=== PATIENT | female | born 1965 | race Hispanic/Latino ===

== ENCOUNTER 2017-06-09 14:06 | Outpatient (CLI) | payer OTHER ==
--- NOTE | 2017-06-09 22:16 | ULT ---
LOWER EXTREMITY ARTERIAL EVALUATION USING DOPPLER WAVEFORM ANALYSIS AND SEGMENTAL LIMB PRESSURES: Cardiovascular risk factors included diabetes mellitus, dyslipidemia. Examination of the right leg reveals a fairly well preserved Doppler waveforms at all levels. Ankle -arm index is 1.03. Toe-brachial index is normal at 0.82. Left lower extremity demonstrates mildly depressed waveforms at the femoral level, but more normaliz ed waveforms at the popliteal and pedal level with an ankle-arm index of 0.73 and a toe-brachial ind ex of 0.69. This study would be consistent with mild to moderate peripheral arterial disease in the left lower e xtremity and could be consistent with a history of claudication. Study is not consistent with ische nuzhat rest pain in either lower extremity.
== END 2017-06-09 14:07 | disposition home or self-care (01) ==
LOC: ULT 14:06
PROVIDERS: ATTEND Physician Assistant
DX: M79.606 Pain in leg, unspecified (principal)
CPT/HCPCS: 93922

== ENCOUNTER 2017-08-04 22:28 | Inpatient (IN) | payer OTHER ==
[2017-08-04 22:58] LABS: #Eosinphils 0.3 thou/uL (0.0-0.7); #Lymphocytes 1.1 thou/uL (1.20-3.40); #Monocytes 0.1 thou/uL (0.11-0.59); #Neutrophils 9.4 thou/uL (1.40-6.50); %Basophils 0.4 % (0.0-1.0); %Eosinophils 2.3 % (0.0-10.0); %Lymphocytes 10.4 % (21.0-51.0); %Monocytes 0.8 % (0.0-10.0); Hematocrit 26.3 % (36.0-47.0); Mean Platelet Volume 8.2 fL (7.4-10.4); Red Blood Cell (RBC) Count 2.71 mill/uL (4.20-5.40); White Blood Cell (WBC) Count 10.9 thou/uL (4.8-10.8)
--- NOTE | 2017-08-04 22:58 | RAD ---
CHEST TWO VIEW 08/04/17 HISTORY: Cough. COMPARISON: Chest one view from January 2017. FINDINGS: New layering left pleural effusion. Underlying left lower lobe opacity or mass cannot be excluded. Th e cardiac silhouette and mediastinal contours are similar. IMPRESSION: Large left layering pleural effusion. Underlying mass or pneumonia cannot be excluded. POS: [facility]
[2017-08-04 23:13] LABS: ALT (SGPT) 18 U/L (8-55); AST (SGOT) 48 U/L (5-34); Alkaline Phosphatase 107 U/L (40-150); Anion Gap 10 mmol/L (10-20); BUN (Urea Nitrogen) 58 mg/dL (9.8-20.1); Bilirubin, Total 0.7 mg/dL (0.2-1.2); Calc. Creatinine Clearance 0 mL/min (70-130); Calcium 8.4 mg/dL (7.8-10.44); Carbon Dioxide 22 mmol/L (22-29); Chloride 102 mmol/L (98-107); Estimated GFR-MDRD 15; Globulin 3.6 g/dL (2.4-3.5); Protein, Total 6.8 g/dL (6.0-8.3)
[2017-08-04 23:18] LABS: Troponin I 0.041 ng/mL (< 0.028)
[2017-08-04 23:30] LABS: Bilirubin Negative (Negative); Blood, Urine Moderate (Negative); Glucose, Urine (Dipstick) 250 mg/dL (Negative); Ketone, Urine Negative (Negative); Nitrite Negative (Negative); Protein, Urine (Dipstick) 300 mg/dL (Neg-Trace)
[2017-08-04 23:33] LABS: Bacteria/HPF None Seen HPF (None Seen); Hyaline Casts/LPF 0-3 HYALINE CAST LPF (0-3 Hyaline); Squamous Epithelial 0-3 HPF (0-3)
[2017-08-05] MEDS ORDERED: Azithromycin 500 MG in Sodium Chloride 0.9% 250 ML 250 ML IVPB SCH (00:30)
[2017-08-05] MEDS ORDERED: Ondansetron HCl/PF 4 MG/2 ML Vial IVP PRN (01:31)
[2017-08-05] MEDS ORDERED: Sodium Chloride 0.9% 1,000 ML IV SCH (01:31)
[2017-08-05] MEDS ORDERED: Acetaminophen 325 MG TAB PO PRN (01:31)
[2017-08-05] MEDS ORDERED: Ondansetron ODT 4 MG TAB SL PRN (01:31)
[2017-08-05 01:34] LABS: Lactic Acid - Sepsis 1.1 mmol/L (0.5-2.2)
[2017-08-05] MEDS ORDERED: Dextrose 5% in Water 1,000 ML IV PRN (01:47)
[2017-08-05] MEDS ORDERED: Dextrose 50% Abboject 50 ML SYRINGE SLOW IVP PRN (01:47)
[2017-08-05] MEDS ORDERED: Sodium Chloride 0.9% 500 ML IV SCH (02:15)
[2017-08-05] MEDS ORDERED: Albuterol Sulfate 1.25 MG/3 ML NEB NEB PRN (02:34)
[2017-08-05 02:43] LABS: Base Excess -5.8 mEq/L (0 (+/- 2.5)); O2 Content (venous) 8.9 VOL% (12.5-17.5); pH (venous) 7.28 (7.35-7.45)
[2017-08-05 02:54] LABS: Phosphorus 3.5 mg/dL (2.3-4.7)
[2017-08-05 02:57] LABS: Troponin I 0.029 ng/mL (< 0.028)
[2017-08-05 03:02] LABS: ALT (SGPT) 17 U/L (8-55); AST (SGOT) 40 U/L (5-34); Alkaline Phosphatase 88 U/L (40-150); Anion Gap 11 mmol/L (10-20); BUN (Urea Nitrogen) 57 mg/dL (9.8-20.1); Bilirubin, Total 0.4 mg/dL (0.2-1.2); Calc. Creatinine Clearance 17 mL/min (70-130); Calcium 7.9 mg/dL (7.8-10.44); Carbon Dioxide 21 mmol/L (22-29); Chloride 105 mmol/L (98-107); Cholesterol 134 mg/dl (< 200 Desired); Estimated GFR-MDRD 16; Globulin 3.1 g/dL (2.4-3.5); LDL Cholesterol, Calculated 85 mg/dL; Protein, Total 5.9 g/dL (6.0-8.3)
[2017-08-05 03:10] LABS: Hematocrit 22.1 % (36.0-47.0); Mean Platelet Volume 7.6 fL (7.4-10.4); Red Blood Cell (RBC) Count 2.29 mill/uL (4.20-5.40)
[2017-08-05 03:29] LABS: Hemoglobin A1c 8.6 % (4.0-6.0)
[2017-08-05 03:56] LABS: Oxyhemoglobin 95.7 % (94.0-97.0); Sodium 133 mmol/L (135-148)
[2017-08-05 03:57] LABS: Mode ROOM AIR
[2017-08-05 05:08] LABS: Troponin I 0.029 ng/mL (< 0.028)
--- NOTE | 2017-08-05 05:14 | HP-2 ---
DATE OF ADMISSION: 08/05/2017 LOCATION: [facility] in [place], [place]. CODE STATUS: FULL. PRIMARY CARE PHYSICIAN: [facility] ATTENDING PHYSICIAN: Dr. Espinoza [place] RESIDENT PHYSICIAN: Dr. Osman Conner HISTORIAN: Patient and patient's daughter. SPECIALIST: Dr. Mika Fernandez, Nephrology. CHIEF COMPLAINT: Cough and shortness of breath, weakness, headache, fatigue, muscle aches, joint ach es. HISTORY OF PRESENT ILLNESS: The patient is a 52-year-old female with a past medical history of coron yari artery disease status post CABG x4, status post stent x4, hypothyroid, stage 3 CKD, anemia, and t ype 2 diabetes and ischemic cardiomyopathy who presented to the ER with the chief complaint of 3-day history of worsening shortness of breath and cough productive for a white mucus. The patient states these symptoms have been going on the last 3 days and progressively worsening. She denies any chest pain, nausea, vomiting, and diaphoresis. Reports decreased p.o. intake, decreased fluid intake over the last 3 days. Denies ill contacts. The patient reports that she has been taking her medication r egularly. The patient denies any dysuria, polyuria, or decrease in urinary frequency. ER COURSE: Patient was given Rocephin, azithromycin and 81 mg of aspirin. PAST MEDICAL HISTORY: 1. Coronary artery disease status post coronary artery bypass graft x4. 2. Hypothyroidism. 3. Chronic kidney disease 3. 4. Anemia. 5. Type 2 diabetes. 6. Ischemic cardiomyopathy. PAST SURGICAL HISTORY: 1. CABG x4. 2. Appendectomy. 3. Right shoulder arthroscopy with rotator cuff repair. ALLERGIES: No known drug allergies. The patient was taken off of Crestor secondary to cramps in the past. MEDICATIONS: 1. Januvia 25 mg daily. 2. Coreg 12.5 mg b.i.d. 3. Aspirin 81 mg daily. 4. Levothyroxine 100 mcg q.a.m. 5. Ferrous sulfate 325 mg per day. FAMILY HISTORY: Paternal diabetes. SOCIAL HISTORY: Nonsmoker, nondrinker, no drugs. REVIEW OF SYSTEMS: GENERAL: Patient complains of appetite change and fatigue. Denies night sweats, fever, and chills. EYES: Denies vision changes or eye pain. ENT: Denied nasal congestion, rhinorrhea, sore throat. RESPIRATORY: The patient complains of cough and shortness of breath. Denies congestion. CARDIOVASCULAR: Denies chest pain, palpitations or edema. GI: Denies nausea, vomiting, constipation. Complains of diarrhea. Denies abdominal pain. GENITOURINARY: Denies dysuria, incontinence, polyuria or decreased urinary frequency. MUSCULOSKELETAL: Complains of arthritis and arthralgias. NEUROLOGIC: Complains of weakness. Denies numbness, tingling or syncopal episodes. PSYCHIATRIC: Denies anxiety, depression. PHYSICAL EXAMINATION: VITAL SIGNS: Blood pressure 133/68, pulse 68, respiratory rate 14, T-max 97.9, pulse ox 100% on room air, current weight 49 kilograms. GENERAL: The patient is alert, oriented, and moderately distressed, well-developed, thin, appropriat stacy interactive. EYES: Pupils equal, round, react to light and accommodation. Extraocular muscles intact. Conjuncti vae within normal limits. ENT: Oropharynx within normal limits. NECK: Supple, without lymphadenopathy. No thyromegaly. CARDIAC: Regular rate and rhythm. No murmurs, rubs or gallops. Radial pulse 2+. Pedal pulse 2+. RESPIRATORY: Normal effort, no retractions. Diminished breath sounds in the left lower lobe. SKIN: Warm and dry. No cyanosis. ABDOMEN: Soft, nontender. Normoactive bowel sounds in all 4 quadrants. No masses, distention, orga nomegaly. EXTREMITIES: No clubbing, cyanosis or edema. MUSCULOSKELETAL: Structure within normal, tone within normal limits. Strength 5/5. NEUROLOGICAL: No focal deficits. Sensation within normal limits. GCS 15. PSYCHIATRIC: Appropriately interactive. LABORATORY DATA: White blood cell 10.9, hemoglobin 8.8, hematocrit 26.3, platelets 124, Sodium 129, potassium 5.4, chloride 102, bicarbonate 22, BUN 58, creatinine 3.29, glucose 414, calcium 8.4, total protein 6.8, albumin 3.2, AST 48, ALT 18, alkaline phosphatase 107, total bilirubin 0.7. Estimated GFR 15. A rapid flu was negative for flu A and B. CK-MB 17.1, troponin 0.041. BNP is 684.9. TSH w as 10.2215. UA done showed specific gravity 1.017, moderate amount of blood, 300 protein, small amou nt of leukocyte esterase, negative nitrites, negative ketones, glucose 250, RBCs 4-6, white blood spike ls too numerous to count, and no bacteria. Chest x-ray showed a large left layering pleural effusion, underlying mass or pneumonia cannot be exc luded. ASSESSMENT AND PLAN: 1. Weakness, concern for possible myocardial infarction. Given the patient's history, we will trend troponins x3. The patient will be admitted to telemetry as a full admit. We will check a magnesium , phosphorus, and TSH has already been done and was elevated. We will check a free T4. The patient will be started on levothyroxine 125 mcg per day. Consider Cardiology consult pending troponins. We will get a morning echocardiogram. Results are pending. 2. Acute on chronic renal failure. BUN 58, creatinine 3.29, estimated GFR 15. The patient's prior creatinine was approximately 1.6-1.8 with a prior GFR around 30. The patient will be given a 500 mL normal saline bolus. We will repeat BMP and consider Nephrology consult if patient is showing any wo rsening of her electrolyte abnormalities. Currently, sodium is 129, potassium 5.4. 3. Anemia, chronic. MCV is 97.1. Check iron studies. The patient will be typed and screened. Tra nsfuse if less than 7. 4. Leukocytosis, currently 10.9. The patient has some leukocytes in her urine as well as sterile py uria. Unlikely urinary tract infection. The patient entirely asymptomatic. We will give a 500 mL b olus. Recheck CBC. The patient was given Rocephin and azithromycin in the ED. Possible lung etiolo gy; however, the patient is afebrile and shows no signs of acute infection otherwise. 5. Hyponatremia. We will give a 500 mL normal saline bolus. Recheck a BMP in the a.m. 6. Hyperkalemia, currently 5.4, not associated with any EKG changes. We will recheck a BNP in the orning after a 500 mL bolus of normal saline. 7. Diabetes mellitus type 2. Glucose currently 414. The patient states she has been taking her med ication regularly and also has not been eating as much over the last 3 days. We will bolus 500 mL no rmal saline. The patient will be started on her reported home dose of Levemir at 2 units at bedtime as well as a mild sliding scale insulin. Accu-Cheks q.a.c. and at bedtime. 8. Hypothyroid, the patient's TSH is 10.2215, we will recheck a free T4. The patient will be starte d on levothyroxine 125 mcg per day. 9. Transaminitis. AST 48. Check CK. Results pending. Consider further workup pending CK results. Repeat CMP. 10. Elevated BNP, currently 684.9. Prior admissions show highest of 1880 with levels chronically be tween 300 to 500. The patient shows no evidence of volume overload. She has known history of ischemic cardiomyopathy and an echocardiogram done on 10/2015 showed an EF o f approximately 10%; however, this was prior to her coronary artery bypass graft surgery. 11. Protein calorie malnutrition, albumin 3.2. Repeat CMP. Consider supplement versus renal rest. 12. Prophylaxis: Pepcid 20 mg IV q.12 hours and SCDs for GI and DVT prophylaxis respectively.
[2017-08-05] MEDS: Levothyroxine Sodium 125 MCG TAB PO SCH (06:03)
[2017-08-05 06:31] LABS: LegU Control Bar Appear? YES (CONTROL BAR); LegionellaU Control Bkground? CLEAR/WHITE (CLR/WHITE); Strp pneuU Control Background? CLEAR/WHITE (CLR/WHITE); Strp pneumo Control Bar Appear YES (CONTROL BAR)
[2017-08-05 07:51] LABS: Hematocrit 24.6 % (36.0-47.0)
[2017-08-05 08:11] LABS: Anion Gap 9 mmol/L (10-20); BUN (Urea Nitrogen) 57 mg/dL (9.8-20.1); Calc. Creatinine Clearance 18 mL/min (70-130); Calcium 8.1 mg/dL (7.8-10.44); Carbon Dioxide 23 mmol/L (22-29); Chloride 106 mmol/L (98-107); Estimated GFR-MDRD 17
[2017-08-05] MEDS ORDERED: Famotidine/PF 20 mg/2ml Vial SLOW IVP SCH (09:00)
[2017-08-05] MEDS ORDERED: Aspirin 325 MG TAB PO SCH (09:00)
[2017-08-05] MEDS: Famotidine/PF 20 mg/2ml Vial SLOW IVP SCH (13:31)
--- NOTE | 2017-08-05 14:28 | ULT ---
BILATERAL RENAL SONOGRAM: Date: 08/05/17 HISTORY: Renal insufficiency. COMPARISON: 01/06/16. FINDINGS: The right kidney is now 9.8 cm in length. Hydronephrosis of the right kidney is similar in appearance to the prior exam. Diffuse cortical thinning is also evident. The left kidney is 9.9 cm in length and has a normal sonographic appearance without evidence of mass, stone, or hydronephrosis. Urinary bladder is unremarkable. Left pleural fluid is incidentally noted. IMPRESSION: 1. Chronic right hydronephrosis, similar in appearance to the exam from 01/06/16. 2. Left pleural effusion. POS: [facility]
[2017-08-05 15:33] LABS: BF Reference Range Comment Note:
[2017-08-05 16:33] LABS: BF Color Yellow
[2017-08-05 17:47] LABS: Number Cells Counted-Fluids 100
[2017-08-05] MEDS: Lovastatin 20 MG TAB PO SCH (18:14)
[2017-08-05] MEDS: PRE FILLED SC SCH ×2 (20:49→20:54)
[2017-08-05] MEDS: INSULIN DETEMIR SC SCH ×2 (20:49→20:54)
[2017-08-05] MEDS ORDERED: Atorvastatin Calcium 40 MG TAB PO SCH (21:00)
--- NOTE | 2017-08-05 21:43 | OP ---
DATE OF SERVICE:: 08/05/2017 SERVICE: Pulmonary Medicine. PROCEDURE: Left-sided pleural drainage with catheter insertion, under ultrasound guidance. CONSENT: Risks and benefits of this procedure were explained to the patient. All questions were ans wered and alternative options explained. STAFF PHYSICIAN: Steve Lovett M.D. MEDICATIONS: 1% without epinephrine, total quantity 6 mL PREOPERATIVE DIAGNOSIS: Pleural effusion. POSTPROCEDURE DIAGNOSIS: Pleural effusion. DESCRIPTION OF PROCEDURE: A timeout was performed by the procedure team and the patient. The patien t was positively identified using name and date of . The procedure site was marked. Vital sign monitoring was accomplished by noninvasive hemodynamic monitoring, pulse oximetry, and telemetry. I n the seated position, the right posterior hemithorax was examined using ultrasound probe. The diaph ragm pleural fluid was easily identified. The skin was prepped and draped in sterile fashion, anesth etized with 1% lidocaine without epinephrine. A finder needle was inserted into the pleural space wi th return of crystal clear yellow fluid. The pleural drainage catheter was inserted in the same loca tion. A total quantity of 800 mL of pleural fluid was withdrawn by syringe pump technique. A sample was sent for analysis. Evacuation was terminated because the patient had a coughing fit and started complaining of discomfort and difficulty breathing. At the end of the procedure, estimated pleural pressures were -20 cm of water, measured by manometry. The intact catheter was withdrawn on exhalati on and a sterile dressing was applied. The patient had stable vitals throughout the entire procedure . ESTIMATED BLOOD LOSS: 2 mL COMPLICATIONS: None.
--- NOTE | 2017-08-05 22:02 | CON ---
NEPHROLOGY CONSULTATION NOTE DATE OF CONSULTATION: 08/05/2017 CONSULTING PHYSICIAN: Dr. Espinoza [place]. REASON FOR CONSULTATION: Acute kidney injury. REASON FOR ADMISSION: Cough and shortness of breath. HISTORY OF PRESENT ILLNESS: A 52-year-old female with history of coronary artery disease, CABG, hypo thyroidism, stage 3 kidney disease, anemia and type 2 diabetes, came to the hospital with the above c omplaints. She was found to have an elevated creatinine. The patient has seen me in the past. No f ever or chills. No nausea or vomiting. No chest pain or palpitations. PAST MEDICAL HISTORY: Positive for coronary artery disease, hypothyroidism, chronic kidney disease, anemia, type 2 diabetes, ischemic cardiomyopathy. PAST SURGICAL HISTORY: CABG, appendectomy and right shoulder surgery. HOME MEDICATIONS: Januvia, Coreg, aspirin, levothyroxine and ferrous sulfate. ALLERGIES: No known drug allergies. SOCIAL HISTORY: No smoking, alcohol or illicit drug abuse. FAMILY HISTORY: Positive for diabetes. REVIEW OF SYSTEMS: The following complete review of systems was negative, unless otherwise mentioned in the HPI or below: Constitutional: Weight loss or gain, ability to conduct usual activities. Skin: Rash, itching. Eyes: Double vision, pain. ENT/Mouth: Nose bleeding, neck stiffness, pain, tenderness. Cardiovascular: Palpitations, dyspnea on exertion, orthopnea. Respiratory: Shortness of breath, wheezing, cough, hemoptysis, fever or night sweats. Gastrointestinal: Poor appetite, abdominal pain, heartburn, nausea, vomiting, constipation, or diarr hea. Genitourinary: Urgency, frequency, dysuria, nocturia. Musculoskeletal: Pain, swelling. Neurologic/Psychiatric: Anxiety, depression. Allergy/Immunologic: Skin rash, bleeding tendency. PHYSICAL EXAMINATION: GENERAL: This is a thin-built female in no apparent distress. VITAL SIGNS: Temperature 97.7, pulse 64, respiratory rate 18 and blood pressure 130/63. HEENT: Atraumatic and normocephalic. Oral mucosa is moist. NECK: Supple. No masses. CARDIOVASCULAR SYSTEM: S1 and S2. Rate and rhythm regular. RESPIRATORY: Clear. GASTROINTESTINAL: Abdomen is soft. MUSCULOSKELETAL: 1+ edema. DERMATOLOGIC: No skin rash. NEUROLOGIC: Alert and awake. PSYCHIATRIC: Mood and affect are normal. LABORATORY FINDINGS: Potassium is 4.9, BUN is 57 and creatinine is 2.9. ASSESSMENT AND PLAN: 1. Acute kidney injury on chronic kidney disease stage 4. Renal function seems to be close to basel ine. The patient is noncompliant, has not followed up as outpatient and seems like she has some prog ression of kidney disease too. 2. Edema, controlled. 3. Hypertension. 4. Anemia, most likely from chronic disease, rule out iron deficiency. Plan is to continue on hydration and avoid nephrotoxins. We will follow. Renally dose all the medic loyd. Thank you for the consult.
--- NOTE | 2017-08-05 22:04 | HP ---
DATE OF ADMISSION: 08/05/2017 CHIEF COMPLAINT: Shortness of breath. HISTORY OF PRESENT ILLNESS: This is a 52-year-old female with a history of chronic kidney disease, c oronary artery disease, status post CABG in earlier this year who presents with 1 day history of coug h, congestion, fatigue, shortness of breath for which she came to the ED. In the ED, she felt like t hese symptoms were progressive not associated with any chest pain, but she did have some fever and ch ills. In the ED, she was found to have a large left layering pleural effusion and decision was made to admit her to the hospital in addition to her worsening renal failure. REVIEW OF SYSTEMS: All other systems are reviewed and otherwise negative. PAST MEDICAL HISTORY: Significant for hypertension, hyperlipidemia, coronary artery disease, diabete s type 2, hypothyroidism, chronic kidney disease stage 3, anemia of chronic disease. PAST SURGICAL HISTORY: 1. CABG 4-vessel. 2. Appendectomy. 3. Right shoulder surgery. ALLERGIES: No known drug allergies. MEDICATIONS: Januvia, Coreg, aspirin, levothyroxine and ferrous sulfate. FAMILY HISTORY: Paternal diabetes. SOCIAL HISTORY: She denies tobacco, ethanol or drug use. PHYSICAL EXAMINATION: VITAL SIGNS: Most recent vitals include temperature 98.2, pulse 66, respirations 18, O2 sat on room air 99%, blood pressure 113/59. GENERAL: No acute distress, she is tired appearing. HEENT: Eyes: Without icterus or injection. Pupils equal, round and reactive to light. Moist mucou s membranes with appropriate dentition and is normal. Nares patent. NECK: Trachea midline, mobile without any thyromegaly. CARDIOVASCULAR: Regular rate and rhythm. No murmurs, gallops or rubs. She does have faint heart so unds. PULMONARY: No increased work of breathing. Clear to auscultation on the left with expiratory wheezi ng, but she is diminished overall on the left side. GASTROINTESTINAL: Bowel sounds positive. Nontender to palpation. No palpable organomegaly. GENITOURINARY: Deferred. MUSCULOSKELETAL: Without any obvious deformity, contracture or joint effusion. NEUROLOGIC: Cranial nerves II-XII intact and symmetric. Motor 5/5 in upper and lower extremities. Sensation in left intact to light touch in upper and lower extremities. SKIN: Without obvious wound or infection, Warm and dry to touch. PSYCHIATRIC: Alert and oriented x3. Appropriate mood and affect for current medical condition. LABORATORY DATA: Include white count 10.9, hemoglobin of 8.8, platelets 124. Blood gas with a pH of 7.37, CO2 of 34.9, O2 of 72.9, sodium 133, potassium 4.9, gap 9, BUN 57, creatinine 2.91, glucose 14 6. Troponin 0.029, urine protein 300, glucose 250, moderate blood, small leukocyte esterase and grea ter than 50 white blood cells. Toxicology, beta hydroxybutyrate 0.33, negative strep and legionella urine antigens. Chest x-ray on my read is adequate inspiratory film that is not rotated with history of previous CABG. No obvious infiltrate. She does have what appears to be an effusion of the left with no blunting on the right. On [id number] ultrasound, she does have decreased LV systolic func tion with no obvious pericardial effusion and she has a large echolucent left-sided pleural effusion that does not appear to have any layering or debris. ASSESSMENT AND PLAN: This 52-year-old female with: 1. Left-sided pleural effusion. We will go ahead and consult Pulmonology and likely order additiona l imaging and consider thoracentesis for diagnostic and therapeutic purposes. 2. Acute on chronic renal disease. We will discuss with Nephrology. Order renal ultrasound and go ahead and order urine studies. 3. Leukocytosis. I feel this is a stress reaction which sounds like she had viral upper respiratory infection symptoms in the last couple of days. We will order a viral panel and she has already shona en ceftriaxone and azithromycin, then at this point pending pulmonary recommendation, we will hold of f on any additional antibiotics. 4. Hyponatremia is normal when corrected for glucose. 5. Diabetes mellitus, sliding scale while in-house, with transition to long-acting if necessary. Go al 140-180. 6. Anemia, stable, trend. 7. Thrombocytopenia. This is new to my knowledge. We will go ahead and order appropriate workup in cluding hepatitis panel for this. 8. Rhabdomyolysis with her creatine kinase of 1275. We will repeat in the morning. She has receive d 500 mL bolus. Await for renal, but gentle hydration will likely be okay for now. 9. Hypothyroidism with a TSH of 10 and a free T4 that is negative. We will go ahead and restart her Synthroid at previous dose where it was reportedly well controlled. 10. Elevated AST, so this is likely related to the elevated CK, but will send hepatitis panel in the morning. 11. Elevated CK-MB. See previous. 12. Elevated troponin likely related to renal failure with no evidence of ischemic changes on ECG, w hich just demonstrated poor R-wave progression and low voltage. 14. DVT prophylaxis with heparin. 15. Gastrointestinal prophylaxis with diet.
[2017-08-06] MEDS: HumaLOG 300 UNITS/3 ML VIAL SC PRN (00:39)
[2017-08-06] MEDS ORDERED: Azithromycin 500 MG in Sodium Chloride 0.9% 250 ML 250 ML IVPB SCH (01:00)
[2017-08-06 01:09] LABS: Potassium, Urine 34.2 mmol/L
[2017-08-06] MEDS: Benzonatate 100 MG CAP PO PRN ×2 (02:49→21:19)
[2017-08-06] MEDS: Levothyroxine Sodium 125 MCG TAB PO SCH (05:25)
[2017-08-06 05:51] LABS: Band 5 % (5-11); Hematocrit 28.5 % (36.0-47.0); Mean Platelet Volume 7.9 fL (7.4-10.4); Neutrophil 61 % (42-75); Red Blood Cell (RBC) Count 2.94 mill/uL (4.20-5.40); White Blood Cell (WBC) Count 7.1 thou/uL (4.8-10.8)
[2017-08-06 05:54] LABS: Anion Gap 11 mmol/L (10-20); BUN (Urea Nitrogen) 52 mg/dL (9.8-20.1); Calc. Creatinine Clearance 20 mL/min (70-130); Calcium 8.7 mg/dL (7.8-10.44); Carbon Dioxide 22 mmol/L (22-29); Chloride 108 mmol/L (98-107); Estimated GFR-MDRD 20
[2017-08-06] MEDS: Ferrous Sulfate 325 MG TAB PO SCH (07:53)
[2017-08-06] MEDS: Clopidogrel Bisulfate 75 MG TAB PO SCH (07:53)
[2017-08-06] MEDS: Famotidine/PF 20 mg/2ml Vial SLOW IVP SCH (07:53)
--- NOTE | 2017-08-06 08:27 | PDOC.FM ---
- Subjective Subjective: Pt seen at bedside in NAD. ESTEBAN overnight, hoewver, pt did have episode of hypoglycemia this AM. Pt notes she feels well and much better than presentation. Pt voices desire to go home. Pt denies CP, SOB, NVD. - Objective MAR Reviewed: Yes Vital Signs & Weight: Vital Signs (12 hours) Temp Pulse Resp BP Pulse Ox 08/06/17 08:00 98.7 F 67 18 97 08/06/17 07:35 98.7 F 67 18 122/58 L 97 08/06/17 04:19 98.4 F 71 18 115/59 L 97 08/06/17 00:11 98.1 F 64 16 113/57 L 98 Weight Admit Weight 49.85 kg Weight 49.487 kg I&O: 08/05/17 08/06/17 08/07/17 06:59 06:59 06:59 Intake Total 700 480 Output Total 800 Balance 700 -320 Result Diagrams: 08/06/17 05:07 08/06/17 05:07 <Jadon Alvarado - Last Filed: 08/06/17 10:59> - Objective Vital Signs & Weight: Vital Signs (12 hours) Temp Pulse Pulse Pulse Resp BP BP 08/06/17 11:35 98.2 F 60 18 08/06/17 10:55 64 75 102/56 L 117/56 L 08/06/17 08:00 98.7 F 67 18 08/06/17 07:35 98.7 F 67 18 08/06/17 04:19 98.4 F 71 18 BP Pulse Ox 08/06/17 11:35 113/60 100 08/06/17 10:55 08/06/17 08:00 97 08/06/17 07:35 122/58 L 97 08/06/17 04:19 115/59 L 97 Weight Admit Weight 49.85 kg Weight 49.487 kg I&O: 08/05/17 08/06/17 08/07/17 06:59 06:59 06:59 Intake Total 700 480 Output Total 800 Balance 700 -320 Result Diagrams: 08/06/17 05:07 08/06/17 05:07 <Espinoza Cuba - Last Filed: 08/06/17 12:25> Phys Exam - Physical Examination Constitutional: NAD thin, weak appearing HEENT: oral pharynx no lesions poor dentition poor inspiratory effort but good air movement, minimal crackes LLL Cardiovascular: RRR Gastrointestinal: soft, non-tender Musculoskeletal: pulses present Neurological: non-focal, moves all 4 limbs generalized weakness Psychiatric: A&O x 3 Skin: cap refill <2 seconds <Jadon Alvarado - Last Filed: 08/06/17 10:59> Dx/Plan (1) Pleural effusion Code(s): J90 - PLEURAL EFFUSION, NOT ELSEWHERE CLASSIFIED Status: Acute Plan: -pt presented with cough and SOB and found to have moderate left pleural effusion -likely 2/2 to sCHF exacerbation, however, unilateral and pt has hx of bilateral effusions -pt tolerated thoracentesis well on 08/05 -fluid appeared clear yellow -initial fluid studies show protein ratio of 0.57 favoring exudative process, however, LDH ratios favor transudate -will await cytology -pulmonology recommendations greatly appreciated -continue to monitor (2) Systolic CHF, acute Code(s): I50.21 - ACUTE SYSTOLIC (CONGESTIVE) HEART FAILURE Status: Acute Plan: -pt has a hx of severe ischemic cardiomyopathy with a previous EF of ~10% -TTE reveals EF 25-30% and increased pulmonary artery pressure -pt subjectively feels better -continue to monitor strict I/Os (3) CKD (chronic kidney disease) stage 4, GFR 15-29 ml/min Code(s): N18.4 - CHRONIC KIDNEY DISEASE, STAGE 4 (SEVERE) Status: Acute Plan: -pt presented with ADRIENNE on CKD4 -improved today with Cr at 2.51, baseline just below 2 -continue to monitor -nephrology recommendations greatly appreciated (4) DM2 (diabetes mellitus, type 2) Status: Chronic QualifierTitle: Diabetes mellitus complication status: with kidney complications Diabetes mellitus complication detail: with chronic kidney disease Diabetes mellitus nurse monitoring insulin use: with nurse monitoring use Chronic kidney disease stage: stage 3 (moderate) Qualified Code(s): E11.22 - Type 2 diabetes mellitus with diabetic chronic kidney disease; N18.3 - Chronic kidney disease, stage 3 (moderate); N18.3 - Chronic kidney disease, stage 3 (moderate) ; Z79.4 - ancillary specialist (current) use of insulin; Z79.4 - long-term (current) use of insulin; Z79.4 - ancillary specialist (current) use of insulin; Z79.4 - ancillary specialist ( current) use of insulin Plan: -hx T2DM with nurse monitoring insulin use -pt generally noncompliant -pt has had episodes of hypoglycemia that resolve with oral intake. poss 2/2 poor intake prior to arrival -continue to monitor closely -hold insulin at this time (5) CAD (coronary artery disease), [place] coronary artery Code(s): I25.10 - ATHSCL HEART DISEASE OF [place] CORONARY ARTERY W/O ANG PCTRS Status: Chronic QualifierTitle: [place] vs. transplanted heart: [place] heart Associated angina: with stable angina Qualified Code(s): I25.118 - Atherosclerotic heart disease of [place] coronary artery with other forms of angina pectoris Plan: -hx CAD s/p 3vCABG (6) Primary hypothyroidism Code(s): E03.9 - HYPOTHYROIDISM, UNSPECIFIED Status: Acute Plan: -increased levothyroxine on admission due to increased TSH and essentially negative free T4 (7) HTN (hypertension) Code(s): I10 - ESSENTIAL (PRIMARY) HYPERTENSION Status: Chronic QualifierTitle: Hypertension type: unspecified Qualified Code(s): I10 - Essential (primary) hypertension Plan: -pt has been normo to borderline hypoTN since admission -continue to monitor and hold antiHTN medications at this time (8) HLD (hyperlipidemia) Code(s): E78.5 - HYPERLIPIDEMIA, UNSPECIFIED Status: Chronic QualifierTitle: Hyperlipidemia type: unspecified Qualified Code(s): E78.5 - Hyperlipidemia, unspecified Plan: -continue lovastatin (9) Noncompliance with medication regimen Code(s): Z91.14 - PATIENT'S OTHER NONCOMPLIANCE WITH MEDICATION REGIMEN Status : Chronic - Plan Plan: dispo: Pt subjectively improved, however, still very weak and overall ill appearing. Specialist recommendations greatly appreciated. Will focus on encouraging ambulation with PT today. Continue to monitor closely. <Jadon Alvarado - Last Filed: 08/06/17 10:59> Attending Addendum - Attending Addendum I personally evaluated the patient and discussed the management with Dr. Alvarado. I agree with and repeated the History, Examination, Assessment and Plan documented above with any addition or exceptions noted below. Marked improvement today. Creatinine improving. Suspect uncontrolled hypothyroidism contributing. Await results of thora cx. Appreciate pulmonology 's input. Repeat CXR. Repeat CK. Unsure etiology of thrombocytopenia, but improving with no recent heparin exposure. SCDs and amulation for DVT ppx. Will start pharm ppx likely tomorrow. If continued improvement consider discharge tomorrow. <Espinoza [place] - Last Filed: 08/06/17 12:25>
[2017-08-06] MEDS ORDERED: cefTRIAXone\\ROCEPHIN 1 GM in Sodium Chloride 0.9% 100 ML IVPB SCH (15:30)
[2017-08-06] MEDS: Lovastatin 20 MG TAB PO SCH (15:57)
--- NOTE | 2017-08-06 16:46 | PRG ---
DATE OF SERVICE: 08/06/2017 SERVICE: Pulmonary Medicine. INTERVAL HISTORY: The patient is doing really well from a respiratory standpoint. Denies any curren t fevers, chills, nausea, vomiting or diarrhea. Breathing is much improved. Her discomfort in her b ack is much improved. Otherwise, she is returning to her usual state of health. She walked with [employer] sical therapy today. She did not require any oxygen, had no significant desaturation events. PHYSICAL EXAMINATION: VITAL SIGNS: Afebrile, pulse 67, blood pressure 132/70, respirations 18, saturation 96% on room air. GENERAL: Patient is awake, alert, no apparent distress. LUNGS: Excellent air entry bilaterally. There is no prolonged expiratory phase. Dependent crackles are much improved. HEART: Normal rate, regular. ABDOMEN: Soft, nontender, nondistended. Bowel sounds positive. MUSCULOSKELETAL: No cyanosis or clubbing. There is trace pitting in the bilateral lower extremities , but has also improved. GENITOURINARY: No Ruiz. NEUROLOGIC: Grossly nonfocal. LABORATORY DATA: WBC 7.1, hemoglobin 9.6, platelets 137,000 and improving. Glucose ranges from 38 u p to 221. Pleural fluid pH is normal. LDH is minimally elevated by one of the Light's criteria only . Total protein is 3.4. Neutrophil count is 43%, lymphocyte count 39%. Strep and legionella urinar y antigens are unremarkable. Hep B and C serologies are negative. Urine culture is growing gram neg ative josy. Body fluid cultures negative to date. Blood culture x2, influenza is unremarkable. ASSESSMENT: 1. Acute on chronic systolic heart failure. 2. Pleural effusion on the left, likely representing a pseudoexudate. 3. Acute kidney injury, stage 3. 4. Generalized weakness. PLAN: The characteristics of the fluid on the thoracentesis were likely [place] representative of a pseudoex udate. Again, the fluid that pulled off was absolutely crystal clear. It is weakly positive on 2 ou t of the 3 Light's criteria. That being said, my suspicion is that this is still escrow representative of a transudate. That being said, she has a neutrophil cell type. A parapneumonic pleural effusion nida ot be entirely excluded. Either way, it would be uncomplicated. No antibiotic coverage would be req uired a different than typical community-acquired pneumonia coverage. Limit antibiotics directed at lung pathology to 5 to 7 days. She can follow up in the outpatient setting in 4-6 weeks with a precl inic chest x-ray. If the effusion persists, additional things may be considered. She understands ho w important it is to maintain euvolemia in the outpatient setting. She has no further inpatient requ irements for Pulmonary Critical Care opinion. Please call with additional questions or concerns.
[2017-08-06 16:52] VITALS: BMI 18.7
[2017-08-06] MEDS: PRE FILLED SC SCH (19:20)
[2017-08-06] MEDS: INSULIN DETEMIR SC SCH (19:20)
[2017-08-06] MEDS ORDERED: cefTRIAXone\\ROCEPHIN 1 GM in Syringe 10 ML IVPB SCH (21:00)
--- NOTE | 2017-08-06 23:55 | PRG ---
DATE OF SERVICE: 08/06/2017 SUBJECTIVE: Patient was seen and examined at bedside and overnight events noted. Patient denies any shortness of breath or chest pain or palpitation. No history of nausea or vomiting or diarrhea or f ever or chills or cramps. OBJECTIVE: GENERAL: This is a thin built female in no apparent distress. VITAL SIGNS: Temperature 98.9, pulse 62, respiratory rate 16, blood pressure 116/56. HEENT: Atraumatic, normocephalic. Oral mucosa is moist. NECK: Supple. CARDIOVASCULAR: S1 and S2 heard. Rate and rhythm regular. RESPIRATORY: Clear to auscultation. GASTROINTESTINAL: Abdomen is soft. MUSCULOSKELETAL: No tenderness, No edema. DERMATOLOGIC: No skin rash. NEUROLOGIC: Alert and awake and oriented x3. No focal neurologic deficits. Moving all the extremit ies. PSYCHIATRIC: Mood and affect normal. LABORATORY DATA: Potassium is 3.9, BUN is 52, creatinine 2.5. ASSESSMENT AND PLAN: 1. Acute kidney injury on chronic kidney disease stage 4. Renal function continues to get better. 2. Edema . 3. Anemia. 4. Renal function continues to get better. Avoid nephrotoxins. We will follow.
[2017-08-06] MEDS ORDERED: cefTRIAXone\\ROCEPHIN 1 GM, Syringe 0.4 ML in Sterile Water 9.6 ML SLOW IVP SCH (23:59)
[2017-08-07] MEDS: Levothyroxine Sodium 125 MCG TAB PO SCH (05:04)
[2017-08-07 05:42] LABS: Anion Gap 10 mmol/L (10-20); BUN (Urea Nitrogen) 45 mg/dL (9.8-20.1); CK (CPK) 747 U/L (29-168); Calc. Creatinine Clearance 0 mL/min (70-130); Calcium 8.2 mg/dL (7.8-10.44); Carbon Dioxide 23 mmol/L (22-29); Chloride 105 mmol/L (98-107); Estimated GFR-MDRD 22
[2017-08-07 06:09] LABS: Band 3 % (5-11); Mean Platelet Volume 7.7 fL (7.4-10.4); Neutrophil 68 % (42-75); Red Blood Cell (RBC) Count 2.68 mill/uL (4.20-5.40); White Blood Cell (WBC) Count 4.3 thou/uL (4.8-10.8)
--- NOTE | 2017-08-07 06:40 | PDOC.FM ---
- Subjective Subjective: Patient is doing well this morning. States that her breathing has improved significantly. She states that she is ready to go home. She has had no acute events overnight. - Objective MAR Reviewed: Yes Vital Signs & Weight: Vital Signs (12 hours) Temp Pulse Resp BP Pulse Ox 08/07/17 04:00 98.3 F 64 14 117/57 L 98 08/06/17 23:32 98.5 F 69 12 126/62 97 08/06/17 21:22 98.9 F 62 16 99 08/06/17 19:45 98.9 F 62 16 116/56 L 99 Weight Admit Weight 49.85 kg Weight 106.7 g I&O: 08/05/17 08/06/17 08/07/17 06:59 06:59 06:59 Intake Total 700 480 Output Total 800 Balance 700 -320 Result Diagrams: 08/07/17 05:04 08/07/17 05:04 Phys Exam - Physical Examination Constitutional: NAD HEENT: PERRLA, moist MMs, sclera anicteric Neck: no JVD, supple, full ROM Respiratory: no wheezing, no rales, no rhonchi, clear to auscultation bilateral Cardiovascular: RRR, no significant murmur, no rub Gastrointestinal: soft, non-tender, no distention, positive bowel sounds Musculoskeletal: no edema, pulses present Neurological: non-focal, normal sensation, moves all 4 limbs Psychiatric: normal affect, A&O x 3 Skin: normal turgor, cap refill <2 seconds Dx/Plan (1) Pleural effusion Code(s): J90 - PLEURAL EFFUSION, NOT ELSEWHERE CLASSIFIED Status: Acute Plan: Presented with cough and dyspnea, found to have moderate L pleural effusion -likely secondary to sCHF exacerbation, pt has hx of b/l effusions -s/p thoracentesis on 08/05 -fluid had transudative and exudative characteristics -will continue to follow pulmonary recommendations -patient has been cleared from a pulmonary standpoint -will likely discharge today (2) Systolic CHF, acute Code(s): I50.21 - ACUTE SYSTOLIC (CONGESTIVE) HEART FAILURE Status: Acute Plan: MELIDA reveals EF 25-30% and increased pulmonary artery pressure -monitoring I/Os -fluid restriction -likely 2/2 to medication noncompliance (3) CKD (chronic kidney disease) stage 4, GFR 15-29 ml/min Code(s): N18.4 - CHRONIC KIDNEY DISEASE, STAGE 4 (SEVERE) Status: Acute Plan: Patient presented with ADRIENNE on CKD stage 4 -Cr has downtrended since admission, today it is 2.36, down from 2.51 -nephrology has been consulted, will follow recs (4) DM2 (diabetes mellitus, type 2) Status: Chronic Qualifiers: Diabetes mellitus complication status: with kidney complications Diabetes mellitus complication detail: with chronic kidney disease Diabetes mellitus shelter insulin use: with termite technician use Chronic kidney disease stage: stage 3 (moderate) Qualified Code(s): E11.22 - Type 2 diabetes mellitus with diabetic chronic kidney disease; N18.3 - Chronic kidney disease, stage 3 ( moderate); N18.3 - Chronic kidney disease, stage 3 (moderate); Z79.4 - superintendent container terminal (current) use of insulin; Z79.4 - superintendent container terminal (current) use of insulin; Z79.4 - [facility] (current) use of insulin; Z79.4 - superintendent container terminal (current) use of insulin Plan: Pt has had fluctuating blood sugars 2 U of insulin drops pt to 30-70s. -poss due to poor intake prior to insulin -holding insulin at this time -will attempt to find stable regimen (5) CAD (coronary artery disease), [place] coronary artery Code(s): I25.10 - ATHSCL HEART DISEASE OF [place] CORONARY ARTERY W/O ANG PCTRS Status: Chronic Qualifiers: [place] vs. transplanted heart: [place] heart Associated angina: with stable angina Qualified Code(s): I25.118 - Atherosclerotic heart disease of [place] coronary artery with other forms of angina pectoris Plan: hx of CAD s/p 3X CABG (6) Primary hypothyroidism Code(s): E03.9 - HYPOTHYROIDISM, UNSPECIFIED Status: Acute Plan: Increased levothyroxine on admission due to increased TSH and neg free T4 -will need to be followed up as OP (7) HLD (hyperlipidemia) Code(s): E78.5 - HYPERLIPIDEMIA, UNSPECIFIED Status: Chronic Qualifiers: Hyperlipidemia type: unspecified Qualified Code(s): E78.5 - Hyperlipidemia , unspecified Plan: Cont lovastatin (8) HTN (hypertension) Code(s): I10 - ESSENTIAL (PRIMARY) HYPERTENSION Status: Chronic Qualifiers: Hypertension type: unspecified Qualified Code(s): I10 - Essential (primary ) hypertension Plan: BP meds are held at this time and patient has been normotensive, will continue to monitor (9) Noncompliance with medication regimen Code(s): Z91.14 - PATIENT'S OTHER NONCOMPLIANCE WITH MEDICATION REGIMEN Status : Chronic
[2017-08-07] MEDS: Ferrous Sulfate 325 MG TAB PO SCH (08:28)
[2017-08-07] MEDS: Famotidine/PF 20 mg/2ml Vial SLOW IVP SCH (08:28)
[2017-08-07] MEDS: Clopidogrel Bisulfate 75 MG TAB PO SCH (08:28)
[2017-08-07] MEDS: HumaLOG 300 UNITS/3 ML VIAL SC PRN (11:38)
[2017-08-07 11:50] VITALS: TEMP 97.8
[2017-08-07 13:30] VITALS: BP 134/64
--- NOTE | 2017-08-07 14:15 | PRG ---
DATE OF SERVICE: 08/07/2017 SUBJECTIVE: Patient was seen and examined at bedside and overnight events noted. Patient denies any shortness of breath or chest pain or palpitation. No history of nausea or vomiting or diarrhea or f ever or chills or cramps. OBJECTIVE: GENERAL: This is a thin built female in no apparent distress. VITAL SIGNS: Temperature 97.8, pulse 59, respiratory 16, blood pressure 123/58. HEENT: Atraumatic, normocephalic, oral mucosa is moist. NECK: Supple. CARDIOVASCULAR: S1, S2 heard, rate and rhythm regular. RESPIRATORY: Clear to auscultation. GASTROINTESTINAL: Abdomen is soft. MUSCULOSKELETAL: No tenderness, no edema. DERMATOLOGIC: No skin rash. NEUROLOGIC: Alert and awake and oriented X3, no focal neurologic deficits. Moving all the extremitie s. PSYCHIATRIC: Mood and affect normal. LABORATORY DATA: Potassium is 5.1, BUN is 45, creatinine is 2.3. ASSESSMENT AND PLAN: 1. Acute kidney injury on chronic kidney disease stage 3 to 4. Renal function continues to get bett er. 2. Edema, stable. 3. Anemia. 4. Hypertension, stable. 5. Renal function is stable. We will follow. Avoid nephrotoxins.
--- NOTE | 2017-08-07 14:21 | ADD-PRG ---
DATE OF SERVICE: 08/07/2017 ADDENDUM This is an addendum to the note of Dr. Arya Arreola. Ms. Asher Osorio this morning is awake, alert, in no distress. She is not short of breath. Roselia araujo was admitted with weakness, shortness of breath and cough and a small left pleural effusion likely secondary to her heart failure. In the event, she is much improved clinically and will be discharged today for followup soon with her PCP.
[2017-08-07 18:08] LABS: Fungus Smear Status Final report (.)
--- NOTE | 2017-08-08 17:25 | DIS-2 ---
DATE OF ADMISSION: 08/05/2017 DATE OF DISCHARGE: 08/07/2017 RESIDENT: Arya Arreola M.D. ADMITTING ATTENDING: Espinoza Cuba M.D. DISCHARGE ATTENDING: Gorge Ervin M.D. CONSULTATIONS: 1. Nephrology, Dr. Way. 2. Pulmonology, Dr. Lovett. PROCEDURES: 1. Chest x-ray. Impression: Large left layering pulmonary effusion. 2. Echocardiogram, ejection fraction visually estimated at 25%-30%. 3. Renal ultrasound. Impression: Chronic right hydronephrosis, similar appearance to the exam from 01/06/2016 and left pleural effusion. PRIMARY DIAGNOSIS: Pleural effusion. SECONDARY DIAGNOSES: 1. Acute systolic congestive heart failure. 2. Acute on chronic kidney disease, stage 4. 3. Coronary artery disease. 4. Type 2 diabetes mellitus. 5. Primary hypothyroidism. 6. Hyperlipidemia. 7. Hypertension. 8. Noncompliance with medication regimen. DISCHARGE MEDICATIONS: 1. Lovastatin 10 mg p.o. q.p.m. with meals. 2. Aspirin 81 mg p.o. daily. 3. Levemir 2 units subcutaneously b.i.d. 4. Tramadol 50 mg p.o. b.i.d. p.r.n. 5. Plavix 75 mg p.o. daily. 6. Carvedilol 12.5 mg p.o. b.i.d. 7. Ferrous sulfate 325 mg p.o. daily. 8. Januvia 25 mg p.o. daily. 9. Cefdinir 300 mg p.o. daily. 10. Levothyroxine 125 mcg p.o. daily. DISCONTINUED MEDICATIONS: Rocephin 1 gram, Zithromax 500 mg, Zofran 4 mg IV push. HISTORY OF PRESENT ILLNESS AND HOSPITAL COURSE: Raquel Osorio is a 52-year-old fema le with past medical history of coronary artery disease, status post CABG x4, status post 4-vessel st ent, hypothyroidism, chronic kidney disease stage 4, anemia, type 2 diabetes, and ischemic cardiomyop athy, who presented to the ER with a chief complaint of 3-day history of worsening shortness of breat h and productive cough with white mucus. The patient states that these symptoms have been going on f or the last 3 days and progressively worsening. She denies any chest pain, nausea, vomiting, or diap horesis. Reports decreased p.o. intake and fluid intake over the last 3 days. States that she has b een taking her medications regularly. In the ER, she received Rocephin and azithromycin. She was ad mitted. Cardiac enzymes were trended and were negative x3. Dr. Lovett with Pulmonology and Dr. Joey lehman were consulted. Dr. Lovett performed a left pleural drainage and withdrew 800 mg of pleural fl uid. Studies were done on the fluid, which revealed both transudative and exudative components. The patient's symptoms were much improved after the thoracentesis. Pleural effusion was thought to be l ikely secondary to heart failure and medication noncompliance, as the patient has had a history of bi lateral pleural effusions in the past. The patient was cleared for discharge on 08/07/2017 by Pulmon ology and Nephrology. Dr. Lovett with Pulmonology recommended a followup chest x-ray 4-6 weeks afte r discharge. It was also recommended that the patient be more compliant with her medications at home , to obtain better control of her congestive heart failure. She had an acute kidney injury upon pres entation to the ER. That resolved throughout the admission. On 08/07/2017, [facility] Stated her symptoms have improved significantly and that she was ready for home. DISPOSITION: Guarded. DISCHARGE INSTRUCTIONS: 1. Location: Home. 2. Diet: Heart healthy and diabetic diet. 3. Activity: As tolerated. 4. Followup: With primary care physician within 1-2 weeks and with pulmonary doctor for repeat ches t x-ray in 4-6 weeks.
== END 2017-08-07 13:27 | disposition home or self-care (01) | DRG 291 ==
LOC: ERS 22:28 → OBSVTOIN 08-05 00:08 → 2SE 08-05 00:08
PROVIDERS: ADMIT Student in an Organized Health Care Education/Training Program; ATTEND Student in an Organized Health Care Education/Training Program
PROC: 0W9B3ZZ Drainage of Left Pleural Cavity, Percutaneous Approach (ICD-10-PCS; principal; 2017-08-05)
DX: I13.0 Hypertensive heart and chronic kidney disease with heart failure and stage 1 through stage 4 chronic kidney disease, or unspecified chronic kidney disease (principal); I50.21 Acute systolic (congestive) heart failure; J91.8 Pleural effusion in other conditions classified elsewhere; N18.4 Chronic kidney disease, stage 4 (severe); D69.6 Thrombocytopenia, unspecified; M62.82 Rhabdomyolysis; N17.9 Acute kidney failure, unspecified; E46 Unspecified protein-calorie malnutrition; E86.0 Dehydration; N13.39 Other hydronephrosis; E87.1 Hypo-osmolality and hyponatremia; Z68.1 Body mass index [BMI] 19.9 or less, adult; E11.22 Type 2 diabetes mellitus with diabetic chronic kidney disease; Z79.4 Long term (current) use of insulin; E78.5 Hyperlipidemia, unspecified; I25.10 Atherosclerotic heart disease of native coronary artery without angina pectoris; Z91.14 Patient's other noncompliance with medication regimen; Z79.02 Long term (current) use of antithrombotics/antiplatelets; Z95.1 Presence of aortocoronary bypass graft; E03.9 Hypothyroidism, unspecified; I25.5 Ischemic cardiomyopathy; Z95.5 Presence of coronary angioplasty implant and graft; E87.5 Hyperkalemia; R74.0 Nonspecific elevation of levels of transaminase and lactic acid dehydrogenase [LDH]; D63.8 Anemia in other chronic diseases classified elsewhere; E11.65 Type 2 diabetes mellitus with hyperglycemia
CPT/HCPCS: 32554; 36415; 36416; 71020; 76770; 80048; 80053; 80061; 81003; 81015; 82010; 82436; 82533; 82550; 82553; 82570; 82728; 82805; 82945; 83036; 83540; 83550; 83605; 83615; 83690; 83735; 83880; 83986; 84100; 84133; 84157; 84300; 84439; 84443; 84484; 85007; 85025; 85027; 85060; 86704; 86706; 86708; 86803; 86850; 86900; 86901; 87040; 87070; 87077; 87086; 87116; 87186; 87205; 87206; 87340; 87633; 87899; 88112; 88305; 89051; 93005; 93306; 93798; 96365; 96375; A4216; G8978-GP-CH; G8979-GP-CH; G8980-GP-CH; J0456; J0696; J1815; J7050; J7620; S0028

== ENCOUNTER 2017-12-21 11:59 | Inpatient (IN) | payer OTHER ==
[2017-12-21 13:02] LABS: #Eosinphils 0.2 thou/uL (0.0-0.7); #Monocytes 0.2 thou/uL (0.11-0.59); #Neutrophils 2.1 thou/uL (1.40-6.50); %Basophils 0.9 % (0.0-1.0); %Eosinophils 6.8 % (0.0-10.0); %Lymphocytes 27.1 % (21.0-51.0); %Neutrophils 60.2 % (42.0-75.0); Hemoglobin 7.6 g/dL (12.0-16.0); Mean Corpuscular HGB CONC 34.2 g/dL (32.0-36.0); Mean Corpuscular Hemoglobin 31.8 pg (27.0-31.0); Mean Platelet Volume 6.5 fL (7.4-10.4); Platelet Count 166 thou/uL (130-400); RBC Distribution Width 13.5 % (11.5-14.5); Red Blood Cell (RBC) Count 2.39 mill/uL (4.20-5.40); White Blood Cell (WBC) Count 3.5 thou/uL (4.8-10.8)
[2017-12-21 13:17] LABS: ALT (SGPT) 13 U/L (8-55); AST (SGOT) 52 U/L (5-34); Alkaline Phosphatase 86 U/L (40-150); Anion Gap 12 mmol/L (10-20); BUN (Urea Nitrogen) 40 mg/dL (9.8-20.1); Bilirubin, Total 0.6 mg/dL (0.2-1.2); Calc. Creatinine Clearance 0 mL/min (70-130); Calcium 8.5 mg/dL (7.8-10.44); Carbon Dioxide 20 mmol/L (22-29); Chloride 103 mmol/L (98-107); Estimated GFR-MDRD 16; Globulin 3.7 g/dL (2.4-3.5); Glucose 89 mg/dL (70-105); Potassium 4.9 mmol/L (3.5-5.1); Protein, Total 6.7 g/dL (6.0-8.3); Sodium 130 mmol/L (136-145)
[2017-12-21] MEDS ORDERED: Ondansetron ODT 4 MG TAB ONE (14:45)
[2017-12-21 14:54] LABS: Bilirubin Small (Negative); Blood, Urine Small (Negative); Glucose, Urine (Dipstick) Negative (Negative); Leukocyte Negative (Negative); Nitrite Negative (Negative); Protein, Urine (Dipstick) > or equal to 300 mg/dL (Neg-Trace); Specific Gravity, Urine 1.025 (1.005-1.030); Urobilinogen 0.2 mg/dL (0.2-1.0)
[2017-12-21 14:56] LABS: Clarity CLEAR (Clear)
[2017-12-21 14:57] LABS: Bacteria/HPF 1+ HPF (None Seen); RBC/HPF 0-3 HPF (0-3); Squamous Epithelial 0-3 HPF (0-3); WBC/HPF 0-3 HPF (0-3)
[2017-12-21 14:58] LABS: Hyaline Casts/LPF NONE SEEN LPF (0-3 Hyaline)
--- NOTE | 2017-12-21 16:06 | RAD ---
PORTABLE AP CHEST RADIOGRAPH: Date: 12-21-17 History: Left pleural effusion. Diarrhea for three days. Comparison: 08-04-17 FINDINGS: Post-surgical changes related to CABG are again noted. Again noted is an opacity at the left lung bas e likely related to a moderately large left pleural effusion with associated atelectasis. The right l gus remains clear. Pulmonary vasculature is within normal limits. Left cardiac border is obscured. Th ere has been no interval change from prior study. IMPRESSION: Stable large left pleural effusion and atelectasis. POS: JANETH
[2017-12-21] MEDS ORDERED: Acetaminophen 325 MG TAB PO PRN (18:12)
[2017-12-21] MEDS ORDERED: Dextrose 5% in Water 1,000 ML IV PRN (18:12)
[2017-12-21] MEDS ORDERED: Sodium Chloride 0.9% 1,000 ML IV SCH (18:12)
[2017-12-21] MEDS ORDERED: Ondansetron HCl/PF 4 MG/2 ML Vial IVP PRN (18:12)
--- NOTE | 2017-12-21 18:41 | PDOC.FPRHP ---
- History of Present Illness Chief Complaint: N/V/D History of Present Illness: 52 year old female with PMH of DM type II, CKD stage 3, CAD s/p CABG, CHF with EF 20-25%, and hypothyroidism that presents with a three day history of N/V/D. Patient states that since that time she has been very fatigued and has had dizziness upon standing. She has approximately 5 episodes of watery, non-bloody diarrhea a day. She has been unable to tolerate PO. Patient states her emesis has been NBNB. She denies chest pain or shortness of breath. Patient does endorse abdominal pain, worse in left lower quadrant. Additionally, patient states that she has had some lower extremity edema. ED Course: Patient given 1L of NS in ED. - Allergies/Adverse Reactions Allergies Allergy/AdvReac Type Severity Reaction Status Date / Time No Known Allergies Allergy Verified 12/21/17 22:34 - Home Medications Medication Instructions Recorded Confirmed Type Aspirin [Nata Chewable Aspirin] 81 mg PO DAILY 10/16/16 12/21/17 History Carvedilol [Coreg] 12.5 mg PO BID 08/05/17 12/21/17 History Insulin Detemir 100 UNITS/ML 2 unit SC BID 12/21/17 12/21/17 History [Levemir] Levothyroxine [Synthroid] 25 mcg PO QAM 12/21/17 12/21/17 History Multivitamin [Multivitamins] 1 cap PO DAILY 12/21/17 12/21/17 History - History PMHx: CAD s/p CABG, DM type II, CKD stage III, Hypothyroidism, Systolic CHF with EF 25-30%, Chronic normocytic anemia PSHx: Colonoscopy 3 years ago nml, appendectomy, CABG x4 (10/2016), Right shoulder surgery, Left thoracentesis (07/2017) FHx: FH of DM type II Social: Patient denies tobacco, alcohol, or drug use - Review of Systems General: reports: weight/appetite/sleep changes (decreased appetite), fatigue. denies: fever/chills, night sweats Eyes: denies: vision changes ENT: denies: nasal congestion, rhinorrhea Respiratory: denies: cough, congestion, shortness of breath Cardiovascular: reports: edema. denies: chest pain, palpitation Gastrointestinal: reports: nausea, vomiting, diarrhea (watery stools, 5x/day), abdominal pain Genitourinary: denies: dysuria, polyuria Skin: denies: rashes, jaundice Musculoskeletal: denies: pain, stiffness Neurological: denies: numbness, syncope, weakness Psychological: denies: anxiety, depression - Vital signs BP: [105/73] HR: [84] RR: [18] Tmax: [97.9] Pox: [98]% on [RA] Wt: [48.35 kg] - Physical Exam Constitutional: NAD, awake, alert and oriented -Constitutional: cachectic HEENT: normocephalic and atraumatic, EOMI, no scleral icterus -HEENT: Dry mucous membranes, Pale conjunctiva Neck: supple Heart: RRR, no murmurs/rubs/gallops Lungs: CTAB, no respiratory distress, no wheezing Abdomen: soft -Abdomen: Diffuse abdominal tenderness, worse in LLQ. Neurological: no focal deficit, CN II-XII intact Skin: no rash/lesions -Skin: Poor turgor Heme/Lymphatic: no unusual bruising or bleeding Psychiatric: normal mood and affect FMR H&P: Results - Labs Result Diagrams: 12/22/17 04:12 12/22/17 04:12 Lab results: WBC 3.5 thou/uL (4.8-10.8) L 12/21/17 12:45 Hgb 7.6 g/dL (12.0-16.0) L 12/21/17 12:45 Hct 22.2 % (36.0-47.0) L 12/21/17 12:45 MCV 93.0 fl (81.0-99.0) 12/21/17 12:45 Plt Count 166 thou/uL (130-400) 12/21/17 12:45 Neutrophils % 60.2 % (42.0-75.0) 12/21/17 12:45 Sodium 130 mmol/L (136-145) L 12/21/17 12:45 Potassium 4.9 mmol/L (3.5-5.1) 12/21/17 12:45 Chloride 103 mmol/L (98-107) 12/21/17 12:45 Carbon Dioxide 20 mmol/L (22-29) L 12/21/17 12:45 BUN 40 mg/dL (9.8-20.1) H 12/21/17 12:45 Creatinine 2.99 mg/dL (0.6-1.1) H 12/21/17 12:45 Glucose 89 mg/dL (70-105) 12/21/17 12:45 Calcium 8.5 mg/dL (7.8-10.44) 12/21/17 12:45 Total Bilirubin 0.6 mg/dL (0.2-1.2) 12/21/17 12:45 AST 52 U/L (5-34) H 12/21/17 12:45 ALT 13 U/L (8-55) 12/21/17 12:45 Alkaline Phosphatase 86 U/L (40-150) 12/21/17 12:45 Serum Total Protein 6.7 g/dL (6.0-8.3) 12/21/17 12:45 Albumin 3.0 g/dL (3.5-5.0) L 12/21/17 12:45 Urine Ketones Negative mg/dL (Negative) 12/21/17 14:20 Urine Blood Small (Negative) H 12/21/17 14:20 Urine Nitrite Negative (Negative) 12/21/17 14:20 Ur Leukocyte Esterase Negative (Negative) 12/21/17 14:20 Urine RBC 0-3 HPF (0-3) 12/21/17 14:20 Urine WBC 0-3 HPF (0-3) 12/21/17 14:20 Ur Squamous Epith Cells 0-3 HPF (0-3) 12/21/17 14:20 Urine Bacteria 1+ HPF (None Seen) H 12/21/17 14:20 FMR H&P: A/P - Problem List (1) Gastroenteritis Current Visit: Yes Status: Acute Code(s): K52.9 - NONINFECTIVE GASTROENTERITIS AND COLITIS, UNSPECIFIED (2) Anemia Current Visit: No Status: Chronic Code(s): D64.9 - ANEMIA, UNSPECIFIED Qualifiers: Anemia type: unspecified type Qualified Code(s): D64.9 - Anemia, unspecified Comment: likely chronic and secondary to CKD (3) Chronic congestive heart failure Current Visit: Yes Status: Chronic Code(s): I50.9 - HEART FAILURE, UNSPECIFIED (4) 3-vessel coronary artery disease Current Visit: No Status: Chronic (5) Hypothyroid Current Visit: No Status: Chronic Code(s): E03.9 - HYPOTHYROIDISM, UNSPECIFIED (6) CAD (coronary artery disease), [place] coronary artery Current Visit: No Status: Chronic Code(s): I25.10 - ATHSCL HEART DISEASE OF [place] CORONARY ARTERY W/O ANG PCTRS Qualifiers: [place] vs. transplanted heart: [place] heart Associated angina: with stable angina Qualified Code(s): I25.118 - Atherosclerotic heart disease of [place] coronary artery with other forms of angina pectoris (7) DM2 (diabetes mellitus, type 2) Current Visit: No Status: Chronic Qualifiers: Diabetes mellitus senior living insulin use: with long line teamster use Diabetes mellitus complication status: with kidney complications Diabetes mellitus complication detail: with chronic kidney disease Chronic kidney disease stage : stage 3 (moderate) Qualified Code(s): E11.22 - Type 2 diabetes mellitus with diabetic chronic kidney disease; N18.3 - Chronic kidney disease, stage 3 ( moderate); N18.3 - Chronic kidney disease, stage 3 (moderate); Z79.4 - intermediate project manager (current) use of insulin; Z79.4 - intermediate project manager (current) use of insulin; Z79.4 - intermediate project manager (current) use of insulin; Z79.4 - senior living (current) use of insulin (8) HLD (hyperlipidemia) Current Visit: No Status: Chronic Code(s): E78.5 - HYPERLIPIDEMIA, UNSPECIFIED Qualifiers: Hyperlipidemia type: unspecified Qualified Code(s): E78.5 - Hyperlipidemia , unspecified (9) HTN (hypertension) Current Visit: No Status: Chronic Code(s): I10 - ESSENTIAL (PRIMARY) HYPERTENSION Qualifiers: Hypertension type: unspecified Qualified Code(s): I10 - Essential (primary ) hypertension - Plan Gastroenteritis, likely viral - S/p 1L NS bolus - Maintenance IVF at 100 ml/hr - Stool lactoferrin, stool culture w/ gram stain and campylobacter, and c. diff toxin/ag pending - FOBT neg - Colonoscopy done 3 years ago which was normal Acute on chronic anemia - Hg 7.6 - Pale conjunctiva - Repeat CBC in AM - Consider transfusion due to the fact that pt has hx of CAD and currently has pale conjunctiva with fatigue and dizziness - Continue iron supplementation - Colonoscopy 3 years ago normal - Iron studies in 07/2017 showed iron deficiency anemia; likely also has ACD ADRIENNE on CKD stage III - s/p 1L NS - Maintenance IVF at 100 ml/hr - BMP AM Chronic CHF with EF 25-30% - Continue home medications - Monitor fluid status - Patient appears volume down at this time - Strict I&O's - Daily weights CAD s/p CABG - Continue ASA - Continue home medications Hypothyroidism - Continue home medications DM type II - Continue home medications - Mild SSI - CC diet - ACHS accuchecks Dispo: Anticipate length of stay 24-48 hours. Admit to telemetry for obs. FMR H&P: Upper Level - Pertinent history 52 yo HF PMH CAD s/p CABG, HF w/ reduced EF of 25-30%, DM2, CKD, and presumed anemia of chronic disease. Presents with 5 days history of nonbloody, nonbillious vomiting, nausea, and diarrhea. Reports mild abdominal discomfort worse in LLQ. Had negative colonoscopy 3 years ago. Verified by review of clinic records. Was admitted by ER for symptomatic anemia but was not transfused any blood by the ER. Received 1 L fluid bolus in ER. - Pertinent findings Vitals: WNL ENT: dry MM CV: RRR, no murmur Pulm: CTA-B, normal effort. Abd: non-distended, TTP LLQ. No rebound or guarding. Labs: Hemoglobin 7.6 with repeat of 7.2, FOBT negative. Creatinine 2.99 with repeat of 2.82 - Plan Date/Time: 12/21/17 1820 I, Julio Cesar Light M.D., have evaluated this patient and agree with findings/plan as outlined by editing internship resident. Pertinent changes/additions are listed here. 1. Presumed Viral Gastroenteritis - IV NS at 100 mL/hr. Monitor fluid status closely given history of HF. - Stool studies pending 2. ADRIENNE on CKD - IV fluids - Improved after 12 hours 3. Anemia of chronic disease - Iron studies performed in 07/23 showed iron deficiency - likely 2/2 CKD - will monitor with fluid repletion and consider transfusion if she continues to trend down. 4. Heart failure with reduced ejection fraction: - Monitor fluid status closely - given lasix with blood transfusion if blood given. 5. CAD - no cardiac symptoms at this time 6. DM - Home meds, SSI provided. Attending Addendum - Attending Addendum Date/Time: 12/22/17 0717 I personally evaluated the patient and discussed the management with Dr. Quiroga on 12/21 I agree with the History, Examination, Assessment and Plan documented above with any addition or exceptions noted below- Briefly this is a 52 yo female with h/o CAD s/p CABG, DM, sCHF, CKD stage 3 presents with 3 day h/o N/V and diarrhea. She states that she has not been able to hold down and fluids or food for the 3 days. Has progressively felt weaker. States that she has been having watery diarrhea 5-6 episodes/day. Has had some LLQ pain. Reports a 6 pound weight loss over the 3 days. Decreased appetite. P<H/PSH/Meds/All reviewed and agree with resident's documentation. Afebrile BP 89/54 P74 RR18 T97.6 Physical exam repeated by me and agree with resident's findings. Pertinent labs : Hgb=7.2, Hct=20.1, WBC=4.9 Gbj=909 Bl=086 BUN=40 Cr=2.82 ASt=52 ALT=13 Alb= 3.0 MCV=91.0CXR- large left pleural effusion A/P: 1) N/V/D- possibly viral etiology; check stool studies; continue IVF; 2) Anemia normocytic- check serial H/Hs; prior evaluation showed low iron; negative colonoscopy, 3) H/o sCHF- monitor I/Os, 4) Hypothyroidism- adjust levothyroxine
[2017-12-21 18:48] LABS: #Eosinphils 0.2 thou/uL (0.0-0.7); #Lymphocytes 1.4 thou/uL (1.20-3.40); #Monocytes 0.3 thou/uL (0.11-0.59); %Basophils 0.9 % (0.0-1.0); %Lymphocytes 28.6 % (21.0-51.0); %Monocytes 5.1 % (0.0-10.0); %Neutrophils 61.3 % (42.0-75.0); Hemoglobin 7.2 g/dL (12.0-16.0); Mean Corpuscular HGB CONC 35.5 g/dL (32.0-36.0); Mean Corpuscular Hemoglobin 32.3 pg (27.0-31.0); Mean Platelet Volume 5.8 fL (7.4-10.4); Platelet Count 142 thou/uL (130-400); RBC Distribution Width 13.5 % (11.5-14.5); Red Blood Cell (RBC) Count 2.21 mill/uL (4.20-5.40); White Blood Cell (WBC) Count 4.9 thou/uL (4.8-10.8)
[2017-12-21 19:11] LABS: Anion Gap 10 mmol/L (10-20); BUN (Urea Nitrogen) 40 mg/dL (9.8-20.1); Calc. Creatinine Clearance 18 mL/min (70-130); Calcium 7.9 mg/dL (7.8-10.44); Carbon Dioxide 21 mmol/L (22-29); Chloride 106 mmol/L (98-107); Estimated GFR-MDRD 18; Potassium 4.4 mmol/L (3.5-5.1); Sodium 133 mmol/L (136-145)
[2017-12-21 19:18] LABS: Glucose 41 mg/dL (70-105)
[2017-12-21] MEDS: Dextrose 50% Abboject 50 ML SYRINGE SLOW IVP PRN (19:21)
[2017-12-21] MEDS ORDERED: traMADol HCl 50 MG TAB PO PRN (20:07)
[2017-12-21] MEDS: Dextrose 5 %-0.45 % NaCl 1,000 ML IV SCH (20:45)
[2017-12-21] MEDS ORDERED: PRE FILLED SC SCH (21:00)
[2017-12-21] MEDS ORDERED: INSULIN DETEMIR SC SCH ×2 (21:00)
[2017-12-21] MEDS: Carvedilol 25 MG TAB PO SCH (21:59)
[2017-12-22] MEDS ORDERED: Sodium Chloride 0.9% 250 ML IV SCH (00:15)
[2017-12-22 04:52] LABS: Anion Gap 8 mmol/L (10-20); BUN (Urea Nitrogen) 39 mg/dL (9.8-20.1); Calc. Creatinine Clearance 19 mL/min (70-130); Calcium 7.1 mg/dL (7.8-10.44); Carbon Dioxide 21 mmol/L (22-29); Chloride 105 mmol/L (98-107); Estimated GFR-MDRD 18; Glucose 79 mg/dL (70-105); Potassium 4.4 mmol/L (3.5-5.1); Sodium 130 mmol/L (136-145)
[2017-12-22 05:19] LABS: #Eosinphils 0.2 thou/uL (0.0-0.7); #Lymphocytes 0.9 thou/uL (1.20-3.40); #Monocytes 0.2 thou/uL (0.11-0.59); #Neutrophils 2.1 thou/uL (1.40-6.50); %Basophils 0.8 % (0.0-1.0); %Eosinophils 5.3 % (0.0-10.0); %Lymphocytes 26.7 % (21.0-51.0); %Monocytes 6.6 % (0.0-10.0); %Neutrophils 60.6 % (42.0-75.0); Hemoglobin 6.2 g/dL (12.0-16.0); Mean Corpuscular HGB CONC 35.1 g/dL (32.0-36.0); Mean Corpuscular Volume 91.2 fl (81.0-99.0); Mean Platelet Volume 6.3 fL (7.4-10.4); Platelet Count 127 thou/uL (130-400); RBC Distribution Width 13.6 % (11.5-14.5); Red Blood Cell (RBC) Count 1.95 mill/uL (4.20-5.40); White Blood Cell (WBC) Count 3.4 thou/uL (4.8-10.8)
[2017-12-22] MEDS ORDERED: Sodium Chloride 0.9% 1,000 ML IV SCH (05:30)
[2017-12-22] MEDS ORDERED: Levothyroxine Sodium 125 MCG TAB PO SCH (06:00)
[2017-12-22] MEDS ORDERED: Levothyroxine Sodium 112 MCG TAB PO SCH (06:00)
[2017-12-22] MEDS ORDERED: Levothyroxine Sodium 25 MCG TAB PO SCH ×2 (06:00)
[2017-12-22] MEDS ORDERED: Dextrose 50% Abboject 50 ML SYRINGE SLOW IVP ONE (06:37)
[2017-12-22] MEDS ORDERED: (Sucroferric Oxyhydroxide [Velphoro] 500 MG) PO SCH (08:00)
[2017-12-22] MEDS: Dextrose 5 %-0.45 % NaCl 1,000 ML IV SCH ×3 (08:29→17:13)
--- NOTE | 2017-12-22 08:56 | PDOC.FM ---
- Subjective Subjective: Pt reports still having abdominal pain. Pain in LLQ. Reports still having some diarrhea. Denies any chest pain or SOB. No acute events overnight. Denies any dizziness or lightheadness. Has not been up and moving much. - Objective MAR Reviewed: Yes Vital Signs & Weight: Vital Signs (12 hours) Temp Pulse Resp BP Pulse Ox 12/22/17 08:20 97.5 F L 77 16 74/48 L 92 L 12/22/17 03:56 97.6 F 77 16 86/50 L 92 L 12/22/17 00:00 97.8 F 72 16 89/54 L 96 Weight Weight 50.303 kg I&O: 12/21/17 12/22/17 12/23/17 06:59 06:59 06:59 Intake Total 2375 Balance 2375 Result Diagrams: 12/22/17 04:12 12/22/17 04:12 Radiology Reviewed by me: Yes (CXRAY 12/21: Stable L. Large Pleural effusion) Phys Exam - Physical Examination Constitutional: NAD HEENT: PERRLA, moist MMs, sclera anicteric Neck: no nodes, no JVD, supple, full ROM Respiratory: no wheezing, no rales, no rhonchi Lung sounds decreased on Left side, mild crackles Cardiovascular: RRR, no significant murmur, no rub Gastrointestinal: no distention, positive bowel sounds LLQ tenderness to palpation. No rebound or guarding Musculoskeletal: no edema, pulses present Neurological: non-focal, normal sensation, moves all 4 limbs Lymphatic: no nodes Psychiatric: normal affect, A&O x 3 Skin: no rash, normal turgor, cap refill <2 seconds Dx/Plan (1) Anemia Code(s): D64.9 - ANEMIA, UNSPECIFIED Status: Acute Qualifiers: Anemia type: unspecified type Qualified Code(s): D64.9 - Anemia, unspecified (2) Gastroenteritis Code(s): K52.9 - NONINFECTIVE GASTROENTERITIS AND COLITIS, UNSPECIFIED Status : Acute (3) Chronic congestive heart failure Code(s): I50.9 - HEART FAILURE, UNSPECIFIED Status: Chronic (4) Acute kidney injury Code(s): N17.9 - ACUTE KIDNEY FAILURE, UNSPECIFIED Status: Acute (5) CKD (chronic kidney disease) stage 4, GFR 15-29 ml/min Code(s): N18.4 - CHRONIC KIDNEY DISEASE, STAGE 4 (SEVERE) Status: Acute (6) Pleural effusion Code(s): J90 - PLEURAL EFFUSION, NOT ELSEWHERE CLASSIFIED Status: Acute (7) 3-vessel coronary artery disease Status: Chronic (8) DM2 (diabetes mellitus, type 2) Status: Chronic Qualifiers: Diabetes mellitus half-way insulin use: with half-way use Diabetes mellitus complication status: with kidney complications Diabetes mellitus complication detail: with chronic kidney disease Chronic kidney disease stage : stage 3 (moderate) Qualified Code(s): E11.22 - Type 2 diabetes mellitus with diabetic chronic kidney disease; N18.3 - Chronic kidney disease, stage 3 ( moderate); N18.3 - Chronic kidney disease, stage 3 (moderate); Z79.4 - FDC (current) use of insulin; Z79.4 - FDC (current) use of insulin; Z79.4 - terminal 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; Z79.4 - terminal 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 (9) HLD (hyperlipidemia) Code(s): E78.5 - HYPERLIPIDEMIA, UNSPECIFIED Status: Chronic Qualifiers: Hyperlipidemia type: unspecified Qualified Code(s): E78.5 - Hyperlipidemia , unspecified (10) HTN (hypertension) Code(s): I10 - ESSENTIAL (PRIMARY) HYPERTENSION Status: Chronic Qualifiers: Hypertension type: unspecified Qualified Code(s): I10 - Essential (primary ) hypertension (11) Hypothyroid Code(s): E03.9 - HYPOTHYROIDISM, UNSPECIFIED Status: Chronic (12) KARIME (iron deficiency anemia) Code(s): D50.9 - IRON DEFICIENCY ANEMIA, UNSPECIFIED Status: Chronic Qualifiers: Iron deficiency anemia type: unspecified iron deficiency Qualified Code(s) : D50.9 - Iron deficiency anemia, unspecified - Plan Plan: Gastroenteritis, likely viral - Maintenance IVF at 100 ml/hr - Stool lactoferrin Positive -stool culture w/ gram stain and campylobacter, and c. diff toxin/ag all negative - FOBT neg - Colonoscopy done 3 years ago which was normal -CT abdomen/pelvis pending due to LLQ pain. Acute on chronic anemia - Hg 7.6-->6.2. Will transfuse 2u RBC at this time. BP low as well. Will recheck hemagram later tdoay. - Pale conjunctiva -transfusion due to the fact that pt has hx of CAD and currently has pale conjunctiva with fatigue and dizziness - Continue iron supplementation, may want to increase to BID dosing - Daily CBC - Colonoscopy 3 years ago normal - Iron studies in 07/2017 showed iron deficiency anemia; likely also has ACD ADRIENNE on CKD stage III - s/p 1L NS - Maintenance IVF at 100 ml/hr - BMP AM, showing improvement Chronic CHF with EF 25-30% - Continue home medications - Monitor fluid status -Lasix PRN for fluid overload. Will give after blood transfusion - Patient appears volume down at this time - Strict I&O's - Daily weights Left side Pleural Effusion -O2 sats stable, has had at previous visits. Was drained at last visit -Consult Pulmonology- [place]- will follow recs CAD s/p CABG - Continue ASA - Continue home medications Hypothyroidism - TSH elevated at 10. Checking Free T3 and T4. Will start levothyroxine home dose at 137. Will want to f/u outpatient DM type II - Continue home medications - Mild SSI - CC diet - ACHS accuchecks
[2017-12-22] MEDS: INSULIN DETEMIR SC SCH ×2 (08:59→20:56)
[2017-12-22] MEDS: Ferrous Sulfate 325 MG TAB PO SCH (08:59)
[2017-12-22] MEDS: Furosemide 20 MG TAB PO SCH (08:59)
[2017-12-22] MEDS: PRE FILLED SC SCH ×2 (08:59→20:56)
[2017-12-22] MEDS ORDERED: Alogliptin 6.25 MG TAB PO SCH (09:00)
[2017-12-22] MEDS ORDERED: Fluconazole 100 MG TAB PO SCH (09:00)
[2017-12-22] MEDS ORDERED: (Ferric Citrate [Auryxia] 210 MG) PO SCH (09:00)
[2017-12-22] MEDS ORDERED: Clopidogrel Bisulfate 75 MG TAB PO SCH (09:00)
[2017-12-22] MEDS ORDERED: Furosemide 40 MG/4 ML VIAL SLOW IVP SCH (10:30)
--- NOTE | 2017-12-22 11:30 | PRG ---
DATE OF SERVICE: 12/22/2017 Ms. Osorio has a rather profound anemia which we are currently working up. It appears to be a comb ination of anemia of chronic disease and possible iron deficiency. She is currently undergoing CTA. She also has left lower quadrant abdominal pain and there is concern for acute diverticulitis. She will require transfusion which will begin shortly after she returns from her CT.
[2017-12-22] MEDS: Dextrose 50% Abboject 50 ML SYRINGE SLOW IVP PRN ×2 (12:05→20:53)
--- NOTE | 2017-12-22 13:05 | CON ---
DATE OF CONSULTATION: 12/22/2017 HISTORY OF PRESENT ILLNESS: Ms. Asher Osorio is a 52-year-old female, who speak s no [place]. History was obtained entirely by talking with the help of sound installation worker who speaks Fabien garrido on the oncology floor. She states that she came to the hospital with 3-day history of abdominal pain and profuse diarrhea. Diarrhea is somewhat better. During the course of workup, her x-ray patricia wed left pleural effusion and reason for consultation. Clearly, patient denies any chest pain, short ness of breath, coughing or wheezing. She is weak. She said she has had at least 6 loose stools. She has never smoked. No prior history of TB, pneumonia or bronchial asthma. She has an ejection fr action of 20%. In fact, she saw Dr. Lovett sometime back in 4 or 5 months ago and underwent a thora centesis and apparently 800 mL of fluid was removed, which was felt to be by numbers transudate. Probably postop from our previous CABG versus CHF. Patient denies any prior history of DVT or pneumonia. PAST MEDICAL HISTORY: CHF, ejection fraction measured in the 20s to 30s, hypothyroidism, renal failu re, diabetes, and chronic anemia. PAST SURGICAL HISTORY: Appendix, shoulder bypass, and thoracentesis. MEDICATIONS: From home includes vitamins, Synthroid 25, insulin, Coreg 25, aspirin. ALLERGIES: None. SOCIAL/FAMILY HISTORY: Unremarkable. No alcohol or tobacco use. REVIEW OF SYSTEMS: Ten point negative. PHYSICAL EXAMINATION: GENERAL: She appears to be in no acute distress. VITAL SIGNS: Blood pressure is 75/49 sitting. Sats are 92% on room air, supplemental oxygen 98%, te mperature 98, respirations 18. She is awake, alert and responsive. CHEST: Reveals decreased breath sounds, left one-third, right lung unremarkable. CARDIAC: Normal S1, S2, no gallops. ABDOMEN: Soft. NEUROLOGIC: She is awake, alert, and responsive. IMAGING DATA AND LABORATORY DATA: X-ray shows no edema. X-ray shows stable left pleural effusion, a ppears to be no worse than x-rays 6 months ago. White count 3,000, hemoglobin and hematocrit 6 and 1 7, platelet count 27, creatinine is 2.8, BUN is 39. Sodium 130. So far, stool sample sent for blood was negative. Diarrhea, C. diff assays so far negative. CT of t he abdomen ordered. IMPRESSION: 1. Profuse diarrhea, etiology unclear. Workup is in progress. 2. Left pleural effusion, stable. Please note she is asymptomatic. 3. Congestive heart failure. 4. Diabetes. 5. Chronic renal failure. 6. Cachexia. PLAN: 1. At this stage, no need to do a thoracentesis. 2. Blood pressure is too low and she has remained asymptomatic. Agree with transfusion now. 3. Workup for diarrhea in progress. 4. If she becomes symptomatic or short of breath, clearly we could re-tap it again. 5. We will notify Dr. Lovett. She probably needs GI input for profuse diarrhea. We will discuss a nd follow. This is a 70-minute consultation note of which 50% of the time was spent in direct patient care.
--- NOTE | 2017-12-22 13:20 | CT ---
ABDOMEN AND PELVIS CT SCAN WITH IV CONTRAST: HISTORY: A 52-year-old female with a history of anemia, left lower quadrant pain, and cachexia. FINDINGS: There is extensive generalized anasarca. There is a large left pleural effusion and a moderate sized right pleural effusion, as well as prominent parenchymal changes in the right lower lung, evidence f or atelectasis and/or pneumonia. Comparing a recent chest x-ray from 12/21/2017 to a prior older, study, there is little overall change in the appearance of the left lung base region. Minim al subsegmental atelectatic changes in the right lower lobe. There is moderate scattered ascites thr oughout the abdomen and pelvis. There are multiple gallstones within the gallbladder. The visualize d liver is unremarkable. No ductal dilatation. The visualized pancreas, spleen, and adrenal glands are unremarkable. Small right kidney. No evidence for renal calculus or overt acute obstruction. There appears to be some rather diffuse prominent colonic wall thickening, including the right colo n, the transverse colon, and the left colon, evidence for extensive nonspecific colitis. There is as cites in the pelvis. No overt bowel obstruction. Probable old lymph node calcification or granuloma calcification in the right lower quadrant. The appendix is not diagnostically imaged. IMPRESSION: 1. Extensive anasarca, ascites, and bilateral pleural effusions, much larger on the left side, with prominent left lower lobe parenchymal changes, probably extensive atelectasis and/or pneumonia. 2. Multiple gallstones in the gallbladder without ductal dilatation. 3. Small right kidney without significant acute hydronephrosis. 4. Prominent abnormal wall thickening of the right colon, transverse colon, and left colon, evidence for extensive nonspecific colitis. 5. No evidence for renal calculus or acute genitourinary obstruction. 6. Other findings as above. POS: [facility]
[2017-12-22] MEDS ORDERED: Sodium Chloride 0.9% 500 ML IV SCH (13:30)
[2017-12-22 14:38] LABS: t-Transglutaminase (tTG) IgG 0.9 EliAU/mL (<7 Negative)
[2017-12-22 14:39] LABS: EliA Celiac New Method **** NEW METHOD ****
[2017-12-22 15:09] LABS: Free T4 (Free Thyroxine) Less than 0.40 ng/dL (0.70-1.48)
[2017-12-22] MEDS: Lovastatin 20 MG TAB PO SCH (16:24)
[2017-12-22] MEDS ORDERED: Sodium Chloride 0.9% 500 ML IVPB SCH (19:00)
[2017-12-23] MEDS: Dextrose 5 %-0.45 % NaCl 1,000 ML IV SCH (02:39)
[2017-12-23] MEDS: Levothyroxine Sodium 25 MCG TAB PO SCH (05:58)
[2017-12-23] MEDS: Levothyroxine Sodium 112 MCG TAB PO SCH (05:59)
[2017-12-23] MEDS ORDERED: Levothyroxine Sodium 125 MCG TAB PO SCH (06:00)
[2017-12-23 06:03] LABS: Anion Gap 4 mmol/L (10-20); BUN (Urea Nitrogen) 34 mg/dL (9.8-20.1); Calc. Creatinine Clearance 18 mL/min (70-130); Calcium 7.1 mg/dL (7.8-10.44); Carbon Dioxide 22 mmol/L (22-29); Chloride 105 mmol/L (98-107); Estimated GFR-MDRD 17; Glucose 71 mg/dL (70-105); Potassium 4.2 mmol/L (3.5-5.1); Sodium 127 mmol/L (136-145)
[2017-12-23 06:42] LABS: Anisocytosis SLIGHT = 6-15 cells (100X) (0-5/hpf); Band 8 % (5-11); Eosinophils 3 % (0-10); Hemoglobin 10.1 g/dL (12.0-16.0); Lymphocytes 22 % (21-51); MDiff Complete? YES; Mean Corpuscular HGB CONC 34.7 g/dL (32.0-36.0); Mean Corpuscular Hemoglobin 30.9 pg (27.0-31.0); Mean Corpuscular Volume 89.1 fl (81.0-99.0); Mean Platelet Volume 6.4 fL (7.4-10.4); Monocytes 4 % (0-10); Neutrophil 55 % (42-75); PLT Morphology Comment Appears Decreased; Platelet Count 111 thou/uL (130-400); RBC Distribution Width 14.4 % (11.5-14.5); Reactive Lymphocytes 8 % (0-10); Red Blood Cell (RBC) Count 3.26 mill/uL (4.20-5.40)
[2017-12-23] MEDS: Ferrous Sulfate 325 MG TAB PO SCH (08:29)
[2017-12-23] MEDS: Carvedilol 25 MG TAB PO SCH ×2 (08:29→20:21)
[2017-12-23] MEDS: Furosemide 20 MG TAB PO SCH (08:29)
[2017-12-23] MEDS: INSULIN DETEMIR SC SCH ×2 (08:30→20:21)
[2017-12-23] MEDS: PRE FILLED SC SCH ×2 (08:30→20:21)
--- NOTE | 2017-12-23 08:51 | PDOC.FM ---
- Subjective Subjective: Pt doing well. Says feels a little bit better and maybe hungry. Patient reports pain has improved. Hasn't gotten up overnight. Denies any dizziness or lightheadness. Denies any SOB. Denies any chest pain. Denies any nausea/ vomiting. Reports still having diarrhea. No other concerns or complaints at this time. - Objective MAR Reviewed: Yes Vital Signs & Weight: Vital Signs (12 hours) Temp Pulse Resp BP BP Pulse Ox 12/23/17 07:49 99.3 F 73 20 97/52 L 92 L 12/23/17 03:49 98.3 F 74 16 89/54 L 93 L 12/23/17 02:11 98.4 F 74 16 12/22/17 23:57 98.4 F 74 16 96/55 L 93 L Weight Weight 50.303 kg I&O: 12/22/17 12/23/17 12/24/17 06:59 06:59 06:59 Intake Total 2375 840 Balance 2375 840 Result Diagrams: 12/23/17 05:27 12/23/17 05:27 EKG Reviewed by me: Yes Radiology Reviewed by me: Yes (colitis of colon) Phys Exam - Physical Examination Constitutional: NAD HEENT: PERRLA, moist MMs Neck: no nodes, supple, full ROM Respiratory: no wheezing, no rales, no rhonchi decreased breath sounds on left sound. crackles noted Cardiovascular: RRR, no significant murmur, no rub Gastrointestinal: soft, non-tender, no distention, positive bowel sounds Musculoskeletal: no edema, pulses present Neurological: non-focal, normal sensation, moves all 4 limbs Lymphatic: no nodes Psychiatric: normal affect, A&O x 3 Dx/Plan (1) Salmonella gastroenteritis Code(s): A02.0 - SALMONELLA ENTERITIS Status: Acute (2) Anemia Code(s): D64.9 - ANEMIA, UNSPECIFIED Status: Acute Qualifiers: Anemia type: other cause Qualified Code(s): D64.9 - Anemia, unspecified (3) Gastroenteritis Code(s): K52.9 - NONINFECTIVE GASTROENTERITIS AND COLITIS, UNSPECIFIED Status : Acute (4) Chronic congestive heart failure Code(s): I50.9 - HEART FAILURE, UNSPECIFIED Status: Chronic (5) Acute kidney injury Code(s): N17.9 - ACUTE KIDNEY FAILURE, UNSPECIFIED Status: Acute (6) CKD (chronic kidney disease) stage 4, GFR 15-29 ml/min Code(s): N18.4 - CHRONIC KIDNEY DISEASE, STAGE 4 (SEVERE) Status: Acute (7) Pleural effusion Code(s): J90 - PLEURAL EFFUSION, NOT ELSEWHERE CLASSIFIED Status: Acute (8) 3-vessel coronary artery disease Status: Chronic (9) DM2 (diabetes mellitus, type 2) Status: Chronic Qualifiers: Diabetes mellitus prison insulin use: with buttermaker continuous churn use Diabetes mellitus complication status: with kidney complications Diabetes mellitus complication detail: with chronic kidney disease Chronic kidney disease stage : stage 3 (moderate) Qualified Code(s): E11.22 - Type 2 diabetes mellitus with diabetic chronic kidney disease; N18.3 - Chronic kidney disease, stage 3 ( moderate); N18.3 - Chronic kidney disease, stage 3 (moderate); Z79.4 - [facility] (current) use of insulin; Z79.4 - manager long term care (current) use of insulin; Z79.4 - [facility] (current) use of insulin; Z79.4 - [facility] (current) use of insulin (10) HLD (hyperlipidemia) Code(s): E78.5 - HYPERLIPIDEMIA, UNSPECIFIED Status: Chronic Qualifiers: Hyperlipidemia type: unspecified Qualified Code(s): E78.5 - Hyperlipidemia , unspecified (11) HTN (hypertension) Code(s): I10 - ESSENTIAL (PRIMARY) HYPERTENSION Status: Chronic Qualifiers: Hypertension type: unspecified Qualified Code(s): I10 - Essential (primary ) hypertension (12) Hypothyroid Code(s): E03.9 - HYPOTHYROIDISM, UNSPECIFIED Status: Chronic (13) KARIME (iron deficiency anemia) Code(s): D50.9 - IRON DEFICIENCY ANEMIA, UNSPECIFIED Status: Chronic Qualifiers: Iron deficiency anemia type: unspecified iron deficiency Qualified Code(s) : D50.9 - Iron deficiency anemia, unspecified - Plan Plan: Salmonella Gastroenteritis - Maintenance IVF at 100 ml/hr - Stool lactoferrin Positive, Stool cx- Salmonella positive. - campylobacter, and c. diff toxin/ag all negative - FOBT neg -Likely exacerbated anemia as well as Salmonella causes bloody diarrhea - Colonoscopy done 3 years ago which was normal -CT abdomen/pelvis shows colitis of colon. Shows some stones in gal bladder. Acute on chronic anemia - Hg 7.6-->6.2-->10.1. Transfused 2u RBC yesterday. BP improved but still a little low -Likely exacerbated by problem #1 - Continue iron supplementation, may want to increase to BID dosing - Daily CBC - Colonoscopy 3 years ago normal - Iron studies in 07/2017 showed iron deficiency anemia; likely also has ACD -Continued home meds. ADRIENNE on CKD stage III - s/p 1L NS - Maintenance IVF at 100 ml/hr - BMP showed a little increase in Cr. Will continue to monitor Chronic CHF with EF 25-30% - Continue home medications - Monitor fluid status -Lasix PRN and julius lasix for fluid overload. Will give after blood transfusion - Patient appears volume down at this time - Strict I&O's - Daily weights Left side Pleural Effusion -O2 sats stable, has had at previous visits. Was drained at last visit -Consult Pulmonology- Mooney- will follow recs. No need to drain at this time. CAD s/p CABG - Continue ASA - Continue home medications Hypothyroidism - TSH elevated at 10. Checking Free T3 and T4. Will start levothyroxine home dose at 137. Will want to f/u outpatient DM type II - Holding home medications as blood sugars have been jumping around and had multiple episodes of being hypoglycemic. will adjust and start medication as needed - Mild SSI - CC diet - ACHS accuchecks
[2017-12-23 09:26] LABS: Reticulocyte Count 1.3 % (0.5-1.5)
[2017-12-23] MEDS: Sodium Chloride 0.9% 1,000 ML IV SCH ×3 (09:39→18:29)
--- NOTE | 2017-12-23 12:31 | ADD-PRG ---
DATE OF SERVICE: 12/23/2017 This is an addendum to the note of Dr. Andres Gordillo. I have reviewed Dr. Gordillo's daily note and agree with his assessment and plan. Ms. Asher serna looks much better than yesterday. She appears to be well hydrated. Her stool studies were consis tent with Salmonella enterocolitis and we will treat her supportively. She also has a rather signifi cant anemia which is likely anemia of chronic disease, but I am concerned that there may be other con tributing factors. She seems to have a "smoldering" pancytopenia and perhaps should be evaluated by Hematology as an outpatient for myeloproliferative disorder. In the event, I think we should also ch jayme for B12 and folate levels as well as some type of hemolytic process. Previous studies done sever al months ago seemed to be consistent with anemia of chronic disease with a low serum iron, low TIBC, and an elevated ferritin level. She had a normal colonoscopy 3 years ago. For now, we will continu e supportive management carefully monitoring fluids, electrolytes and dietary status.
[2017-12-23] MEDS ORDERED: Cipro 250 MG TAB PO SCH ×3 (13:00→20:00)
--- NOTE | 2017-12-23 13:29 | PRG ---
DATE OF SERVICE: 12/23/2017 SERVICE: Pulmonary Medicine INTERVAL HISTORY: The patient is doing great from a respiratory standpoint. She has been weaned down to room air. She denies any current fevers, chills, nausea, vomiting or chest discomfort. Otherwise, there has been no interval change to her condition. PHYSICAL EXAMINATION: VITAL SIGNS: Afebrile with a T-max of 99.3. Pulse 78, blood pressure 120/68, respirations 20, saturation 92% on room air. GENERAL: The patient is awake, alert, in no apparent distress. LUNGS: Decent air entry. There is no prolonged expiratory phase. Slightly decreased air entry in the left base. Crackles are present throughout bilateral lung espino. HEART: Normal rate, regular. ABDOMEN: Soft, nontender, nondistended. Bowel sounds are positive. MUSCULOSKELETAL: No cyanosis or clubbing. There is no pitting in the bilateral lower extremities. NEUROLOGIC: Grossly nonfocal. LABORATORY DATA: WBC 3.0, hemoglobin 10.1, platelets 111,000. Glucose 58, vitamin B12 is elevated at 1000. Cortisol 6.0. Creatinine 2.88, BUN 34. Anion gap 4. Sodium 127. ASSESSMENT: 1. Acute hypoxic respiratory failure, resolved. 2. Bilateral pleural effusion, left greater than right. 3. Acute on chronic systolic heart failure. 4. Chronic kidney disease, stage 4. 5. Colitis secondary to Salmonella. PLAN: The patient needs to be diuresed to euvolemia. When she arrives there, a repeat chest x-ray should be considered in the outpatient setting in 2-4 weeks. Pulmonary Critical Care will continue to follow for the time being while she remains in this location. Please note that the effusion was previously tapped roughly 4 months ago. At that time, she had findings consistent with pseudoexudate following aggressive diuretics. MTDD
[2017-12-23 13:34] LABS: HIV (1/2) Antibody/Antigen Non-Reactive (NonReactive); HIV 1/2 INDEX 0.16 S/CO (<1.00)
--- NOTE | 2017-12-23 14:09 | CON-2 ---
DATE OF CONSULTATION: 12/23/2017 CHIEF COMPLAINT: Nausea, vomiting, diarrhea. HISTORY OF PRESENT ILLNESS: A 52-year-old female with past medical history of diabetes type 2, CAD status post CABG, CHF of 20-25% and disease stage 3 and hypothyroidism who presents for 3 days history of nausea, vomiting, diarrhea. This history was seen with assistance of the patient's daughter. The patient states that she has been fatigued and was dizzy upon standing and has had 5 episodes of watery, nonbloody diarrhea a day. She has not been tolerating p.o. well and she has also had some emesis, nonbloody, nonbilious and had associated abdominal pain. The patient does not know about any unusual contact she had recently with food. The family claims the patient has only one working kidney and that she had lost her right kidney several years ago due to diabetes. In the ED was given 1 liter of normal saline. ALLERGIES: No known drug allergies. HOME MEDICATIONS: 1. Aspirin 81 mg p.o. daily. 2. Carvedilol 12.5 mg p.o. b.i.d. 3. Insulin Detemir 2 units subcu b.i.d. 4. Levothyroxine 25 mcg p.o. q.a.m. 5. Multivitamin 1 capsule p.o. daily. PAST MEDICAL HISTORY: 1. Coronary artery disease status post coronary artery bypass graft. 2. Diabetes type 2. 3. Chronic kidney disease stage 3. 4. Hypothyroidism. 5. Systolic congestive heart failure with EF 25-30%. 6. Chronic normocytic anemia. PAST SURGICAL HISTORY: 1. Colonoscopy 3 years ago. 2. Appendectomy. 3. CABG x4. 4. Right shoulder surgery. 5. Left thoracentesis. FAMILY HISTORY: Diabetes type 2. SOCIAL HISTORY: Patient denies tobacco, alcohol, or drug use. REVIEW OF SYSTEMS: GENERAL: Endorses decreased appetite and fatigue, and endorses having fever in the past, but currently denies any fever, chills, night sweats. EYES: Denies vision change. ENT: Denies hearing change, nasal congestion or rhinorrhea. RESPIRATORY: Denies cough, cold, congestion, shortness of breath. CARDIOVASCULAR: Denies chest pain or palpitation. GASTROINTESTINAL: Denies at this time, nausea, vomiting, but does endorse continued diarrhea, and abdominal pain. GENITOURINARY: Denies dysuria or polyuria. SKIN: Denies rash or itch. MUSCULOSKELETAL: Denies pain. PHYSICAL EXAMINATION: VITAL SIGNS: Temperature 98.9 Fahrenheit, pulse 78, respirations 20, O2 92% on room air, blood pressure 120/68. GENERAL: Awake, alert, oriented, and thin appearing. HEENT: Normocephalic, atraumatic. No scleral icterus. Moist mucosal membrane. NECK: Supple, without lymphadenopathy. CARDIOVASCULAR: Regular rate and rhythm. No obvious murmur, gallops or rub. LUNGS: Clear to auscultation bilaterally with no respiratory distress or wheezing. ABDOMEN: Soft, normoactive. There is no tenderness to palpation at this time. NECK: Supple. CARDIOVASCULAR: Regular rate and rhythm with no obvious murmurs, gallops or rubs. LUNGS: Clear to auscultation bilaterally. No respiratory distress or wheezing. SKIN: No rash or lesions noted. PSYCHIATRIC: Normal mood and affect. LABORATORY DATA: 1. WBC 20, hemoglobin 10.1, hematocrit 29.1, platelet 111, retic count 1.3. 2. Sodium 127, potassium 4.2, chloride 105, bicarbonate 22, BUN 34, creatinine 2.88, glucose 71, calcium 7.1. 3. AST 52, ALT 13, alkaline phosphatase 86. LDH 371. 4. Vitamin B12 at 1050. 5. T3, T4 0.4, free T3 is less than 1. TSH 11.55, cortisol 6. 6. UA; protein over 300, blood small, bilirubin small, leukocyte esterase negative, RBC negative, WBC negative, epithelial cells negative. Urine bacteria 1+. 7. Tissue transglutamine IgG 0.9, negative. 8. Salmonella positive stool culture. IMAGIN. Chest x-ray. Impression: Postsurgical changes related to CABG noted. There is a place at the left lung base, likely related to large left pleural effusion with associated atelectasis, left and right lung remains clear. Pulmonary vasculature within normal limits. Impression is stable large left pleural effusion. 2. Adomen and pelvis CT. There is extensive generalized anasarca. There is a large left pleural effusion and a moderate size right pleural effusion as well as prominent parenchymal changes in right lower lung, evidence for atelectasis and/or pneumonia compared to recent chest x-ray. There is overall low overall changes in appearance. There are multiple gallstones in the gallbladder without ductal dilation. Small right kidney without significant acute hydronephrosis, prominent abnormal wall thickening of the right colon and transverse colon, left colon. Evidence for nonspecific colitis. No evidence for renal calculus or acute obstruction. ASSESSMENT AND PLAN: 1. Salmonella gastroenteritis, currently being managed by primary team with continued fluid hydration and Cipro at this time. 2. Acute kidney injury on chronic kidney disease. The patient has had stage 4 chronic kidney disease with acute worsening, likely secondary to her recent diarrhea and poor oral intake. Recommend to hydrate to euvolemic state, continue treatment of Salmonella gastroenteritis and follow up with Dr. Alejandro as an outpatient. MINERVAD
[2017-12-23] MEDS: Lovastatin 20 MG TAB PO SCH (17:37)
--- NOTE | 2017-12-23 18:39 | PRG ---
DATE OF CONSULTATION: 12/23/2017 NEPHROLOGY CONSULT NOTE Seen per patient's request. Patient follows with Dr. Way as outpatient. REASON FOR ADMISSION: Nausea, vomiting, diarrhea. Please review detailed consult note done by Dr. Javier Monroe, who is a resident working with me today on t he consult service. I concur with his note. ASSESSMENT AND PLAN: 1. Acute kidney injury on chronic kidney stage IV, most likely from gastrointestinal losses. Agree with hydration as tolerated. Avoid nephrotoxins, renally dose all the medicines. 2. Anemia, which is acute on chronic. Monitor and rule out any bleed. 3. Hyponatremia, on IV fluids. 4. Edema, controlled. 5. Hypertension, stable. 6. Significant proteinuria. 7. We will monitor renal function. We will follow.
[2017-12-23] MEDS: Dextrose 50% Abboject 50 ML SYRINGE SLOW IVP PRN (20:06)
[2017-12-23] MEDS: Dextrose 5 % And 0.9 % NaCl 1,000 ML IV SCH (20:59)
[2017-12-24 05:50] LABS: #Eosinphils 0.3 thou/uL (0.0-0.7); #Lymphocytes 0.8 thou/uL (1.20-3.40); #Monocytes 0.2 thou/uL (0.11-0.59); #Neutrophils 1.8 thou/uL (1.40-6.50); %Basophils 0.3 % (0.0-1.0); %Eosinophils 8.5 % (0.0-10.0); %Monocytes 5.6 % (0.0-10.0); %Neutrophils 59.6 % (42.0-75.0); Hemoglobin 10.7 g/dL (12.0-16.0); Mean Corpuscular HGB CONC 34.3 g/dL (32.0-36.0); Mean Corpuscular Hemoglobin 30.6 pg (27.0-31.0); Mean Corpuscular Volume 89.1 fl (81.0-99.0); Mean Platelet Volume 6.4 fL (7.4-10.4); Platelet Count 117 thou/uL (130-400); RBC Distribution Width 14.5 % (11.5-14.5); White Blood Cell (WBC) Count 3.1 thou/uL (4.8-10.8)
[2017-12-24] MEDS: Cipro 250 MG TAB PO SCH ×2 (05:52→20:24)
[2017-12-24] MEDS: Levothyroxine Sodium 112 MCG TAB PO SCH (05:53)
[2017-12-24] MEDS: Levothyroxine Sodium 25 MCG TAB PO SCH (05:53)
[2017-12-24] MEDS: Dextrose 5 % And 0.9 % NaCl 1,000 ML IV SCH ×2 (05:54→18:30)
[2017-12-24 06:03] LABS: Anion Gap 10 mmol/L (10-20); BUN (Urea Nitrogen) 31 mg/dL (9.8-20.1); Calc. Creatinine Clearance 23 mL/min (70-130); Carbon Dioxide 16 mmol/L (22-29); Chloride 105 mmol/L (98-107); Estimated GFR-MDRD 18; Glucose 145 mg/dL (70-105); Potassium 4.1 mmol/L (3.5-5.1); Sodium 127 mmol/L (136-145)
[2017-12-24] MEDS: Carvedilol 25 MG TAB PO SCH (08:49)
[2017-12-24] MEDS: Ferrous Sulfate 325 MG TAB PO SCH (08:50)
[2017-12-24] MEDS: Furosemide 20 MG TAB PO SCH (08:50)
[2017-12-24] MEDS: INSULIN DETEMIR SC SCH (08:53)
[2017-12-24] MEDS: PRE FILLED SC SCH (08:53)
--- NOTE | 2017-12-24 09:09 | PDOC.FM ---
- Subjective Subjective: Pt doing well resting overnight. Blood sugar again dropped overnight even though not any of her diabetes medicine. Pt reports doing better. Stomach feeling better. Doing better. Labs stable. No acute events overnight. - Objective MAR Reviewed: Yes Vital Signs & Weight: Vital Signs (12 hours) Temp Pulse Resp BP BP Pulse Ox 12/24/17 08:00 97.5 F L 73 16 107/60 95 12/24/17 03:58 98.1 F 72 16 107/52 L 92 L Weight Weight 61.507 kg I&O: 12/23/17 12/24/17 12/25/17 06:59 06:59 06:59 Intake Total 840 360 Balance 840 360 Result Diagrams: 12/24/17 05:39 12/24/17 05:39 Radiology Reviewed by me: Yes (No new imaging at this time) Phys Exam - Physical Examination Constitutional: NAD HEENT: PERRLA, moist MMs Neck: no nodes, supple, full ROM Respiratory: no wheezing, no rales, no rhonchi, clear to auscultation bilateral Cardiovascular: RRR, no significant murmur, no rub Gastrointestinal: soft, non-tender, no distention, positive bowel sounds Musculoskeletal: no edema, pulses present Neurological: non-focal, normal sensation, moves all 4 limbs Lymphatic: no nodes Psychiatric: normal affect, A&O x 3 Skin: no rash, normal turgor, cap refill <2 seconds Dx/Plan (1) Salmonella gastroenteritis Code(s): A02.0 - SALMONELLA ENTERITIS Status: Acute (2) Anemia Code(s): D64.9 - ANEMIA, UNSPECIFIED Status: Acute Qualifiers: Anemia type: other cause Qualified Code(s): D64.9 - Anemia, unspecified (3) Gastroenteritis Code(s): K52.9 - NONINFECTIVE GASTROENTERITIS AND COLITIS, UNSPECIFIED Status : Acute (4) Chronic congestive heart failure Code(s): I50.9 - HEART FAILURE, UNSPECIFIED Status: Chronic (5) Acute kidney injury Code(s): N17.9 - ACUTE KIDNEY FAILURE, UNSPECIFIED Status: Acute (6) CKD (chronic kidney disease) stage 4, GFR 15-29 ml/min Code(s): N18.4 - CHRONIC KIDNEY DISEASE, STAGE 4 (SEVERE) Status: Acute (7) Pleural effusion Code(s): J90 - PLEURAL EFFUSION, NOT ELSEWHERE CLASSIFIED Status: Acute (8) 3-vessel coronary artery disease Status: Chronic (9) DM2 (diabetes mellitus, type 2) Status: Chronic Qualifiers: Diabetes mellitus remote computer terminal operator insulin use: with prison use Diabetes mellitus complication status: with kidney complications Diabetes mellitus complication detail: with chronic kidney disease Chronic kidney disease stage : stage 3 (moderate) Qualified Code(s): E11.22 - Type 2 diabetes mellitus with diabetic chronic kidney disease; N18.3 - Chronic kidney disease, stage 3 ( moderate); N18.3 - Chronic kidney disease, stage 3 (moderate); Z79.4 - remote computer terminal operator (current) use of insulin; Z79.4 - senior living (current) use of insulin; Z79.4 - remote computer terminal operator (current) use of insulin; Z79.4 - senior living (current) use of insulin (10) HLD (hyperlipidemia) Code(s): E78.5 - HYPERLIPIDEMIA, UNSPECIFIED Status: Chronic Qualifiers: Hyperlipidemia type: unspecified Qualified Code(s): E78.5 - Hyperlipidemia , unspecified (11) HTN (hypertension) Code(s): I10 - ESSENTIAL (PRIMARY) HYPERTENSION Status: Chronic Qualifiers: Hypertension type: unspecified Qualified Code(s): I10 - Essential (primary ) hypertension (12) Hypothyroid Code(s): E03.9 - HYPOTHYROIDISM, UNSPECIFIED Status: Chronic (13) KARIME (iron deficiency anemia) Code(s): D50.9 - IRON DEFICIENCY ANEMIA, UNSPECIFIED Status: Chronic Qualifiers: Iron deficiency anemia type: unspecified iron deficiency Qualified Code(s) : D50.9 - Iron deficiency anemia, unspecified - Plan Plan: Salmonella Gastroenteritis - Maintenance IVF at 100 ml/hr - Stool lactoferrin Positive, Stool cx- Salmonella positive. - campylobacter, and c. diff toxin/ag all negative - FOBT neg -Likely exacerbated anemia as well as Salmonella causes bloody diarrhea -On cipro, renally dosed at this time - Colonoscopy done 3 years ago which was normal -CT abdomen/pelvis shows colitis of colon. Shows some stones in gal bladder. Acute on chronic anemia - Hg 7.6-->6.2-->10.1-->10.7. Transfused 2u RBC a few days ago. BP improving but still low -Likely exacerbated by problem #1 - Continue iron supplementation, may want to increase to BID dosing - Daily CBC - Colonoscopy 3 years ago normal - Iron studies in 07/2017 showed iron deficiency anemia; likely also has ACD. Vitamin B12 normal. RBC folate pending. Immature Retic count elevated -Continued home meds. ADRIENNE on CKD stage III - Maintenance IVF at 100 ml/hr - Cr trended down today. Will continue to monitor -Nephrology- Dr. Alejandro- will follow recs. Chronic CHF with EF 25-30% - Continue home medications - Monitor fluid status -Carvedilol being held due to low BP. May want to start at a lower dose. Will continue to monitor BP -Lasix PRN and julisu lasix for fluid overload. - Patient appears volume down at this time - Strict I&O's - Daily weights Left side Pleural Effusion -O2 sats stable, has had at previous visits. Was drained at last visit -Consult Pulmonology- Mooney- will follow recs. No need to drain at this time. CAD s/p CABG - Continue ASA - Continue home medications Hypothyroidism - TSH elevated at 10. Checking Free T3 and T4. Will start levothyroxine home dose at 137. Will want to f/u outpatient DM type II - Holding home medications as blood sugars have been jumping around and had multiple episodes of being hypoglycemic. will adjust and start medication as needed -Got hypoglycemic again last night without any insulin medication. Started on D5NS and sugars have been stable - Mild SSI - CC diet - ACHS accuchecks
--- NOTE | 2017-12-24 14:02 | ADD-PRG ---
DATE OF SERVICE: 12/24/2017 Ms. Sterling is resting quietly. She is afebrile. Blood pressure is 107/60, pulse rate 73 and regu lar, respirations 16. Her diarrhea has significantly slowed down. She, however, despite stopping h er insulin remains plagued by low blood glucose readings. Although it would be very unusual, we will go ahead and check a serum insulin to consider the possibility of insulin normal, although very much doubt the latter. In the event, she also is not eating well, and this is likely a contributing fact or, along with her chronic kidney disease. She will need further evaluation for her anemia as an out patient. Her HIV serology was negative. Her BUN is now 31, creatinine 2.77. Also, given her hypoglycemia we have started a D5 infusion.
--- NOTE | 2017-12-24 14:09 | PRG ---
DATE OF SERVICE: 12/24/2017 SUBJECTIVE: Patient was seen and examined at bedside and overnight events noted. Patient denies any shortness of breath or chest pain or palpitation. No history of nausea or vomiting or diarrhea or fever or chills or cramps. OBJECTIVE: GENERAL: This is a well-built female in no apparent distress. VITAL SIGNS: Temperature 97.5, pulse , blood pressure 107/60. HEENT: Atraumatic, normocephalic. Oral mucosa is moist. NECK: Supple. CARDIOVASCULAR: S1 and S2 heard. Rate and rhythm regular. RESPIRATORY: Clear to auscultation. GASTROINTESTINAL: Abdomen is soft. MUSCULOSKELETAL: No tenderness. No edema. DERMATOLOGIC: No skin rash. NEUROLOGIC: Alert and awake and oriented x3. No focal neurologic deficits. Moving all the extremit ies. PSYCHIATRIC: Mood and affect normal. LABORATORY DATA: Potassium is 4.0 BUN 31, creatinine is 2.7. ASSESSMENT AND PLAN: 1. Acute kidney injury on chronic kidney stage 4, stable, slight improvement most likely from volume depletion. 2. Hyponatremia. 3. Metabolic acidosis. I would recommend IV bicarbonate drip for a liter and then okay with isotoni c fluids. 4. Hypertension, stable. 5. Proteinuria. 6. Diabetic nephropathy. 7. Continue IV hydration. We will follow.
[2017-12-24 14:27] LABS: Hematocrit 29.1 % (34.0-46.6); RBC Folate Test Component 1478 ng/mL (>498)
--- NOTE | 2017-12-24 15:09 | PRG ---
DATE OF SERVICE: 12/24/2017 SERVICE: Pulmonary Medicine. INTERVAL HISTORY: The patient is doing fine from a respiratory standpoint. She is breathing comfortably. She has no chest discomfort, nausea or vomiting. Otherwise, she is tolerating p.o. Her diarrhea started to settle down a little bit. There has been no interval change to her condition. OBJECTIVE: VITAL SIGNS: Afebrile, pulse 74, blood pressure 104/58, respirations 16, saturation 92% on room air. GENERAL: The patient is awake, alert, no apparent distress. LUNGS: Decent air entry with no prolonged expiratory phase, wheezing, rhonchi or crackles. HEART: Normal rate, regular. ABDOMEN: Soft, nontender, nondistended. Bowel sounds are positive. MUSCULOSKELETAL: No cyanosis or clubbing. No pitting in the bilateral lower extremities. NEUROLOGIC: Grossly nonfocal. LABORATORY DATA: HIV 1 and 2 is negative. Tissue transglutaminase IgG 0.9. Urinalysis is unremarkable. Creatinine 2.77, BUN 31. Bicarbonate 16 and down trending. WBC 3.1, hemoglobin 10.7, platelets 117,000 and up trending. Salmonella group B is positive, which is pansensitive. Otherwise, studies are negative. C. diff antigen and toxin are negative. ASSESSMENT: 1. Acute hypoxic respiratory failure, resolved. 2. Bilateral pleural effusions, left greater than right. 3. Status post history of thoracentesis demonstrating a benign fluid. 4. Acute on chronic systolic heart failure. 5. Chronic kidney disease, stage 4. 6. Colitis secondary to salmonella, pansensitive. DISCUSSION AND PLAN: Her diarrhea has improved. Kidney functions is close to baseline. IV fluids will be interrupted. Oral bicarb will be started. From a purely respiratory perspective, the patient is stable for transition out of the hospital. She would require repeat chest x-ray in 2-4 weeks in the outpatient setting to make certain that these effusions go away when she returns to a euvolemic state. If not, additional diagnostic studies could be considered. Pulmonary will continue to follow along, intermittently, during the hospital stay. ROSALINDA
[2017-12-24] MEDS: Lovastatin 20 MG TAB PO SCH (15:52)
[2017-12-24] MEDS ORDERED: Cosyntropin 250 MCG VIAL SLOW IVP SCH (16:00)
[2017-12-24] MEDS: Sodium Bicarbonate Tab 325 MG TAB PO SCH ×2 (17:45→20:24)
[2017-12-25] MEDS: Dextrose 5 % And 0.9 % NaCl 1,000 ML IV SCH (01:56)
[2017-12-25] MEDS: Levothyroxine Sodium 25 MCG TAB PO SCH (06:03)
[2017-12-25] MEDS: Levothyroxine Sodium 112 MCG TAB PO SCH (06:03)
[2017-12-25] MEDS: Cipro 250 MG TAB PO SCH ×2 (06:03→21:07)
--- NOTE | 2017-12-25 06:45 | PDOC.FM ---
- Subjective Subjective: Pt reports doing much better this morning. Is tolerating PO. Says diarrhea has resolved. No abdominal pain at this time. Pt is up in chair. Denies any pain. Denies any fever or chills. No other concerns or complaints at this time. - Objective MAR Reviewed: Yes Vital Signs & Weight: Vital Signs (12 hours) Temp Pulse Resp BP BP Pulse Ox 12/25/17 04:00 98.0 F 73 16 113/56 L 91 L 12/24/17 23:53 98.5 F 75 20 103/56 L 92 L 12/24/17 20:00 98.3 F 76 16 12/24/17 19:41 98.3 F 76 16 109/55 L 93 L Weight Weight 61.507 kg I&O: 12/23/17 12/24/17 12/25/17 06:59 06:59 06:59 Intake Total 840 360 Balance 840 360 Result Diagrams: 12/24/17 05:39 12/24/17 05:39 EKG Reviewed by me: Yes Radiology Reviewed by me: Yes (No new imaging today) <Andres Gordillo - Last Filed: 12/25/17 06:43> - Objective Vital Signs & Weight: Vital Signs (12 hours) Temp Pulse Resp BP BP Pulse Ox 12/25/17 08:30 72 16 92 L 12/25/17 08:15 98.0 F 74 16 105/53 L 93 L 12/25/17 04:00 98.0 F 73 16 113/56 L 91 L 12/24/17 23:53 98.5 F 75 20 103/56 L 92 L Weight Weight 61.507 kg I&O: 12/24/17 12/25/17 12/26/17 06:59 06:59 06:59 Intake Total 360 1320 Balance 360 1320 Result Diagrams: 12/25/17 07:39 12/25/17 07:39 <Kianna Huff - Last Filed: 12/25/17 10:17> Phys Exam - Physical Examination Constitutional: NAD HEENT: PERRLA, moist MMs Neck: no nodes, no JVD, supple Respiratory: no wheezing, no rales, no rhonchi crackles and decreased breath sounds on lower L. lung Cardiovascular: RRR, no significant murmur, no rub Gastrointestinal: soft, no distention, positive bowel sounds Musculoskeletal: no edema, pulses present Neurological: non-focal, normal sensation, moves all 4 limbs Lymphatic: no nodes Psychiatric: normal affect, A&O x 3 Skin: no rash, normal turgor <Andres Gordillo - Last Filed: 12/25/17 06:43> Dx/Plan (1) Salmonella gastroenteritis Code(s): A02.0 - SALMONELLA ENTERITIS Status: Acute (2) Anemia Code(s): D64.9 - ANEMIA, UNSPECIFIED Status: Acute QualifierTitle: Anemia type: other cause Qualified Code(s): D64.9 - Anemia, unspecified (3) Gastroenteritis Code(s): K52.9 - NONINFECTIVE GASTROENTERITIS AND COLITIS, UNSPECIFIED Status : Acute (4) Chronic congestive heart failure Code(s): I50.9 - HEART FAILURE, UNSPECIFIED Status: Chronic (5) Acute kidney injury Code(s): N17.9 - ACUTE KIDNEY FAILURE, UNSPECIFIED Status: Acute (6) CKD (chronic kidney disease) stage 4, GFR 15-29 ml/min Code(s): N18.4 - CHRONIC KIDNEY DISEASE, STAGE 4 (SEVERE) Status: Acute (7) Pleural effusion Code(s): J90 - PLEURAL EFFUSION, NOT ELSEWHERE CLASSIFIED Status: Acute (8) 3-vessel coronary artery disease Status: Chronic (9) DM2 (diabetes mellitus, type 2) Status: Chronic QualifierTitle: Diabetes mellitus long-term insulin use: with long-term use Diabetes mellitus complication status: with kidney complications Diabetes mellitus complication detail: with chronic kidney disease Chronic kidney disease stage: stage 3 (moderate) Qualified Code(s): E11.22 - Type 2 diabetes mellitus with diabetic chronic kidney disease; N18.3 - Chronic kidney disease, stage 3 (moderate); N18.3 - Chronic kidney disease, stage 3 (moderate) ; 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; Z79.4 - [facility] (current) use of insulin; 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; 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 (10) HLD (hyperlipidemia) Code(s): E78.5 - HYPERLIPIDEMIA, UNSPECIFIED Status: Chronic QualifierTitle: Hyperlipidemia type: unspecified Qualified Code(s): E78.5 - Hyperlipidemia, unspecified (11) HTN (hypertension) Code(s): I10 - ESSENTIAL (PRIMARY) HYPERTENSION Status: Chronic QualifierTitle: Hypertension type: unspecified Qualified Code(s): I10 - Essential (primary) hypertension (12) Hypothyroid Code(s): E03.9 - HYPOTHYROIDISM, UNSPECIFIED Status: Chronic (13) KARIME (iron deficiency anemia) Code(s): D50.9 - IRON DEFICIENCY ANEMIA, UNSPECIFIED Status: Chronic QualifierTitle: Iron deficiency anemia type: unspecified iron deficiency Qualified Code(s): D50.9 - Iron deficiency anemia, unspecified - Plan Plan: Salmonella Gastroenteritis - Maintenance IVF at 100 ml/hr. Diarrhea improving per patient. Doing much better. Tolerating PO - Stool lactoferrin Positive, Stool cx- Salmonella positive. - campylobacter, and c. diff toxin/ag all negative - FOBT neg -Likely exacerbated anemia as well as Salmonella causes bloody diarrhea -On cipro, renally dosed at this time - Colonoscopy done 3 years ago which was normal -CT abdomen/pelvis shows colitis of colon. Shows some stones in gal bladder. Acute on chronic anemia - Hg 7.6-->6.2-->10.1-->10.7. Awaiting morning CMP. Transfused 2u RBC a few days ago. BP improving but still low -Likely exacerbated by problem #1 - Continue iron supplementation, may want to increase to BID dosing - Daily CBC - Colonoscopy 3 years ago normal - Iron studies in 07/2017 showed iron deficiency anemia; likely also has ACD. Vitamin B12 normal. RBC folate pending. Immature Retic count elevated -Continued home meds. DM type II - Holding home medications as blood sugars have been jumping around and had multiple episodes of being hypoglycemic. will adjust and start medication as needed. On D5NS and still had a low sugar at 60. -Checking cortisol, cortisol stim test, ACTH to check for any adrenal insufficiencys -Insulin level normal. Was concerned for insulinoma. Awaiting c-peptide to make sure it wasn't residual insulin given to her early in the stay -Got hypoglycemic again last night without any insulin medication. Started on D5NS and sugars have been stable - Mild SSI - CC diet - ACHS accuchecks- blood sugars have increased overnight and stayed stable ADRIENNE on CKD stage III - Maintenance IVF at 100 ml/hr - Cr trending down. Will continue to monitor -Nephrology- Dr. Alejandro- will follow recs. Chronic CHF with EF 25-30% - Continue home medications - Monitor fluid status -Carvedilol being held due to low BP. May want to start at a lower dose. Will continue to monitor BP -Lasix PRN and julius lasix for fluid overload. - Patient appears volume down at this time - Strict I&O's - Daily weights Left side Pleural Effusion -O2 sats stable, has had at previous visits. Was drained at last visit -Consult Pulmonology- Mooney- will follow recs. No need to drain at this time. CAD s/p CABG - Continue ASA - Continue home medications Hypothyroidism - TSH elevated at 10. Checking Free T3 and T4. Will start levothyroxine home dose at 137. Will want to f/u outpatient <Andres Gordillo - Last Filed: 12/25/17 06:43> Attending Addendum - Attending Addendum Date/Time: 12/25/17 1016 I personally evaluated the patient and discussed the management with Dr. Gordillo. I agree with the History, Examination, Assessment and Plan documented above with any addition or exceptions noted below. Will try to stop D5 drip and see if pt is able to maintain her blood sugars with diet. Hyponatremia is improving. Renal function is a little improved. Diarrhea continues to improve with treatment of salmonella. <Kianna Huff - Last Filed: 12/25/17 10:17>
[2017-12-25 08:21] LABS: #Eosinphils 0.3 thou/uL (0.0-0.7); #Lymphocytes 0.9 thou/uL (1.20-3.40); #Monocytes 0.2 thou/uL (0.11-0.59); #Neutrophils 2.1 thou/uL (1.40-6.50); %Basophils 1.2 % (0.0-1.0); %Eosinophils 9.4 % (0.0-10.0); %Lymphocytes 25.3 % (21.0-51.0); %Neutrophils 59.1 % (42.0-75.0); Hemoglobin 10.2 g/dL (12.0-16.0); Mean Corpuscular HGB CONC 34.8 g/dL (32.0-36.0); Mean Corpuscular Hemoglobin 31.1 pg (27.0-31.0); Mean Corpuscular Volume 89.6 fl (81.0-99.0); Mean Platelet Volume 6.3 fL (7.4-10.4); Platelet Count 116 thou/uL (130-400); RBC Distribution Width 14.4 % (11.5-14.5); Red Blood Cell (RBC) Count 3.28 mill/uL (4.20-5.40); White Blood Cell (WBC) Count 3.5 thou/uL (4.8-10.8)
[2017-12-25 08:23] LABS: ALT (SGPT) 11 U/L (8-55); AST (SGOT) 38 U/L (5-34); Albumin 2.5 g/dL (3.5-5.0); Alkaline Phosphatase 92 U/L (40-150); Anion Gap 7 mmol/L (10-20); BUN (Urea Nitrogen) 29 mg/dL (9.8-20.1); Bilirubin, Total 0.4 mg/dL (0.2-1.2); Calc. Creatinine Clearance 24 mL/min (70-130); Calcium 7.2 mg/dL (7.8-10.44); Carbon Dioxide 19 mmol/L (22-29); Chloride 110 mmol/L (98-107); Estimated GFR-MDRD 19; Glucose 80 mg/dL (70-105); Protein, Total 5.5 g/dL (6.0-8.3); Sodium 132 mmol/L (136-145)
[2017-12-25] MEDS: Sodium Bicarbonate Tab 325 MG TAB PO SCH ×3 (11:14→21:02)
[2017-12-25] MEDS: Ferrous Sulfate 325 MG TAB PO SCH (11:15)
[2017-12-25] MEDS: Furosemide 20 MG TAB PO SCH (11:15)
[2017-12-25] MEDS: Carvedilol 25 MG TAB PO SCH ×2 (11:15→21:03)
[2017-12-25 13:47] VITALS: BMI 20.2
--- NOTE | 2017-12-25 14:15 | PRG ---
DATE OF SERVICE: 12/25/2017 SUBJECTIVE: The patient is without complaint. PHYSICAL EXAMINATION: VITAL SIGNS: Temperature 97.7, pulse 86, respirations 18, O2 sat 91% on room air, blood pressure 127 /63. HEENT: Unremarkable. NECK: No JVD. CHEST: Clear. CARDIAC: S1 and S2 regular. ABDOMEN: Soft. EXTREMITIES: No edema. LABORATORY DATA: White blood cell count 3.5, hematocrit 29.3, platelet count 116. Sodium 132, potas sium 4, BUN 29, creatinine 2.6, glucose 80, albumin 2.5. ASSESSMENT: 1. Bilateral pleural effusions. 2. Status post hypoxic respiratory failure. 3. Probable nephrotic syndrome. 4. Systolic heart failure. 5. Chronic kidney disease stage 4. PLAN: She is probably ready to go home from a pulmonary standpoint, her focus needs to be on fluid r estriction and close followup for her renal status.
[2017-12-25] MEDS: Lovastatin 20 MG TAB PO SCH (16:37)
[2017-12-25] MEDS: Calcium Carbonate + Vit D 1 TAB PO SCH (16:37)
--- NOTE | 2017-12-25 18:31 | PRG ---
DATE OF SERVICE: 12/25/2017 SUBJECTIVE: Patient was seen and examined at bedside and overnight events noted. Patient denies any shortness of breath or chest pain or palpitation. No history of nausea or vomitin g or diarrhea or fever or chills or cramps. OBJECTIVE: GENERAL: This is a well-built female, in no apparent distress. VITAL SIGNS: Temperature 98.1, pulse 64, respiratory rate 18, blood pressure 96/61. HEENT: Atraumatic, normocephalic. Oral mucosa is moist NECK: Supple. CARDIOVASCULAR: S1 and S2 heard. Rate and rhythm regular. RESPIRATORY: Clear to auscultation. GASTROINTESTINAL: Abdomen is soft. MUSCULOSKELETAL: No tenderness. No edema. DERMATOLOGIC: No skin rash. NEUROLOGIC: Alert and awake and oriented x3. No focal neurologic deficits. Moving all the extremit ies. PSYCHIATRIC: Mood and affect normal. LABORATORY DATA: Potassium 4.0, BUN 29, creatinine is 2.6. ASSESSMENT AND PLAN: 1. Acute kidney injury on chronic kidney stage IV. Renal function close to normal. 2. Hyponatremia. 3. Metabolic acidosis. 4. Hypertension. 5. Proteinuria. 6. Hyperemia. Monitor renal function. We will follow.
[2017-12-26 04:34] LABS: #Eosinphils 0.2 thou/uL (0.0-0.7); #Lymphocytes 0.8 thou/uL (1.20-3.40); #Monocytes 0.1 thou/uL (0.11-0.59); #Neutrophils 1.6 thou/uL (1.40-6.50); %Basophils 0.6 % (0.0-1.0); %Eosinophils 7.5 % (0.0-10.0); %Lymphocytes 28.4 % (21.0-51.0); %Monocytes 2.8 % (0.0-10.0); %Neutrophils 60.8 % (42.0-75.0); Hemoglobin 9.6 g/dL (12.0-16.0); Mean Corpuscular HGB CONC 34.5 g/dL (32.0-36.0); Mean Corpuscular Hemoglobin 30.9 pg (27.0-31.0); Mean Corpuscular Volume 89.4 fl (81.0-99.0); Mean Platelet Volume 6.2 fL (7.4-10.4); Platelet Count 98 thou/uL (130-400); RBC Distribution Width 14.4 % (11.5-14.5); White Blood Cell (WBC) Count 2.7 thou/uL (4.8-10.8)
[2017-12-26] MEDS: Levothyroxine Sodium 25 MCG TAB PO SCH (05:05)
[2017-12-26] MEDS: Cipro 250 MG TAB PO SCH ×2 (05:05→20:21)
[2017-12-26] MEDS: Levothyroxine Sodium 112 MCG TAB PO SCH (05:05)
--- NOTE | 2017-12-26 07:45 | PDOC.FM ---
- Subjective Subjective: Pt reports doing well this morning. Eating alot. Says diarrhea resolved. pt reports getting swollen in her legs and back yesterday. Denies any pain. Denies any SOB or chest pain. No other acute events overnight - Objective MAR Reviewed: Yes Vital Signs & Weight: Vital Signs (12 hours) Temp Pulse Resp BP Pulse Ox 12/26/17 04:00 98.0 F 61 12 89/51 L 91 L 12/25/17 23:31 98.2 F 60 12 94/55 L 91 L 12/25/17 19:53 98.2 F 64 20 99/54 L 90 L 12/25/17 19:48 98.1 F 64 16 93 L Weight Weight 50.005 kg I&O: 12/25/17 12/26/17 12/27/17 06:59 06:59 06:59 Intake Total 1380 Balance 1380 Result Diagrams: 12/26/17 04:20 12/25/17 07:39 Radiology Reviewed by me: Yes <Andres Gordillo - Last Filed: 12/26/17 07:44> - Objective Vital Signs & Weight: Vital Signs (12 hours) Temp Pulse Resp BP BP Pulse Ox 12/26/17 12:30 97.9 F 59 L 16 98/53 L 91 L 12/26/17 08:20 97.6 F 58 L 16 98/55 L 91 L 12/26/17 04:00 98.0 F 61 12 89/51 L 91 L Weight Weight 50.005 kg I&O: 12/25/17 12/26/17 12/27/17 06:59 06:59 06:59 Intake Total 1380 Balance 1380 Result Diagrams: 12/26/17 04:20 12/26/17 04:20 <Kianna Huff - Last Filed: 12/26/17 13:24> Phys Exam - Physical Examination Constitutional: NAD HEENT: PERRLA, moist MMs, oral pharynx no lesions Neck: no nodes, no JVD, supple, full ROM Respiratory: no wheezing, no rales, no rhonchi decreased lung sounds in left lobe Cardiovascular: RRR, no significant murmur, no rub Gastrointestinal: soft, non-tender, positive bowel sounds mild distention Musculoskeletal: pulses present trace edema in lower extremtieis Neurological: non-focal, normal sensation, moves all 4 limbs Lymphatic: no nodes Psychiatric: normal affect, A&O x 3 Skin: no rash, normal turgor, cap refill <2 seconds <Andres Gordillo - Last Filed: 12/26/17 07:44> Dx/Plan (1) Salmonella gastroenteritis Code(s): A02.0 - SALMONELLA ENTERITIS Status: Acute (2) Anemia Code(s): D64.9 - ANEMIA, UNSPECIFIED Status: Acute QualifierTitle: Anemia type: other cause Qualified Code(s): D64.9 - Anemia, unspecified (3) Gastroenteritis Code(s): K52.9 - NONINFECTIVE GASTROENTERITIS AND COLITIS, UNSPECIFIED Status : Acute (4) Addisons disease Code(s): E27.1 - PRIMARY ADRENOCORTICAL INSUFFICIENCY Status: Acute (5) Chronic congestive heart failure Code(s): I50.9 - HEART FAILURE, UNSPECIFIED Status: Chronic (6) Acute kidney injury Code(s): N17.9 - ACUTE KIDNEY FAILURE, UNSPECIFIED Status: Acute (7) CKD (chronic kidney disease) stage 4, GFR 15-29 ml/min Code(s): N18.4 - CHRONIC KIDNEY DISEASE, STAGE 4 (SEVERE) Status: Acute (8) Pleural effusion Code(s): J90 - PLEURAL EFFUSION, NOT ELSEWHERE CLASSIFIED Status: Acute (9) 3-vessel coronary artery disease Status: Chronic (10) DM2 (diabetes mellitus, type 2) Status: Chronic QualifierTitle: Diabetes mellitus longterm insulin use: with longterm use Diabetes mellitus complication status: with kidney complications Diabetes mellitus complication detail: with chronic kidney disease Chronic kidney disease stage: stage 3 (moderate) Qualified Code(s): E11.22 - Type 2 diabetes mellitus with diabetic chronic kidney disease; N18.3 - Chronic kidney disease, stage 3 (moderate); N18.3 - Chronic kidney disease, stage 3 (moderate) ; Z79.4 - senior care (current) use of insulin; Z79.4 - senior care (current) use of insulin; Z79.4 - long term care social 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; Z79.4 - senior care ( current) use of insulin (11) HLD (hyperlipidemia) Code(s): E78.5 - HYPERLIPIDEMIA, UNSPECIFIED Status: Chronic QualifierTitle: Hyperlipidemia type: unspecified Qualified Code(s): E78.5 - Hyperlipidemia, unspecified (12) HTN (hypertension) Code(s): I10 - ESSENTIAL (PRIMARY) HYPERTENSION Status: Chronic QualifierTitle: Hypertension type: unspecified Qualified Code(s): I10 - Essential (primary) hypertension (13) Hypothyroid Code(s): E03.9 - HYPOTHYROIDISM, UNSPECIFIED Status: Chronic (14) KARIME (iron deficiency anemia) Code(s): D50.9 - IRON DEFICIENCY ANEMIA, UNSPECIFIED Status: Chronic QualifierTitle: Iron deficiency anemia type: unspecified iron deficiency Qualified Code(s): D50.9 - Iron deficiency anemia, unspecified - Plan Plan: Salmonella Gastroenteritis - Fluids stopped at this time. Getting some fluid overload. Diarrhea improving per patient. Doing much better. Tolerating PO - Stool lactoferrin Positive, Stool cx- Salmonella positive. - campylobacter, and c. diff toxin/ag all negative - FOBT neg -Likely exacerbated anemia as well as Salmonella causes bloody diarrhea -On cipro, renally dosed at this time - Colonoscopy done 3 years ago which was normal -CT abdomen/pelvis shows colitis of colon. Shows some stones in gal bladder. Acute on chronic anemia - Hg 7.6-->6.2-->10.1-->10.7->9.6 Transfused 2u RBC a few days ago. BP improving but still low. staying stable -Likely exacerbated by problem #1 - Continue iron supplementation, may want to increase to BID dosing - Daily CBC - Colonoscopy 3 years ago normal - Iron studies in 07/2017 showed iron deficiency anemia; likely also has ACD. Vitamin B12 normal. RBC folate pending. Immature Retic count elevated -Continued home meds. DM type II - Holding home medications as blood sugars have been jumping around and had multiple episodes of being hypoglycemic. will adjust and start medication as needed. Stopped D5 yesterday. After eating more, patient did not have any more episodes of hypoglycemia. Sugars more elevated. -Insulin level normal. Was concerned for insulinoma. Awaiting c-peptide to make sure it wasn't residual insulin given to her early in the stay -Got hypoglycemic again last night without any insulin medication. Started on D5NS and sugars have been stable - Mild SSI - CC diet - ACHS accuchecks- blood sugars have increased overnight and stayed stable Suspected Addisons Diseas -ACTH stimulation test- did not have adequate response. Awaiting ACTH level. Awaiting renin/aldosterone levels -Will need to f/u outpatient with Endocrinology for further assessment. Could be underlying cause of diabetes/anemia. -May want to start on low dose steroids at this time. ADRIENNE on CKD stage III - Fluids stopped at this time. - Cr trending down. Will continue to monitor. awaiting BMP -Nephrology- Dr. Alejandro- will follow recs. Chronic CHF with EF 25-30% - Continue home medications - Monitor fluid status -Carvedilol being held due to low BP. May want to start at a lower dose. Will continue to monitor BP -Lasix PRN and julius lasix for fluid overload. - Patient appears volume down at this time - Strict I&O's - Daily weights Left side Pleural Effusion -O2 sats stable, has had at previous visits. Was drained at last visit -Consult Pulmonology- Mooney- will follow recs. No need to drain at this time. CAD s/p CABG - Continue ASA - Continue home medications Hypothyroidism - TSH elevated at 10. Checking Free T3 and T4. Will start levothyroxine home dose at 137. Will want to f/u outpatient <Andres Gordillo - Last Filed: 12/26/17 07:44> Attending Addendum - Attending Addendum Date/Time: 12/26/17 1323 I personally evaluated the patient and discussed the management with Dr. Gordillo. I agree with the History, Examination, Assessment and Plan documented above with any addition or exceptions noted below. The patient's labs are consistent with adrenal insufficiency. Will start steroids and pt will need outpt f/u with endocrinology. Creatinine is at baseline. Anticipate she may be able to go home this afternoon or tomorrow. <Kianna Huff - Last Filed: 12/26/17 13:24>
[2017-12-26 08:12] LABS: Anion Gap 9 mmol/L (10-20); BUN (Urea Nitrogen) 29 mg/dL (9.8-20.1); Calc. Creatinine Clearance 18 mL/min (70-130); Calcium 7.3 mg/dL (7.8-10.44); Carbon Dioxide 19 mmol/L (22-29); Chloride 108 mmol/L (98-107); Estimated GFR-MDRD 18; Glucose 155 mg/dL (70-105); Potassium 4.6 mmol/L (3.5-5.1); Sodium 131 mmol/L (136-145)
[2017-12-26] MEDS: (Sucroferric Oxyhydroxide [Velphoro] 500 MG) PO SCH (10:44)
[2017-12-26] MEDS: Ferrous Sulfate 325 MG TAB PO SCH (10:45)
[2017-12-26] MEDS: Furosemide 20 MG TAB PO SCH (10:46)
[2017-12-26] MEDS: Carvedilol 25 MG TAB PO SCH ×2 (10:46→20:21)
[2017-12-26] MEDS: Calcium Carbonate + Vit D 1 TAB PO SCH ×2 (10:46→16:27)
[2017-12-26] MEDS: Sodium Bicarbonate Tab 325 MG TAB PO SCH ×3 (10:46→20:21)
--- NOTE | 2017-12-26 12:56 | PRG ---
DATE OF SERVICE: 12/26/2017 SUBJECTIVE: The patient is sleeping, does not appear to be in any distress. PHYSICAL EXAMINATION: VITAL SIGNS: Temperature is 98, pulse 61, respirations 12, O2 sat 91%, blood pressure 89/51. HEENT: Unremarkable. NECK: No JVD. LUNGS: Slightly diminished breath sounds in both bases. CARDIAC: S1 and S2 regular. ABDOMEN: Soft. EXTREMITIES: No edema. LABORATORY DATA: White blood cell count 2.7, hematocrit 27.7, and platelet count 98. Sodium 131, po tassium 4.6, chloride 109, CO2 19, BUN 29, creatinine is 2.8, glucose 155. ASSESSMENT: 1. Stable pulmonary status. 2. Bilateral effusions. 3. Status post hypoxic respiratory failure. 4. Probable nephrotic syndrome. 5. Chronic systolic heart failure. 6. Chronic kidney disease stage 4. PLAN: 1. Probably approaching to the point where she can be sent home. Needs to focus on fluid restrictio n. 2. The patient is being currently followed by Nephrology.
--- NOTE | 2017-12-26 13:31 | PRG ---
DATE OF SERVICE: 12/26/2017 NEPHROLOGY PROGRESS NOTE SUBJECTIVE: Patient was seen and examined at bedside and overnight events noted. Patient denies any shortness of breath or chest pain or palpitation. No history of nausea or vomiting or diarrhea or f ever or chills or cramps. OBJECTIVE: GENERAL: This is an elderly female in no apparent distress. VITAL SIGNS: Temperature 97.6, pulse 50, respiratory rate 16, blood pressure 98/55. HEENT: Atraumatic, normocephalic. Oral mucosa is moist. NECK: Supple. CARDIOVASCULAR: S1, S2 heard. Rate and rhythm regular. RESPIRATORY: Clear to auscultation. GASTROINTESTINAL: Abdomen is soft. MUSCULOSKELETAL: No tenderness. No edema. DERMATOLOGIC: No skin rash. NEUROLOGIC: Alert and awake and oriented x3. No focal neurologic deficits. Moving all the extremiti es. PSYCHIATRIC: Mood and affect normal. LABORATORY DATA: Potassium is 4.6, BUN is 29, creatinine is 2.8. ASSESSMENT AND PLAN: 1. Acute kidney injury on chronic kidney stage IV with stable creatinine. The patient was on IV hyd ration secondary to diarrhea, but not able to tolerate. Patient started having fluid overload. Agre e with holding intravenous fluids for now. 2. Hyponatremia. 3. Metabolic acidosis, most likely from diarrhea and chronic renal disease. 4. Hypertension. 5. Proteinuria. 6. Overall, renal function is close to her baseline. Dr. Way will be rounding on her tomorrow. We will hold off sodium bicarbonate for now and continue supportive care. 7. Diabetic nephropathy.
[2017-12-26] MEDS: Hydrocortisone 10 mg Tablet PO SCH ×2 (13:33→20:21)
[2017-12-26] MEDS: Lovastatin 20 MG TAB PO SCH (16:27)
[2017-12-27 04:46] LABS: #Lymphocytes 0.6 thou/uL (1.20-3.40); #Neutrophils 2.6 thou/uL (1.40-6.50); %Basophils 0.2 % (0.0-1.0); %Eosinophils 0.7 % (0.0-10.0); %Lymphocytes 18.4 % (21.0-51.0); %Monocytes 1.1 % (0.0-10.0); %Neutrophils 79.7 % (42.0-75.0); Mean Corpuscular HGB CONC 35.6 g/dL (32.0-36.0); Mean Corpuscular Volume 89.8 fl (81.0-99.0); Mean Platelet Volume 6.8 fL (7.4-10.4); Platelet Count 132 thou/uL (130-400); RBC Distribution Width 14.4 % (11.5-14.5); Red Blood Cell (RBC) Count 3.13 mill/uL (4.20-5.40); White Blood Cell (WBC) Count 3.3 thou/uL (4.8-10.8)
[2017-12-27] MEDS: Levothyroxine Sodium 25 MCG TAB PO SCH (05:13)
[2017-12-27] MEDS: Cipro 250 MG TAB PO SCH (05:13)
[2017-12-27] MEDS: Levothyroxine Sodium 112 MCG TAB PO SCH (05:13)
--- NOTE | 2017-12-27 05:56 | PDOC.FM ---
- Subjective Subjective: This morning the patient denies shortness or breath or coughing. She denies feeling weak and is in fact feeling better except for feeling swollen. She has swelling of the ankles and feels somewhat swollen in her abdomen although there is no pitting or fluid wave at the abdomen. - Objective Vital Signs & Weight: Vital Signs (12 hours) Temp Pulse Resp BP BP Pulse Ox 12/27/17 04:00 97.6 F 61 16 129/59 L 94 L 12/26/17 23:53 98.0 F 63 16 140/61 91 L 12/26/17 20:00 98.0 F 63 16 91 L 12/26/17 19:54 97.9 F 61 16 105/56 L 90 L Weight Weight 50.005 kg I&O: 12/25/17 12/26/17 12/27/17 06:59 06:59 06:59 Intake Total 1380 200 Output Total 250 Balance 1380 -50 Result Diagrams: 12/27/17 04:15 12/27/17 04:15 <Michel Teran - Last Filed: 12/27/17 09:12> - Objective Vital Signs & Weight: Vital Signs (12 hours) Temp Pulse Resp BP BP Pulse Ox 12/27/17 11:35 123/65 12/27/17 08:20 97.9 F 62 16 141/67 H 91 L 12/27/17 08:00 97.9 F 62 16 12/27/17 04:00 97.6 F 61 16 129/59 L 94 L Weight Weight 59.194 kg I&O: 12/26/17 12/27/17 12/28/17 06:59 06:59 06:59 Intake Total 1380 200 Output Total 250 Balance 1380 -50 Result Diagrams: 12/27/17 04:15 12/27/17 04:15 <Matthew Chiang - Last Filed: 12/27/17 14:13> Phys Exam - Physical Examination Constitutional: NAD HEENT: PERRLA, moist MMs Neck: no nodes, full ROM Respiratory: no wheezing, clear to auscultation bilateral Cardiovascular: RRR, no significant murmur, no rub no crackles Gastrointestinal: soft, non-tender, no distention, positive bowel sounds no pitting to the back Musculoskeletal: pulses present +2 edema bilaterally Neurological: non-focal, moves all 4 limbs Lymphatic: no nodes Psychiatric: normal affect, A&O x 3 Skin: no rash, cap refill <2 seconds <Michel Teran - Last Filed: 12/27/17 09:12> Dx/Plan (1) Acute kidney injury Code(s): N17.9 - ACUTE KIDNEY FAILURE, UNSPECIFIED Status: Acute (2) Addisons disease Code(s): E27.1 - PRIMARY ADRENOCORTICAL INSUFFICIENCY Status: Acute (3) Salmonella gastroenteritis Code(s): A02.0 - SALMONELLA ENTERITIS Status: Acute (4) Chronic congestive heart failure Code(s): I50.9 - HEART FAILURE, UNSPECIFIED Status: Chronic (5) CKD (chronic kidney disease) stage 4, GFR 15-29 ml/min Code(s): N18.4 - CHRONIC KIDNEY DISEASE, STAGE 4 (SEVERE) Status: Acute (6) Hypoglycemia Code(s): E16.2 - HYPOGLYCEMIA, UNSPECIFIED Status: Acute (7) Hypokalemia Code(s): E87.6 - HYPOKALEMIA Status: Acute (8) Hyponatremia Code(s): E87.1 - HYPO-OSMOLALITY AND HYPONATREMIA Status: Acute (9) Pleural effusion Code(s): J90 - PLEURAL EFFUSION, NOT ELSEWHERE CLASSIFIED Status: Acute (10) Primary hypothyroidism Code(s): E03.9 - HYPOTHYROIDISM, UNSPECIFIED Status: Acute (11) Systolic CHF, acute Code(s): I50.21 - ACUTE SYSTOLIC (CONGESTIVE) HEART FAILURE Status: Acute (12) CAD (coronary artery disease), [place] coronary artery Code(s): I25.10 - ATHSCL HEART DISEASE OF [place] CORONARY ARTERY W/O ANG PCTRS Status: Chronic QualifierTitle: [place] vs. transplanted heart: [place] heart Associated angina: with stable angina Qualified Code(s): I25.118 - Atherosclerotic heart disease of [place] coronary artery with other forms of angina pectoris (13) Cardiomyopathy Code(s): I42.9 - CARDIOMYOPATHY, UNSPECIFIED Status: Chronic (14) DM2 (diabetes mellitus, type 2) Status: Chronic QualifierTitle: Diabetes mellitus alf insulin use: with alf use Diabetes mellitus complication status: with kidney complications Diabetes mellitus complication detail: with chronic kidney disease Chronic kidney disease stage: stage 3 (moderate) Qualified Code(s): E11.22 - Type 2 diabetes mellitus with diabetic chronic kidney disease; N18.3 - Chronic kidney disease, stage 3 (moderate); N18.3 - Chronic kidney disease, stage 3 (moderate) ; Z79.4 - alf (current) use of insulin; Z79.4 - alf (current) use of insulin; Z79.4 - alf (current) use of insulin; Z79.4 - alf ( current) use of insulin (15) HLD (hyperlipidemia) Code(s): E78.5 - HYPERLIPIDEMIA, UNSPECIFIED Status: Chronic QualifierTitle: Hyperlipidemia type: unspecified Qualified Code(s): E78.5 - Hyperlipidemia, unspecified (16) HTN (hypertension) Code(s): I10 - ESSENTIAL (PRIMARY) HYPERTENSION Status: Chronic QualifierTitle: Hypertension type: unspecified Qualified Code(s): I10 - Essential (primary) hypertension (17) Noncompliance with medication regimen Code(s): Z91.14 - PATIENT'S OTHER NONCOMPLIANCE WITH MEDICATION REGIMEN Status : Chronic - Plan Plan: 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 Awaiting ACTH level. Awaiting renin/aldosterone levels -Will need to f/u outpatient with Endocrinology for further assessment. Could be underlying cause of diabetes/anemia. -Started steroid replacement 12/26 ADRIENNE on CKD stage III - Fluids stopped at this time. - Fluid restriction decreased to 1500cc - Cr 2.8 appears to be about baseline - Nephrology- Dr. Way- will follow recs. - likely will need increased diuresis today - CXR to eval change in pleural effusion Chronic CHF with EF 25-30% - Continue home medications - Monitor fluid status - Carvedilol being held due to low BP. Will continue to monitor BP - Strict I&O's - Daily weights Salmonella Gastroenteritis - Fluids stopped at this time. Getting fluid overload. - patient states diarrhea is almost resolved. - Stool lactoferrin Positive, Stool cx- Salmonella positive. - campylobacter, and c. diff toxin/ag all negative - FOBT neg - Likely exacerbated anemia as well as Salmonella causes bloody diarrhea - On cipro, renally dosed at this time - Colonoscopy done 3 years ago which was normal -CT abdomen/pelvis shows colitis of colon. Shows some stones in gal bladder. Acute on chronic anemia - Hg 7.6-->6.2-->10.1-->10.7->9.6-> 10.0 Transfused 2u RBC a few days ago. BP improving but still low. staying stable -Likely exacerbated by problem #1 - Continue iron supplementation, may want to increase to BID dosing - Daily CBC - Colonoscopy 3 years ago normal - Iron studies in 07/2017 showed iron deficiency anemia; likely also has ACD. Vitamin B12 normal. RBC folate pending. Immature Retic count elevated -Continued home meds. DM type II - Stopped D5 on 12/25, start steroid replacement 12/26 - sugars around 200s will go slow with adding insulin 2/2 issues with hypoglycemia -Insulin level normal. Was concerned for insulinoma. C-peptide WNL unlikey hypoglycemia 2/2 poor removal of insulin - Mild SSI - CC diet - ACHS accuchecks- blood sugars have increased overnight and stayed stable Left side Pleural Effusion -O2 sats stable, has had at previous visits. Was drained at last visit -Consult Pulmonology- Mooney- will follow recs. No need to drain at this time. CAD s/p CABG - Continue ASA - Continue home medications Hypothyroidism - TSH elevated at 10. Checking Free T3 and T4. Will start levothyroxine home dose at 137. Will want to f/u outpatient <Michel Teran - Last Filed: 12/27/17 09:12> Attending Addendum - Attending Addendum Date/Time: 12/27/17 1411 I personally evaluated the patient and discussed the management with Dr. Teran. I agree with the History, Examination, Assessment and Plan documented above with any addition or exceptions noted below. 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 She feels improved today. She is also requiring treatment for hypothyroidism due to undetectable levels of T3 and T4. Will continue current medication regimen. She is improved from a gastroenteritis standpoint, and we will discontinue Cipro therapy. Hgb stable from previous days. She has some mild edema in her ankles b/l but will work on fluid restriction as opposed to diuresis due to her renal function. Await further nephro recs. <Matthew Chiang - Last Filed: 12/27/17 14:13>
[2017-12-27 06:22] LABS: Anion Gap 12 mmol/L (10-20); BUN (Urea Nitrogen) 36 mg/dL (9.8-20.1); Calc. Creatinine Clearance 16 mL/min (70-130); Calcium 7.9 mg/dL (7.8-10.44); Carbon Dioxide 17 mmol/L (22-29); Chloride 108 mmol/L (98-107); Estimated GFR-MDRD 15; Glucose 218 mg/dL (70-105); Potassium 4.8 mmol/L (3.5-5.1); Sodium 132 mmol/L (136-145)
[2017-12-27] MEDS: (Sucroferric Oxyhydroxide [Velphoro] 500 MG) PO SCH (08:12)
[2017-12-27] MEDS: Carvedilol 25 MG TAB PO SCH ×2 (08:13→21:10)
[2017-12-27] MEDS: Ferrous Sulfate 325 MG TAB PO SCH (08:13)
[2017-12-27] MEDS: Hydrocortisone 10 mg Tablet PO SCH ×3 (08:14→21:19)
[2017-12-27] MEDS: Sodium Bicarbonate Tab 325 MG TAB PO SCH ×3 (08:14→21:10)
[2017-12-27] MEDS: Calcium Carbonate + Vit D 1 TAB PO SCH ×2 (08:15→17:30)
[2017-12-27] MEDS: Furosemide 20 MG TAB PO SCH (08:15)
--- NOTE | 2017-12-27 08:21 | RAD ---
UPRIGHT PORTABLE CHEST 1 VIEW: HISTORY: A 52-year-old female with a history of pleural effusion. COMPARISON: 12/21/17. FINDINGS: Marked worsening of the right pleural effusion and minimal worsening of the left pleural effusion. B ilateral vascular congestion. Postop midline sternotomy. IMPRESSION: Marked worsening of the right pleural effusion and moderate worsening of the left pleural effusion. Bilateral vascular congestion. Continue short-term followup. POS: OFF
[2017-12-27] MEDS ORDERED: Hydrocortisone 10 mg Tablet PO SCH (09:00)
--- NOTE | 2017-12-27 11:34 | PRG ---
DATE OF SERVICE: 12/27/2017 SUBJECTIVE: This is a 52-year-old female being seen for acute kidney injury. The patient denies any nausea, vomiting, or chest pain. PHYSICAL EXAMINATION: GENERAL: Patient is awake, alert. VITAL SIGNS: Afebrile, pulse 62, breathing 16, blood pressure 129/49. HEAD/NECK: Normocephalic. Atraumatic. EYES: EOMI. No deformity. EARS: Clear. No ulcers. NOSE: Intact. No lesions. MOUTH: Clear. No discharge. THROAT: Clear. No exudate. LUNGS: Clear. No crackles. CARDIAC: S1, S2. No rub. ABDOMEN: Benign. BS+. GENITALIA/RECTUM: Ruiz absent. BACK/EXTREMITIES: Edema 0+ Ulcer- NEUROLOGICAL: Alert and motor intact. SKIN: Rash- Bruise- LYMPHATICS: Edema- Ulcer- LABORATORY DATA: Show hemoglobin 10, creatinine is 3.19. ASSESSMENT AND RECOMMENDATIONS: 1. Acute kidney injury with chronic kidney disease, stage 4, no urgent indication for dialysis. 2. Hypertension, stable. 3. Anemia, stable. 4. Medications based on glomerular filtration rate are appropriate. If the patient's renal function remains stable, patient can be discharged. No urgent indication for dialysis.
--- NOTE | 2017-12-27 13:24 | PDOC.EVN ---
Event Note - Event Note Event Note: spoke to Dr. Way regarding worsening pleural effusion on CXR as well as worsening ankle edema Will increase lasix from 20mg oral to 40IV daily If Cr is worse tomorrow may need to dialyze
[2017-12-27] MEDS: Lovastatin 20 MG TAB PO SCH (17:29)
--- NOTE | 2017-12-27 17:43 | PRG ---
DATE OF SERVICE: 12/27/2017 SERVICE: Pulmonary Medicine. INTERVAL HISTORY: The patient is doing fine from a respiratory standpoint. She is breathing comfortably. She has no complaints of nausea, vomiting, or chest discomfort. Otherwise, has been normal. No interval change to her condition. OBJECTIVE: VITAL SIGNS: Afebrile, pulse 62, blood pressure 141/67, respirations 16, saturation 91% on room air. GENERAL: The patient is awake, alert, in no apparent distress. LUNGS: Decent air entry. Crackles are present throughout bilateral lung espino. There is decreased air entry in the bibasilar region, but worse on the right. HEART: Normal rate, regular. ABDOMEN: Soft, nontender, nondistended. Bowel sounds are positive. MUSCULOSKELETAL: There is diffuse 3+ pitting throughout, which is actually involving her entirety of her legs and sacral region. LABORATORY DATA: WBC 3.3, hemoglobin 10.0, platelets 132,000 and improving. Creatinine 3.19 and up trending. Sodium 132, chloride 108, bicarbonate 17. HIV 1 and 2 are both nonreactive. Stool cultures growing salmonella. IMAGING: Chest x-ray demonstrates worsening of the right pleural effusion and moderate worsening of the left pleural effusion. Bilateral vascular congestion is evident. ASSESSMENT: 1. Acute hypoxic respiratory failure, resolved. 2. Bilateral pleural effusions, right greater than left. 3. Acute on chronic systolic heart failure. 4. Chronic kidney disease, stage 4. 5. 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 PLAN: The patient is in an anasarca state at this point. Its time to reintroduce some Lasix. I will increase her dose in order to promote a little bit of fluid coming off. For some reason, the RICKI is still pending. I will touch base with a laboratory about whether or not it has been collected. Pulmonary Critical Care will continue to follow along for the time being. ROSALINDA
[2017-12-27] MEDS ORDERED: Furosemide 100 MG/10 ML VIAL SLOW IVP SCH (17:45)
[2017-12-27] MEDS: HumaLOG 300 UNITS/3 ML VIAL SC PRN (21:13)
[2017-12-27] MEDS ORDERED: Insulin Regular 300 UNITS/3 ML VIAL SC SCH (21:30)
[2017-12-28] MEDS: HumaLOG 300 UNITS/3 ML VIAL SC PRN ×3 (00:20→20:07)
[2017-12-28 04:44] LABS: #Lymphocytes 0.6 thou/uL (1.20-3.40); #Monocytes 0.1 thou/uL (0.11-0.59); #Neutrophils 3.8 thou/uL (1.40-6.50); %Eosinophils 0.2 % (0.0-10.0); %Lymphocytes 13.8 % (21.0-51.0); %Neutrophils 84.1 % (42.0-75.0); Hemoglobin 9.8 g/dL (12.0-16.0); Mean Corpuscular HGB CONC 33.9 g/dL (32.0-36.0); Mean Corpuscular Hemoglobin 29.8 pg (27.0-31.0); Mean Corpuscular Volume 87.8 fl (81.0-99.0); Mean Platelet Volume 6.9 fL (7.4-10.4); Platelet Count 145 thou/uL (130-400); RBC Distribution Width 14.1 % (11.5-14.5); Red Blood Cell (RBC) Count 3.28 mill/uL (4.20-5.40); White Blood Cell (WBC) Count 4.5 thou/uL (4.8-10.8)
[2017-12-28] MEDS: Levothyroxine Sodium 25 MCG TAB PO SCH (06:05)
[2017-12-28] MEDS: Levothyroxine Sodium 112 MCG TAB PO SCH (06:05)
[2017-12-28 06:52] LABS: Anion Gap 10 mmol/L (10-20); BUN (Urea Nitrogen) 41 mg/dL (9.8-20.1); Calc. Creatinine Clearance 20 mL/min (70-130); Carbon Dioxide 20 mmol/L (22-29); Chloride 106 mmol/L (98-107); Estimated GFR-MDRD 16; Glucose 125 mg/dL (70-105); Sodium 132 mmol/L (136-145)
--- NOTE | 2017-12-28 07:39 | PDOC.FM ---
- Subjective Subjective: This morning the patient denies SOB. She feels that her swelling is much improved from yesterday although still present. She has been able to walk in the room without difficulty, encouraged her to walk in the hallway today. No issues with N/V or abdominal pain. - Objective Vital Signs & Weight: Vital Signs (12 hours) Temp Pulse Resp BP BP Pulse Ox 12/27/17 23:44 97.9 F 61 16 114/55 L 92 L 12/27/17 20:00 97.9 F 63 16 96 12/27/17 19:59 97.9 F 63 16 135/66 96 Weight Weight 58.74 kg I&O: 12/27/17 12/28/17 12/29/17 06:59 06:59 06:59 Intake Total 200 Output Total 250 Balance -50 Result Diagrams: 12/28/17 04:17 12/28/17 04:17 <Michel Teran - Last Filed: 12/28/17 07:38> - Objective Vital Signs & Weight: Vital Signs (12 hours) Temp Pulse Pulse Resp BP BP Pulse Ox 12/28/17 09:12 60 12/28/17 08:55 62 124/60 12/28/17 08:00 97.6 F 65 16 12/28/17 07:30 97.6 F 65 16 129/68 93 L Pulse Ox 12/28/17 09:12 95 12/28/17 08:55 95 12/28/17 08:00 12/28/17 07:30 Weight Weight 58.74 kg I&O: 12/27/17 12/28/17 12/29/17 06:59 06:59 06:59 Intake Total 200 Output Total 250 Balance -50 Result Diagrams: 12/28/17 04:17 12/28/17 04:17 <Darien Davila - Last Filed: 12/28/17 12:34> Phys Exam - Physical Examination Constitutional: NAD HEENT: PERRLA, moist MMs Neck: no nodes, full ROM Respiratory: no wheezing decreased breath sounds at base bilaterally, mild improvement Cardiovascular: RRR, no significant murmur Gastrointestinal: soft, non-tender, no distention, positive bowel sounds Musculoskeletal: pulses present +3 edema at the ankles bilaterally, no to the mid-calf today Neurological: non-focal, moves all 4 limbs Psychiatric: normal affect, A&O x 3 Skin: no rash, cap refill <2 seconds <Michel Teran - Last Filed: 12/28/17 07:38> Dx/Plan (1) Acute kidney injury Code(s): N17.9 - ACUTE KIDNEY FAILURE, UNSPECIFIED Status: Acute (2) Addisons disease Code(s): E27.1 - PRIMARY ADRENOCORTICAL INSUFFICIENCY Status: Acute (3) Salmonella gastroenteritis Code(s): A02.0 - SALMONELLA ENTERITIS Status: Acute (4) Chronic congestive heart failure Code(s): I50.9 - HEART FAILURE, UNSPECIFIED Status: Chronic (5) CKD (chronic kidney disease) stage 4, GFR 15-29 ml/min Code(s): N18.4 - CHRONIC KIDNEY DISEASE, STAGE 4 (SEVERE) Status: Acute (6) Hypoglycemia Code(s): E16.2 - HYPOGLYCEMIA, UNSPECIFIED Status: Acute (7) Hypokalemia Code(s): E87.6 - HYPOKALEMIA Status: Acute (8) Hyponatremia Code(s): E87.1 - HYPO-OSMOLALITY AND HYPONATREMIA Status: Acute (9) Pleural effusion Code(s): J90 - PLEURAL EFFUSION, NOT ELSEWHERE CLASSIFIED Status: Acute (10) Primary hypothyroidism Code(s): E03.9 - HYPOTHYROIDISM, UNSPECIFIED Status: Acute (11) Systolic CHF, acute Code(s): I50.21 - ACUTE SYSTOLIC (CONGESTIVE) HEART FAILURE Status: Acute (12) CAD (coronary artery disease), [place] coronary artery Code(s): I25.10 - ATHSCL HEART DISEASE OF [place] CORONARY ARTERY W/O ANG PCTRS Status: Chronic QualifierTitle: [place] vs. transplanted heart: [place] heart Associated angina: with stable angina Qualified Code(s): I25.118 - Atherosclerotic heart disease of [place] coronary artery with other forms of angina pectoris (13) Cardiomyopathy Code(s): I42.9 - CARDIOMYOPATHY, UNSPECIFIED Status: Chronic (14) DM2 (diabetes mellitus, type 2) Status: Chronic QualifierTitle: Diabetes mellitus group home insulin use: with terminal clerk use Diabetes mellitus complication status: with kidney complications Diabetes mellitus complication detail: with chronic kidney disease Chronic kidney disease stage: stage 3 (moderate) Qualified Code(s): E11.22 - Type 2 diabetes mellitus with diabetic chronic kidney disease; N18.3 - Chronic kidney disease, stage 3 (moderate); N18.3 - Chronic kidney disease, stage 3 (moderate) ; Z79.4 - [facility] (current) use of insulin; 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; 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; Z79.4 - [facility] ( current) use of insulin (15) HLD (hyperlipidemia) Code(s): E78.5 - HYPERLIPIDEMIA, UNSPECIFIED Status: Chronic QualifierTitle: Hyperlipidemia type: unspecified Qualified Code(s): E78.5 - Hyperlipidemia, unspecified (16) HTN (hypertension) Code(s): I10 - ESSENTIAL (PRIMARY) HYPERTENSION Status: Chronic QualifierTitle: Hypertension type: unspecified Qualified Code(s): I10 - Essential (primary) hypertension (17) Noncompliance with medication regimen Code(s): Z91.14 - PATIENT'S OTHER NONCOMPLIANCE WITH MEDICATION REGIMEN Status : Chronic - Plan Plan: 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 Awaiting ACTH level. Awaiting renin/aldosterone levels -Will need to f/u outpatient with Endocrinology for further assessment. Could be underlying cause of diabetes/anemia. -Started steroid replacement 12/26 ADRIENNE on CKD stage III - Fluids stopped at this time. - Fluid restriction decreased to 1500cc - Cr 2.8 -> 3.19 -> 3.11 - Nephrology- Dr. Way- will follow recs. - CXR 12/27 showed increased pleural effusions - Lasix IV 40 yesterday, IV 80 today - may need dialysis if fluid status does not improve Chronic CHF with EF 25-30% - Continue home medications - Monitor fluid status - Carvedilol being held due to low BP. Will continue to monitor BP - Strict I&O's - Daily weights Salmonella Gastroenteritis - Fluids stopped at this time. Getting fluid overload. - patient states diarrhea is almost resolved. - Stool lactoferrin Positive, Stool cx- Salmonella positive. - campylobacter, and c. diff toxin/ag all negative - FOBT neg - Likely exacerbated anemia as well as Salmonella causes bloody diarrhea - On cipro, renally dosed at this time - Colonoscopy done 3 years ago which was normal -CT abdomen/pelvis shows colitis of colon. Shows some stones in gal bladder. Acute on chronic anemia - Hg 7.6-->6.2-->10.1-->10.7->9.6-> 10.0-> 9.8 - Transfused 2u RBC earlier in admissoin. -Likely exacerbated by problem #1 - Continue iron supplementation - Daily CBC - Colonoscopy 3 years ago normal - Iron studies in 07/2017 showed iron deficiency anemia; likely also has ACD. Vitamin B12 normal. RBC folate pending. Immature Retic count elevated -Continued home meds. DM type II - Stopped D5 on 12/25, start steroid replacement 12/26 - patient is very sensitive to insulin, cautious -Insulin level normal. Was concerned for insulinoma. C-peptide WNL unlikey hypoglycemia 2/2 poor removal of insulin - Mild SSI - CC diet - ACHS accuchecks- blood sugars have increased overnight and stayed stable Left side Pleural Effusion -O2 sats stable, has had at previous visits. Was drained at last visit -Consult Pulmonology- Mooney- will follow recs. No need to drain at this time. CAD s/p CABG - Continue ASA - Continue home medications Hypothyroidism - TSH elevated at 10. . Will start levothyroxine home dose at 137. Will want to f/u outpatient <Michel Teran - Last Filed: 12/28/17 07:38> Attending Addendum - Attending Addendum Date/Time: 12/28/17 1229 I personally evaluated the patient and discussed the management with Dr. Teran I agree with the History, Examination, Assessment and Plan documented above with any addition or exceptions noted below. Patient with good diuresis with IV lasix asymptomatic in regards to pleural effusion. Appreciate Nephrology and Pulmonary recommendations continue monitor output f/u CXR continue monitor RFT's. <Darien Davila - Last Filed: 12/28/17 12:34>
[2017-12-28] MEDS: (Sucroferric Oxyhydroxide [Velphoro] 500 MG) PO SCH (08:03)
[2017-12-28] MEDS: Furosemide 100 MG/10 ML VIAL SLOW IVP SCH (08:04)
[2017-12-28] MEDS: Calcium Carbonate + Vit D 1 TAB PO SCH ×2 (08:04→15:46)
[2017-12-28] MEDS: Sodium Bicarbonate Tab 325 MG TAB PO SCH ×3 (08:05→20:04)
[2017-12-28] MEDS: Carvedilol 25 MG TAB PO SCH ×2 (08:05→20:04)
[2017-12-28] MEDS: Ferrous Sulfate 325 MG TAB PO SCH (08:05)
[2017-12-28] MEDS: Hydrocortisone 10 mg Tablet PO SCH ×3 (08:06→20:04)
[2017-12-28] MEDS ORDERED: Furosemide 40 MG/4 ML VIAL SLOW IVP SCH (09:00)
--- NOTE | 2017-12-28 09:49 | PRG ---
DATE OF SERVICE: 12/28/2017 SERVICE: Pulmonary Medicine INTERVAL HISTORY: The patient indicates that her lower extremity swelling is much improved. She den ies any chest pain, shortness of breath, fever or chills. Otherwise, there has been no interval mejias ge to her condition. PHYSICAL EXAMINATION: VITAL SIGNS: Afebrile, pulse 65, blood pressure 129/63, respirations 16, saturation 93% on room air. GENERAL: The patient is awake, alert, in no apparent distress. LUNGS: Decent air entry. Crackles are present. There is reduced air entry at the right base with d ullness to percussion there. HEART: Normal rate, regular. ABDOMEN: Soft, nontender, nondistended. Bowel sounds are positive. MUSCULOSKELETAL: No cyanosis or clubbing. There is diffuse 2+ edema throughout, but it is now more limited to the leg. She does not have sacral edema any longer. LABORATORY DATA: WBC 4.5, hemoglobin 9.8, platelets 145,000. Creatinine 3.11 and roughly stable. B UN 41 and up trending, bicarbonate stable at 20, anion gap normal, sodium 132 and stable. ASSESSMENT: 1. Acute hypoxic respiratory failure, resolved. 2. Bilateral pleural effusions. 3. Chronic kidney disease, stage 4. 4. Acute on chronic systolic heart failure. 5. Colitis secondary to pansensitive Salmonella. PLAN: The patient can be diuresed to euvolemia. I will back off on the Lasix to 60 mg on a daily ba sis. RICKI is still pending for some reason, but I did confirm with the laboratory that they collected that study, it was sent off, and results are currently pending. Pulmonary Critical Care will contin ue to follow along if she remains in this location, but from a purely respiratory perspective, she is likely stable for transition out of the hospital. Once she returns euvolemia for a couple of days, a repeat a chest x-ray should be considered to reevaluate the effusions.
--- NOTE | 2017-12-28 11:06 | PRG ---
DATE OF SERVICE: 12/28/2017 SUBJECTIVE: This is a 52-year-old female being seen for acute kidney injury. Patient denied any [place], vomiting, or chest pain. PHYSICAL EXAMINATION: GENERAL: Patient is awake and alert. VITAL SIGNS: Afebrile, pulse 93, breathing 16, blood pressure 129/68. GENERAL APPEARANCE AND MENTAL STATUS: Fair. HEAD/NECK: Normocephalic. Atraumatic. EYES: EOMI. No deformity. EARS: Clear. No ulcers. NOSE: Intact. No lesions. MOUTH: Clear. No discharge. THROAT: Clear. No exudate. LUNGS: Clear. No crackles. CARDIAC: S1, S2. No rub. ABDOMEN: Benign. BS+. GENITALIA/RECTUM: Ruiz absent. BACK/EXTREMITIES: Lower extremities shows 3+ edema. NEUROLOGICAL: Alert and motor intact. SKIN: Rash- Bruise- LYMPHATICS: Edema- Ulcer- LABORATORY DATA: Hemoglobin 9.8, creatinine 3.1. ASSESSMENT AND RECOMMENDATIONS: 1. Chronic kidney disease stage 4 with acute kidney injury due to congestive heart failure as well a s diabetes mellitus. No urgent indication for dialysis. 2. Edema. Use Lasix 40-80 mg daily p.o. 3. Anemia, stable. 4. Medication based on GFR are appropriate.
[2017-12-28 13:28] LABS: Anti-Striation AB Negative (Neg:<1:40); Antinuclear AB Negative (Negative); Antiparietal Cell Ab 76.6 Units (0.0-20.0); Complement C4 16 mg/dL (14-44); DSDNA AutoAb 1 IU/mL (0-9); SCL-70 IgG AutoAb <0.2 AI (0.0-0.9); Smith IgG AutoAb <0.2 AI (0.0-0.9); Smooth Muscle AB 11 Units (0-19); Thyroid Peroxidase Abs 26 IU/mL (0-34); U1 RNP/SNRNP IgG AutoAb <0.2 AI (0.0-0.9)
[2017-12-28] MEDS: Lovastatin 20 MG TAB PO SCH (15:46)
[2017-12-29] MEDS: Levothyroxine Sodium 112 MCG TAB PO SCH (05:20)
[2017-12-29] MEDS: Levothyroxine Sodium 25 MCG TAB PO SCH (05:20)
[2017-12-29] MEDS: HumaLOG 300 UNITS/3 ML VIAL SC PRN ×2 (05:21→09:41)
[2017-12-29 06:31] LABS: #Lymphocytes 0.7 thou/uL (1.20-3.40); #Monocytes 0.1 thou/uL (0.11-0.59); #Neutrophils 4.9 thou/uL (1.40-6.50); %Basophils 0.2 % (0.0-1.0); %Eosinophils 0.3 % (0.0-10.0); %Lymphocytes 11.7 % (21.0-51.0); %Monocytes 2.4 % (0.0-10.0); %Neutrophils 85.5 % (42.0-75.0); Hemoglobin 9.8 g/dL (12.0-16.0); Mean Corpuscular HGB CONC 34.2 g/dL (32.0-36.0); Mean Corpuscular Hemoglobin 30.1 pg (27.0-31.0); Mean Corpuscular Volume 87.8 fl (81.0-99.0); Mean Platelet Volume 6.7 fL (7.4-10.4); Platelet Count 167 thou/uL (130-400); RBC Distribution Width 14.1 % (11.5-14.5); Red Blood Cell (RBC) Count 3.26 mill/uL (4.20-5.40); White Blood Cell (WBC) Count 5.7 thou/uL (4.8-10.8)
[2017-12-29 06:44] LABS: Anion Gap 11 mmol/L (10-20); BUN (Urea Nitrogen) 47 mg/dL (9.8-20.1); Calc. Creatinine Clearance 20 mL/min (70-130); Calcium 7.9 mg/dL (7.8-10.44); Carbon Dioxide 21 mmol/L (22-29); Chloride 104 mmol/L (98-107); Estimated GFR-MDRD 17; Glucose 237 mg/dL (70-105); Potassium 3.9 mmol/L (3.5-5.1); Sodium 132 mmol/L (136-145)
[2017-12-29 08:11] VITALS: BP 153/73; TEMP 97.9
--- NOTE | 2017-12-29 09:29 | RAD ---
PORTABLE AP CHEST RADIOGRAPH: Date: 12-29-17 History: Pleural effusion. Comparison: 12-27-17 FINDINGS: There are moderate bilateral sized pleural effusions and associated atelectasis also noted on the lorraine or exam. Pleural effusion on the right may be minimally improved, but depth of inspiration is better on today's exam. Pleural effusions obscure the cardiac silhouette. There is improvement in pulmonary vascular congestion compared to the prior exam. Post-surgical change related to CABG are noted. No ot her interval change. IMPRESSION: 1. Moderate sized bilateral pleural effusions and atelectasis on the left. 2. Improvement in pulmonary vascular congestion. POS: CET
[2017-12-29] MEDS: Sodium Bicarbonate Tab 325 MG TAB PO SCH (09:42)
[2017-12-29] MEDS: Carvedilol 25 MG TAB PO SCH (09:42)
[2017-12-29] MEDS: Ferrous Sulfate 325 MG TAB PO SCH (09:42)
[2017-12-29] MEDS: Hydrocortisone 10 mg Tablet PO SCH (09:42)
[2017-12-29] MEDS: Furosemide 100 MG/10 ML VIAL SLOW IVP SCH (09:43)
[2017-12-29] MEDS: Calcium Carbonate + Vit D 1 TAB PO SCH (09:43)
[2017-12-29] MEDS: (Sucroferric Oxyhydroxide [Velphoro] 500 MG) PO SCH (09:43)
--- NOTE | 2017-12-29 10:47 | PRG ---
DATE OF SERVICE: 12/29/2017 SERVICE: Pulmonary Medicine. INTERVAL HISTORY: The patient is doing great from a respiratory standpoint. She denies any chest pain or shortness of breath. Her lower extremity swelling seems to be improving. She has no specific complaints. There were no overnight events. PHYSICAL EXAMINATION: VITAL SIGNS: Afebrile, pulse 60, blood pressure 153/73, respirations 20, saturation 95% on room air. GENERAL: The patient is awake, alert, no apparent distress. LUNGS: Decent air entry bilaterally with no prolonged expiratory phase, wheezing, rhonchi, or crackles present. HEART: Normal rate and regular. ABDOMEN: Soft, nontender, nondistended. Bowel sounds positive. MUSCULOSKELETAL: No cyanosis or clubbing. There is 2+ pitting in the bilateral lower extremities. NEUROLOGIC: Grossly nonfocal. LABORATORY DATA: Sodium 132 and stable. Creatinine 2.96, BUN 47 and trending upward gently. Calcium 7.6. WBC, hemoglobin and platelets are improving/ stable. RICKI is positive for antimitochondrial antibodies which are quite elevated. Anti-parietal cell antibodies are also present. RICKI screen; however , was unremarkable. HIV 1 and 2 are nonreactive. IMAGING: Chest x-ray demonstrates bilateral pleural effusions and atelectasis. Improvement in pulmonary vascular congestion. ASSESSMENT: 1. Acute hypoxic respiratory failure, resolved. 2. Bilateral pleural effusions. 3. Chronic kidney disease, stage 4. 4. Acute on chronic systolic heart failure. 5. 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 DISCUSSION AND PLAN: The patient is doing fantastic from a respiratory standpoint. I would be cautious with our interpretation of her cosyntropin stimulation study as it was done in the setting of being on prednisone. This can blunt the accuracy of the study. At some point in the outpatient setting, I probably suspend the steroids that she is being planned for on discharge and repeat the study. She will need a repeat chest x-ray in 2-4 weeks in the outpatient setting when she returns to euvolemia to verify the effusions have resolved. ROSALINDA
[2017-12-29 11:21] LABS: Renin Activity 0.383 ng/mL/hr (0.167-5.380)
--- NOTE | 2017-12-29 11:28 | PRG ---
DATE OF SERVICE: 12/29/2017 SUBJECTIVE: A 52-year-old female being seen for stage 4 chronic kidney disease. The patient denies any nausea, vomiting or chest pain. OBJECTIVE: GENERAL: Patient is awake, alert. VITAL SIGNS: Afebrile, pulse 60, breathing 16, blood pressure 126/64. GENERAL APPEARANCE AND MENTAL STATUS: Fair. HEAD/NECK: Normocephalic. Atraumatic. EYES: EOMI. No deformity. EARS: Clear. No ulcers. NOSE: Intact. No lesions. MOUTH: Clear. No discharge. THROAT: Clear. No exudate. LUNGS: Clear. No crackles. CARDIAC: S1, S2. No rub. ABDOMEN: Benign. BS+. GENITALIA/RECTUM: Ruiz absent. BACK/EXTREMITIES: Edema 2+ Ulcer- NEUROLOGICAL: Alert and motor intact. SKIN: Rash- Bruise- LYMPHATICS: Edema- Ulcer- LABORATORY: Show creatinine 2.9. ASSESSMENT AND RECOMMENDATIONS: 1. Stage 4 chronic kidney disease. No indication for dialysis. 2. Hypertension, stable. 3. Anemia, stable. 4. Congestive heart failure. Continue Lasix twice a day. The patient will follow up to see me in 1 week.
--- NOTE | 2017-12-29 11:56 | PDOC.FM ---
- Subjective Subjective: This morning the patient states she is feeling much better overall. She was able to ambulate to the end of the hallway and back with out difficulty. She states she is feeling "so much stronger" than when she came in. She still has + 2 pitting edema at the ankles. She denies SOB and did not need O2 overnight. - Objective Vital Signs & Weight: Vital Signs (12 hours) Temp Pulse Resp BP Pulse Ox 12/29/17 08:11 97.9 F 60 20 153/73 H 95 12/29/17 08:00 97.9 F 60 20 95 Weight Weight 56.926 kg Result Diagrams: 12/29/17 06:02 12/29/17 06:02 <Michel Teran - Last Filed: 12/29/17 11:54> - Objective Vital Signs & Weight: Vital Signs (12 hours) Temp Pulse Resp BP Pulse Ox 12/29/17 08:11 97.9 F 60 20 153/73 H 95 12/29/17 08:00 97.9 F 60 20 95 Weight Weight 56.926 kg I&O: 12/28/17 12/29/17 12/30/17 06:59 06:59 06:59 Intake Total 630 Balance 630 Result Diagrams: 12/29/17 06:02 12/29/17 06:02 <Darien Davila - Last Filed: 12/29/17 19:22> Phys Exam - Physical Examination Constitutional: NAD HEENT: PERRLA, moist MMs Neck: no nodes, full ROM decreased breath sounds at the bases, no retractions, no wheezes Cardiovascular: RRR, no significant murmur, no rub Gastrointestinal: soft, non-tender, no distention, positive bowel sounds Musculoskeletal: pulses present +2 edema at the ankles bilaterally Neurological: non-focal, moves all 4 limbs Psychiatric: normal affect, A&O x 3 Skin: no rash <Michel Teran - Last Filed: 12/29/17 11:54> Dx/Plan (1) Acute kidney injury Code(s): N17.9 - ACUTE KIDNEY FAILURE, UNSPECIFIED Status: Acute (2) Addisons disease Code(s): E27.1 - PRIMARY ADRENOCORTICAL INSUFFICIENCY Status: Acute (3) Salmonella gastroenteritis Code(s): A02.0 - SALMONELLA ENTERITIS Status: Acute (4) Chronic congestive heart failure Code(s): I50.9 - HEART FAILURE, UNSPECIFIED Status: Chronic (5) CKD (chronic kidney disease) stage 4, GFR 15-29 ml/min Code(s): N18.4 - CHRONIC KIDNEY DISEASE, STAGE 4 (SEVERE) Status: Acute (6) Hypoglycemia Code(s): E16.2 - HYPOGLYCEMIA, UNSPECIFIED Status: Acute (7) Hypokalemia Code(s): E87.6 - HYPOKALEMIA Status: Acute (8) Hyponatremia Code(s): E87.1 - HYPO-OSMOLALITY AND HYPONATREMIA Status: Acute (9) Pleural effusion Code(s): J90 - PLEURAL EFFUSION, NOT ELSEWHERE CLASSIFIED Status: Acute (10) Primary hypothyroidism Code(s): E03.9 - HYPOTHYROIDISM, UNSPECIFIED Status: Acute (11) Systolic CHF, acute Code(s): I50.21 - ACUTE SYSTOLIC (CONGESTIVE) HEART FAILURE Status: Acute (12) CAD (coronary artery disease), koi coronary artery Code(s): I25.10 - ATHSCL HEART DISEASE OF [place] CORONARY ARTERY W/O ANG PCTRS Status: Chronic QualifierTitle: [place] vs. 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: with care home use Diabetes mellitus complication status: with kidney complications Diabetes mellitus complication detail: with chronic kidney disease Chronic kidney disease stage: stage 3 (moderate) Qualified Code(s): E11.22 - Type 2 diabetes mellitus with diabetic chronic kidney disease; N18.3 - Chronic kidney disease, stage 3 (moderate); N18.3 - Chronic kidney disease, stage 3 (moderate) ; Z79.4 - blueprint processor (current) use of insulin; Z79.4 - blueprint processor (current) use of insulin; Z79.4 - long-term (current) use of insulin; Z79.4 - blueprint processor ( current) use of insulin (15) HLD (hyperlipidemia) Code(s): E78.5 - HYPERLIPIDEMIA, UNSPECIFIED Status: Chronic QualifierTitle: Hyperlipidemia type: unspecified Qualified Code(s): E78.5 - Hyperlipidemia, unspecified (16) HTN (hypertension) Code(s): I10 - ESSENTIAL (PRIMARY) HYPERTENSION Status: Chronic QualifierTitle: Hypertension type: unspecified Qualified Code(s): I10 - Essential (primary) hypertension (17) Noncompliance with medication regimen Code(s): Z91.14 - PATIENT'S OTHER NONCOMPLIANCE WITH MEDICATION REGIMEN Status : Chronic - Plan Plan: 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 - ACTH returned at 15 which is low normal - patient has responded well to steroids, will d/c with 10mg BID and 5mg in the afternoon - will refer for endocrinology eval -Started steroid replacement 12/26 ADRIENNE on CKD stage III - Fluids stopped at this time. - Fluid restriction decreased to 1500cc - Cr 2.8 -> 3.19 -> 3.11 - Nephrology- Dr. Way- will follow recs. - CXR 12/27 showed increased pleural effusions - home with lasix 40 BID will follow closely in clinic - may need dialysis if fluid status does not improve Chronic CHF with EF 25-30% - Continue home medications - Monitor fluid status - Carvedilol being held due to low BP. - will restart carvedilol on d/c as BPs have improved - Strict I&O's - Daily weights Salmonella Gastroenteritis - Fluids stopped at this time. Getting fluid overload. - patient states diarrhea is almost resolved. - Stool lactoferrin Positive, Stool cx- Salmonella positive. - campylobacter, and c. diff toxin/ag all negative - FOBT neg - Likely exacerbated anemia as well as Salmonella causes bloody diarrhea - On cipro, renally dosed at this time, diarrhea resolved, has had sufficient course will d/c on discharge - Colonoscopy done 3 years ago which was normal -CT abdomen/pelvis shows colitis of colon. Shows some stones in gal bladder. Acute on chronic anemia - Hg 7.6-->6.2-->10.1-->10.7->9.6-> 10.0-> 9.8 - Transfused 2u RBC earlier in admissoin. -Likely exacerbated by problem #1 - Continue iron supplementation - Daily CBC - Colonoscopy 3 years ago normal - Iron studies in 07/2017 showed iron deficiency anemia; likely also has ACD. Vitamin B12 normal. RBC folate pending. Immature Retic count elevated -Continued home meds. DM type II - Stopped D5 on 12/25, start steroid replacement 12/26 - patient is very sensitive to insulin, cautious -Insulin level normal. Was concerned for insulinoma. C-peptide WNL unlikey hypoglycemia 2/2 poor removal of insulin - Mild SSI - CC diet - ACHS accuchecks- blood sugars have increased overnight and stayed stable - home with 2U bid Left side Pleural Effusion -O2 sats stable, has had at previous visits. Was drained at last visit -Consult Pulmonology- Mooney- will follow recs. No need to drain at this time. CAD s/p CABG - Continue ASA - Continue home medications Hypothyroidism - TSH elevated at 10. . Will start levothyroxine home dose at 137. Will want to f/u outpatient <Michel Teran - Last Filed: 12/29/17 11:54> Attending Addendum - Attending Addendum Date/Time: 12/29/17 1920 I personally evaluated the patient and discussed the management with Dr. Teran I agree with the History, Examination, Assessment and Plan documented above with any addition or exceptions noted below. Patient doing well stable for discharge with close outpatient follow up as arranged per Dr Teran. <Darien Davila - Last Filed: 12/29/17 19:22>
--- NOTE | 2017-12-30 02:21 | DIS-2 ---
DATE OF ADMISSION: 12/21/2017 DATE OF DISCHARGE: 12/29/2017 RESIDENT: Michel Teran M.D. ADMITTING ATTENDING: Susie Ramirez M.D. DISCHARGE ATTENDING: Darien Davila M.D. CONSULTATIONS: Pulmonology, Dr. Lovett; Nephrology, Dr. Way. PROCEDURES: Blood transfusion. PRIMARY DIAGNOSES: Salmonella gastroenteritis, Wagner disease. SECONDARY DIAGNOSES: Chronic kidney disease stage 4, chronic systolic heart failure, symptomatic anemia, diabetes type 2, pleural effusion, history of coronary artery disease, and hypothyroidism. DISCHARGE MEDICATIONS: Calcium plus vitamin D, ciprofloxacin 250 mg p.o. b.i.d. for 7 days, Lasix 40 mg p.o. b.i.d. for 10 days, hydrocortisone 10 mg in the morning and at nighttime, hydrocortisone 5 mg in the afternoon, 137 mcg of levothyroxine, acetaminophen, iron, aspirin 81 mg, and insulin 2 units b.i.d. DISCONTINUED MEDICATIONS: Carvedilol. HISTORY OF PRESENT ILLNESS AND HOSPITAL COURSE: This is a 52-year-old female with past medical history of diabetes type 2, CKD stage 3-4, CAD status post CABG, CHF with EF of 25-30% and hypothyroidism, presented with 3-day history of nausea, vomiting, and diarrhea. She states she was very fatigued and dizzy upon standing. She had 5 episodes of watery nonbloody diarrhea. Emesis had been nonbloody. She does have abdominal pain, which is worse in the left lower quadrant. The patient was found to have salmonella gastroenteritis and was treated appropriately. Her diarrhea did resolve at that time. On admission, she was found to have symptomatic anemia with hemoglobin of 5.8. She was transfused 2 units of packed red blood cells. The patient had issues with hypotension and hypoglycemia throughout the stay. Thus, she was worked up for insulinoma versus [place] disease. Insulin and C- peptide came back within normal limits. A cortisol stimulation test showed a.m. cortisol of 5.8 and stim response after 30 minutes of 7.9, which were low. ACTH returned at 15.4, which was on the low side of normal. The patient was started on hydrocortisone and her blood pressures and blood sugars became much easier to control. Pulmonology suggested that her cosyntropin stim test may have been affected by prior prednisone exposure. She will have followup with Endocrinology. The patient did have issues with fluid management throughout the stay. When she came in, she was severely dehydrated secondary to the gastroenteritis. Then , later on admission, she developed fluid overload with swelling at the ankles as well as pleural effusions. She was diuresed appropriately, and on discharge , she is doing much better, still with mild left-sided pleural effusion, but asymptomatic. No shortness of breath. She is tolerating exercise, walking to the end of the prieto without difficulty. Her RICKI came back negative. Nephrology opted to diurese her and have close followup, she may need dialysis at some point. The patient was found to have positive antimitochondrial antibody as well as anti-parietal antibody. The patient's bilirubin and transaminases were within normal limits. AST was very slightly elevated. The patient does not complain of itching. The patient will need outpatient workup for possible primary biliary cirrhosis. We will refer her to Gastroenterology for further workup regarding this. The patient is sent home on Lasix 40 mg b.i.d. for 10 days. She may need to have this decreased at some point, but for the time being, she is still on the fluid overloaded side. Per her diabetes regimen, she was sent home on insulin 2 units b.i.d. Her hypothyroidism medications were started during the hospitalization at their home level. We will need to follow up on her TSH outpatient to see if this is secondary to noncompliance or she needs her levothyroxine dose to be increased. DISPOSITION: Guarded, long-term prognosis. DISCHARGE INSTRUCTIONS: 1. Location: The patient did not qualify for inpatient rehab or SNF. The patient will be sent home with close outpatient followup. [facility]. 2. Diet: 1500 mL fluid restriction, heart healthy. 3. Activity: As tolerated. 4. Followup: Dr. Michel Teran in 3 days, Gastroenterology in 1-2 weeks, and Nephrology in 1-2 weeks. ROSALINDA
== END 2017-12-29 13:06 | disposition home or self-care (01) | DRG 371 ==
LOC: ERS 11:59 → OBSVTOIN 16:23 → ONC 16:23
PROVIDERS: ADMIT Family Medicine; ATTEND Family Medicine
PROC: 30233N1 Transfusion of Nonautologous Red Blood Cells into Peripheral Vein, Percutaneous Approach (ICD-10-PCS; principal; 2017-12-22)
DX: A02.0 Salmonella enteritis (principal); I50.23 Acute on chronic systolic (congestive) heart failure; E11.21 Type 2 diabetes mellitus with diabetic nephropathy; E11.649 Type 2 diabetes mellitus with hypoglycemia without coma; N17.9 Acute kidney failure, unspecified; E27.1 Primary adrenocortical insufficiency; I42.9 Cardiomyopathy, unspecified; N18.4 Chronic kidney disease, stage 4 (severe); E87.1 Hypo-osmolality and hyponatremia; I13.0 Hypertensive heart and chronic kidney disease with heart failure and stage 1 through stage 4 chronic kidney disease, or unspecified chronic kidney disease; E11.22 Type 2 diabetes mellitus with diabetic chronic kidney disease; E86.0 Dehydration; E03.9 Hypothyroidism, unspecified; E87.6 Hypokalemia; D63.1 Anemia in chronic kidney disease; I25.10 Atherosclerotic heart disease of native coronary artery without angina pectoris; Z79.82 Long term (current) use of aspirin; Z95.1 Presence of aortocoronary bypass graft; Z91.14 Patient's other noncompliance with medication regimen
CPT/HCPCS: 36415; 36416; 36430; 71045; 74176; 80048; 80053; 80400; 81003; 81015; 82024; 82088; 82274; 82533; 82607; 82747; 83010; 83516; 83525; 83615; 83630; 84244; 84439; 84443; 84481; 84681; 85025; 85046; 85060; 86160; 86225; 86235; 86376; 86431; 86850; 86900; 86901; 87045; 87046; 87077; 87186; 87324; 87389; 87449; 87804; 87899; 96360; A4216; G8978-GP-CI; G8979-GP-CI; G8980-GP-CI; G8987-GO-CI; G8988-GO-CI; G8989-GO-CI; J0834; J1815; J1940; P9016; Q0162

== ENCOUNTER 2018-01-18 07:53 | Outpatient (CLI) | payer OTHER ==
--- NOTE | 2018-01-18 10:30 | ULT ---
ABDOMEN ULTRASOUND: HISTORY: Ascites. COMPARISON: None. TECHNIQUE: Utilizing a Multi-Hertz transducer, sonographic imaging of the abdomen was performed in the longitudi nal and transverse plane. FINDINGS: The head and proximal pancreatic body have a normal echo texture. The remainder of the pancreas is o bscured. The visualized aorta and inferior vena cava are unremarkable. The hepatic parenchyma has a normal echotexture. No hepatic masses or intrahepatic biliary dilatatio n. The right hepatic lobe measures 14.8 cm. The main portal vein is patent. Appropriate directional flow. The gallbladder is contracted. The gallbladder wall is thickened, measuring 0.6 cm. There is eviden ce of pericholecystic fluid. There is sonographic evidence of cholelithiasis. Negative Gonzalez sign. The right kidney is diminutive, measuring 7.9 x 3.2 x 4 cm. The left kidney has a normal echotexture , measuring 11.2 x 6.9 x 5.6 cm. Bilaterally, no hydronephrosis. The spleen measures 9 cm. Bilateral pleural effusion noted. IMPRESSION: 1. Thickened gallbladder with cholelithiasis. Correlate clinically. Consider HIDA scan if there is concern for cholecystitis. 2. Bilateral pleural effusions. No evidence of ascites. POS: [facility]
== END 2018-01-18 07:54 | disposition home or self-care (01) ==
LOC: ULT 07:53
PROVIDERS: ATTEND Internal Medicine
DX: R18.8 Other ascites (principal); R74.0 Nonspecific elevation of levels of transaminase and lactic acid dehydrogenase [LDH]; K80.20 Calculus of gallbladder without cholecystitis without obstruction; K82.8 Other specified diseases of gallbladder; J90 Pleural effusion, not elsewhere classified
CPT/HCPCS: 76700

== ENCOUNTER 2018-01-18 18:10 | Emergency (ER) | payer OTHER ==
[2018-01-18 19:03] LABS: ALT (SGPT) 47 U/L (8-55); AST (SGOT) 51 U/L (5-34); Albumin 2.9 g/dL (3.5-5.0); Alkaline Phosphatase 146 U/L (40-150); Anion Gap 9 mmol/L (10-20); BUN (Urea Nitrogen) 65 mg/dL (9.8-20.1); Bilirubin, Total 0.5 mg/dL (0.2-1.2); Calc. Creatinine Clearance 0 mL/min (70-130); Calcium 8.3 mg/dL (7.8-10.44); Carbon Dioxide 29 mmol/L (22-29); Chloride 99 mmol/L (98-107); Estimated GFR-MDRD 17; Globulin 3.5 g/dL (2.4-3.5); Glucose 380 mg/dL (70-105); Potassium 5.3 mmol/L (3.5-5.1); Protein, Total 6.4 g/dL (6.0-8.3); Sodium 132 mmol/L (136-145)
== END 2018-01-18 21:17 | disposition home or self-care (01) ==
LOC: ERS 18:10
DX: E87.5 Hyperkalemia (principal); E86.0 Dehydration; D64.9 Anemia, unspecified; E11.9 Type 2 diabetes mellitus without complications; E03.9 Hypothyroidism, unspecified; I10 Essential (primary) hypertension; I25.10 Atherosclerotic heart disease of native coronary artery without angina pectoris; N28.9 Disorder of kidney and ureter, unspecified; Z79.4 Long term (current) use of insulin; Z79.82 Long term (current) use of aspirin; Z79.899 Other long term (current) drug therapy
CPT/HCPCS: 36415; 76700; 80053; 93005; 96360

== ENCOUNTER 2018-11-10 12:25 | Inpatient (IN) | payer OTHER ==
[2018-11-10 14:36] VITALS: BMI 24.2
--- NOTE | 2018-11-10 15:08 | PDOC.FPRHP ---
- History of Present Illness Chief Complaint: cough History of Present Illness: 53 yo F with PMH HFrEF, CKD, CAD s/p CABG presents as direct admit from [facility] for SOB. Patient reports 1 week history of worsening productive green cough. Associated with chills, post-tussive vomit, decreased appetite. Has maintained fluid intake. Was taking robitussin but that ran out. Reports 2 day hx of SOB which patient says is due to coughing. Denies SOB at rest or with walking. Sleeping with 2 pillows which is her baseline. She says she follows restriction of 3 bottles water/day. No diet/salt restriction noted. - Allergies/Adverse Reactions Allergies Allergy/AdvReac Type Severity Reaction Status Date / Time No Known Allergies Allergy Verified 12/21/17 22:34 - Home Medications Medication Instructions Recorded Confirmed Type Aspirin [Nata Chewable Aspirin] 81 mg PO DAILY 10/16/16 12/21/17 History Multivitamin [Multivitamins] 1 cap PO DAILY 12/21/17 12/21/17 History Acetaminophen [Tylenol Regular 650 mg PO Q4H PRN tab 12/26/17 Rx Strength] Calcium Carbonate + Vit D 1 tab PO BID-WM #60 tab 12/26/17 Rx [Caltrate 600 + Vit D] Cipro 250 mg PO BID@0600,2000 #14 tab 12/26/17 Rx Ferric Citrate [Auryxia] 210 mg PO DAILY 12/26/17 Rx Ferrous Sulfate [Feosol] 325 mg PO DAILY tab 12/26/17 Rx Hydrocortisone [Cortef] 5 mg PO DAILY #30 tab 12/26/17 Rx Levothyroxine Sodium [Synthroid] 25 mcg PO 0600 #30 tab 12/26/17 Rx Levothyroxine Sodium [Synthroid] 112 mcg PO 0600 #30 tab 12/26/17 Rx Lovastatin [Mevacor] 10 mg PO QPM-WM tab 12/26/17 Rx traMADol HCl [Ultram] 50 mg PO BID PRN tab 12/26/17 Rx Furosemide 40 mg PO BID 10 Days #20 tablet 12/29/17 Rx Hydrocortisone [Cortef] 10 mg PO BID 30 Days #60 tab 12/29/17 Rx - History PMHx: Hypothyroid, CKD4, DM2, CAD s/p CABG, HFrEF with EF 25-30%, chronic normocytic anemia PSHx: Appendectomy, CABG x4 (10/2016), L thoracentesis 07/2017 FHx: DM2, alzheimers Social: No tobacco, alcohol, drug use - Review of Systems General: reports: fever/chills (chills), weight/appetite/sleep changes ( decreased appetite), fatigue ENT: reports: nasal congestion Respiratory: reports: cough, congestion, shortness of breath. denies: exercise intolerance Cardiovascular: denies: chest pain, edema, orthopnea Gastrointestinal: reports: vomiting. denies: diarrhea, abdominal pain Genitourinary: denies: dysuria Skin: denies: rashes Musculoskeletal: denies: swelling Neurological: reports: weakness. denies: syncope - Vital signs BP: 137/85 HR: 101 RR: 24 Tmax: 99.1 Pox: 84% on RA Wt: 58.1 kg - Physical Exam HEENT: normocephalic and atraumatic, oropharynx clear Neck: supple, no LAD, no thyromegaly Heart: RRR, normal S1/S2, no murmurs/rubs/gallops, no edema Lungs: no rales/rhonchi, no wheezing, other (decreased air movement lower lung base) Abdomen: soft, non-tender, bowel sounds present Neurological: no focal deficit Skin: capillary refill <2 seconds Psychiatric: normal mood and affect FMR H&P: Results - Labs Result Diagrams: 11/11/18 04:54 11/11/18 04:54 FMR H&P: A/P - Problem List (1) HFrEF (heart failure with reduced ejection fraction) Current Visit: Yes Status: Acute Code(s): I50.20 - UNSPECIFIED SYSTOLIC ( CONGESTIVE) HEART FAILURE (2) Anemia Current Visit: No Status: Acute Code(s): D64.9 - ANEMIA, UNSPECIFIED Qualifiers: Anemia type: other cause Comment: likely chronic and secondary to CKD (3) CKD (chronic kidney disease) stage 4, GFR 15-29 ml/min Current Visit: No Status: Acute Code(s): N18.4 - CHRONIC KIDNEY DISEASE, STAGE 4 (SEVERE) (4) Systolic CHF, acute Current Visit: No Status: Acute Code(s): I50.21 - ACUTE SYSTOLIC (CONGESTIVE ) HEART FAILURE Comment: EF 10-15% by Echo, 35-40% by heart cath, ischemic (5) Sinusitis Current Visit: Yes Status: Acute Code(s): J32.9 - CHRONIC SINUSITIS, UNSPECIFIED (6) CAD (coronary artery disease), [place] coronary artery Current Visit: No Status: Chronic Code(s): I25.10 - ATHSCL HEART DISEASE OF [place] CORONARY ARTERY W/O ANG PCTRS Qualifiers: [place] vs. transplanted heart: [place] heart Associated angina: with stable angina Qualified Code(s): I25.118 - Atherosclerotic heart disease of [place] coronary artery with other forms of angina pectoris (7) DM2 (diabetes mellitus, type 2) Current Visit: No Status: Chronic Qualifiers: Diabetes mellitus exterminator termite insulin use: with exterminator termite use Diabetes mellitus complication status: with kidney complications Diabetes mellitus complication detail: with chronic kidney disease Chronic kidney disease stage : stage 3 (moderate) Qualified Code(s): E11.22 - Type 2 diabetes mellitus with diabetic chronic kidney disease; N18.3 - Chronic kidney disease, stage 3 ( moderate); Z79.4 - detention (current) use of insulin (8) Hypothyroid Current Visit: No Status: Chronic Code(s): E03.9 - HYPOTHYROIDISM, UNSPECIFIED (9) Addisons disease Current Visit: No Status: Acute Code(s): E27.1 - PRIMARY ADRENOCORTICAL INSUFFICIENCY - Plan Acute systolic CHF exacerbation - CXR: cardiomegaly and moderate L pleural effusion - last EF 25-30% in 07/2017. - BNP of 877, previous have been recorded from 300-1800s. - on lasix and metolazone at home. Does not appear to be on BB, GARY, spironolactone - IV Lasix 40 daily and will adjust as needed - monitor I/Os, daily weights - Echo pending - will consult pulmonology in am for evaluation of pleural effusion. She has history of previous thoracentesis by Dr. Lovett but was lost to follow up. CKD4 - worsening renal function and patient uninterested in dialysis - orderd PTH, 25 Vit D - plan to consult nephrology in am IDDM2 - continue home insulin regimen - accuchecks and SSI Nasal congestion - flonase and saline nasal spray prn Hypothyroid - continue home synthroid - pending TSH, free T3/4 CAD s/p CABG - continue home statin and aspirin Anemia - Hgb 7 which is worse compared to previous 10 - has been worked up previously and was found to be 2/2 CKD - FOBT in clinic last month negative Neuropathy - continue home gabapentin Primary Adrenal Insufficiency - continue home prednisone and will monitor for need for stress dose Ppx: Heparin Diet: HH, CC, 2L fluid restriction Dispo: admit to telemetry FMR H&P: Upper Level - Pertinent history Raquel Sterling is a 53 year old female with a history of CKD stage 4, CAD s/p CABG x 4 and HFrEF (EF of 20-35% in 20) who was direct admitted from clinic due to worsening dyspnea. She reports a one week history of cough productive of green sputum as well as worsening shortness of breath over the past 2 days. She also reports worsened fatigue with exertion. She reports chills, but no fever. She reports stable 2-pillow orthopnea. She adheres to a fluid restriction of < 2L. She denies chest pain. - Pertinent findings Vitals: T: 99.1 P: 101 RR: 24 O2: 94% on RA Exam: General: alert and oriented x 3; in no acute distress HEENT: TTP over maxillary sinuses; no lymphadenopathy. Heart: minimally tachycardic, regular rate and rhythm, no murmurs, rubs or gallops. Lungs: clear to auscultation; decreased breath sounds and dullness to percussion over left lung base Extremites: no peripheral edema. Labs: pending CXR: moderate sized L pleural effusion (preliminary read) - Plan Date/Time: 11/10/18 1508 IMaranda, have evaluated this patient and agree with findings/plan as outlined by internet marketing consultant resident. Pertinent changes/additions are listed here. 1. HFrEF exacerbation with symptomatic pleural effusion - will admit to telemetry for observation. strict I/Os, daily weights. IV diuresis although pt may not tolerate much diuresis due to CKD. May need to consider therapeutic thoracentesis. Likely not on GARY/ARB/Spironolactone due to CKD. Needs B- isidra. Repeat Echo. Effusion has been evaluated in the past and thought to be related to transudate. Consider Pulm consult for repeat evaluation. 2. Acute maxillary sinusitus - will treat with nasal decongestants, fluticasone. Cough likely related to postnasal drip. 3. Chronic kidney disease stage IV - per PCP visit notes, pt does not want dialysis. Will renally dose meds and attempt to avoid nephrotoxic meds. Will consult Nephro (Rayna.) 3. Hyperthyroidism - continue home regimen. Will check TSH. 4. DM II - Continue home regimen. AC/HS accuchecks; Last A1C was 8.4 in 10/2018. 5. Normocytic anemia - stable. Workup but PCP suggests Likely related to AoCKD.Negative FOBT recently in clinic. continue PO iron supplementation. Needs colonoscopy outpatient. Code status: full DVT proph: Heparin Addendum - Attending - Attending Attestation Date/Time: 11/11/18 8086 I personally evaluated the patient and discussed the management with Dr. Jaimes on the day of admission. I agree with and repeated the History, Examination, Assessment and Plan documented above with any addition or exceptions noted below. Tenuous patient due to frailty, CKD, other comorbidities and uninterested in dialysis. I believe she could benefit from pulm/nephro consults, however. Her ddx for persistent effusion includes malignancy, TB, trapped lung, etc. Will monitor response to diuresis, but she seems to have been on lasix + metolazone at home and besides some small crackles, does not have significant peripheral edema. Check TSH, which has been uncontrolled. Her AI dx is somewhat questionable, previous stay reviewed, but with her eosinophilia it is certainly possible, especially in setting of likely carlton's. Would consider stress dose but she is currently HDS.
[2018-11-10 15:41] LABS: #Basophils 0.1 thou/uL (0.0-0.2); #Eosinphils 0.9 thou/uL (0.0-0.7); #Lymphocytes 1.2 thou/uL (1.20-3.40); #Monocytes 0.5 thou/uL (0.11-0.59); #Neutrophils 5.4 thou/uL (1.40-6.50); %Basophils 0.8 % (0.0-1.0); %Eosinophils 10.8 % (0.0-10.0); %Lymphocytes 15.3 % (21.0-51.0); %Monocytes 5.6 % (0.0-10.0); %Neutrophils 67.5 % (42.0-75.0); Hemoglobin 7.4 g/dL (12.0-16.0); Mean Corpuscular HGB CONC 34.2 g/dL (32.0-36.0); Mean Corpuscular Volume 93.6 fL (78.0-98.0); Mean Platelet Volume 7.1 fL (7.4-10.4); Platelet Count 193 thou/uL (130-400); RBC Distribution Width 14.6 % (11.5-14.5); Red Blood Cell (RBC) Count 2.32 mill/uL (4.20-5.40)
--- NOTE | 2018-11-10 15:42 | RAD ---
PORTABLE CHEST: Comparison: 12-29-17 History: CHF, exacerbation. FINDINGS: Heart size is enlarged. There are post op sternotomy changes. Moderately large left pleural effusion is similar to the previous examination with associated parenchymal lung change. The right lung is ess entially clear. Minimal blunting to the right costophrenic angle. IMPRESSION: Cardiomegaly with a moderate left pleural effusion. POS: [facility]
[2018-11-10 15:54] LABS: ALT (SGPT) 35 U/L (8-55); AST (SGOT) 34 U/L (5-34); Albumin 3.4 g/dL (3.5-5.0); Alkaline Phosphatase 131 U/L (40-150); Anion Gap 13 mmol/L (10-20); BUN (Urea Nitrogen) 46 mg/dL (9.8-20.1); Bilirubin, Total 0.5 mg/dL (0.2-1.2); Calc. Creatinine Clearance 16 mL/min (70-130); Calcium 8.9 mg/dL (7.8-10.44); Carbon Dioxide 20 mmol/L (22-29); Chloride 105 mmol/L (98-107); Estimated GFR-MDRD 12; Globulin 4.4 g/dL (2.4-3.5); Glucose 122 mg/dL (70-105); Potassium 4.4 mmol/L (3.5-5.1); Protein, Total 7.8 g/dL (6.0-8.3); Sodium 134 mmol/L (136-145)
[2018-11-10 16:19] LABS: Troponin I 0.027 ng/mL (< 0.028)
[2018-11-10] MEDS ORDERED: Dextrose 5% in Water 1,000 ML IV PRN (16:49)
[2018-11-10] MEDS ORDERED: Dextrose 50% Abboject 50 ML SYRINGE SLOW IVP PRN (16:49)
[2018-11-10] MEDS ORDERED: HumaLOG 300 UNITS/3 ML VIAL SC PRN (16:49)
[2018-11-10] MEDS ORDERED: Ondansetron ODT 4 MG TAB PO PRN (17:00)
[2018-11-10] MEDS ORDERED: Furosemide 40 MG/4 ML VIAL SLOW IVP SCH (17:15)
[2018-11-10] MEDS ORDERED: Sodium Chloride 0.65% Nasal 44 ML BOT EA NARE PRN (18:03)
[2018-11-10] MEDS ORDERED: Fluticasone Propionate Nasal Spray 16 gm Bottle NASAL PRN (18:03)
[2018-11-10] MEDS: Acetaminophen 325 MG TAB PO PRN (19:44)
[2018-11-10] MEDS: predniSONE 5 MG TAB PO SCH (20:57)
[2018-11-10] MEDS: guaiFENesin ER 600 MG TAB PO SCH (20:57)
[2018-11-10] MEDS: Benzonatate 100 MG CAP PO PRN (20:59)
[2018-11-10] MEDS: Heparin 5,000 UNITS/ML VIAL SC SCH (21:37)
[2018-11-10] MEDS: HumuLIN 70/30 (300 UNITS/3 ML VIAL) SC SCH (21:42)
[2018-11-10 21:59] LABS: Free T4 (Free Thyroxine) Less than 0.40 ng/dL (0.70-1.48)
[2018-11-10 23:22] LABS: Bilirubin Negative (Negative); Blood, Urine Small (Negative); Clarity CLEAR (Clear); Glucose, Urine (Dipstick) 100 mg/dL (Negative); Leukocyte Negative (Negative); Nitrite Negative (Negative); Protein, Urine (Dipstick) 300 mg/dL (Neg-Trace); Specific Gravity, Urine 1.008 (1.002-1.036); Urobilinogen 0.2 mg/dL (0.2-1.0)
[2018-11-10 23:25] LABS: Bacteria/HPF None Seen HPF (None Seen); Hyaline Casts/LPF 0-3 HYALINE CAST LPF (0-3 Hyaline); Pathc Cast-AUWi Flag 0.27 (0-2.49); RBC/HPF 0-3 HPF (0-3); Squamous Epithelial 0-3 HPF (0-3)
[2018-11-11 05:12] LABS: #Basophils 0.1 thou/uL (0.0-0.2); #Eosinphils 0.5 thou/uL (0.0-0.7); #Lymphocytes 0.9 thou/uL (1.20-3.40); #Monocytes 0.4 thou/uL (0.11-0.59); #Neutrophils 9.8 thou/uL (1.40-6.50); %Basophils 0.6 % (0.0-1.0); %Eosinophils 4.2 % (0.0-10.0); %Monocytes 3.4 % (0.0-10.0); %Neutrophils 83.8 % (42.0-75.0); Hemoglobin 7.7 g/dL (12.0-16.0); Mean Corpuscular HGB CONC 35.7 g/dL (32.0-36.0); Mean Corpuscular Hemoglobin 33.1 pg (27.0-31.0); Mean Corpuscular Volume 92.7 fL (78.0-98.0); Mean Platelet Volume 7.9 fL (7.4-10.4); Platelet Count 211 thou/uL (130-400); RBC Distribution Width 14.7 % (11.5-14.5); Red Blood Cell (RBC) Count 2.31 mill/uL (4.20-5.40); White Blood Cell (WBC) Count 11.7 thou/uL (4.8-10.8)
[2018-11-11 05:27] LABS: Anion Gap 15 mmol/L (10-20); BUN (Urea Nitrogen) 48 mg/dL (9.8-20.1); Calc. Creatinine Clearance 15 mL/min (70-130); Calcium 8.9 mg/dL (7.8-10.44); Carbon Dioxide 17 mmol/L (22-29); Chloride 105 mmol/L (98-107); Estimated GFR-MDRD 12; Glucose 187 mg/dL (70-105); Potassium 5.4 mmol/L (3.5-5.1); Sodium 132 mmol/L (136-145)
--- NOTE | 2018-11-11 05:44 | PDOC.FM ---
- Subjective Subjective: Ms. Sterling had a fever yesterday evening. Says she is feeling better today. Cough persists but has improved. Nasal congestion improved. She denies any SOB. Says she was taking thyroid pill every day. - Objective Vital Signs & Weight: Vital Signs (12 hours) Temp Pulse Resp BP BP Pulse Ox 11/11/18 03:43 98 F 79 18 135/68 100 11/10/18 23:08 99.4 F 88 18 122/60 100 11/10/18 19:30 100.9 F H 100 28 H 165/80 H 90 L Weight Weight 58.105 kg I&O: 11/09/18 11/10/18 11/11/18 06:59 06:59 06:59 Intake Total 250 Output Total 600 Balance -350 Result Diagrams: 11/11/18 04:54 11/11/18 04:54 Phys Exam - Physical Examination Constitutional: NAD Respiratory: no wheezing, no rales decreased breath sound LLL Cardiovascular: RRR, no significant murmur Gastrointestinal: soft, non-tender, positive bowel sounds Musculoskeletal: no edema Neurological: non-focal Skin: normal turgor Dx/Plan (1) HFrEF (heart failure with reduced ejection fraction) Code(s): I50.20 - UNSPECIFIED SYSTOLIC (CONGESTIVE) HEART FAILURE Status: Acute (2) Anemia Code(s): D64.9 - ANEMIA, UNSPECIFIED Status: Acute Qualifiers: Anemia type: other cause (3) CKD (chronic kidney disease) stage 4, GFR 15-29 ml/min Code(s): N18.4 - CHRONIC KIDNEY DISEASE, STAGE 4 (SEVERE) Status: Acute (4) Systolic CHF, acute Code(s): I50.21 - ACUTE SYSTOLIC (CONGESTIVE) HEART FAILURE Status: Acute (5) Sinusitis Code(s): J32.9 - CHRONIC SINUSITIS, UNSPECIFIED Status: Acute (6) CAD (coronary artery disease), [place] coronary artery Code(s): I25.10 - ATHSCL HEART DISEASE OF [place] CORONARY ARTERY W/O ANG PCTRS Status: Chronic Qualifiers: [place] vs. transplanted heart: [place] heart Associated angina: with stable angina Qualified Code(s): I25.118 - Atherosclerotic heart disease of [place] coronary artery with other forms of angina pectoris (7) DM2 (diabetes mellitus, type 2) Status: Chronic Qualifiers: Diabetes mellitus telegraph editor insulin use: with telegraph editor use Diabetes mellitus complication status: with kidney complications Diabetes mellitus complication detail: with chronic kidney disease Chronic kidney disease stage : stage 3 (moderate) Qualified Code(s): E11.22 - Type 2 diabetes mellitus with diabetic chronic kidney disease; N18.3 - Chronic kidney disease, stage 3 ( moderate); Z79.4 - emr analyst (current) use of insulin (8) Hypothyroid Code(s): E03.9 - HYPOTHYROIDISM, UNSPECIFIED Status: Chronic (9) Addisons disease Code(s): E27.1 - PRIMARY ADRENOCORTICAL INSUFFICIENCY Status: Acute - Plan Plan: Acute systolic CHF exacerbation - CXR: cardiomegaly and moderate L pleural effusion - last EF 25-30% in 07/2017. - BNP of 877, previous have been recorded from 300-1800s. - on lasix and metolazone at home. Does not appear to be on BB, GARY, spironolactone - IV Lasix 40 daily and will adjust as needed - monitor I/Os, daily weights - Echo pending - Consulted Dr. Mooney for evaluation of pleural effusion. She has history of previous thoracentesis by Dr. Lovett but was lost to follow up. CKD4 - worsening renal function and patient uninterested in dialysis per PCP notes - K+ 5.4 - Consulted Dr. Alejandro as he is digital production operator for Dr. Rinaldi who pt has seen outpatient IDDM2 - continue home insulin regimen - accuchecks and SSI URI - symptoms improving per patient however did have fever 100.9 overnight with increased WBC 8->11 with increased neutrophils. Pending repeat procalcitonin. Bcx taken last night. Flu negative. Will get procal and repeat CXR and consider starting abx. - Guafenicine, flonase and saline nasal spray Hypothyroid - Plan to increase synthroid dose today. - TSH 12.5. 3-4 wks ago TSH was 20s in clinic and dose was increased to 75mcg. Will increase to 100mcg today. CAD s/p CABG - continue home statin and aspirin Anemia - Hgb 7 which is worse compared to previous 10 - has been worked up previously and was found to be 2/2 CKD - FOBT in clinic last month negative Neuropathy - continue home gabapentin Primary Adrenal Insufficiency - continue home prednisone and will monitor for need for stress dose Ppx: Heparin Diet: HH, CC, 2L fluid restriction Addendum - Attending - Attending Attestation Date/Time: 11/11/18 7788 I personally evaluated the patient and discussed the management with Dr. Durham. I agree with the History, Examination, Assessment and Plan documented above with any addition or exceptions noted below. The patient is feeling a little better. Cough is improving. She spiked a fever overnight. Blood cultures were drawn. Repeating a cxr. WBC count is increasing. Will repeat procal. If elevated, will consider antibiotics.
[2018-11-11] MEDS ORDERED: Enoxaparin Sodium 40 MG/0.4 ML SYRINGE SC SCH (09:00)
[2018-11-11] MEDS ORDERED: Furosemide 40 MG/4 ML VIAL SLOW IVP SCH (09:00)
[2018-11-11] MEDS: predniSONE 5 MG TAB PO SCH ×2 (10:23→20:13)
[2018-11-11] MEDS: Fluticasone Propionate Nasal Spray 16 gm Bottle NASAL SCH (10:23)
[2018-11-11] MEDS: Heparin 5,000 UNITS/ML VIAL SC SCH ×3 (10:24→20:13)
[2018-11-11] MEDS: guaiFENesin ER 600 MG TAB PO SCH ×2 (10:24→20:13)
--- NOTE | 2018-11-11 10:30 | RAD ---
CHEST ONE VIEW: Comparison: 11-10-18 FINDINGS: Persistent opacification of the left hemithorax. Stable aeration of the right lung. No pneumothorax. IMPRESSION: No significant change. POS: [facility]
[2018-11-11] MEDS: HumuLIN 70/30 (300 UNITS/3 ML VIAL) SC SCH ×2 (10:31→20:13)
--- NOTE | 2018-11-11 12:02 | CON ---
DATE OF CONSULTATION: HISTORY OF PRESENT ILLNESS: A 53-year-old female, who speaks no Arabic. We got history with help of son-in-law translation. She has been in the hospital now here with shortness of breath symptoms without any associated fever or chills. X-ray shows a left pleural effusion. I looked at some old x-rays, she had bilateral pleural effusion, left greater than right. She says she is feeling better this morning. In fact, she denies any pain or discomfort. PAST MEDICAL HISTORY: Pertinent for apparently congestive cardiomyopathy, EF of 25%, diabetes, renal failure. PAST SURGICAL HISTORY: Appendix, CABG, previous thoracentesis. SOCIAL HISTORY: No alcohol. No drug. No tobacco. 800 mL of fluid removed from left side in July 2017, about a year ago. HOME MEDICATIONS: Include; 1. Tramadol. 2. Vitamin. 3. Lovastatin 10. 4. Synthroid 112 plus 25. 5. Cortef 10 twice a day. 6. Lasix 40 twice a day. 7. Aspirin. ALLERGIES: NONE. REVIEW OF SYSTEMS: Otherwise, 10-point negative. PHYSICAL EXAMINATION: GENERAL: She appears to be in no acute distress. VITAL SIGNS: Sats are 100% on 2 L, respiratory rate 15, temperature 98, pulse 76, blood pressure 173/77. CHEST: Decreased breath sounds with dullness over the left lower 1/3. Right lung is unremarkable. CARDIAC: Normal S1, S2. No gallops. ABDOMEN: No masses. IMPRESSION: Left pleural effusion secondary to congestive cardiomyopathy, diagnosis of pneumonia, chronic renal failure with baseline creatinine 3.95, chronic anemia, hypothyroidism, TSH is 12.5. At this stage, she is relatively asymptomatic. No need to do a thoracentesis. I will correct her hypothyroidism that could aggravate her pleural effusion, weakness, dyspnea, etc. Clearly EF is very depressed. It is unclear whether she is taking her medication, because she is taking a fair amount of Synthroid at this time. She is taking cortisone. I guess she has evidence of hypoadrenal issues. Discussed with the primary care physician. Consultation note, 70 minutes, 50% direct patient care. Job ID: [id number]
--- NOTE | 2018-11-11 13:24 | CON ---
DATE OF CONSULTATION: 11/11/2018 CONSULTING PHYSICIAN: Dr. Ramos. REASON FOR CONSULT: Acute kidney injury and chronic kidney disease. REASON FOR ADMISSION: Cough and shortness of breath. HISTORY OF PRESENT ILLNESS: A 53-year-old female with history of congestive heart failure, chronic kidney disease, coronary artery disease, came to the hospital with shortness of breath and has been treated for CHF exacerbation, was given Lasix. She is feeling better. Her creatinine on admission was found to be 3.8 and this morning was 3.9. Her last creatinine in January 2018, was 2.8 and her baseline runs around 2.8to 3. She does follow with Dr. Way. No fever, chills. No nausea, vomiting reported to me. Shortness of breath is better. No chest pain. No palpitation reported. No abdominal pain, no back pain. No problems with urination reported. PAST MEDICAL HISTORY: 1. Positive for chronic kidney disease. 2. Coronary artery disease. 3. CHF. 4. Type 2 diabetes. 5. Hypothyroidism. 6. Chronic anemia. PAST SURGICAL HISTORY: 1. Appendectomy. 2. Thoracentesis. 3. CABG. HOME MEDICATIONS: Include: 1. Aspirin. 2. Multivitamins. 3. Tylenol. 4. Calcium. 5. Cipro. 6. Ferric citrate. 7. Hydrocortisone. 8. Levothyroxine. 9. Lovastatin. 10. Tramadol. 11. Furosemide. ALLERGIES: NO KNOWN DRUG ALLERGIES. SOCIAL HISTORY: No smoking, alcohol or drug abuse. FAMILY HISTORY: No history of any kidney disease. REVIEW OF SYSTEMS CONSTITUTIONAL: Negative for weight loss or gain, ability to conduct usual activities. SKIN: Negative for rash, itching. EYES: Negative for double vision, pain. ENT/MOUTH: Negative for nose bleeding, neck stiffness, pain, tenderness. CARDIOVASCULAR: Negative for palpitations, dyspnea on exertion, orthopnea. RESPIRATORY: Negative for shortness of breath, wheezing, cough, hemoptysis, fever or night sweats. GASTROINTESTINAL: Negative for poor appetite, abdominal pain, heartburn, nausea, vomiting, constipation, or diarrhea. GENITOURINARY: Negative for urgency, frequency, dysuria, nocturia. MUSCULOSKELETAL: Negative for pain, swelling. NEUROLOGIC/PSYCHIATRIC: Negative for anxiety, depression. ALLERGY/IMMUNOLOGIC: Negative for skin rash, bleeding tendency. PHYSICAL EXAMINATION: GENERAL: This is a thin built female in no apparent distress. VITAL SIGNS: Temperature 98.1, pulse 76, respiratory rate 15, blood pressure 150/76. HEENT: Puffy face. NECK: Supple. CVS: S1, S2 heard. RESPIRATORY: Clear. GASTROINTESTINAL: Abdomen is soft. MUSCULOSKELETAL: 1+ edema. DERMATOLOGIC: No skin rash. NEUROLOGIC: Alert and awake. PSYCHIATRIC: Mood and affect normal. LABORATORY DATA: Hemoglobin is 7.7, potassium 5.4, BUN 48, creatinine is 3.9. ASSESSMENT AND PLAN: 1. Acute kidney injury on chronic kidney disease, stage 4, no acute need for dialysis. Agree with Lasix for now. 2. Hyperkalemia. Limit potassium. 3. Hyponatremia. Limit fluid intake. 4. Metabolic acidosis. We will continue on Lasix and monitor. 5. Cardiorenal syndrome, as above. 6. Chronic anemia. 7. Secondary hyperparathyroidism with vitamin D deficiency, supplement vitamin D at least 5000 units daily. 8. Proteinuria. 9. Edema. 10. Hypertension, stable. 11. Okay with Lasix for now. No acute need for dialysis. We will continue close monitoring. 12. Avoid nephrotoxins. Renally dose the medications. 13. Supplement vitamin D and iron. 14. We will follow. Thank you for the consult. Job ID: [id number]
[2018-11-11] MEDS: HumaLOG 300 UNITS/3 ML VIAL SC PRN (17:11)
[2018-11-12] MEDS: Benzonatate 100 MG CAP PO PRN (02:02)
[2018-11-12] MEDS: Levothyroxine Sodium 100 MCG TAB PO SCH (05:36)
--- NOTE | 2018-11-12 05:38 | PDOC.FM ---
- Subjective Subjective: Ms. Sterling reports she continues to have cough, particularly at night when it gets cold, however it is now dry. Nasal congestion has become thin, like "water". Denies fever/chills, SOB. Has had increased appetite, eating all normal meals yesterday. Brother brought her home medications for us to review. - Objective Vital Signs & Weight: Vital Signs (12 hours) Temp Pulse Resp BP Pulse Ox 11/12/18 03:14 98.4 F 82 16 135/74 98 11/11/18 23:00 98.2 F 78 18 120/63 97 11/11/18 20:12 98.4 F 79 20 133/71 97 Weight Weight 57.062 kg I&O: 11/10/18 11/11/18 11/12/18 06:59 06:59 06:59 Intake Total 450 290 Output Total 1150 500 Balance -700 -210 Result Diagrams: 11/12/18 05:48 11/12/18 05:48 Phys Exam - Physical Examination HEENT: moist MMs Respiratory: no wheezing, clear to auscultation bilateral decreased breath sounds LLL Cardiovascular: RRR, no significant murmur Gastrointestinal: soft, non-tender, positive bowel sounds Musculoskeletal: no edema Neurological: non-focal Psychiatric: normal affect Skin: normal turgor Dx/Plan (1) HFrEF (heart failure with reduced ejection fraction) Code(s): I50.20 - UNSPECIFIED SYSTOLIC (CONGESTIVE) HEART FAILURE Status: Acute (2) Anemia Code(s): D64.9 - ANEMIA, UNSPECIFIED Status: Acute Qualifiers: Anemia type: other cause (3) CKD (chronic kidney disease) stage 4, GFR 15-29 ml/min Code(s): N18.4 - CHRONIC KIDNEY DISEASE, STAGE 4 (SEVERE) Status: Acute (4) Systolic CHF, acute Code(s): I50.21 - ACUTE SYSTOLIC (CONGESTIVE) HEART FAILURE Status: Acute (5) Sinusitis Code(s): J32.9 - CHRONIC SINUSITIS, UNSPECIFIED Status: Acute (6) CAD (coronary artery disease), [place] coronary artery Code(s): I25.10 - ATHSCL HEART DISEASE OF [place] CORONARY ARTERY W/O ANG PCTRS Status: Chronic Qualifiers: [place] vs. transplanted heart: [place] heart Associated angina: with stable angina Qualified Code(s): I25.118 - Atherosclerotic heart disease of [place] coronary artery with other forms of angina pectoris (7) DM2 (diabetes mellitus, type 2) Status: Chronic Qualifiers: Diabetes mellitus halfway insulin use: with computer game tester use Diabetes mellitus complication status: with kidney complications Diabetes mellitus complication detail: with chronic kidney disease Chronic kidney disease stage : stage 3 (moderate) Qualified Code(s): E11.22 - Type 2 diabetes mellitus with diabetic chronic kidney disease; N18.3 - Chronic kidney disease, stage 3 ( moderate); Z79.4 - bit sander (current) use of insulin (8) Hypothyroid Code(s): E03.9 - HYPOTHYROIDISM, UNSPECIFIED Status: Chronic (9) Addisons disease Code(s): E27.1 - PRIMARY ADRENOCORTICAL INSUFFICIENCY Status: Acute - Plan Plan: Acute systolic CHF exacerbation - CXR: cardiomegaly and moderate L pleural effusion, improved on repeat - last EF 25-30% in 07/2017. - BNP of 877, previous have been recorded from 300-1800s. - on lasix and metolazone at home. Does not appear to be on BB, GARY, spironolactone - IV Lasix 40 daily, will likely transition back to home regimen of lasix, metolazone MWF soon - monitor I/Os, daily weights (-200 in past 24hrs) - Echo pending read - Consulted Dr. Mooney for evaluation of pleural effusion, appreciate recommendations ADRIENNE on CKD4 - worsening renal function and patient uninterested in dialysis per PCP notes - K+ improved. Continue to monitor - Cr now 4.09 today - Consulted Dr. Alejandro, appreciate recommendations. Started Vit D supplementation IDDM2 - continue home insulin regimen - accuchecks and SSI. Required 5 u SSI. BG ranged 98-389 past 24 hrs. However, patient has not consistently gotten her 70/30. Appears she refused it last night as well. URI - symptoms improving, but dry cough is most bothersome symptom. WBC stable 11.3- >11. Does have high neutrophils. Afebrile. Nothing on repeat CXR suggestive of pneumonia/TB. - Guafenicine, flonase and saline nasal spray Hypothyroid - Continue the increased dose of 100mcg daily. - TSH 12.5. 3-4 wks ago TSH was 20s in clinic and dose was increased to 75mcg. CAD s/p CABG - continue home statin and aspirin Chronic normocytic anemia - Hgb 7 which is worse compared to previous 10 - has been worked up previously and was found to be 2/2 CKD - FOBT in clinic last month negative Neuropathy - continue home gabapentin Primary Adrenal Insufficiency - continue home prednisone and will monitor for need for stress dose Ppx: Heparin Diet: HH, CC, 2L fluid restriction Dispo: patient clinically improving, consider discharge home today or tomorrow
[2018-11-12 05:55] LABS: #Eosinphils 0.1 thou/uL (0.0-0.7); #Lymphocytes 0.8 thou/uL (1.20-3.40); #Monocytes 0.2 thou/uL (0.11-0.59); #Neutrophils 9.9 thou/uL (1.40-6.50); %Basophils 0.4 % (0.0-1.0); %Eosinophils 0.5 % (0.0-10.0); %Lymphocytes 7.2 % (21.0-51.0); %Monocytes 1.8 % (0.0-10.0); %Neutrophils 90.1 % (42.0-75.0); Hemoglobin 7.1 g/dL (12.0-16.0); Mean Corpuscular HGB CONC 32.9 g/dL (32.0-36.0); Mean Corpuscular Hemoglobin 30.9 pg (27.0-31.0); Mean Corpuscular Volume 93.9 fL (78.0-98.0); Mean Platelet Volume 6.9 fL (7.4-10.4); Platelet Count 223 thou/uL (130-400); RBC Distribution Width 14.7 % (11.5-14.5)
[2018-11-12 06:15] LABS: Anion Gap 15 mmol/L (10-20); BUN (Urea Nitrogen) 59 mg/dL (9.8-20.1); Calc. Creatinine Clearance 14 mL/min (70-130); Calcium 8.8 mg/dL (7.8-10.44); Carbon Dioxide 17 mmol/L (22-29); Chloride 104 mmol/L (98-107); Estimated GFR-MDRD 11; Glucose 79 mg/dL (70-105); Potassium 4.9 mmol/L (3.5-5.1); Sodium 131 mmol/L (136-145)
[2018-11-12] MEDS: Fluticasone Propionate Nasal Spray 16 gm Bottle NASAL SCH (08:07)
[2018-11-12] MEDS: predniSONE 5 MG TAB PO SCH ×2 (08:08→21:00)
[2018-11-12] MEDS: Heparin 5,000 UNITS/ML VIAL SC SCH ×3 (08:08→21:00)
[2018-11-12] MEDS: HumuLIN 70/30 (300 UNITS/3 ML VIAL) SC SCH ×2 (08:08→21:00)
[2018-11-12] MEDS: guaiFENesin ER 600 MG TAB PO SCH ×2 (08:08→21:00)
--- NOTE | 2018-11-12 09:40 | PRG ---
DATE OF SERVICE: 11/12/2018 SUBJECTIVE: Patient was seen and examined at bedside and overnight events noted. Patient denies any shortness of breath or chest pain or palpitation. No history of nausea or vomiting or diarrhea or fever or chills or cramps. OBJECTIVE: GENERAL: This is a well-built female, in no apparent distress. VITAL SIGNS: Temperature 97.9. Heart rate 77. Respiratory rate 16. Blood pressure 133/70. HEENT: Atraumatic, normocephalic. Oral mucosa is moist NECK: Supple. CARDIOVASCULAR: S1, S2 heard. Rate and rhythm regular. RESPIRATORY: Clear to auscultation. GASTROINTESTINAL: Abdomen is soft. MUSCULOSKELETAL: No tenderness. No edema. DERMATOLOGIC: No skin rash. NEUROLOGIC: Alert and awake and oriented X3. No focal neurologic deficits. Moving all the extremities. PSYCHIATRIC: Mood and affect normal. LABORATORY DATA: Potassium is 4.9, BUN is 59, and creatinine is 4.09. ASSESSMENT AND PLAN: 1. Acute kidney injury on chronic kidney disease, stage 4, with stable creatinine. Agree with holding the Lasix for one day and start Lasix 40 mg p.o. once a day tomorrow. 2. Cardiorenal syndrome, as above. 3. Pleural effusion, per Pulmonology. 4. Hyperkalemia, better. 5. Metabolic acidosis with hepatorenal syndrome. 6. Secondary hyperparathyroidism. 7. Proteinuria. 8. Edema. 9. Hypertension, stable. 10. Overall renal function seems to be stable. Agree with holding Lasix for now. The patient is not hypoxic and saturating well on room air. We will continue to follow. Limit fluid and salt intake and hold Lasix for now. Job ID: [id number]
--- NOTE | 2018-11-12 12:40 | PRG ---
DATE OF SERVICE: 11/12/2018 SUBJECTIVE: Devon Sterling got a bad cough, coughing some green sputum as per the family. OBJECTIVE: VITAL SIGNS: Temperature 97, pulse 80, saturations 90% on room air, blood pressure 110/56. CHEST: She denies any difficulty breathing. She has decreased breath sounds. No wheezing. CARDIAC: Normal S1 and S2. No gallops. ABDOMEN: No masses. IMPRESSION: 1. Chronic renal failure. 2. Left pleural effusion. 3. Congestive heart failure. 4. Bronchitis. PLAN: Empirically started on antibiotics. Otherwise, continue present treatment. No need to tap the chest until she is more symptomatic. Job ID: [id number]
[2018-11-12] MEDS: Albuterol Sulfate 1.25 MG/3 ML NEB NEB SCH ×2 (14:46→22:45)
[2018-11-12] MEDS: Calcium Carbonate + Vit D 1 TAB PO SCH (16:01)
[2018-11-12] MEDS: HumaLOG 300 UNITS/3 ML VIAL SC PRN (16:59)
[2018-11-12] MEDS: Cefuroxime Axetil 250 MG TAB PO SCH (21:00)
[2018-11-13] MEDS: Levothyroxine Sodium 100 MCG TAB PO SCH (04:29)
--- NOTE | 2018-11-13 05:55 | PDOC.FM ---
- Subjective Subjective: Patient reports she is feeling better. Cough became productive yesterday afternoon. It has improved overall and she was wondering when she could go home. - Objective Vital Signs & Weight: Vital Signs (12 hours) Temp Pulse Resp BP Pulse Ox 11/13/18 04:26 97.8 F 77 18 124/63 97 11/12/18 22:45 68 14 97 11/12/18 18:24 98.2 F 84 15 135/69 97 Weight Weight 59.511 kg I&O: 11/11/18 11/12/18 11/13/18 06:59 06:59 07:59 Intake Total 450 290 850 Output Total 1150 500 600 Balance -700 -210 250 Result Diagrams: 11/13/18 06:20 11/13/18 06:20 Phys Exam - Physical Examination Constitutional: NAD Respiratory: no wheezing, no rhonchi, clear to auscultation bilateral Cardiovascular: RRR, no significant murmur Gastrointestinal: soft, non-tender, positive bowel sounds Musculoskeletal: no edema Neurological: non-focal Psychiatric: normal affect Skin: normal turgor Dx/Plan (1) HFrEF (heart failure with reduced ejection fraction) Code(s): I50.20 - UNSPECIFIED SYSTOLIC (CONGESTIVE) HEART FAILURE Status: Acute (2) Anemia Code(s): D64.9 - ANEMIA, UNSPECIFIED Status: Acute Qualifiers: Anemia type: other cause (3) CKD (chronic kidney disease) stage 4, GFR 15-29 ml/min Code(s): N18.4 - CHRONIC KIDNEY DISEASE, STAGE 4 (SEVERE) Status: Acute (4) Systolic CHF, acute Code(s): I50.21 - ACUTE SYSTOLIC (CONGESTIVE) HEART FAILURE Status: Acute (5) Sinusitis Code(s): J32.9 - CHRONIC SINUSITIS, UNSPECIFIED Status: Acute (6) CAD (coronary artery disease), [place] coronary artery Code(s): I25.10 - ATHSCL HEART DISEASE OF [place] CORONARY ARTERY W/O ANG PCTRS Status: Chronic Qualifiers: [place] vs. transplanted heart: [place] heart Associated angina: with stable angina Qualified Code(s): I25.118 - Atherosclerotic heart disease of [place] coronary artery with other forms of angina pectoris (7) DM2 (diabetes mellitus, type 2) Status: Chronic Qualifiers: Diabetes mellitus [facility] insulin use: with long term care phlebotomist use Diabetes mellitus complication status: with kidney complications Diabetes mellitus complication detail: with chronic kidney disease Chronic kidney disease stage : stage 3 (moderate) Qualified Code(s): E11.22 - Type 2 diabetes mellitus with diabetic chronic kidney disease; N18.3 - Chronic kidney disease, stage 3 ( moderate); Z79.4 - penitentiary (current) use of insulin (8) Hypothyroid Code(s): E03.9 - HYPOTHYROIDISM, UNSPECIFIED Status: Chronic (9) Addisons disease Code(s): E27.1 - PRIMARY ADRENOCORTICAL INSUFFICIENCY Status: Acute - Plan Plan: Acute systolic CHF exacerbation, improved - CXR: cardiomegaly and moderate L pleural effusion, improved on repeat - last EF 25-30% in 07/2017. - BNP of 877, previous have been recorded from 300-1800s. - on lasix and metolazone at home. Does not appear to be on BB - IV Lasix 40 daily, dose held yesterday 2/2 kidney function. Lasix 40 daily PO today - monitor I/Os, daily weights - Echo pending read - Consulted Dr. Mooney for evaluation of pleural effusion. ADRIENNE on CKD4 - worsening renal function and patient uninterested in dialysis per PCP notes - K+ improved. Continue to monitor - Cr now 4.09->>4.5 - Consulted Dr. Alejandro, appreciate recommendations. Started Vit D supplementation. IDDM2 - continue home insulin regimen - accuchecks and SSI. Required 6 u SSI. BG ranged 91-291 past 24 hrs. However, patient has not consistently gotten her 70/30. Appears she refused it yesterday as well. Bronchitis - Afebrile, cough most bothersome symptoms - Guafenicine, flonase and saline nasal spray, Dr. Mooney started cefuroxime (11/12) . Hypothyroid - Continue the increased dose of 100mcg daily. - TSH 12.5. 3-4 wks ago TSH was 20s in clinic and dose was increased to 75mcg. CAD s/p CABG - continue home statin and aspirin Chronic normocytic anemia - Hgb 7 which is worse compared to previous 10 - has been worked up previously and was found to be 2/2 CKD - FOBT in clinic last month negative Neuropathy - continue home gabapentin Primary Adrenal Insufficiency - continue home prednisone and will monitor for need for stress dose Ppx: Heparin Diet: HH, CC, 2L fluid restriction Dispo: patient clinically improved for the reason for admission. Kidney function continues to worsen. Will await nephrology recommendations on this, but apart from this patient is stable.
[2018-11-13 06:37] LABS: #Lymphocytes 0.6 thou/uL (1.20-3.40); #Monocytes 0.3 thou/uL (0.11-0.59); #Neutrophils 8.4 thou/uL (1.40-6.50); %Basophils 0.1 % (0.0-1.0); %Eosinophils 0.5 % (0.0-10.0); %Lymphocytes 6.6 % (21.0-51.0); %Neutrophils 89.7 % (42.0-75.0); Hemoglobin 7.3 g/dL (12.0-16.0); Mean Corpuscular HGB CONC 32.8 g/dL (32.0-36.0); Mean Corpuscular Hemoglobin 31.3 pg (27.0-31.0); Mean Corpuscular Volume 95.5 fL (78.0-98.0); Mean Platelet Volume 7.2 fL (7.4-10.4); Platelet Count 226 thou/uL (130-400); RBC Distribution Width 14.8 % (11.5-14.5); Red Blood Cell (RBC) Count 2.34 mill/uL (4.20-5.40); White Blood Cell (WBC) Count 9.3 thou/uL (4.8-10.8)
[2018-11-13 06:56] LABS: Anion Gap 19 mmol/L (10-20); BUN (Urea Nitrogen) 69 mg/dL (9.8-20.1); Calc. Creatinine Clearance 13 mL/min (70-130); Calcium 8.7 mg/dL (7.8-10.44); Carbon Dioxide 17 mmol/L (22-29); Chloride 103 mmol/L (98-107); Estimated GFR-MDRD 10; Glucose 90 mg/dL (70-105); Potassium 4.8 mmol/L (3.5-5.1); Sodium 134 mmol/L (136-145)
[2018-11-13] MEDS: Heparin 5,000 UNITS/ML VIAL SC SCH ×3 (08:00→21:55)
[2018-11-13] MEDS ORDERED: SUCROFERRIC OXYHYDROXIDE 500 MG PO SCH (08:00)
[2018-11-13] MEDS: Fluticasone Propionate Nasal Spray 16 gm Bottle NASAL SCH (08:00)
[2018-11-13] MEDS: guaiFENesin ER 600 MG TAB PO SCH ×2 (08:01→21:55)
[2018-11-13] MEDS: Cefuroxime Axetil 250 MG TAB PO SCH ×2 (08:01→21:54)
[2018-11-13] MEDS: predniSONE 5 MG TAB PO SCH ×2 (08:01→21:55)
[2018-11-13] MEDS: Gabapentin 100 MG CAP PO SCH (08:01)
[2018-11-13] MEDS: Calcium Carbonate + Vit D 1 TAB PO SCH ×2 (08:01→16:03)
[2018-11-13] MEDS: HumuLIN 70/30 (300 UNITS/3 ML VIAL) SC SCH ×2 (08:02→21:57)
[2018-11-13] MEDS: Albuterol Sulfate 1.25 MG/3 ML NEB NEB SCH (08:06)
[2018-11-13] MEDS ORDERED: Furosemide 40 MG TAB PO SCH (09:00)
[2018-11-13] MEDS: HumaLOG 300 UNITS/3 ML VIAL SC PRN ×2 (10:44→17:16)
[2018-11-13] MEDS: Acetaminophen 325 MG TAB PO PRN (12:49)
--- NOTE | 2018-11-13 13:58 | PRG ---
DATE OF SERVICE: 11/13/2018 SUBJECTIVE: This morning, her cough is better. She is less short of breath. OBJECTIVE: VITAL SIGNS: Saturations are 95% on room air, respiratory rate 18, temperature 98, and blood pressure 120/63. CHEST: Decreased breath sounds. No wheezing. CARDIAC: Normal S1 and S2. No gallops. ABDOMEN: No masses. LABORATORY DATA: Creatinine is 4.53. White count is normal. ASSESSMENT: Bronchitis, anemia, pleural effusion, congestive heart failure, and renal failure. PLAN: Disposition home any time. Okay with primary care physician. Job ID: [id number]
[2018-11-13] MEDS ORDERED: diphenhydrAMINE 50 MG/ML VIAL IVP SCH (16:00)
[2018-11-13] MEDS ORDERED: Metoclopramide HCl 10 MG/2 ML VIAL IVP SCH (16:00)
--- NOTE | 2018-11-13 17:38 | PRG ---
DATE OF SERVICE: 11/13/2018 SUBJECTIVE: Patient was seen and examined at bedside and overnight events noted. Patient denies any shortness of breath or chest pain or palpitation. No history of nausea or vomiting or diarrhea or fever or chills or cramps. OBJECTIVE: GENERAL: This is a thin built female, in no apparent distress. VITAL SIGNS: Temperature 98.1. Pulse 79. Respiratory rate 18. Blood pressure 125/60. HEENT: Atraumatic, normocephalic. Oral mucosa is moist NECK: Supple. CARDIOVASCULAR: S1, S2 heard. Rate and rhythm regular. RESPIRATORY: Clear to auscultation. GASTROINTESTINAL: Abdomen is soft. MUSCULOSKELETAL: No tenderness. No edema. DERMATOLOGIC: No skin rash. NEUROLOGIC: Alert and awake and oriented X3. No focal neurologic deficits. Moving all the extremities. PSYCHIATRIC: Mood and affect normal. LABORATORY DATA: Potassium is 4.3, BUN is 69, and creatinine is 4.5. ASSESSMENT AND PLAN: 1. Acute kidney injury. Creatinine getting worse. 2. Chronic kidney disease, stage 4. The patient refuses dialysis. 3. Cardiorenal syndrome. 4. Hyperkalemia. 5. Metabolic acidosis. 6. Edema. 7. Hypertension. Creatinine is getting worse. Avoid nephrotoxins. We will follow. Job ID: [id number]
[2018-11-14 05:28] LABS: #Lymphocytes 0.6 thou/uL (1.20-3.40); #Monocytes 0.3 thou/uL (0.11-0.59); #Neutrophils 8.2 thou/uL (1.40-6.50); %Basophils 0.1 % (0.0-1.0); %Eosinophils 0.4 % (0.0-10.0); %Lymphocytes 6.7 % (21.0-51.0); %Monocytes 3.5 % (0.0-10.0); %Neutrophils 89.4 % (42.0-75.0); Hemoglobin 6.8 g/dL (12.0-16.0); Mean Corpuscular HGB CONC 32.4 g/dL (32.0-36.0); Mean Corpuscular Hemoglobin 30.9 pg (27.0-31.0); Mean Corpuscular Volume 95.4 fL (78.0-98.0); Mean Platelet Volume 7.2 fL (7.4-10.4); Platelet Count 192 thou/uL (130-400); RBC Distribution Width 14.8 % (11.5-14.5); Red Blood Cell (RBC) Count 2.18 mill/uL (4.20-5.40); White Blood Cell (WBC) Count 9.2 thou/uL (4.8-10.8)
--- NOTE | 2018-11-14 05:31 | PDOC.FM ---
- Subjective Subjective: Patient feels well this AM, denies any pain. Patient spoke with her family about dialysis, she still does not want to pursue dialysis at this time. Patient understands that she does not have long to live and will most likely quite soon without dialysis if her kidneys do not improve. Pt expressed wish to speak with yarn finisher. - Objective Vital Signs & Weight: Vital Signs (12 hours) Temp Pulse Resp BP Pulse Ox 11/14/18 03:06 97.9 F 74 20 139/71 90 L 11/13/18 23:50 98.3 F 79 20 143/71 H 97 11/13/18 19:08 98.2 F 77 18 122/63 91 L Weight Weight 60.691 kg I&O: 11/12/18 11/13/18 11/14/18 05:59 06:59 06:59 Intake Total 800 Output Total 500 Balance 300 Result Diagrams: 11/14/18 05:11 11/14/18 05:11 Phys Exam - Physical Examination Constitutional: NAD HEENT: moist MMs Respiratory: no wheezing, clear to auscultation bilateral Cardiovascular: RRR, no significant murmur Gastrointestinal: soft, non-tender trace bilat pitting edema Neurological: moves all 4 limbs Psychiatric: normal affect Skin: normal turgor Deviation from normal: pale appearing Dx/Plan (1) HFrEF (heart failure with reduced ejection fraction) Code(s): I50.20 - UNSPECIFIED SYSTOLIC (CONGESTIVE) HEART FAILURE Status: Acute (2) Sinusitis Code(s): J32.9 - CHRONIC SINUSITIS, UNSPECIFIED Status: Acute (3) Addisons disease Code(s): E27.1 - PRIMARY ADRENOCORTICAL INSUFFICIENCY Status: Acute (4) Anemia Code(s): D64.9 - ANEMIA, UNSPECIFIED Status: Chronic Qualifiers: Anemia type: other cause (5) CKD (chronic kidney disease) stage 4, GFR 15-29 ml/min Code(s): N18.4 - CHRONIC KIDNEY DISEASE, STAGE 4 (SEVERE) Status: Chronic (6) Systolic CHF, acute Code(s): I50.21 - ACUTE SYSTOLIC (CONGESTIVE) HEART FAILURE Status: Chronic (7) CAD (coronary artery disease), [place] coronary artery Code(s): I25.10 - ATHSCL HEART DISEASE OF [place] CORONARY ARTERY W/O ANG PCTRS Status: Chronic Qualifiers: [place] vs. transplanted heart: [place] heart Associated angina: with stable angina Qualified Code(s): I25.118 - Atherosclerotic heart disease of [place] coronary artery with other forms of angina pectoris (8) DM2 (diabetes mellitus, type 2) Status: Chronic Qualifiers: Diabetes mellitus fdc insulin use: with fdc use Diabetes mellitus complication status: with kidney complications Diabetes mellitus complication detail: with chronic kidney disease Chronic kidney disease stage : stage 3 (moderate) Qualified Code(s): E11.22 - Type 2 diabetes mellitus with diabetic chronic kidney disease; N18.3 - Chronic kidney disease, stage 3 ( moderate); Z79.4 - terminal supervisor (current) use of insulin (9) Hypothyroid Code(s): E03.9 - HYPOTHYROIDISM, UNSPECIFIED Status: Chronic (10) Acute kidney injury Code(s): N17.9 - ACUTE KIDNEY FAILURE, UNSPECIFIED Status: Acute (11) Acute renal failure Status: Acute - Plan Plan: ADRIENNE on CKD4 - worsening renal function and patient uninterested in dialysis. Patient states again today that she does not wish to pursue dialysis, understands that she will without dialysis. - K+ improved. Continue to monitor - Cr continues to trend up, 4.09->>4.53 - Consulted Dr. Alejandro, appreciate recommendations. Started Vit D supplementation. -Dr. Way, her outpatient swinging cut off saw operator, plans to see patient today to discuss dialysis - Spiritual care consulted - Consider hospice consult today after discussion with Dr. Way if she still does not want dialysis Chronic normocytic anemia - Hgb 7 which is worse compared to previous 10 - has been worked up previously and was found to be 2/2 CKD - FOBT in clinic last month negative - Consider transfusion today as hgb decreased to 6.8. Acute systolic CHF exacerbation, improved - CXR: cardiomegaly and moderate L pleural effusion, improved on repeat CXR - last EF 25-30% in 07/2017. - BNP of 877, previous have been recorded from 300-1800s. - on lasix and metolazone at home. Does not appear to be on BB - Lasix 40 mg PO daily - monitor I/Os, daily weights - Echo pending read Pleural Effusion - Pulmonology, Dr. Mooney for evaluation of pleural effusion, nothing to be done at this time - CXR: cardiomegaly and moderate L pleural effusion, improved on repeat CXR IDDM2 - continue home insulin regimen - accuchecks and SSI. Required 6 u SSI. BG ranged 91-291 past 24 hrs. However, patient has not consistently gotten her 70/30. Appears she has refused it Bronchitis - Afebrile, cough most bothersome symptoms - Guafenicine, flonase and saline nasal spray, Dr. Mooney started cefuroxime (11/12) . Hypothyroid - Continue the increased dose of 100mcg daily. - TSH 12.5, 3-4 wks ago. TSH was 20s in clinic and dose was increased to 75mcg. CAD s/p CABG - continue home statin and aspirin Peripheral Neuropathy - continue home gabapentin Primary Adrenal Insufficiency - continue home prednisone and will monitor for need for stress dose Ppx: Heparin Diet: HH, CC, 2L fluid restriction Dispo: patient clinically improved for the reason for admission. Kidney function continues to worsen. Will await nephrology recommendations on this.
[2018-11-14] MEDS: Levothyroxine Sodium 100 MCG TAB PO SCH (05:41)
[2018-11-14] MEDS: HumaLOG 300 UNITS/3 ML VIAL SC PRN (05:48)
[2018-11-14 05:50] LABS: Anion Gap 17 mmol/L (10-20); BUN (Urea Nitrogen) 76 mg/dL (9.8-20.1); Calc. Creatinine Clearance 13 mL/min (70-130); Calcium 7.8 mg/dL (7.8-10.44); Carbon Dioxide 17 mmol/L (22-29); Chloride 105 mmol/L (98-107); Estimated GFR-MDRD 10; Glucose 147 mg/dL (70-105); Potassium 4.9 mmol/L (3.5-5.1); Sodium 134 mmol/L (136-145)
[2018-11-14] MEDS: Fluticasone Propionate Nasal Spray 16 gm Bottle NASAL SCH (07:44)
[2018-11-14] MEDS: guaiFENesin ER 600 MG TAB PO SCH ×2 (07:45→21:00)
[2018-11-14] MEDS: Gabapentin 100 MG CAP PO SCH (07:45)
[2018-11-14] MEDS: Cefuroxime Axetil 250 MG TAB PO SCH ×2 (07:45→20:58)
[2018-11-14] MEDS: predniSONE 5 MG TAB PO SCH ×2 (07:45→21:00)
[2018-11-14] MEDS: Calcium Carbonate + Vit D 1 TAB PO SCH ×2 (07:45→16:13)
[2018-11-14] MEDS: Heparin 5,000 UNITS/ML VIAL SC SCH (07:46)
[2018-11-14] MEDS: HumuLIN 70/30 (300 UNITS/3 ML VIAL) SC SCH ×2 (07:46→21:02)
--- NOTE | 2018-11-14 11:04 | CON ---
DATE OF CONSULTATION: ADDENDUM: Please see note from Dr. Durham, for which I agree. The patient was seen, evaluated, examined, and discussed with the residents by bedside. This is a 53-year-old pretty complicated female with history of systolic congestive heart failure with EF around 25%. She has been having left-sided pleural effusion intermittently, came in basically with cough and short of breath, large effusion, was found to thought to be in a little bit of volume overload, was given Lasix and has improved. The effusion has improved, but still has this chronic cough. She states only for two weeks, but then she discussed in the past when she was given inhalers for chronic cough, this she states did not work and just made her jittery. It sounds like she is improving since the Lasix was given. This caused a runny nose postnasal drip. She has chronically elevated creatinine and sounds like they are not thinking dialysis as needed at this point in time. She does have a little bit of metabolic acidosis, which is actually not that unusual for her on previous admits as well and a little bit worsen and we are going to hold off on diuresis for a day. Her main problem is the chronic cough. Pulmonary did not want to do anything about the chronic pulmonary effusion at this point in time. So, we will see what Renal says of keeping her another day. I am just going to watch her kidney function and her electrolytes, but otherwise probably can just have her discontinuing medicines right now and just get her cough medicines basically on a p.r.n. basis. I think she will actually do well on inhaler and will try to leave albuterol if the albuterol in the past truly made her jittery. Job ID: [id number]
--- NOTE | 2018-11-14 11:20 | PRG ---
DATE OF SERVICE: ADDENDUM: Please see note from Dr. Durham, for which I agree. The patient was seen, evaluated, discussed, and examined with the patient by bedside. Cough is much improved with albuterol. They gave her nebulizers. Sounds like her pleural effusion is better and her heart failure is fairly stable. Nephrology is seeing her and just talked about just getting more gentle diuresis, but pretty much is stable as long as Nephrology is okay with us sending her home. I think she can be discharged on home medicines, diuretics, and inhalers as needed for the symptomatic cough. Job ID: [id number]
--- NOTE | 2018-11-14 11:50 | PRG ---
DATE OF SERVICE: 11/14/2018 SUBJECTIVE: This morning, cough is better. She denies short of breath. LABORATORY DATA: H and H are low at 6.8 and 20. Creatinine 4.6, glucose was 39. OBJECTIVE: VITAL SIGNS: Saturations 100% on room air, respirations 16, temperature 98, blood pressure 130/68. CHEST: Decreased breath sounds in left lung. CARDIAC: Normal S1 and S2. No gallops. ABDOMEN: No masses. IMPRESSION: 1. Left pleural effusion, stable. 2. Bronchitis. 3. Renal failure. PLAN: Pulmonary [facility], no need to do a thoracentesis as per previous discussion. Disposition as per primary care physician and senior sales engineer. Please call if needed. Job ID: [id number]
--- NOTE | 2018-11-14 12:34 | PRG ---
DATE OF SERVICE: 11/14/2018 Ms. Sterling is a 53-year-old lady who is admitted with worsening renal function. We are awaiting input from Dr. Way. Evidently in discussion with the family yesterday, they had decided that they were under no circumstances consider dialysis, but have changed her mind this morning. I have really believe there is a language barrier that complicates discussions. In the event, her creatinine has risen to 4.65 with a GFR of 10. The family and the patient are definitely amenable to dialysis if it is indicated. We will await input from Dr. Way. Job ID: [id number]
[2018-11-14] MEDS ORDERED: Furosemide 40 MG/4 ML VIAL SLOW IVP SCH ×3 (12:45→13:00)
[2018-11-14] MEDS ORDERED: Epoetin (ESRD) 10,000 UNITS/ML VIAL SC SCH (13:00)
--- NOTE | 2018-11-14 13:02 | PDOC.EVN ---
Event Note - Event Note Event Note: Spoke with Dr. Way about the patient and his recommendations. ESRD - Patient now is ready to do dialysis. - Consulted Dr. Centeno, General surgery, for placement of tunneled catheter. - NPO at midnight CHF- will give patient IV lasix now, and after each dose PRBCs (see below) Anemia of 6.8- will transfuse 2 units PRBCs, start Epogen DVT ppx- stop heparin and start SCDs
--- NOTE | 2018-11-14 13:16 | PRG ---
DATE OF SERVICE: 11/14/2018 SUBJECTIVE: This is a 53-year-old female being seen for stage 5 chronic kidney disease. The patient complains of dyspnea on minimal exertion. Denies any nausea, vomiting, or chest pain. OBJECTIVE: CONSTITUTIONAL: The patient is awake and alert, in no acute distress. VITAL SIGNS: Pulse 80, breathing 16, blood pressure 132/86. GENERAL APPEARANCE AND MENTAL STATUS: Fair. HEAD/NECK: Normocephalic. Atraumatic. EYES: EOMI. No deformity. EARS: Clear. No ulcers. NOSE: Intact. No lesions. MOUTH: Clear. No discharge. THROAT: Clear. No exudate. LUNGS: Clear. No crackles. CARDIAC: S1, S2. No rub. ABDOMEN: Benign. Bowel sounds positive. GENITALIA/RECTUM: Ruiz absent. BACK/EXTREMITIES: Edema 0+. NEUROLOGICAL: Alert and motor intact. SKIN: LYMPHATICS: LABORATORY DATA: Labs show hemoglobin 6.8. Potassium 4.9 and creatinine 4.6. ASSESSMENT AND PLAN: 1. Stage 5 chronic kidney disease with dyspnea and edema. I would recommend renal replacement therapy. 2. Metabolic acidosis. Start sodium bicarbonate. 3. Anemia. Would recommend transfusion with dialysis to avoid hyperkalemia. 4. Edema. 5. Congestive heart failure. Can start Lasix 40 mg IV and titrate dose upwards as needed. Overall prognosis is poor. I would recommend case management for outpatient dialysis consultation. I will also start the patient on Epogen. Job ID: [id number]
[2018-11-14] MEDS: Furosemide 40 MG/4 ML VIAL SLOW IVP SCH ×2 (17:30→21:53)
[2018-11-14 18:01] LABS: Hemoglobin 8.6 g/dL (12.0-16.0)
[2018-11-14] MEDS: Acetaminophen 325 MG TAB PO PRN (20:58)
[2018-11-14] MEDS: Sodium Bicarbonate Tab 325 MG TAB PO SCH (20:59)
[2018-11-14 22:20] LABS: Hemoglobin 11.1 g/dL (12.0-16.0)
[2018-11-14 22:40] LABS: Anion Gap 16 mmol/L (10-20); BUN (Urea Nitrogen) 80 mg/dL (9.8-20.1); Calc. Creatinine Clearance 14 mL/min (70-130); Calcium 8.4 mg/dL (7.8-10.44); Carbon Dioxide 21 mmol/L (22-29); Chloride 103 mmol/L (98-107); Estimated GFR-MDRD 11; Glucose 148 mg/dL (70-105); Potassium 4.9 mmol/L (3.5-5.1); Sodium 135 mmol/L (136-145)
[2018-11-15 05:20] LABS: #Eosinphils 0.1 thou/uL (0.0-0.7); #Lymphocytes 0.6 thou/uL (1.20-3.40); #Monocytes 0.5 thou/uL (0.11-0.59); #Neutrophils 8.8 thou/uL (1.40-6.50); %Eosinophils 0.5 % (0.0-10.0); %Lymphocytes 5.6 % (21.0-51.0); %Neutrophils 88.9 % (42.0-75.0); Hemoglobin 10.3 g/dL (12.0-16.0); Mean Corpuscular HGB CONC 33.7 g/dL (32.0-36.0); Mean Corpuscular Hemoglobin 30.6 pg (27.0-31.0); Mean Corpuscular Volume 90.6 fL (78.0-98.0); Mean Platelet Volume 7.2 fL (7.4-10.4); Platelet Count 188 thou/uL (130-400); Red Blood Cell (RBC) Count 3.36 mill/uL (4.20-5.40); White Blood Cell (WBC) Count 9.9 thou/uL (4.8-10.8)
[2018-11-15 05:35] LABS: Anion Gap 14 mmol/L (10-20); BUN (Urea Nitrogen) 84 mg/dL (9.8-20.1); Calc. Creatinine Clearance 13 mL/min (70-130); Calcium 7.9 mg/dL (7.8-10.44); Carbon Dioxide 22 mmol/L (22-29); Chloride 104 mmol/L (98-107); Estimated GFR-MDRD 10; Glucose 242 mg/dL (70-105); Potassium 5.3 mmol/L (3.5-5.1); Sodium 135 mmol/L (136-145)
--- NOTE | 2018-11-15 06:17 | PDOC.FM ---
- Subjective Subjective: Patient reports she has a little bit of pain where her Rt fem vasc cath is located, no other complaints this AM. She is otherwise feeling well. - Objective Vital Signs & Weight: Vital Signs (12 hours) Temp Pulse Resp BP BP Pulse Ox 11/15/18 03:26 97.5 F L 73 18 151/79 H 96 11/14/18 21:46 97.9 F 75 18 159/89 H 98 11/14/18 19:11 99.1 F 79 16 154/82 H 96 Weight Weight 57.652 kg I&O: 11/13/18 11/14/18 11/15/18 06:59 06:59 06:59 Intake Total 800 2050 Output Total 500 950 Balance 300 1100 Result Diagrams: 11/15/18 04:59 11/15/18 04:59 Phys Exam - Physical Examination Constitutional: NAD HEENT: moist MMs Neck: no nodes, supple Respiratory: no wheezing, clear to auscultation bilateral Cardiovascular: RRR, no significant murmur Gastrointestinal: soft, non-tender, positive bowel sounds 1+ pitting edema legs bilat Neurological: non-focal, moves all 4 limbs Psychiatric: normal affect, A&O x 3 Skin: no rash, normal turgor, cap refill <2 seconds Dx/Plan (1) HFrEF (heart failure with reduced ejection fraction) Code(s): I50.20 - UNSPECIFIED SYSTOLIC (CONGESTIVE) HEART FAILURE Status: Acute (2) Sinusitis Code(s): J32.9 - CHRONIC SINUSITIS, UNSPECIFIED Status: Acute (3) Addisons disease Code(s): E27.1 - PRIMARY ADRENOCORTICAL INSUFFICIENCY Status: Acute (4) Anemia Code(s): D64.9 - ANEMIA, UNSPECIFIED Status: Chronic Qualifiers: Anemia type: other cause (5) CKD (chronic kidney disease) stage 4, GFR 15-29 ml/min Code(s): N18.4 - CHRONIC KIDNEY DISEASE, STAGE 4 (SEVERE) Status: Chronic (6) Systolic CHF, acute Code(s): I50.21 - ACUTE SYSTOLIC (CONGESTIVE) HEART FAILURE Status: Chronic (7) CAD (coronary artery disease), [place] coronary artery Code(s): I25.10 - ATHSCL HEART DISEASE OF [place] CORONARY ARTERY W/O ANG PCTRS Status: Chronic Qualifiers: [place] vs. transplanted heart: [place] heart Associated angina: with stable angina Qualified Code(s): I25.118 - Atherosclerotic heart disease of [place] coronary artery with other forms of angina pectoris (8) DM2 (diabetes mellitus, type 2) Status: Chronic Qualifiers: Diabetes mellitus buttermaker continuous churn insulin use: with prison use Diabetes mellitus complication status: with kidney complications Diabetes mellitus complication detail: with chronic kidney disease Chronic kidney disease stage : stage 3 (moderate) Qualified Code(s): E11.22 - Type 2 diabetes mellitus with diabetic chronic kidney disease; N18.3 - Chronic kidney disease, stage 3 ( moderate); Z79.4 - halfway (current) use of insulin (9) Hypothyroid Code(s): E03.9 - HYPOTHYROIDISM, UNSPECIFIED Status: Chronic (10) Acute kidney injury Code(s): N17.9 - ACUTE KIDNEY FAILURE, UNSPECIFIED Status: Acute (11) Acute renal failure Status: Acute (12) Metabolic acidosis Code(s): E87.2 - ACIDOSIS Status: Acute (13) Hyperkalemia Code(s): E87.5 - HYPERKALEMIA Status: Acute - Plan Plan: Stage 5 CKD - After discussion yesterday, patient is on board with dialysis - CM consulted for outpatient dialysis - Gen Surgery, Jacobo consulted 11/14, placed right sided vasc cath 11/14 - Consulted Dr. Alejandro, appreciate recommendations. -Started Vit D supplementation. -Dr. Way, her outpatient customer project manager, 11/14 appreciate recommendations -Epogen -Bicarb BID -Discontinue heparin and start SCDs -Recommended tunneled catheter for dialysis - Spiritual care consulted Metabolic acidosis - Sodium bicarb started Hyperkalemia - K of 5.3 s/p 2 units PRBCs - plan to dialyze today Chronic normocytic anemia - 2 units PRBCs transfused, Hgb improved - has been worked up previously and was found to be 2/2 CKD - FOBT in clinic last month negative Acute systolic CHF exacerbation, improved - CXR: cardiomegaly and moderate L pleural effusion, improved on repeat CXR - last EF 25-30% in 07/2017. - BNP of 877, previous have been recorded from 300-1800s. - on lasix and metolazone at home. Does not appear to be on BB - monitor I/Os, daily weights - Echo: pending read Pleural Effusion - Pulmonology, Dr. Mooney for evaluation of pleural effusion, nothing to be done at this time - CXR: cardiomegaly and moderate L pleural effusion, improved on repeat CXR IDDM2 - continue home insulin regimen - accuchecks and SSI. Required 6 u SSI. BG ranged 91-291 past 24 hrs. However, patient has not consistently gotten her 70/30. Appears she has refused it Bronchitis - Afebrile, cough most bothersome symptoms - Guafenicine, flonase and saline nasal spray, Dr. Mooney started cefuroxime (11/12) . Hypothyroid - Continue the increased dose of 100mcg daily. - TSH 12.5, 3-4 wks ago. TSH was 20s in clinic and dose was increased to 75mcg. CAD s/p CABG - continue home statin and aspirin Peripheral Neuropathy - continue home gabapentin Primary Adrenal Insufficiency - continue home prednisone and will monitor for need for stress dose Ppx: SCDs Diet: HH, CC, 2L fluid restriction Dispo: possible discharge to home today after dialysis pending clinical picture changes
[2018-11-15] MEDS: Levothyroxine Sodium 100 MCG TAB PO SCH (06:25)
[2018-11-15] MEDS: Fluticasone Propionate Nasal Spray 16 gm Bottle NASAL SCH (09:03)
[2018-11-15] MEDS: Cefuroxime Axetil 250 MG TAB PO SCH ×2 (09:03→20:31)
[2018-11-15] MEDS: Calcium Carbonate + Vit D 1 TAB PO SCH ×2 (09:03→16:24)
--- NOTE | 2018-11-15 09:03 | OP ---
DATE OF PROCEDURE: 11/14/2018 PREOPERATIVE DIAGNOSIS: Acute renal failure with need for urgent dialysis. PROCEDURE PERFORMED: Temporary dialysis catheter placement, right femoral vein. INDICATIONS: A 53-year-old female with acute renal failure, needs urgent dialysis. FINDINGS: Good backflow of venous blood, J-wire threaded easily. PROCEDURE: After informed consent was obtained, the patient was placed in supine position. Her groin area was prepped and draped in usual fashion. Local anesthesia infiltrated subcutaneously and deep. An introducer needle was inserted into the right femoral vein with good backflow of venous blood. J-wire threaded easily. The skin was incised with 11 blade and a series of dilators used to dilate up the subcu. The pre-flushed Trialysis catheter was inserted over the wire. The wire was removed. The catheter advanced. Each of the ports aspirated. Good backflow of venous blood. Flushed with saline. Sutured in place with interrupted 3-0 nylon. Sterile bandage applied. The patient tolerated the procedure well. Job ID: [id number]
[2018-11-15] MEDS: Sodium Bicarbonate Tab 325 MG TAB PO SCH (09:04)
[2018-11-15] MEDS: guaiFENesin ER 600 MG TAB PO SCH ×2 (09:04→20:31)
[2018-11-15] MEDS: predniSONE 5 MG TAB PO SCH (09:04)
[2018-11-15] MEDS: Gabapentin 100 MG CAP PO SCH (09:04)
[2018-11-15] MEDS: Furosemide 80 MG TAB PO SCH (09:04)
[2018-11-15] MEDS: HumuLIN 70/30 (300 UNITS/3 ML VIAL) SC SCH (09:09)
[2018-11-15] MEDS ORDERED: Heparin 10,000 UNITS/ 10 ML VIAL ONE (10:00)
--- NOTE | 2018-11-15 10:00 | PRG ---
DATE OF SERVICE: 11/15/2018 SUBJECTIVE: A 53-year-old female being seen for end-stage renal disease. The patient denies any nausea or vomiting. OBJECTIVE: GENERAL: The patient is awake and alert. VITAL SIGNS: Afebrile, pulse 73, breathing 16, and blood pressure 151/79. GENERAL APPEARANCE AND MENTAL STATUS: Fair. HEAD/NECK: Normocephalic. Atraumatic. EYES: EOMI. No deformity. EARS: Clear. No ulcers. NOSE: Intact. No lesions. MOUTH: Clear. No discharge. THROAT: Clear. No exudate. LUNGS: Clear. No crackles. CARDIAC: S1, S2. No rub. ABDOMEN: Benign. Bowel sounds positive. GENITALIA/RECTUM: Ruiz absent. BACK/EXTREMITIES: Edema 0+. NEUROLOGICAL: Alert and motor intact. SKIN: LYMPHATICS: LABORATORY DATA: Labs showed hemoglobin 10.3. Creatinine 4.6. ASSESSMENT: 1. Acute kidney injury with chronic kidney disease, stage 5. Plan dialysis. 2. Hyperkalemia. Plan dialysis. 3. Metabolic acidosis, stable. 4. Anemia, stable. 5. Medication based on GFR appropriate. Outpatient dialysis has been ordered to be set up. Job ID: [id number]
[2018-11-15 10:53] LABS: HBSAg Index 0.24 S/CO (0-0.99); Hep B Surf Ag Non-Reactive S/CO (NonReactive)
[2018-11-15 11:49] LABS: HBSAg Index 0.28 S/CO (0-0.99); Hep A IgM AB Non-Reactive (NonReactive); Hep A IgM S/CO 0.28 S/CO (0-0.79); Hep B Surf Ag Non-Reactive S/CO (NonReactive); Hep C IgG Ab Non-Reactive (NonReactive); Hepatitis B Core IgM Abs Non-Reactive (NonReactive)
--- NOTE | 2018-11-15 18:57 | PRG ---
DATE OF SERVICE: 11/15/2018 SUBJECTIVE: Ms. Sterling had her shunt placed yesterday and is awaiting dialysis today. We answered many questions that she and her family put to us. We will await further recommendations per Dr. Way. Job ID: [id number]
[2018-11-15] MEDS: Hydrocortisone 10 mg Tablet PO SCH (20:31)
[2018-11-15] MEDS ORDERED: HumuLIN 70/30 (300 UNITS/3 ML VIAL) SC SCH (21:00)
[2018-11-16 05:21] LABS: #Eosinphils 0.1 thou/uL (0.0-0.7); #Lymphocytes 0.6 thou/uL (1.20-3.40); #Monocytes 0.5 thou/uL (0.11-0.59); #Neutrophils 7.9 thou/uL (1.40-6.50); %Basophils 0.1 % (0.0-1.0); %Eosinophils 0.7 % (0.0-10.0); %Lymphocytes 6.9 % (21.0-51.0); %Monocytes 5.6 % (0.0-10.0); %Neutrophils 86.7 % (42.0-75.0); Hemoglobin 10.7 g/dL (12.0-16.0); Mean Corpuscular HGB CONC 33.7 g/dL (32.0-36.0); Mean Corpuscular Hemoglobin 30.5 pg (27.0-31.0); Mean Corpuscular Volume 90.6 fL (78.0-98.0); Platelet Count 200 thou/uL (130-400); RBC Distribution Width 14.2 % (11.5-14.5); White Blood Cell (WBC) Count 9.2 thou/uL (4.8-10.8)
[2018-11-16] MEDS: Levothyroxine Sodium 100 MCG TAB PO SCH (05:44)
[2018-11-16] MEDS: HumaLOG 300 UNITS/3 ML VIAL SC PRN (05:45)
[2018-11-16 05:46] LABS: Anion Gap 13 mmol/L (10-20); BUN (Urea Nitrogen) 56 mg/dL (9.8-20.1); Calc. Creatinine Clearance 17 mL/min (70-130); Calcium 7.9 mg/dL (7.8-10.44); Carbon Dioxide 24 mmol/L (22-29); Chloride 98 mmol/L (98-107); Estimated GFR-MDRD 13; Glucose 412 mg/dL (70-105); Potassium 4.4 mmol/L (3.5-5.1); Sodium 131 mmol/L (136-145)
--- NOTE | 2018-11-16 05:52 | PDOC.FM ---
- Subjective Subjective: Patient has a headache after dialysis, reports some calf cramps overnight. Still awaiting possible dialysis placement. Patient states before she did not want dialysis because she did not understand that she would without it, and was worried about being undocumented. - Objective Vital Signs & Weight: Vital Signs (12 hours) Temp Pulse Resp BP BP Pulse Ox 11/16/18 04:03 98.3 F 71 20 183/87 H 94 L 11/15/18 23:34 98.1 F 73 15 163/81 H 97 11/15/18 18:30 98.7 F 81 16 128/68 97 Weight Weight 57.652 kg I&O: 11/14/18 11/15/18 11/16/18 06:59 06:59 06:59 Intake Total 800 2050 1080 Output Total 500 950 300 Balance 300 1100 780 Result Diagrams: 11/16/18 04:55 11/16/18 04:55 Phys Exam - Physical Examination Constitutional: NAD HEENT: moist MMs Neck: no nodes, supple Respiratory: no wheezing, clear to auscultation bilateral Cardiovascular: RRR, no significant murmur Gastrointestinal: soft, non-tender, no distention, positive bowel sounds Musculoskeletal: no edema, pulses present Neurological: moves all 4 limbs Psychiatric: normal affect, A&O x 3 Skin: normal turgor, cap refill <2 seconds Dx/Plan (1) HFrEF (heart failure with reduced ejection fraction) Code(s): I50.20 - UNSPECIFIED SYSTOLIC (CONGESTIVE) HEART FAILURE Status: Acute (2) Sinusitis Code(s): J32.9 - CHRONIC SINUSITIS, UNSPECIFIED Status: Acute (3) Addisons disease Code(s): E27.1 - PRIMARY ADRENOCORTICAL INSUFFICIENCY Status: Acute (4) Anemia Code(s): D64.9 - ANEMIA, UNSPECIFIED Status: Chronic Qualifiers: Anemia type: other cause (5) CKD (chronic kidney disease) stage 4, GFR 15-29 ml/min Code(s): N18.4 - CHRONIC KIDNEY DISEASE, STAGE 4 (SEVERE) Status: Chronic (6) Systolic CHF, acute Code(s): I50.21 - ACUTE SYSTOLIC (CONGESTIVE) HEART FAILURE Status: Chronic (7) CAD (coronary artery disease), [place] coronary artery Code(s): I25.10 - ATHSCL HEART DISEASE OF [place] CORONARY ARTERY W/O ANG PCTRS Status: Chronic Qualifiers: [place] vs. transplanted heart: [place] heart Associated angina: with stable angina Qualified Code(s): I25.118 - Atherosclerotic heart disease of [place] coronary artery with other forms of angina pectoris (8) DM2 (diabetes mellitus, type 2) Status: Chronic Qualifiers: Diabetes mellitus superintendent marine oil terminal insulin use: with superintendent marine oil terminal use Diabetes mellitus complication status: with kidney complications Diabetes mellitus complication detail: with chronic kidney disease Chronic kidney disease stage : stage 3 (moderate) Qualified Code(s): E11.22 - Type 2 diabetes mellitus with diabetic chronic kidney disease; N18.3 - Chronic kidney disease, stage 3 ( moderate); Z79.4 - termite inspector (current) use of insulin (9) Hypothyroid Code(s): E03.9 - HYPOTHYROIDISM, UNSPECIFIED Status: Chronic (10) Acute kidney injury Code(s): N17.9 - ACUTE KIDNEY FAILURE, UNSPECIFIED Status: Acute (11) Acute renal failure Status: Acute (12) Metabolic acidosis Code(s): E87.2 - ACIDOSIS Status: Acute (13) Hyperkalemia Code(s): E87.5 - HYPERKALEMIA Status: Acute - Plan Plan: Stage 5 CKD - dialysis yesterday - CM consulted for outpatient dialysis, awaiting recs - Gen Surgery, Jacobo consulted 11/14, placed right sided vasc cath 11/14 - Consulted Dr. Alejandro and outpatient digital photo printer Dr. Way, appreciate recommendations. - Vit D supplementation. - Epogen - Dialyzed yesterday - Spiritual care consulted Metabolic acidosis, resolved - Sodium bicarb, now discontinued Hyperkalemia, resolved - K of 5.3 s/p 2 units PRBCs - Resolved to 4.4 today Chronic normocytic anemia - 2 units PRBCs transfused, Hgb improved - has been worked up previously and was found to be 2/2 CKD - FOBT in clinic last month negative Acute systolic CHF exacerbation, improved - CXR: cardiomegaly and moderate L pleural effusion, improved on repeat CXR - last EF 25-30% in 07/2017. - BNP of 877, previous have been recorded from 300-1800s. - on lasix and metolazone at home. Does not appear to be on BB - monitor I/Os, daily weights - Echo: pending read, will contact photographic laboratory technician today Pleural Effusion - Pulmonology, Dr. Mooney for evaluation of pleural effusion, nothing to be done at this time - CXR: cardiomegaly and moderate L pleural effusion, improved on repeat CXR IDDM2 - continue home insulin regimen - accuchecks and SSI. Required 6 u SSI. BG ranged 91-291 past 24 hrs. However, patient has not consistently gotten her 70/30. Appears she has refused it - pt has had lows overnight Bronchitis - Afebrile, cough most bothersome symptoms - Guafenicine, flonase and saline nasal spray, Dr. Mooney started cefuroxime (11/12) . Hypothyroid - Continue the increased dose of 100mcg daily. - TSH 12.5, 3-4 wks ago. TSH was 20s in clinic and dose was increased to 75mcg. CAD s/p CABG - continue home statin and aspirin Peripheral Neuropathy - continue home gabapentin Primary Adrenal Insufficiency - continue home steroid and will monitor for need for stress dose Ppx: SCDs Diet: HH, CC, 2L fluid restriction Dispo: needs outpatient dialysis chair prior to dc if possible, case management on board
[2018-11-16] MEDS: Acetaminophen 325 MG TAB PO PRN (09:13)
[2018-11-16] MEDS: Fluticasone Propionate Nasal Spray 16 gm Bottle NASAL SCH (10:38)
--- NOTE | 2018-11-16 11:30 | PDOC.EVN ---
Event Note - Event Note Event Note: PCP Progress Note S: I saw Ms. Sterling in dialysis today. She was resting comfortably and denies any muscle cramps or other discomfort. I discussed dialysis with her at length and she endorses that this is indeed what she wants as she desires to be around for her children and grandchildren as long as she can. She notes that her brother whom she lives with can help with transportation to dialysis. She is tearful and states that she doesn't have very much help, that the rest of her family is too busy to help her. O: Most recent vitals and labs reviewed Gen: awake, alert, oriented HEENT: NCAT, poor dentition CV: RRR RESP: breathing non-labored ABD: NTND Groin: dialysis catheter in use A/P: 53 yo F with ESRD and numerous comorbidities. Agree with mgmt per primary team and discussed case with Dr. Teran. Recommended changing steroids to home regimen. BG very labile which is something we have battled with her outpatient regimen. She is not candidate for other insulin at this time due to indigent status but would welcome case management input if there are any alternatives to 70/30 for her. BP also increasingly elevated now that anemia improved and dialysis started. May require further titration of BP meds. I will be happy to follow or provide additional assistance.
--- NOTE | 2018-11-16 11:47 | PRG ---
DATE OF SERVICE: 11/16/2018 Ms. Sterling had dialysis yesterday and is resting quietly in bed this morning. manager telemetry is trying to work out some arrangements to continue outpatient dialysis. In the event, she is nearing time for discharge. No new complaints this morning. Job ID: [id number]
--- NOTE | 2018-11-16 11:52 | PRG ---
DATE OF SERVICE: 11/16/2018 SUBJECTIVE: A 53-year-old female being seen for end-stage renal disease. The patient denies any nausea, vomiting, or chest pain. OBJECTIVE: GENERAL: The patient is awake and alert. VITAL SIGNS: Afebrile, pulse 69, breathing 16, and blood pressure 166/77. GENERAL APPEARANCE AND MENTAL STATUS: Fair. HEAD/NECK: Normocephalic. Atraumatic. EYES: EOMI. No deformity. EARS: Clear. No ulcers. NOSE: Intact. No lesions. MOUTH: Clear. No discharge. THROAT: Clear. No exudate. LUNGS: Clear. No crackles. CARDIAC: S1, S2. No rub. ABDOMEN: Benign. Bowel sounds positive. GENITALIA/RECTUM: Ruiz absent. BACK/EXTREMITIES: Edema 0+. NEUROLOGICAL: Alert and motor intact. SKIN: LYMPHATICS: LABORATORY DATA: Labs show hemoglobin 10.7. Potassium 4.4. ASSESSMENT AND PLAN: 1. Stage 6 chronic kidney disease. Plan, dialysis. 2. Hypertension, stable. 3. Anemia, stable. 4. Congestive heart failure. Plan, ultrafiltration with dialysis. Job ID: [id number]
[2018-11-16] MEDS ORDERED: CEFAZOLIN 2 GM in Premix Bag 1 BAG IVPB SCH (12:30)
[2018-11-16] MEDS: guaiFENesin ER 600 MG TAB PO SCH ×2 (15:15→20:48)
[2018-11-16] MEDS: Cefuroxime Axetil 250 MG TAB PO SCH ×2 (15:15→20:48)
[2018-11-16] MEDS: Gabapentin 100 MG CAP PO SCH (15:15)
[2018-11-16] MEDS: Furosemide 80 MG TAB PO SCH (15:15)
[2018-11-16] MEDS: Calcium Carbonate + Vit D 1 TAB PO SCH ×2 (15:15→16:04)
[2018-11-16] MEDS: Hydrocortisone 10 mg Tablet PO SCH ×2 (15:16→20:47)
[2018-11-17 05:32] LABS: #Eosinphils 0.3 thou/uL (0.0-0.7); #Lymphocytes 0.8 thou/uL (1.20-3.40); #Monocytes 0.6 thou/uL (0.11-0.59); #Neutrophils 6.4 thou/uL (1.40-6.50); %Basophils 0.1 % (0.0-1.0); %Eosinophils 3.2 % (0.0-10.0); %Lymphocytes 9.7 % (21.0-51.0); %Monocytes 7.1 % (0.0-10.0); %Neutrophils 79.8 % (42.0-75.0); Hemoglobin 11.3 g/dL (12.0-16.0); Mean Corpuscular HGB CONC 33.6 g/dL (32.0-36.0); Mean Corpuscular Volume 92.1 fL (78.0-98.0); Platelet Count 190 thou/uL (130-400); RBC Distribution Width 14.2 % (11.5-14.5); Red Blood Cell (RBC) Count 3.66 mill/uL (4.20-5.40)
[2018-11-17] MEDS: Levothyroxine Sodium 100 MCG TAB PO SCH (05:45)
[2018-11-17 05:51] LABS: Anion Gap 15 mmol/L (10-20); BUN (Urea Nitrogen) 33 mg/dL (9.8-20.1); Calc. Creatinine Clearance 21 mL/min (70-130); Calcium 8.4 mg/dL (7.8-10.44); Carbon Dioxide 23 mmol/L (22-29); Chloride 100 mmol/L (98-107); Estimated GFR-MDRD 19; Glucose 311 mg/dL (70-105); Potassium 4.7 mmol/L (3.5-5.1); Sodium 133 mmol/L (136-145)
[2018-11-17 06:12] LABS: HBSAB Concentration 0.21 mIU/mL; Hep B Surf AB Non-Reactive (NonReactive)
--- NOTE | 2018-11-17 06:15 | PDOC.FM ---
- Subjective Subjective: Patient is having some pain from her surgery site this morning, otherwise is doing well with no complaints. - Objective Vital Signs & Weight: Vital Signs (12 hours) Temp Pulse Resp BP Pulse Ox 11/17/18 04:00 98.1 F 74 20 142/74 H 95 11/16/18 19:15 98.0 F 72 18 131/62 96 Weight Weight 53.796 kg I&O: 11/15/18 11/16/18 11/17/18 06:59 06:59 06:59 Intake Total 2050 1080 360 Output Total 576 244 3987 Balance 1100 780 -1140 Result Diagrams: 11/17/18 04:56 11/17/18 04:56 Phys Exam - Physical Examination Constitutional: NAD Respiratory: no wheezing, clear to auscultation bilateral Cardiovascular: RRR, no significant murmur Gastrointestinal: soft, non-tender, no distention, positive bowel sounds Musculoskeletal: pulses present trace edema Neurological: non-focal, moves all 4 limbs Psychiatric: normal affect, A&O x 3 Skin: normal turgor, cap refill <2 seconds Dx/Plan (1) HFrEF (heart failure with reduced ejection fraction) Code(s): I50.20 - UNSPECIFIED SYSTOLIC (CONGESTIVE) HEART FAILURE Status: Acute (2) Sinusitis Code(s): J32.9 - CHRONIC SINUSITIS, UNSPECIFIED Status: Acute (3) Addisons disease Code(s): E27.1 - PRIMARY ADRENOCORTICAL INSUFFICIENCY Status: Acute (4) Anemia Code(s): D64.9 - ANEMIA, UNSPECIFIED Status: Chronic Qualifiers: Anemia type: other cause (5) CKD (chronic kidney disease) stage 4, GFR 15-29 ml/min Code(s): N18.4 - CHRONIC KIDNEY DISEASE, STAGE 4 (SEVERE) Status: Chronic (6) Systolic CHF, acute Code(s): I50.21 - ACUTE SYSTOLIC (CONGESTIVE) HEART FAILURE Status: Chronic (7) CAD (coronary artery disease), [place] coronary artery Code(s): I25.10 - ATHSCL HEART DISEASE OF [place] CORONARY ARTERY W/O ANG PCTRS Status: Chronic Qualifiers: [place] vs. transplanted heart: [place] heart Associated angina: with stable angina Qualified Code(s): I25.118 - Atherosclerotic heart disease of [place] coronary artery with other forms of angina pectoris (8) DM2 (diabetes mellitus, type 2) Status: Chronic Qualifiers: Diabetes mellitus terminal operations supervisor insulin use: with long-term use Diabetes mellitus complication status: with kidney complications Diabetes mellitus complication detail: with chronic kidney disease Chronic kidney disease stage : stage 3 (moderate) Qualified Code(s): E11.22 - Type 2 diabetes mellitus with diabetic chronic kidney disease; N18.3 - Chronic kidney disease, stage 3 ( moderate); Z79.4 - terminal superintendent (current) use of insulin (9) Hypothyroid Code(s): E03.9 - HYPOTHYROIDISM, UNSPECIFIED Status: Chronic (10) Acute kidney injury Code(s): N17.9 - ACUTE KIDNEY FAILURE, UNSPECIFIED Status: Acute (11) Acute renal failure Status: Acute (12) Metabolic acidosis Code(s): E87.2 - ACIDOSIS Status: Acute (13) Hyperkalemia Code(s): E87.5 - HYPERKALEMIA Status: Acute - Plan Plan: Stage 6 CKD - dialysis yesterday, dialyzed off 1.5 L - CM consulted for outpatient dialysis, awaiting recs - Gen Surgery, Jacobo consulted 11/14, placed right sided vasc cath 11/14 - Gen Surge Dr. Jaimes placed tunneled cath 11/17/18 - Consulted Dr. Alejandro and outpatient reserve officer Dr. Way, appreciate recommendations. - Vit D supplementation. - Epogen - Dialyzed for second time yesterday - Spiritual care consulted Metabolic acidosis, resolved - Sodium bicarb, now discontinued Hyperkalemia, resolved - K of 5.3 s/p 2 units PRBCs - Resolved to 4.4 today Chronic normocytic anemia - 2 units PRBCs transfused, Hgb improved - has been worked up previously and was found to be 2/2 CKD - FOBT in clinic last month negative Acute systolic CHF exacerbation, improved - CXR: cardiomegaly and moderate L pleural effusion, improved on repeat CXR - last EF 25-30% in 07/2017. - BNP of 877, previous have been recorded from 300-1800s. - on lasix and metolazone at home. Does not appear to be on BB - monitor I/Os, daily weights - Echo: EF 20-25%, diastolic dysfunction, mitral and tricuspid regurge - Start Javed today, recommend start low dose BB in future (outpatient) Pleural Effusion - Pulmonology, Dr. Mooney for evaluation of pleural effusion, nothing to be done at this time - CXR: cardiomegaly and moderate L pleural effusion, improved on repeat CXR IDDM2 - continue home insulin regimen - accuchecks and SSI. Required 6 u SSI. BG ranged 91-291 past 24 hrs. However, patient has not consistently gotten her 70/30. Appears she has refused it - pt has had lows overnight Bronchitis - Afebrile, cough most bothersome symptoms - Guafenicine, flonase and saline nasal spray, Dr. Mooney started cefuroxime (11/12) . Hypothyroid - Continue the increased dose of 100mcg daily. - TSH 12.5, 3-4 wks ago. TSH was 20s in clinic and dose was increased to 75mcg. CAD s/p CABG - continue home statin and aspirin Peripheral Neuropathy - continue home gabapentin Primary Adrenal Insufficiency - continue home steroid and will monitor for need for stress dose Ppx: SCDs Diet: HH, CC, 2L fluid restriction Dispo: needs outpatient dialysis chair prior to dc if possible, case management on board
[2018-11-17] MEDS ORDERED: Fentanyl 100 MCG/2 ML VIAL ONE (06:23)
[2018-11-17] MEDS ORDERED: Lidocaine 2% Jelly 5 ML TUBE ONE (06:23)
[2018-11-17] MEDS ORDERED: Sodium Chloride 0.9% 20 ML ONE (06:38)
[2018-11-17] MEDS ORDERED: Bupivacaine HCl 0.5%/Epinephrine 1:200,000/PF 30 ml Vial ONE (06:38)
[2018-11-17] MEDS ORDERED: Lidocaine 2% PF 5 ML VIAL ONE (06:38)
[2018-11-17] MEDS ORDERED: Heparin 10,000 UNITS/1 ML VIAL ONE (06:38)
[2018-11-17] MEDS ORDERED: Iothalamate Meglumine 60% 50 ML VIAL FS ONE (06:50)
[2018-11-17] MEDS ORDERED: ceFAZolin Sodium 2 GM/100 ML BAG ONE (07:11)
[2018-11-17] MEDS: Fluticasone Propionate Nasal Spray 16 gm Bottle NASAL SCH (08:51)
[2018-11-17] MEDS: Calcium Carbonate + Vit D 1 TAB PO SCH ×3 (08:51→17:38)
[2018-11-17] MEDS ORDERED: HumuLIN 70/30 (300 UNITS/3 ML VIAL) SC SCH (09:00)
[2018-11-17] MEDS ORDERED: Lisinopril 10 MG TAB PO SCH ×2 (09:00→11:45)
[2018-11-17] MEDS: Furosemide 80 MG TAB PO SCH (10:06)
[2018-11-17] MEDS: guaiFENesin ER 600 MG TAB PO SCH (10:06)
[2018-11-17] MEDS: Cefuroxime Axetil 250 MG TAB PO SCH (10:06)
[2018-11-17] MEDS: Gabapentin 100 MG CAP PO SCH (10:06)
[2018-11-17] MEDS: Hydrocortisone 10 mg Tablet PO SCH (10:06)
--- NOTE | 2018-11-17 10:42 | RAD ---
PORTABLE CHEST 1 VIEW: Date: 11/17/18 Time: 0825 hours HISTORY: Hemodialysis catheter placement. Chronic renal failure. FINDINGS/IMPRESSION: Comparison made with exam of 11/11/18. There has been interval placement of a right-sided dialysis catheter with tips in the cavoatrial junc tion and the right atrium. No pneumothorax is seen. The right lung is clear. The heart size is stable . Left-sided pleural effusion and adjacent consolidation are again seen with mild interval improvemen t. POS: [facility]
[2018-11-17] MEDS: HumaLOG 300 UNITS/3 ML VIAL SC PRN (11:29)
--- NOTE | 2018-11-17 12:04 | PRG ---
DATE OF SERVICE: 11/17/2018 SUBJECTIVE: A 53-year-old female being seen for end-stage renal disease. The patient denies any nausea, vomiting, or chest pain. OBJECTIVE: GENERAL: The patient is awake and alert. VITAL SIGNS: Pulse 86, breathing 16, blood pressure 142/74. GENERAL APPEARANCE AND MENTAL STATUS: Fair. HEAD/NECK: Normocephalic. Atraumatic. EYES: EOMI. No deformity. EARS: Clear. No ulcers. NOSE: Intact. No lesions. MOUTH: Clear. No discharge. THROAT: Clear. No exudate. LUNGS: Clear. No crackles. CARDIAC: S1, S2. No rub. ABDOMEN: Benign. Bowel sounds positive. GENITALIA/RECTUM: Ruiz absent. BACK/EXTREMITIES: Edema 0+. NEUROLOGICAL: Alert and motor intact. SKIN: LYMPHATICS: LABORATORY DATA: Reviewed. ASSESSMENT AND PLAN: 1. Stage 6 chronic kidney disease. Plan, dialysis tomorrow. 2. Hypertension, stable. 3. Anemia, stable. Medication based on GFR appropriate. Job ID: [id number]
[2018-11-17] MEDS ORDERED: PROPOFOL 200 MG/20 ML VIAL ONE (12:38)
[2018-11-17] MEDS ORDERED: Ondansetron PF 4 MG/2 ML Vial ONE (12:38)
[2018-11-17] MEDS ORDERED: Glycopyrrolate 0.2 MG/ML 5 ML SYRINGE ONE (12:38)
--- NOTE | 2018-11-17 12:56 | PRG ---
DATE OF SERVICE: 11/17/2018 Ms. Sterling is undergoing dialysis uneventfully. Her echo demonstrates a profound systolic heart failure with an EF of between 20% and 25%. I suggest we begin low-dose GARY inhibitors with the addition of beta blockers later. Otherwise, we are awaiting dialysis placement and disposition. Job ID: [id number]
--- NOTE | 2018-11-17 13:08 | OP ---
DATE OF PROCEDURE: 11/17/2018 PREOPERATIVE DIAGNOSIS: Acute on chronic renal failure. POSTOPERATIVE DIAGNOSIS: Acute on chronic renal failure. PROCEDURE PERFORMED: Placement of right subclavian tunneled dialysis catheter under fluoroscopy. ANESTHESIA: Monitored anesthesia care. ESTIMATED BLOOD LOSS: 10 mL. FLUIDS GIVEN: 170 mL of crystalloids. COUNTS: Sponge and instrument counts were verified as correct x2. COMPLICATIONS: None apparent at the time of operation. INDICATIONS FOR OPERATION: Ms. Sterling is a 53-year-old woman with acute on chronic renal failure, who was requiring hemodialysis. I was asked to place tunneled catheter for that purpose. DESCRIPTION OF PROCEDURE: Informed consent was obtained for the patient and she was brought to the operating room and placed in supine position. Following monitored anesthesia care, the anterior chest wall was sterilely prepped and draped in usual fashion. The skin below the right clavicle was anesthetized with 1% lidocaine and 0.25% Marcaine with epinephrine combination. The right subclavian vein was then cannulated with an 18-gauge introducer needle returning dark venous blood. Guidewire was passed through the needle and placed in the right subclavian vein without resistance. The needle was withdrawn. Proper placement of guidewire was confirmed by fluoroscopy. At that juncture, the skin approximately 6 cm below the stab incision was anesthetized with 1% lidocaine. The whole tract was generously infiltrated with lidocaine. I made a 2-mm transverse incision here using 11 scalpel. The stab incision was made adjacent to the guidewire. Next, I then connected the 15.5-Romansh tunneled dialysis catheter to a tunneler and the tip of the catheter was pulled through from the inferior incision to the stab incision in the infraclavicular region. The cuff was embedded in the subcutaneous position. Dilators were serially passed over the guidewire, dilating the subcutaneous tissues. Finally, a dilator and introducer sheath were introduced as a unit over the guidewire and advanced into the right subclavian vein without resistance. Proper placement confirmed again by fluoroscopy. Guidewire and dilator were then removed as a unit leaving the introducer sheath in place, through which the 15.5-Romansh dialysis catheter was introduced into the right subclavian vein without resistance. The introducer sheath was peeled away leaving the catheter in place. Proper seating of the catheter was confirmed by fluoroscopy. Dark venous blood was vigorously aspirated from each port, which was individually flushed with saline followed by straight heparin. The catheter was secured to anterior chest wall using 3-0 nylon suture. The previous stab incision was closed using interrupted sutures of 4-0 Monocryl in subcuticular fashion. Dermabond was applied over the incision. Sterile dressings were applied. The patient tolerated the operation without any apparent complication and was returned to recovery room in satisfactory condition. Job ID: [id number]
[2018-11-17 15:42] VITALS: BP 135/65; TEMP 97.8
[2018-11-18] MEDS ORDERED: Lisinopril 10 MG TAB PO SCH (09:00)
--- NOTE | 2018-11-18 09:23 | DIS ---
DATE OF ADMISSION: 11/10/2018 DATE OF DISCHARGE: 11/17/2018 RESIDENT: Kelley Teran MD. CONSULTS: 1. General Surgery, Dr. Centeno on 11/14/2018. 2. General Surgery, Dr. Jaimes on 11/16/2018. 3. Nephrology, Dr. Alejandro on 11/11/2018. 4. Pulmonology, Dr. Mooney on 11/11/2018. PROCEDURES: 1. Chest x-ray on 11/10/2018, cardiomegaly with moderate left pleural effusion. 2. Chest x-ray on 11/11/2018, no significant change. 3. Chest x-ray on 11/17/2018, there has been interval placement of right-sided dialysis catheter with tips in the cavoatrial junction and the right atrium. 4. On 11/14/2018, placement of right-sided vascular catheter, femoral vein with Dr. Centeno. 5. On 11/17/2018, placement of a tunneled catheter with Dr. Jaimes. PRIMARY DIAGNOSES: 1. Stage 6 chronic kidney disease. 2. Acute systolic congestive heart failure exacerbation. SECONDARY DIAGNOSES: 1. Metabolic acidosis, resolved. 2. Hyperkalemia, resolved. 3. Chronic normocytic anemia, secondary to chronic kidney disease. 4. Pleural effusion. 5. Insulin-dependent type 2 diabetes mellitus. 6. Bronchitis. 7. Hypothyroidism. 8. Coronary artery disease, status post coronary artery bypass graft. 9. Peripheral neuropathy. 10. Primary adrenal insufficiency. DISCHARGE MEDICATIONS: 1. Cefuroxime 250 mg q.12 hours for bronchitis. 2. Cholecalciferol 5000 units p.o. daily. 3. Heparin 10,000 units subcutaneous q.7 days. 4. Levothyroxine 100 mcg daily. 5. Lisinopril 10 mg p.o. daily. 6. Calcium carbonate 1 tablet p.o. b.i.d. with meals. 7. Furosemide 40 mg p.o. b.i.d. 8. Metolazone 2.5 mg on Wednesday, Wednesday, Wednesday. 9. Gabapentin 100 mg p.o. daily. 10. Sucoferric 500 mg p.o. q.a.m. with breakfast. 11. Atorvastatin 20 mg p.o. daily. 12. Insulin 20 units subcu b.i.d. 13. Aspirin 81 mg p.o. daily. 14. Ferric citrate 210 mg p.o. daily. 15. Hydrocortisone 5 mg p.o. b.i.d. DISCONTINUE MEDICATIONS: Levothyroxine 25 mcg p.o. a.m. HISTORY OF PRESENT ILLNESS/HOSPITAL COURSE: This is a 53-year-old female with past medical history of heart failure with reduced ejection fraction, status post CABG, presented as direct admission from [facility] for shortness of breath. The patient reports a 1-week history of worsening productive green cough, associated with chills, posttussive vomiting, decreased appetite. She is maintaining fluid intake. She was taking Robitussin but ran out. She had a 2-day history of shortness of breath, which the patient states is due to coughing. Denied shortness of breath with exertion. She is sleeping with 2 pillows just at baseline. She follows fluid restriction up to 3 bottles of water per day. She does not follow a salt restriction diet. Dr. Mooney started cefuroxime for bronchitis which was given for a 5-day course. During the stay here, the patient progressed to stage 6 of CKD. The patient had femoral right-sided Vas-Cath placed on 11/14. On 11/17, the patient had a tunneled catheter placed. The patient was started on vitamin D supplementation as well as Epogen. The patient was dialyzed 2 times during her stay here. Dr. Way saw her while she was here to manage and help starting of her dialysis. The patient spoke with case management who intended to place her at a dialysis unit. However, patient is undocumented and is not able to get a dialysis chair. Discussed options of establishing residency in [place], or returning to [place]. The patient has chronic normocytic anemia that was previously worked up and found to be secondary to CKD. The patient had 2 units of PRBCs transfused and her hemoglobin improved. The patient had an acute systolic CHF exacerbation. Repeat echo showed ejection fraction of 20% to 25% with diastolic dysfunction and mitral and tricuspid regurgitation. The patient was started on GARY inhibitor. We recommend starting a low-dose beta isidra in the future as an outpatient. The patient had a pleural effusion. Dr. Mooney from Pulmonology was consulted and it was decided there is nothing to be done at this time for her pleural effusion seen on repeat chest x-ray. Hypothyroidism. Her TSH was elevated. The patient was increased to 100 mcg daily. Recommend follow up on TSH in 6 weeks. DISPOSITION: Stable. DISCHARGE INSTRUCTIONS: LOCATION: Home. DIET: Heart healthy, fluid restricted to 1800 mL a day. ACTIVITY: As tolerated. FOLLOWUP: Follow up with Dr. Viera in clinic within 1 week. Recommending potassium checks weekly. Recommend considering starting a low-dose beta isidra for heart failure. Job ID: [id number] MTDD
== END 2018-11-17 18:02 | disposition home or self-care (01) | DRG 291 ==
LOC: OBSVTOIN 13:43 → 2SW 13:43 → 2NO 11-16 17:37
PROVIDERS: ADMIT Emergency Medicine; ATTEND Emergency Medicine
PROC: 06HY33Z Insertion of Infusion Device into Lower Vein, Percutaneous Approach (ICD-10-PCS; 2018-11-14)
PROC: 5A1D70Z Performance of Urinary Filtration, Intermittent, Less than 6 Hours Per Day (ICD-10-PCS; 2018-11-14)
PROC: 0JH63XZ Insertion of Tunneled Vascular Access Device into Chest Subcutaneous Tissue and Fascia, Percutaneous Approach (ICD-10-PCS; principal; 2018-11-17)
PROC: 05H533Z Insertion of Infusion Device into Right Subclavian Vein, Percutaneous Approach (ICD-10-PCS; 2018-11-17)
DX: I13.2 Hypertensive heart and chronic kidney disease with heart failure and with stage 5 chronic kidney disease, or end stage renal disease (principal); I50.23 Acute on chronic systolic (congestive) heart failure; N18.6 End stage renal disease; N17.9 Acute kidney failure, unspecified; N25.81 Secondary hyperparathyroidism of renal origin; E27.1 Primary adrenocortical insufficiency; E87.2 Acidosis; E87.1 Hypo-osmolality and hyponatremia; E11.42 Type 2 diabetes mellitus with diabetic polyneuropathy; J01.00 Acute maxillary sinusitis, unspecified; J40 Bronchitis, not specified as acute or chronic; I25.10 Atherosclerotic heart disease of native coronary artery without angina pectoris; D63.1 Anemia in chronic kidney disease; I42.9 Cardiomyopathy, unspecified; E11.22 Type 2 diabetes mellitus with diabetic chronic kidney disease; E03.9 Hypothyroidism, unspecified; E87.5 Hyperkalemia; Z95.1 Presence of aortocoronary bypass graft; Z79.82 Long term (current) use of aspirin; Z79.899 Other long term (current) drug therapy; Z79.4 Long term (current) use of insulin
CPT/HCPCS: 36415; 36416; 36430; 71045; 80048; 80053; 80074; 81001; 82306; 83880; 83970; 84145; 84439; 84443; 84481; 84484; 85025; 86706; 86850; 86900; 86901; 87040; 87086; 87340; 87804; 93005; 93010; 93306; 93798; 94640; 94760; C1752; C1769; J0670; J0690; J1200; J1644; J1815; J1940; J2001; J2405; J2704; J2765; J3010; J7512; P9016; Q0162; Q4081; Q9961

== ENCOUNTER 2018-11-20 08:42 | Emergency (ER) | payer OTHER ==
[2018-11-20 09:27] LABS: #Eosinphils 0.6 thou/uL (0.0-0.7); #Lymphocytes 0.9 thou/uL (1.20-3.40); #Monocytes 0.4 thou/uL (0.11-0.59); #Neutrophils 6.5 thou/uL (1.40-6.50); %Basophils 0.4 % (0.0-1.0); %Eosinophils 7.3 % (0.0-10.0); %Lymphocytes 10.5 % (21.0-51.0); %Monocytes 4.8 % (0.0-10.0); %Neutrophils 77.1 % (42.0-75.0); Hemoglobin 11.9 g/dL (12.0-16.0); Mean Corpuscular HGB CONC 34.1 g/dL (32.0-36.0); Mean Corpuscular Hemoglobin 31.4 pg (27.0-31.0); Mean Platelet Volume 7.7 fL (7.4-10.4); Platelet Count 171 thou/uL (130-400); Red Blood Cell (RBC) Count 3.78 mill/uL (4.20-5.40); White Blood Cell (WBC) Count 8.4 thou/uL (4.8-10.8)
[2018-11-20 09:49] LABS: ALT (SGPT) 12 U/L (8-55); AST (SGOT) 27 U/L (5-34); Albumin 3.5 g/dL (3.5-5.0); Alkaline Phosphatase 120 U/L (40-150); Anion Gap 19 mmol/L (10-20); BUN (Urea Nitrogen) 67 mg/dL (9.8-20.1); Bilirubin, Total 0.4 mg/dL (0.2-1.2); Calc. Creatinine Clearance 0 mL/min (70-130); Calcium 9.4 mg/dL (7.8-10.44); Carbon Dioxide 18 mmol/L (22-29); Chloride 96 mmol/L (98-107); Estimated GFR-MDRD 13; Globulin 4.5 g/dL (2.4-3.5); Glucose 305 mg/dL (70-105); Potassium 4.8 mmol/L (3.5-5.1); Sodium 128 mmol/L (136-145)
--- NOTE | 2018-11-20 10:29 | RAD ---
PORTABLE CHEST: Date: 11/20/18 HISTORY: Shortness of breath. Pleural effusion. COMPARISON: 11/17/18. FINDINGS: The left-sided effusion with associated left lung atelectasis is again noted. Right lung remains timo r. Upper lung zones are clear. No evidence of vascular congestion. Heart size upper normal and stable . The large caliber central line is unchanged overlying the SVC. IMPRESSION: Left-sided pleural effusion that does not appear significantly changed. POS: [facility]
[2018-11-20] MEDS ORDERED: Acetaminophen 325 MG TAB ONE (10:58)
== END 2018-11-20 13:27 | disposition home or self-care (01) ==
LOC: ERS 08:42
DX: L03.313 Cellulitis of chest wall (principal); I25.10 Atherosclerotic heart disease of native coronary artery without angina pectoris; E11.9 Type 2 diabetes mellitus without complications; E03.9 Hypothyroidism, unspecified; D64.9 Anemia, unspecified; I10 Essential (primary) hypertension; Z79.4 Long term (current) use of insulin; Z79.82 Long term (current) use of aspirin; Z79.899 Other long term (current) drug therapy
CPT/HCPCS: 36415; 71045; 80053; 82553; 83880; 84484; 85025; 87040; 93005; 96374; J3370

== ENCOUNTER 2019-05-10 16:37 | Inpatient (IN) | payer OTHER ==
--- NOTE | 2019-05-10 17:02 | RAD ---
CHEST ONE VIEW: 05/10/19 INDICATION: Cough and chest pain. COMPARISON: Prior exam dated 11/20/18. FINDINGS: The previously seen left sided pleural effusion has decreased in size. There is left basilar air spac e opacity. Right lung is clear. Sternotomy changes and mild cardiomegaly are similar appearing. The p reviously seen dialysis catheter is no longer present. No pneumothorax is evident. IMPRESSION: 1. Small left pleural effusion with left basilar air space opacity. The opacity may reflect atel ectasis or possibly pneumonia. Recommend correlation. Radiographic follow-up to resolution is recomme nded. 2. Stable post CABG change. POS: [facility]
[2019-05-10 17:45] LABS: Mean Corpuscular HGB CONC 34.7 g/dL (32.0-36.0); Mean Corpuscular Hemoglobin 31.5 pg (27.0-31.0); Mean Corpuscular Volume 90.8 fL (78.0-98.0); RBC Distribution Width 12.2 % (11.5-14.5); Red Blood Cell (RBC) Count 2.85 mill/uL (4.20-5.40); White Blood Cell (WBC) Count 8.1 thou/uL (4.8-10.8)
[2019-05-10 18:04] LABS: ALT (SGPT) 11 U/L (8-55); AST (SGOT) 30 U/L (5-34); Albumin 3.6 g/dL (3.5-5.0); Alkaline Phosphatase 139 U/L (40-150); Anion Gap 15 mmol/L (10-20); BUN (Urea Nitrogen) 52 mg/dL (9.8-20.1); Bilirubin, Total 0.5 mg/dL (0.2-1.2); CK (CPK) 245 U/L (29-168); Calc. Creatinine Clearance 0 mL/min (70-130); Calcium 8.9 mg/dL (7.8-10.44); Carbon Dioxide 15 mmol/L (22-29); Chloride 103 mmol/L (98-107); Estimated GFR-MDRD 13; Globulin 4.2 g/dL (2.4-3.5); Glucose 275 mg/dL (70-105); Protein, Total 7.8 g/dL (6.0-8.3); Sodium 128 mmol/L (136-145)
[2019-05-10 18:09] LABS: Band 8 % (5-11); Eosinophils 9 % (0-10); Hypochromia SLIGHT = 6-15 cells (100X) (0-5/hpf); Lymphocytes 19 % (21-51); MDiff Complete? YES; Mean Platelet Volume 9.1 fL (7.4-10.4); Monocytes 4 % (0-10); Neutrophil 60 % (42-75); Platelet Count 107 thou/uL (130-400); Platelet Morphology Comment Appears Decreased; Polychromasia SLIGHT = 2-3 cells (100X) (0-2/hpf)
[2019-05-10] MEDS ORDERED: Aspirin Chewable 81 MG TAB ONE (18:20)
[2019-05-10] MEDS ORDERED: cefTRIAXone\\ROCEPHIN 2 GM VIAL ONE (18:20)
[2019-05-10] MEDS ORDERED: Azithromycin 500 MG VIAL ONE (20:51)
[2019-05-10 21:03] LABS: Troponin I Less than 0.010 ng/mL (< 0.028)
[2019-05-10] MEDS ORDERED: Ondansetron PF 4 MG/2 ML Vial IVP PRN (21:25)
[2019-05-10] MEDS ORDERED: Ondansetron ODT 4 MG TAB SL PRN (21:25)
[2019-05-10] MEDS ORDERED: Acetaminophen 325 MG TAB PO PRN (21:34)
[2019-05-10 21:35] VITALS: BMI 20.6
--- NOTE | 2019-05-10 23:13 | PDOC.FPRHP ---
- History of Present Illness Chief Complaint: Chest pain with productive cough History of Present Illness: 54 y/o F with Pmhx of CAD S/P CABG, CKD stage 4, and DM, presents to the ED with a productive cough producing left sided chest pain for X5 days. She states she felt dizzy this morning, went to [facility], and had a sys BP of 98.. [facility] sent Pt to ED for pneumonia workup. Pt reports fever and headache. She states she has been able to tolerate PO fluids. Denies N/V/D/abdominal pain. Denies any radiation of chest pain or diaphoresis. Admits to SOB. ED Course: Duonebs, IVF's, 1gm Rocephin, and 500mg Azithromycin given in ED. - Allergies/Adverse Reactions Allergies Allergy/AdvReac Type Severity Reaction Status Date / Time No Known Allergies Allergy Verified 12/21/17 22:34 - Home Medications Medication Instructions Recorded Confirmed Type Calcium Carbonate + Vit D 1 tab PO BID-WM #60 tab 12/26/17 05/10/19 Rx [Caltrate 600 + Vit D] Furosemide 40 mg PO BID 10 Days #20 tablet 12/29/17 05/10/19 Rx Gabapentin [Neurontin] 100 mg PO DAILY 11/12/18 05/10/19 History Metolazone [Zaroxolyn] 2.5 mg PO MWF 11/12/18 05/10/19 History Aspirin [Aspirin EC] 81 mg PO DAILY 11/13/18 05/10/19 History Atorvastatin Calcium [Lipitor] 40 mg PO DAILY 11/13/18 05/10/19 History Ferric Citrate [Auryxia] 210 mg PO DAILY 11/13/18 05/10/19 History Insulin NPH Hum/Reg Insulin HM 20 unit SQ BID 11/13/18 05/10/19 History [Novolin 70-30 100 Unit/ml Vial] Sucroferric Oxyhydroxide [Velphoro] 500 mg PO QAM-WM 11/13/18 05/10/19 History Cefuroxime Axetil [Ceftin] 250 mg PO Q12HR #3 tab 11/15/18 05/10/19 Rx Cholecalciferol [Vitamin D3] 5,000 units PO DAILY #14 tab 11/15/18 05/10/19 Rx Epoetin [Procrit] 10,000 units SC Q7D #0 vial 11/15/18 05/10/19 Rx Levothyroxine Sodium [Synthroid] 100 mcg PO 0600 #30 tab 11/15/18 05/10/19 Rx Lisinopril [Zestril] 10 mg PO DAILY #30 tab 11/17/18 05/10/19 Rx - History PMHx: CAD, s/p X3 vessel CABG, DM insulin dependent, hypothyroidism PSHx: 3 vessel CABG FHx: DM in several family members from [place] Social: denies cigarette, etoh, or drug abuse. - Review of Systems General: reports: fever/chills, fatigue. denies: night sweats Eyes: denies: vision changes ENT: denies: nasal congestion, rhinorrhea Respiratory: reports: cough, congestion, shortness of breath Cardiovascular: reports: chest pain. denies: palpitation, edema Gastrointestinal: denies: nausea, vomiting, diarrhea, abdominal pain Genitourinary: denies: incontinence Skin: denies: rashes, lesions Musculoskeletal: denies: pain, swelling Neurological: reports: weakness. denies: numbness, syncope Psychological: denies: anxiety - Vital signs BP: 131/70 HR: 76 RR: 14 Tmax: 98.1 Pox: 100% on RA Wt: 47.99 KG - Physical Exam Constitutional: NAD, awake, alert and oriented, well developed HEENT: normocephalic and atraumatic, PERRLA, EOMI, conjunctiva clear, no scleral icterus, grossly normal vision, grossly normal hearing, MMM, oropharynx clear Neck: supple, FROM, trachea midline, no LAD, no JVD Chest: no-tender to palpation, no lesions Heart: RRR, normal S1/S2, no murmurs/rubs/gallops, pulses present, no edema Lungs: no respiratory distress, good air movement -Lungs: slight expiratory wheezing diffusely bibasilar fine crackles Abdomen: soft, non-tender, bowel sounds present, no masses/distention, no hernias Musculoskeletal: normal structure, normal tone, ROM grossly normal Neurological: no focal deficit, CN II-XII intact, normal sensation Skin: no rash/lesions, good turgor, capillary refill <2 seconds, no jaundice Heme/Lymphatic: no unusual bruising or bleeding, no purpura, no petechia, no LAD Psychiatric: normal mood and affect, good judgment and insight, intact recent and remote memory FMR H&P: Results - Labs Result Diagrams: 05/10/19 17:10 05/10/19 17:10 Lab results: WBC 8.1 thou/uL (4.8-10.8) 05/10/19 17:10 Hgb 9.0 g/dL (12.0-16.0) L 05/10/19 17:10 Hct 25.8 % (36.0-47.0) L 05/10/19 17:10 MCV 90.8 fL (78.0-98.0) 05/10/19 17:10 Plt Count 107 thou/uL (130-400) L 05/10/19 17:10 Band Neuts % (Manual) 8 % (5-11) 05/10/19 17:10 Sodium 128 mmol/L (136-145) L 05/10/19 17:10 Potassium 5.0 mmol/L (3.5-5.1) 05/10/19 17:10 Chloride 103 mmol/L (98-107) 05/10/19 17:10 Carbon Dioxide 15 mmol/L (22-29) L 05/10/19 17:10 BUN 52 mg/dL (9.8-20.1) H 05/10/19 17:10 Creatinine 3.69 mg/dL (0.6-1.1) H 05/10/19 17:10 Glucose 275 mg/dL (70-105) H 05/10/19 17:10 Calcium 8.9 mg/dL (7.8-10.44) 05/10/19 17:10 Total Bilirubin 0.5 mg/dL (0.2-1.2) 05/10/19 17:10 AST 30 U/L (5-34) 05/10/19 17:10 ALT 11 U/L (8-55) 05/10/19 17:10 Alkaline Phosphatase 139 U/L (40-150) 05/10/19 17:10 Creatine Kinase 245 U/L (29-168) H 05/10/19 17:10 B-Natriuretic Peptide 516.4 pg/mL (0-100) H 05/10/19 17:10 Serum Total Protein 7.8 g/dL (6.0-8.3) 05/10/19 17:10 Albumin 3.6 g/dL (3.5-5.0) 05/10/19 17:10 - Radiology Interpretation Chest x-ray Status: report reviewed by me (L pleural effusion with L basilar airspace opacity. Stable CABG findings) FMR H&P: A/P - Problem List (1) Pneumonia Current Visit: Yes Status: Acute Code(s): J18.9 - PNEUMONIA, UNSPECIFIED ORGANISM Qualifiers: Pneumonia type: due to unspecified organism Laterality: left (2) HFrEF (heart failure with reduced ejection fraction) Current Visit: No Status: Acute Code(s): I50.20 - UNSPECIFIED SYSTOLIC ( CONGESTIVE) HEART FAILURE Qualifiers: Heart failure chronicity: chronic Qualified Code(s): I50.22 - Chronic systolic (congestive) heart failure (3) Hyponatremia Current Visit: No Status: Acute Code(s): E87.1 - HYPO-OSMOLALITY AND HYPONATREMIA (4) Pleural effusion Current Visit: No Status: Acute Code(s): J90 - PLEURAL EFFUSION, NOT ELSEWHERE CLASSIFIED (5) CAD (coronary artery disease), [place] coronary artery Current Visit: No Status: Chronic Code(s): I25.10 - ATHSCL HEART DISEASE OF [place] CORONARY ARTERY W/O ANG PCTRS Qualifiers: [place] vs. transplanted heart: [place] heart Associated angina: with stable angina Qualified Code(s): I25.118 - Atherosclerotic heart disease of [place] coronary artery with other forms of angina pectoris (6) CKD (chronic kidney disease) stage 4, GFR 15-29 ml/min Current Visit: No Status: Chronic Code(s): N18.4 - CHRONIC KIDNEY DISEASE, STAGE 4 (SEVERE) (7) DM2 (diabetes mellitus, type 2) Current Visit: No Status: Chronic Qualifiers: Diabetes mellitus intermediate insulin use: with exterminator use Diabetes mellitus complication status: with kidney complications Diabetes mellitus complication detail: with chronic kidney disease Chronic kidney disease stage : stage 4 (severe) Qualified Code(s): E11.22 - Type 2 diabetes mellitus with diabetic chronic kidney disease; N18.4 - Chronic kidney disease, stage 4 (severe ); Z79.4 - rodent exterminator (current) use of insulin (8) HLD (hyperlipidemia) Current Visit: No Status: Chronic Code(s): E78.5 - HYPERLIPIDEMIA, UNSPECIFIED Qualifiers: Hyperlipidemia type: unspecified Qualified Code(s): E78.5 - Hyperlipidemia , unspecified (9) HTN (hypertension) Current Visit: No Status: Chronic Code(s): I10 - ESSENTIAL (PRIMARY) HYPERTENSION Qualifiers: Hypertension type: unspecified Qualified Code(s): I10 - Essential (primary ) hypertension (10) Hypothyroid Current Visit: No Status: Chronic Code(s): E03.9 - HYPOTHYROIDISM, UNSPECIFIED Qualifiers: Hypothyroidism type: unspecified Qualified Code(s): E03.9 - Hypothyroidism , unspecified - Plan 54 y/o F admitted to in patient medical floor for L sided pneumonia with pleural effusion. 1. Left sided pneumonia with parapneumonic pleural effusion - Azithromycin and Rocephin antibiotic therapy - Radiographic and clinical evidence of pneumonia. - Duonebs 2. CHF, Stable - BNP 516 - Monitor fluid status. - No IVF therapy at this time due to volume overload 3. Hyponatremia - Most likely secondary to volume overload form CHF exacerbation 4. CKD Stage 4 - Cr. 3.69 - GFR 13 5. Hx of CAD, S/P 3 vessel CABG - stable CABG findings on Chest X-ray - Trops negative 6. Hx of DM, with hyperglycemia - blood glucose 275 - SSI DVT Ppx: Heparin Diet: Renal low protein diet. Code Status: Full Code Disposition/LOS: Stable Admitted to inpatient medical for anticipated greater than 2 midnights FMR H&P: Upper Level - Pertinent history 54 yo female presents for evaluation of chest pain and increased cough. Patient seen by PCP today and had signs/symptoms worrisome for CHF exacerbation vs pneumonia. Patient advised to present to ED. Please see editorial intern note above for further information. General: Female appears stated age, NAD HEENT: Moist mucous membranes CV: RRR, no murmurs Respiratory: Slight wheezing present, Rhonchi to Left lower lung field Abdomen: Soft, nontender, Normoactive BS Extremities: Moving all four symmetrically, no edema Neuro: No focal deficits Psych: A&O x3. Responds appropriately - Plan Date/Time: 05/10/19 2310 IChaka MD, have evaluated this patient and agree with findings/ plan as outlined by editorial intern resident. Pertinent changes/additions are listed here. 1. Pneumonia with chronic pleural effusion - Cover for CAP - O2 supplementation as needed 2. CKD Stage 4 - Cr at baseline - Trend with BMP 3. Elevated BNP - Below previous admissions - No clinical signs of fluid overload - Will hold on IVF - Continue home diuresis 4. CAD - s/p CABG - No symptoms at this time - Troponins negative 5. DM2 - Home insulin regimen - SSI 6. Hyponatremia - Chronic - At previous baseline - Trend with BMP PCP: [facility] CODE STATUS: FULL CODE Disposition: Stable, will admit for further evaluation and management. Addendum - Attending - Attending Attestation Date/Time: 05/10/19 4438 I personally evaluated the patient and discussed the management with Dr. Levi/ Amanda. I agree with the History, Examination, Assessment and Plan documented above with any addition or exceptions noted below. Patient is 54 yo F with PHM CKD4, sdCHF who presents with cough and dyspnea for 5 days. In ER, CXR shows findings suspicious for infiltrate on top of chronic pleural effusion. Patient has normal WBC without left shift, but bands are noted. PCT pending. She is also noted to have chronic metabolic acidosis, elevated creatinine (chronic) and hyperglycemia with hyponatremia (chronic). Troponins negative, BNP elevated but lower than previous admissions. Roxynet will be admitted for CAP. Will continue typical abx for now, await PCT result. O2 as needed. Hold further fluids to prevent fluid overload and she is not septic appearing currently. She is high risk for complications of her pneumonia 2/2 sdCHF and CKD4. Her other lab abnormalities are associated with her chronic conditons of CKD4, sdCHF and will only require monitoring at this time, no aggressive interventions for now. Need to get blood sugars under control. Further mgmt per clinical course. Continue chronic meds for chronic conditions.
[2019-05-10] MEDS ORDERED: Dextrose 5% in Water 1,000 ML IV PRN (23:24)
[2019-05-10] MEDS ORDERED: Dextrose 50% Abboject 50 ML SYRINGE SLOW IVP PRN (23:24)
[2019-05-10] MEDS ORDERED: HumaLOG 300 UNITS/3 ML VIAL SC PRN (23:24)
[2019-05-11 02:11] LABS: #Eosinphils 0.8 thou/uL (0.0-0.7); #Lymphocytes 1.5 thou/uL (1.20-3.40); #Monocytes 0.3 thou/uL (0.11-0.59); #Neutrophils 3.7 thou/uL (1.40-6.50); %Basophils 0.6 % (0.0-1.0); %Lymphocytes 23.5 % (21.0-51.0); %Monocytes 4.7 % (0.0-10.0); %Neutrophils 59.2 % (42.0-75.0); Hemoglobin 6.9 g/dL (12.0-16.0); Mean Corpuscular Hemoglobin 31.5 pg (27.0-31.0); Mean Platelet Volume 8.5 fL (7.4-10.4); Platelet Count 95 thou/uL (130-400); RBC Distribution Width 12.1 % (11.5-14.5); Red Blood Cell (RBC) Count 2.18 mill/uL (4.20-5.40); White Blood Cell (WBC) Count 6.3 thou/uL (4.8-10.8)
[2019-05-11 02:22] LABS: Lactic Acid 0.7 mmol/L (0.5-2.2)
[2019-05-11 02:31] LABS: Anion Gap 11 mmol/L (10-20); BUN (Urea Nitrogen) 51 mg/dL (9.8-20.1); Calc. Creatinine Clearance 14 mL/min (70-130); Carbon Dioxide 17 mmol/L (22-29); Chloride 108 mmol/L (98-107); Estimated GFR-MDRD 14; Glucose 394 mg/dL (70-105); Potassium 5.2 mmol/L (3.5-5.1); Sodium 131 mmol/L (136-145)
[2019-05-11] MEDS: Levothyroxine Sodium 100 MCG TAB PO SCH (04:07)
--- NOTE | 2019-05-11 06:38 | PDOC.FM ---
- Subjective Subjective: pt resting comfortably in bed, denies chest pain or sob - Objective Vital Signs & Weight: Vital Signs (12 hours) Temp Pulse Resp BP Pulse Ox 05/11/19 03:53 98.0 F 67 16 124/66 96 05/11/19 00:10 98.3 F 68 16 133/67 100 05/10/19 22:37 96 05/10/19 21:35 98 F 83 18 107/64 96 Weight Weight 47.99 kg Result Diagrams: 05/11/19 01:53 05/11/19 01:53 Phys Exam - Physical Examination Constitutional: NAD HEENT: moist MMs Neck: no JVD Respiratory: clear to auscultation bilateral Cardiovascular: no significant murmur Gastrointestinal: no distention Musculoskeletal: no edema, pulses present Neurological: moves all 4 limbs Psychiatric: normal affect Skin: no rash Dx/Plan (1) Pneumonia Code(s): J18.9 - PNEUMONIA, UNSPECIFIED ORGANISM Status: Acute Qualifiers: Pneumonia type: due to unspecified organism Laterality: left (2) HFrEF (heart failure with reduced ejection fraction) Code(s): I50.20 - UNSPECIFIED SYSTOLIC (CONGESTIVE) HEART FAILURE Status: Acute Qualifiers: Heart failure chronicity: chronic Qualified Code(s): I50.22 - Chronic systolic (congestive) heart failure (3) Hyperkalemia Code(s): E87.5 - HYPERKALEMIA Status: Acute (4) Hyponatremia Code(s): E87.1 - HYPO-OSMOLALITY AND HYPONATREMIA Status: Acute (5) Metabolic acidosis Code(s): E87.2 - ACIDOSIS Status: Acute (6) Pleural effusion Code(s): J90 - PLEURAL EFFUSION, NOT ELSEWHERE CLASSIFIED Status: Acute (7) Anemia Code(s): D64.9 - ANEMIA, UNSPECIFIED Status: Chronic Qualifiers: Anemia type: other cause (8) DM2 (diabetes mellitus, type 2) Status: Chronic Qualifiers: 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 insulin use: with senior living use Diabetes mellitus complication status: with kidney complications Diabetes mellitus complication detail: with chronic kidney disease Chronic kidney disease stage : stage 4 (severe) Qualified Code(s): E11.22 - Type 2 diabetes mellitus with diabetic chronic kidney disease; N18.4 - Chronic kidney disease, stage 4 (severe ); Z79.4 - shelter (current) use of insulin - Plan Plan: Pneumonia with chronic pleural effusion - sob, pleuritic pain, and cxr c/w - procal + - azithro and rocephin - O2 supplementation as needed normocytic anemia - hb this morning of 6.9 - repeat and transfuse as needed CKD Stage 4 - Cr at baseline - Trend with BMP Elevated BNP - Below previous admissions - No clinical signs of fluid overload - Will hold on IVF - Continue home diuresis CAD - s/p CABG - No symptoms at this time - Troponins negative DM2 - Home insulin regimen - SSI Hyponatremia - Chronic - At previous baseline - Trend with BMP hyperkalemia - monitor PCP: [facility] CODE STATUS: FULL CODE Disposition: continue to monitor and treat Addendum - Attending - Attending Attestation Date/Time: 05/11/19 7041 I personally evaluated the patient and discussed the management with Dr. Singh. I agree with the History, Examination, Assessment and Plan documented above with any addition or exceptions noted below. Patient here for CAP treatment in the setting of sdCHF and CKD4. She is overall feeling ok. Non hypoxic. SHe will continue on IV abx treatment, PCT downtrending nicely as expected. Her H/H is lower today, likely a result of the amount of fluids she received yesterday. Will recheck but may need transfusion if continues at current level. Her electrolytes are also abnormal but most can be attributed to her CKD. Vitals overall stable. Continue inpatient mgmt for the next day at least.
[2019-05-11] MEDS: Furosemide 40 MG TAB PO SCH ×2 (08:52→20:02)
[2019-05-11] MEDS: Calcium Carbonate + Vit D 1 TAB PO SCH ×2 (08:52→16:16)
[2019-05-11] MEDS: Gabapentin 100 MG CAP PO SCH ×2 (08:52→08:53)
[2019-05-11] MEDS: Atorvastatin Calcium 40 MG TAB PO SCH (08:53)
[2019-05-11] MEDS: Aspirin 81 mg Enteric Coated Tablet PO SCH (08:53)
[2019-05-11] MEDS ORDERED: EPOETIN ALFA-EPBX (ESRD) 10,000 UNIT/ML VIAL SC SCH (09:00)
[2019-05-11] MEDS: HumuLIN 70/30 (300 UNITS/3 ML VIAL) SC SCH ×2 (09:00→20:03)
[2019-05-11] MEDS ORDERED: HumuLIN 70/30 (300 UNITS/3 ML VIAL) SC SCH (09:00)
[2019-05-11] MEDS ORDERED: Heparin 5,000 UNITS/ML VIAL SC SCH (09:00)
[2019-05-11 11:23] LABS: Hemoglobin 7.2 g/dL (12.0-16.0)
[2019-05-11 11:42] LABS: Anion Gap 11 mmol/L (10-20); BUN (Urea Nitrogen) 49 mg/dL (9.8-20.1); Calc. Creatinine Clearance 14 mL/min (70-130); Calcium 8.1 mg/dL (7.8-10.44); Carbon Dioxide 18 mmol/L (22-29); Chloride 107 mmol/L (98-107); Estimated GFR-MDRD 14; Glucose 116 mg/dL (70-105); Potassium 4.1 mmol/L (3.5-5.1); Sodium 132 mmol/L (136-145)
[2019-05-11] MEDS ORDERED: cefTRIAXone\\ROCEPHIN 1 GM in Sodium Chloride 0.9% 100 ML IVPB SCH (20:00)
[2019-05-11] MEDS: Heparin 5,000 UNITS/ML VIAL SC SCH (20:03)
[2019-05-11] MEDS ORDERED: Azithromycin 500 MG in Sodium Chloride 0.9% 250 ML 250 ML IVPB SCH (21:00)
[2019-05-12] MEDS: Ferric Citrate [Auryxia] 210 MG PO SCH ×2 (03:52→07:37)
[2019-05-12] MEDS: Levothyroxine Sodium 100 MCG TAB PO SCH (05:08)
--- NOTE | 2019-05-12 06:37 | PDOC.FM ---
- Subjective Subjective: pt resting comfortably in bed, denies sob or fever - Objective Vital Signs & Weight: Vital Signs (12 hours) Temp Pulse Resp BP BP Pulse Ox 05/12/19 04:00 98.0 F 74 18 109/70 99 05/12/19 03:37 96 05/12/19 00:00 97.5 F L 71 18 96/58 L 96 05/11/19 20:00 98 05/11/19 19:15 98.2 F 71 16 128/78 97 Weight Weight 47.99 kg I&O: 05/10/19 05/11/19 05/12/19 06:59 06:59 06:59 Intake Total 720 Balance 720 Result Diagrams: 05/12/19 06:44 05/12/19 06:44 Phys Exam - Physical Examination Constitutional: NAD HEENT: moist MMs Neck: full ROM Respiratory: clear to auscultation bilateral Cardiovascular: no significant murmur Gastrointestinal: no distention Musculoskeletal: no edema Neurological: moves all 4 limbs Psychiatric: normal affect Skin: no rash Dx/Plan (1) Pneumonia Code(s): J18.9 - PNEUMONIA, UNSPECIFIED ORGANISM Status: Acute Qualifiers: Pneumonia type: due to unspecified organism Laterality: left (2) HFrEF (heart failure with reduced ejection fraction) Code(s): I50.20 - UNSPECIFIED SYSTOLIC (CONGESTIVE) HEART FAILURE Status: Acute Qualifiers: Heart failure chronicity: chronic Qualified Code(s): I50.22 - Chronic systolic (congestive) heart failure (3) Hyperkalemia Code(s): E87.5 - HYPERKALEMIA Status: Acute (4) Hyponatremia Code(s): E87.1 - HYPO-OSMOLALITY AND HYPONATREMIA Status: Acute (5) Metabolic acidosis Code(s): E87.2 - ACIDOSIS Status: Acute (6) Pleural effusion Code(s): J90 - PLEURAL EFFUSION, NOT ELSEWHERE CLASSIFIED Status: Acute (7) Anemia Code(s): D64.9 - ANEMIA, UNSPECIFIED Status: Chronic Qualifiers: Anemia type: other cause (8) DM2 (diabetes mellitus, type 2) Status: Chronic Qualifiers: Diabetes mellitus oysterman insulin use: with halfway use Diabetes mellitus complication status: with kidney complications Diabetes mellitus complication detail: with chronic kidney disease Chronic kidney disease stage : stage 4 (severe) Qualified Code(s): E11.22 - Type 2 diabetes mellitus with diabetic chronic kidney disease; N18.4 - Chronic kidney disease, stage 4 (severe ); Z79.4 - custodial (current) use of insulin - Plan Plan: Pneumonia with chronic pleural effusion - sob, pleuritic pain, and cxr c/w - procal + - transition to po azithro - not requiring O2 normocytic anemia - chronic, likely 2/2 CKD - monitor and transfuse as needed CKD Stage 4 - Cr at baseline - Trend with BMP Elevated BNP - Below previous admissions - No clinical signs of fluid overload - Will hold on IVF - Continue home diuresis CAD - s/p CABG - No symptoms at this time - Troponins negative DM2 - Home insulin regimen - SSI Hyponatremia - Chronic - At previous baseline - Trend with BMP hyperkalemia - monitor PCP: [facility] CODE STATUS: FULL CODE Disposition: consider dc on oral abx Addendum - Attending - Attending Attestation Date/Time: 05/12/19 2958 I personally evaluated the patient and discussed the management with Dr. Singh. I agree with the History, Examination, Assessment and Plan documented above with any addition or exceptions noted below. Patient here for treatment of CAP in setting of CKD4 and DM. She denies complaints. Labs improved. Her labs are all currently near her baseline and she is not requiring O2 therapy. Possible d/c later today. She will have de- escalation of her insulin regimen due to hypoglycemia here though she admits she does not take her medication at home.
[2019-05-12 06:53] LABS: #Lymphocytes 1.4 thou/uL (1.20-3.40); #Monocytes 0.3 thou/uL (0.11-0.59); #Neutrophils 2.5 thou/uL (1.40-6.50); %Basophils 0.7 % (0.0-1.0); %Lymphocytes 26.7 % (21.0-51.0); %Monocytes 4.9 % (0.0-10.0); %Neutrophils 48.6 % (42.0-75.0); Hemoglobin 7.4 g/dL (12.0-16.0); Mean Corpuscular HGB CONC 35.2 g/dL (32.0-36.0); Mean Corpuscular Hemoglobin 31.5 pg (27.0-31.0); Mean Corpuscular Volume 89.3 fL (78.0-98.0); Mean Platelet Volume 8.2 fL (7.4-10.4); Platelet Count 103 thou/uL (130-400); RBC Distribution Width 12.1 % (11.5-14.5); Red Blood Cell (RBC) Count 2.36 mill/uL (4.20-5.40); White Blood Cell (WBC) Count 5.2 thou/uL (4.8-10.8)
[2019-05-12 07:12] LABS: ALT (SGPT) 9 U/L (8-55); AST (SGOT) 28 U/L (5-34); Alkaline Phosphatase 115 U/L (40-150); Anion Gap 9 mmol/L (10-20); BUN (Urea Nitrogen) 51 mg/dL (9.8-20.1); Bilirubin, Total 0.2 mg/dL (0.2-1.2); Calc. Creatinine Clearance 14 mL/min (70-130); Calcium 8.1 mg/dL (7.8-10.44); Carbon Dioxide 20 mmol/L (22-29); Chloride 108 mmol/L (98-107); Estimated GFR-MDRD 14; Globulin 3.4 g/dL (2.4-3.5); Glucose 85 mg/dL (70-105); Potassium 4.2 mmol/L (3.5-5.1); Protein, Total 6.4 g/dL (6.0-8.3); Sodium 133 mmol/L (136-145)
[2019-05-12] MEDS: Calcium Carbonate + Vit D 1 TAB PO SCH (07:35)
[2019-05-12] MEDS: Furosemide 40 MG TAB PO SCH (07:36)
[2019-05-12] MEDS: Gabapentin 100 MG CAP PO SCH (07:36)
[2019-05-12] MEDS: Atorvastatin Calcium 40 MG TAB PO SCH (07:36)
[2019-05-12] MEDS: Aspirin 81 mg Enteric Coated Tablet PO SCH (07:37)
[2019-05-12] MEDS: HumuLIN 70/30 (300 UNITS/3 ML VIAL) SC SCH (07:41)
[2019-05-12] MEDS ORDERED: Azithromycin 250 MG TAB PO SCH (09:00)
[2019-05-12] MEDS ORDERED: Metolazone 2.5 MG TAB PO SCH (09:00)
[2019-05-12] MEDS: Heparin 5,000 UNITS/ML VIAL SC SCH (09:00)
[2019-05-12] MEDS ORDERED: Fentanyl 100 MCG/2 ML VIAL ONE (10:08)
[2019-05-12 11:27] VITALS: BP 101/57; TEMP 97.6
== END 2019-05-12 11:27 | disposition home or self-care (01) | DRG 194 ==
LOC: ERS 16:37 → T4-B 19:45 → ERS 21:16
PROVIDERS: ADMIT Student in an Organized Health Care Education/Training Program; ATTEND Student in an Organized Health Care Education/Training Program
DX: J18.9 Pneumonia, unspecified organism (principal); I13.0 Hypertensive heart and chronic kidney disease with heart failure and stage 1 through stage 4 chronic kidney disease, or unspecified chronic kidney disease; N18.4 Chronic kidney disease, stage 4 (severe); I50.22 Chronic systolic (congestive) heart failure; E87.1 Hypo-osmolality and hyponatremia; E87.2 Acidosis; J90 Pleural effusion, not elsewhere classified; I25.10 Atherosclerotic heart disease of native coronary artery without angina pectoris; E11.22 Type 2 diabetes mellitus with diabetic chronic kidney disease; E03.9 Hypothyroidism, unspecified; E78.5 Hyperlipidemia, unspecified; E11.65 Type 2 diabetes mellitus with hyperglycemia; D64.9 Anemia, unspecified; E87.5 Hyperkalemia; E11.649 Type 2 diabetes mellitus with hypoglycemia without coma; Z95.1 Presence of aortocoronary bypass graft; Z79.4 Long term (current) use of insulin
CPT/HCPCS: 36415; 36416; 71045; 80048; 80053; 82550; 83605; 83880; 84145; 84484; 85025; 87040; 93005; 94640; 96365; 96375; J0456; J0696; J1644; J1815; J3010; J3490; J7050; J7620; Q5105

== ENCOUNTER 2019-06-25 08:01 | Inpatient (IN) | payer OTHER ==
[2019-06-25] MEDS ORDERED: Dextrose 50% Abboject 50 ML SYRINGE ONE ×3 (08:10→12:48)
[2019-06-25] MEDS ORDERED: Famotidine/PF 20 mg/2ml Vial ONE (08:26)
[2019-06-25] MEDS ORDERED: Promethazine HCl 25 MG/ML VIAL ONE (08:29)
[2019-06-25 08:49] LABS: #Eosinphils 0.4 thou/uL (0.0-0.7); #Lymphocytes 1.2 thou/uL (1.20-3.40); #Monocytes 0.2 thou/uL (0.11-0.59); #Neutrophils 2.1 thou/uL (1.40-6.50); %Lymphocytes 29.5 % (21.0-51.0); %Monocytes 6.1 % (0.0-10.0); %Neutrophils 53.4 % (42.0-75.0); Hemoglobin 6.8 g/dL (12.0-16.0); Mean Corpuscular HGB CONC 33.8 g/dL (32.0-36.0); Mean Corpuscular Hemoglobin 30.2 pg (27.0-31.0); Mean Corpuscular Volume 89.5 fL (78.0-98.0); Mean Platelet Volume 7.7 fL (7.4-10.4); Platelet Count 90 thou/uL (130-400); RBC Distribution Width 13.4 % (11.5-14.5); Red Blood Cell (RBC) Count 2.26 mill/uL (4.20-5.40); White Blood Cell (WBC) Count 3.9 thou/uL (4.8-10.8)
[2019-06-25 09:06] LABS: ALT (SGPT) 19 U/L (8-55); AST (SGOT) 50 U/L (5-34); Albumin 3.1 g/dL (3.5-5.0); Alkaline Phosphatase 124 U/L (40-110); Anion Gap 11 mmol/L (10-20); BUN (Urea Nitrogen) 42 mg/dL (9.8-20.1); Bilirubin, Total 0.2 mg/dL (0.2-1.2); Calc. Creatinine Clearance 0 mL/min (70-130); Calcium 8.3 mg/dL (7.8-10.44); Carbon Dioxide 20 mmol/L (22-29); Chloride 106 mmol/L (98-107); Estimated GFR-MDRD 14; Globulin 3.4 g/dL (2.4-3.5); Glucose 171 mg/dL (70-105); Lipase 33 U/L (8-78); Magnesium 1.8 mg/dL (1.6-2.6); Potassium 4.4 mmol/L (3.5-5.1); Protein, Total 6.5 g/dL (6.0-8.3); Sodium 133 mmol/L (136-145)
--- NOTE | 2019-06-25 09:08 | RAD ---
RADIOGRAPH CHEST 1 VIEW: DATE: 06/25/2019 TIME: 9:02 AM HISTORY: 54-year-old female with left pleural effusion. COMPARISON: 05/10/2019 FINDINGS: Interval increase in volume of left pleural effusion, moderate size. Greater consolidation of left lo wer lobe. Rest of the visualized lung espino are grossly clear. Sternotomy wires. No pneumothorax. No pulmonary edema. IMPRESSION: Interval increase in volume of left pleural effusion and interval worsening of left lower lobe opacif ication.
--- NOTE | 2019-06-25 09:27 | CT ---
CT ABDOMEN NONCONTRAST CT PELVIS NONCONTRAST: (Urolithiasis protocol) DATE: 06/25/2019 HISTORY: 54-year-old female with generalized abdominal pain, diarrhea, nausea, and emesis. COMPARISON: 12/22/2017 TECHNIQUE: IV injection of iodinated contrast media: None Oral contrast media: None FINDINGS: Other than for urolithiasis, the lack of IV and oral contrast limits the evaluation. Diffuse mild mural thickening of entire colon, milder than on previous CT. Small to moderate amount of free fluid within pelvic cavity, greater than on previous CT. Currently no right pleural effusion. Left pleural effusion of [id number] size, similar to previous study, with adjacent passive ate lectasis. Large number of tiny calcified gallstones. Small right kidney. Mild dilation of right renal collecting system, similar to previous CT. Lesser degree of mild dilation of left renal collecting system. No renal, ureteral, or bladder calcul us identified. No small bowel dilation. Interval improvement in anasarca, currently mild. No pneumoperitoneum. No adrenal nodule. Within the limitations of a noncontrast CT, no obvious major pathology identified involving spleen or pancreas. Hepatic attenuation is diffusely mildly increased. This is unchanged. IMPRESSION: 1) no urolithiasis and no evidence of high-grade obstructive uropathy. 2) cholelithiasis. 3) mild ascites and mild anasarca. 4) left pleural effusion. 5) diffusely mildly increased density of liver. One possibility is hemachromatosis. Recommend clinica l correlation. 6) atrophic or hypoplastic right kidney. 7) no small bowel obstruction.
--- NOTE | 2019-06-25 10:03 | PDOC.FPRHP ---
- History of Present Illness Chief Complaint: Abdominal pain, N/V History of Present Illness: 54-year-old tristanian speaking female patient with past medical history significant for CKD4, HFREF, cardiorenal syndrome, ischemic cardiomyopathy. Patient with who notes that for the past 3 to 4 days patient has been suffering from nausea, vomiting, diarrhea. Patient has been unable to eat over this time. But has continued to take her insulin. Today patient became very lethargic prompting evaluation in the ED. patient was found to be hypoglycemic and received D 50 x3 in route. Patient was also found to be anemic at 6.9. Patient and note a history of anemia that has previously been attributed to her kidney disease requiring multiple transfusions in the past. Patient was previously on dialysis as recently as a couple months ago for a short period of time before stopping. Patient and cannot verbalize a reason why the patient was started or stopped on dialysis. 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 Infusion of D5 1/2 NS. - Allergies/Adverse Reactions Allergies Allergy/AdvReac Type Severity Reaction Status Date / Time No Known Allergies Allergy Verified 12/21/17 22:34 - Home Medications Medication Instructions Recorded Confirmed Type Calcium Carbonate + Vit D 1 tab PO BID- #60 tab 12/26/17 05/10/19 Rx [Caltrate 600 + Vit D] Furosemide 40 mg PO BID 10 Days #20 tablet 12/29/17 05/10/19 Rx Gabapentin [Neurontin] 100 mg PO DAILY 11/12/18 05/10/19 History Metolazone [Zaroxolyn] 2.5 mg PO MWF 11/12/18 05/10/19 History Aspirin [Aspirin EC] 81 mg PO DAILY 11/13/18 05/10/19 History Atorvastatin Calcium [Lipitor] 40 mg PO DAILY 11/13/18 05/10/19 History Ferric Citrate [Auryxia] 210 mg PO DAILY 11/13/18 05/10/19 History Insulin NPH Hum/Reg Insulin HM 20 unit SQ BID 11/13/18 05/10/19 History [Novolin 70-30 100 Unit/ml Vial] Sucroferric Oxyhydroxide [Velphoro] 500 mg PO QAM-WM 11/13/18 05/10/19 History Cholecalciferol [Vitamin D3] 5,000 units PO DAILY #14 tab 11/15/18 05/10/19 Rx Epoetin [Procrit] 10,000 units SC Q7D #0 vial 11/15/18 05/10/19 Rx Levothyroxine Sodium [Synthroid] 100 mcg PO 0600 #30 tab 11/15/18 05/10/19 Rx Lisinopril [Zestril] 10 mg PO DAILY #30 tab 11/17/18 05/10/19 Rx Azithromycin [Zithromax] 250 mg PO DAILY #3 tab 05/12/19 Rx - History PMHx: CAD, s/p X3 vessel CABG, CKD IV, HFrEF 2/2 ischemic cardiomyopathy, HLD, anemia, DM insulin dependent, hypothyroidism PSHx: 3 vessel CABG FHx: DM in several family members from [place] Social: denies cigarette, etoh, or drug abuse. - Review of Systems General: reports: weight/appetite/sleep changes (decreased appetite). denies: fever/chills ENT: denies: nasal congestion, rhinorrhea Respiratory: denies: cough, shortness of breath Cardiovascular: denies: chest pain, palpitation Gastrointestinal: reports: nausea, vomiting, diarrhea, abdominal pain. denies: GI bleeding Genitourinary: denies: incontinence, dysuria Skin: reports: other (pale). denies: rashes, jaundice Musculoskeletal: denies: pain, tenderness Neurological: reports: weakness (generalized). denies: syncope - Vital signs BP: 118/71 HR: 86 RR: 12 Tmax: 97.6 Pox: 97% on RA Wt: 47kg - Physical Exam Constitutional: awake, alert and oriented -HEENT: Pale conjunctiva Neck: FROM Heart: RRR, pulses present, no edema Lungs: CTAB, no respiratory distress -Lungs: Few diffuse crackles Abdomen: soft, bowel sounds present -Abdomen: Diffusely tender Musculoskeletal: ROM grossly normal -Musculoskeletal: Poor tone Neurological: no focal deficit -Neurological: Sleepy, slightly lethargic, follows commands Skin: no rash/lesions -Skin: Pale Heme/Lymphatic: no unusual bruising or bleeding, no purpura Psychiatric: intact recent and remote memory FMR H&P: Results - Labs Result Diagrams: 06/25/19 16:18 06/25/19 08:33 Lab results: WBC 3.9 thou/uL (4.8-10.8) L 06/25/19 08:33 Hgb 6.8 g/dL (12.0-16.0) L 06/25/19 08:33 Hct 20.3 % (36.0-47.0) L 06/25/19 08:33 MCV 89.5 fL (78.0-98.0) 06/25/19 08:33 Plt Count 90 thou/uL (130-400) L 06/25/19 08:33 Neutrophils % 53.4 % (42.0-75.0) 06/25/19 08:33 Sodium 133 mmol/L (136-145) L 06/25/19 08:33 Potassium 4.4 mmol/L (3.5-5.1) 06/25/19 08:33 Chloride 106 mmol/L (98-107) 06/25/19 08:33 Carbon Dioxide 20 mmol/L (22-29) L 06/25/19 08:33 BUN 42 mg/dL (9.8-20.1) H 06/25/19 08:33 Creatinine 3.34 mg/dL (0.6-1.1) H 06/25/19 08:33 Glucose 171 mg/dL (70-105) H 06/25/19 08:33 Lactic Acid 2.9 mmol/L (0.5-2.2) H 06/25/19 08:33 Calcium 8.3 mg/dL (7.8-10.44) 06/25/19 08:33 Total Bilirubin 0.2 mg/dL (0.2-1.2) 06/25/19 08:33 AST 50 U/L (5-34) H 06/25/19 08:33 ALT 19 U/L (8-55) 06/25/19 08:33 Alkaline Phosphatase 124 U/L (40-110) H 06/25/19 08:33 Serum Total Protein 6.5 g/dL (6.0-8.3) 06/25/19 08:33 Albumin 3.1 g/dL (3.5-5.0) L 06/25/19 08:33 Lipase 33 U/L (8-78) 06/25/19 08:33 - Radiology Interpretation CT scan - abdomen Status: report reviewed by me FMR H&P: A/P - Problem List (1) Anemia in chronic kidney disease Current Visit: Yes Status: Acute Code(s): N18.9 - CHRONIC KIDNEY DISEASE, UNSPECIFIED; D63.1 - ANEMIA IN CHRONIC KIDNEY DISEASE (2) Gastroenteritis Current Visit: No Status: Acute Code(s): K52.9 - NONINFECTIVE GASTROENTERITIS AND COLITIS, UNSPECIFIED (3) HFrEF (heart failure with reduced ejection fraction) Current Visit: No Status: Acute Code(s): I50.20 - UNSPECIFIED SYSTOLIC ( CONGESTIVE) HEART FAILURE Qualifiers: Heart failure chronicity: chronic Qualified Code(s): I50.22 - Chronic systolic (congestive) heart failure (4) Hypoglycemia Current Visit: No Status: Acute Code(s): E16.2 - HYPOGLYCEMIA, UNSPECIFIED Comment: Patient is extremely sensitive to insulin - requires even less than mild sliding scale, and significant hypoglycemia with levemir (5) Primary hypothyroidism Current Visit: No Status: Acute Code(s): E03.9 - HYPOTHYROIDISM, UNSPECIFIED (6) CAD (coronary artery disease), [place] coronary artery Current Visit: No Status: Chronic Code(s): I25.10 - ATHSCL HEART DISEASE OF [place] CORONARY ARTERY W/O ANG PCTRS Qualifiers: [place] vs. transplanted heart: [place] heart Associated angina: with stable angina Qualified Code(s): I25.118 - Atherosclerotic heart disease of [place] coronary artery with other forms of angina pectoris (7) CKD (chronic kidney disease) stage 4, GFR 15-29 ml/min Current Visit: No Status: Chronic Code(s): N18.4 - CHRONIC KIDNEY DISEASE, STAGE 4 (SEVERE) (8) Cardiomyopathy Current Visit: No Status: Chronic Code(s): I42.9 - CARDIOMYOPATHY, UNSPECIFIED (9) DM2 (diabetes mellitus, type 2) Current Visit: No Status: Chronic Qualifiers: Diabetes mellitus mcc insulin use: with mcc use Diabetes mellitus complication status: with kidney complications Diabetes mellitus complication detail: with chronic kidney disease Chronic kidney disease stage : stage 4 (severe) Qualified Code(s): E11.22 - Type 2 diabetes mellitus with diabetic chronic kidney disease; N18.4 - Chronic kidney disease, stage 4 (severe ); Z79.4 - adjunct 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 (current) use of insulin - Plan Gastroenteritis - Stool studies ordered - Replacing fluids w/ PRBC + D5 1/2 NS - Phenergan in ED, will treat as needed 2/2 pt AMS - No zofran 2/2 prolonged QT - Full liquid diet AAT Hypoglycemia - Likely 2/2 to insulin treatment when NPO w/ N/V/D - Will give glucagon - q1hr accucheck - D10 while titrating sugars accordingly - Holding insulin at this time - Hypoglycemia protocol CKD IV and HFrEF - Cardiorenal syndrome - Previously taken off dialysis - Last EF: 20-25% - Will monitor fluid status, strict I/O - Consider nephro consult Abdominal pain - CT showed densities of liver, cholelithiasis, mild ascites and anisarca, 1 dose of rocephin given for SBP prophylaxis - once pt stable consider workup as other causes of pt's GI sx DM II - Control hypoglycemia as above - Once tolerating PO w/ stable glucose will resume home insulin or SSI VTE: SCD - no pharm 2/2 anemia Code: Full Fluids: D10 Dispo: Admit to IMCU for q1hr accuchecks and D10 drip titration FMR H&P: Upper Level - Plan Date/Time: 06/25/19 Sonny Jones, have evaluated this patient and agree with findings/plan as outlined by internal revenue agent resident. Pertinent changes/additions are listed here. This is a 54 yo female with a pmh of CAD, DM2, normocytic anemia, CKD 4, hypothyroidism who presents to the ER with a cc of abdominal pain, diarrhea, nausea, vomiting. She reports the symptoms began 3 days ago and are associated with hypoglycemia and loss of appetite. She reports the symptoms have been worsening. Pt was recently discharged from the hospital on 05/12/19 following the treatment of CAP. reports pt takes 1-2 units BID of humalog 30/70 with last dose being yesterday afternoon. Pertinent physical exam General: Lethargic, AAOx3 HEENT: pale conjunctiva Cardio: regular rate and rhythm, S2 split, worse with inhalation Resp: CTAB Abdominal: Diffuse tenderness to palpation, BS+ Nausea/vomiting/diarrhea likely 2/2 Viral gastroenteritis vs. hypoglycemia -Gentle fluid receusitation -Phenargan for nausea -Monitor glucose levels -Lipase negative, troponin negative x1 Hypoglycemia, resolved -Blood glucose was 39mg/dL in the ER, now 214 -Will monitor sugar -Hypoglycemic protocol in place -Will monitor glucose with frequent checks -Hold diabetic medications QTc prolongation -Admit to telemetry, avoid QTc prolonging medications Please see internal revenue agent note for management of chronic disease. Code: Full, pt decisional at time of discussion, video games storywriter used. Addendum - Attending - Attending Attestation Date/Time: 06/25/191399 I personally evaluated the patient and discussed the management with Dr. Khan/ Clau. I agree with the History, Examination, Assessment and Plan documented above with any addition or exceptions noted below. Patient with history of IDDM here with several days of gastroenteritis symptoms and weakness. She has had poor PO intake. Lethargic on arrival. Accuchecks have been low with multiple pushes of D50. Patient also found to have labs consistent with CKD advanced stage and anemia of chronic disease. She will be admitted to IMCU for frequent accuchecks. Abdominal labs to further evaluate her gastroenteritis symptoms. She will be transfused 1 unit of blood. Hypoglycemia likely from over use of insulin with decreased intake, give Glucagon as needed. Monitor for other symptoms that could result in this presentation such as sepsis or adrenal insufficiency though no evidence of that currently.
[2019-06-25 10:39] LABS: Bilirubin Negative (Negative); Blood, Urine Trace (Negative); Glucose, Urine (Dipstick) 250 mg/dL (Negative); Leukocyte Negative (Negative); Nitrite Negative (Negative); Protein, Urine (Dipstick) > or equal to 300 mg/dL (Neg-Trace); Urobilinogen 0.2 mg/dL (Less than 2)
[2019-06-25 10:48] LABS: Clarity Clear (Clear)
[2019-06-25 10:52] LABS: RBC/HPF 0-3 HPF (0-3); Squamous Epithelial 0-3 HPF (0-3); WBC/HPF 0-3 HPF (0-3)
[2019-06-25 11:06] LABS: Bacteria/HPF None Seen HPF (None Seen)
[2019-06-25] MEDS ORDERED: Sodium Chloride 77 MEQ in Dextrose 10% in Water 1,000 ML IV SCH (13:15)
[2019-06-25] MEDS ORDERED: cefTRIAXone\\ROCEPHIN 1 GM VIAL ONE (13:44)
[2019-06-25] MEDS ORDERED: Furosemide 20 MG/2 ML VIAL ONE (13:44)
[2019-06-25] MEDS ORDERED: Furosemide 20 MG/2 ML VIAL SLOW IVP SCH (13:45)
[2019-06-25] MEDS: cefTRIAXone\\ROCEPHIN 1 GM in Sodium Chloride 0.9% 100 ML IVPB SCH (14:00)
[2019-06-25] MEDS ORDERED: Promethazine HCl 12.5 MG in Sodium Chloride 0.9% 50 ML IVPB PRN (15:35)
[2019-06-25] MEDS ORDERED: Acetaminophen 325 MG TAB PO PRN (15:35)
[2019-06-25] MEDS ORDERED: Dextrose 50% Abboject 50 ML SYRINGE IVP PRN (15:40)
[2019-06-25] MEDS ORDERED: Dextrose 5% in Water 1,000 ML IV PRN ×2 (15:40→15:44)
[2019-06-25] MEDS ORDERED: Dextrose 50% Abboject 50 ML SYRINGE SLOW IVP PRN (15:44)
[2019-06-25] MEDS ORDERED: Dextrose 5 %-0.45 % NaCl 1,000 ML IV SCH (15:45)
[2019-06-25] MEDS ORDERED: Dextrose 10% in Water 1,000 ML IV SCH ×3 (15:45→21:45)
[2019-06-25] MEDS: Lactated Ringer's 1,000 ML IV SCH (16:00)
[2019-06-25 16:25] LABS: Magnesium 1.6 mg/dL (1.6-2.6); Phosphorus 2.5 mg/dL (2.3-4.7)
[2019-06-25 16:28] LABS: Hemoglobin 9.5 g/dL (12.0-16.0)
[2019-06-25 16:48] VITALS: BMI 21.7
[2019-06-25] MEDS ORDERED: Hydrocortisone Sod Succ/PF 100 mg/2 ml Vial IVP SCH (18:45)
[2019-06-25] MEDS ORDERED: Famotidine/PF 20 mg/2ml Vial SLOW IVP SCH (21:00)
[2019-06-25] MEDS: Hydrocortisone Sod Succ/PF 100 mg/2 ml Vial IVP SCH (23:17)
[2019-06-26] MEDS ORDERED: Dextrose 10% in Water 1,000 ML IV SCH (01:00)
[2019-06-26] MEDS ORDERED: Dextrose 5 % And 0.9 % NaCl 1,000 ML IV SCH ×2 (01:00→07:00)
[2019-06-26] MEDS: Lactated Ringer's 1,000 ML IV SCH (02:23)
[2019-06-26] MEDS: Hydrocortisone Sod Succ/PF 100 mg/2 ml Vial IVP SCH ×3 (05:07→18:41)
[2019-06-26 06:10] LABS: #Lymphocytes 0.6 thou/uL (1.20-3.40); #Neutrophils 3.1 thou/uL (1.40-6.50); %Basophils 0.2 % (0.0-1.0); %Eosinophils 0.9 % (0.0-10.0); %Lymphocytes 15.4 % (21.0-51.0); %Monocytes 0.7 % (0.0-10.0); %Neutrophils 82.8 % (42.0-75.0); Hemoglobin 10.4 g/dL (12.0-16.0); Mean Corpuscular HGB CONC 34.3 g/dL (32.0-36.0); Mean Corpuscular Volume 87.5 fL (78.0-98.0); Mean Platelet Volume 8.3 fL (7.4-10.4); Platelet Count 98 thou/uL (130-400); RBC Distribution Width 13.2 % (11.5-14.5); Red Blood Cell (RBC) Count 3.45 mill/uL (4.20-5.40); White Blood Cell (WBC) Count 3.8 thou/uL (4.8-10.8)
--- NOTE | 2019-06-26 06:20 | PDOC.FM ---
- Subjective Subjective: No overnight events. Denies chest pain, SOB. Abdominal pain has improved. Reports diarrhea. Nausea and vomiting have resolved - Objective MAR Reviewed: Yes Vital Signs & Weight: Vital Signs (12 hours) Temp Pulse Ox 06/26/19 03:00 98.4 F 06/25/19 23:00 98.3 F 06/25/19 20:00 96 06/25/19 19:00 98.8 F Weight Weight 50.6 kg Most Recent Monitor Data Heart Rate from ECG 61 NIBP 95/54 NIBP BP-Mean 67 Respiration from ECG 12 SpO2 98 I&O: 06/24/19 06/25/19 06/26/19 06:59 06:59 06:59 Intake Total 1496 Output Total 1475 Balance 21 Result Diagrams: 06/27/19 04:12 06/27/19 04:12 Phys Exam - Physical Examination Constitutional: NAD HEENT: moist MMs Neck: supple Respiratory: no wheezing, clear to auscultation bilateral Cardiovascular: RRR Gastrointestinal: soft, positive bowel sounds mild tenderness diffuse, no rebound or rigidity Musculoskeletal: no edema Neurological: moves all 4 limbs Psychiatric: normal affect, A&O x 3 Skin: no rash, normal turgor Dx/Plan - Plan Plan: Likely Gastroenteritis - Stool studies negative, positive lactoferrin - No zofran 2/2 prolonged QT Low Cortisol - Continue Hydrocortisone - Labs to eval for adrenal insufficiency Hypoglycemia - Likely 2/2 to insulin while pt NPO w/ N/V/D - D5NS with glucose checks q2h, now tolerating diet. - Holding insulin at this time Normocytic Anemia - Iron studies consistent with Anemia of Chronic disease in 2018 - s/p 1U pRBCs - Ordered peripheral smear - Continue to monitor with daily labs Hyponatremia - 133-> 126 - Switched to D5NS from 1/2 NS CKD IV and HFrEF - Cardiorenal syndrome - Previously taken off dialysis - Last EF: 20-25% - Will monitor fluid status, strict I/O - Consider nephro consult Abdominal pain - CT: densities of liver, cholelithiasis, mild ascites and anisarca - Continue Rocephin for SBP ppx - Hepatitis labs neg in November 2018 - Ordered ferritin from labs prior to transfusion DM II - Manage hypoglycemia as above - Once tolerating PO w/ stable glucose will resume home insulin or SSI Code Status: Full DVT ppx: SCDs Addendum - Attending - Attending Attestation Date/Time: 06/26/19 0858 I personally evaluated the patient and discussed the management with Dr. Montoya I agree with the History, Examination, Assessment and Plan documented above with any addition or exceptions noted below. Now off glucose drip. Will continue to monitor closely throughout the day. Tolerating PO well. No N/V/D/abd pain. Will add urine cortisol level to urine collected at admission to help evaluate for adrenal insufficiency. Patient currently on IV cortisol so unable to perform serum testing. Has been responding well and suspicions are high for disease. Will call to discussed CT scan with rad to make sure adrenals are well appearing and normal size. Will need close outpatient follow up. No evidence of infection, stop antibx. Maryjane
[2019-06-26 06:37] LABS: ALT (SGPT) 16 U/L (8-55); AST (SGOT) 43 U/L (5-34); Albumin 2.8 g/dL (3.5-5.0); Alkaline Phosphatase 126 U/L (40-110); Anion Gap 10 mmol/L (10-20); BUN (Urea Nitrogen) 38 mg/dL (9.8-20.1); Bilirubin, Total 0.4 mg/dL (0.2-1.2); Calc. Creatinine Clearance 16 mL/min (70-130); Calcium 7.8 mg/dL (7.8-10.44); Carbon Dioxide 20 mmol/L (22-29); Chloride 101 mmol/L (98-107); Estimated GFR-MDRD 15; Globulin 3.6 g/dL (2.4-3.5); Glucose 121 mg/dL (70-105); Potassium 5.2 mmol/L (3.5-5.1); Protein, Total 6.4 g/dL (6.0-8.3); Sodium 126 mmol/L (136-145)
[2019-06-26] MEDS ORDERED: FLU VACC QS2019-20(6MOS UP)/PF 60 MCG/0.5 ML SYRINGE IM ONE (09:00)
[2019-06-26] MEDS ORDERED: Prevnar 13-Val Conj/PF 0.5 ML SYRINGE IM ONE (09:00)
[2019-06-26 10:52] VITALS: BP 123/68
[2019-06-26 11:40] LABS: Creatinine, Urine 39.93 mg/dL (47-110); Potassium, Urine 31.6 mmol/L
[2019-06-26 11:49] LABS: Band 18 % (5-11); Eosinophils 1 % (0-10); Hemoglobin 10.4 g/dL (12.0-16.0); Lymphocytes 9 % (21-51); MDiff Complete? YES; Mean Corpuscular HGB CONC 33.2 g/dL (32.0-36.0); Mean Corpuscular Hemoglobin 29.5 pg (27.0-31.0); Mean Corpuscular Volume 88.9 fL (78.0-98.0); Mean Platelet Volume 8.7 fL (7.4-10.4); Monocytes 1 % (0-10); Neutrophil 70 % (42-75); Platelet Count 105 thou/uL (130-400); Platelet Morphology Comment Appears Decreased; Polychromasia SLIGHT = 2-3 cells (100X) (0-2/hpf); RBC Distribution Width 13.3 % (11.5-14.5); Red Blood Cell (RBC) Count 3.52 mill/uL (4.20-5.40); White Blood Cell (WBC) Count 4.1 thou/uL (4.8-10.8)
[2019-06-26] MEDS: cefTRIAXone\\ROCEPHIN 1 GM in Sodium Chloride 0.9% 100 ML IVPB SCH (18:42)
[2019-06-26] MEDS: HumaLOG 300 UNITS/3 ML VIAL SC PRN (22:09)
[2019-06-27] MEDS: Hydrocortisone Sod Succ/PF 100 mg/2 ml Vial IVP SCH (00:32)
[2019-06-27] MEDS: HumaLOG 300 UNITS/3 ML VIAL SC PRN (00:48)
[2019-06-27] MEDS ORDERED: Acetaminophen 325 MG TAB PO PRN (03:16)
[2019-06-27 04:42] LABS: #Lymphocytes 0.6 thou/uL (1.20-3.40); #Monocytes 0.1 thou/uL (0.11-0.59); #Neutrophils 7.2 thou/uL (1.40-6.50); %Basophils 0.1 % (0.0-1.0); %Eosinophils 0.1 % (0.0-10.0); %Lymphocytes 7.8 % (21.0-51.0); Hemoglobin 9.2 g/dL (12.0-16.0); Mean Corpuscular HGB CONC 34.5 g/dL (32.0-36.0); Mean Corpuscular Hemoglobin 30.3 pg (27.0-31.0); Mean Corpuscular Volume 87.6 fL (78.0-98.0); Mean Platelet Volume 8.5 fL (7.4-10.4); Platelet Count 96 thou/uL (130-400); RBC Distribution Width 13.5 % (11.5-14.5); Red Blood Cell (RBC) Count 3.05 mill/uL (4.20-5.40); White Blood Cell (WBC) Count 7.9 thou/uL (4.8-10.8)
[2019-06-27 05:04] LABS: ALT (SGPT) 16 U/L (8-55); AST (SGOT) 34 U/L (5-34); Albumin 3.1 g/dL (3.5-5.0); Alkaline Phosphatase 122 U/L (40-110); Anion Gap 17 mmol/L (10-20); BUN (Urea Nitrogen) 47 mg/dL (9.8-20.1); Bilirubin, Total 0.3 mg/dL (0.2-1.2); Calc. Creatinine Clearance 14 mL/min (70-130); Calcium 8.2 mg/dL (7.8-10.44); Carbon Dioxide 16 mmol/L (22-29); Chloride 104 mmol/L (98-107); Estimated GFR-MDRD 13; Globulin 3.8 g/dL (2.4-3.5); Glucose 210 mg/dL (70-105); Potassium 4.7 mmol/L (3.5-5.1); Protein, Total 6.9 g/dL (6.0-8.3); Sodium 132 mmol/L (136-145)
--- NOTE | 2019-06-27 06:48 | PDOC.FM ---
- Subjective Subjective: Feeling well this morning. Slept well. No overnight events. Diarrhea, nausea and vomiting have resolved. - Objective MAR Reviewed: Yes Vital Signs & Weight: Vital Signs (12 hours) Temp Pulse Ox 06/27/19 05:00 97.8 F 06/27/19 00:00 97.4 F L 06/26/19 20:00 98.2 F 100 Weight Admit Weight 50.6 kg Weight 50.6 kg Most Recent Monitor Data Heart Rate from ECG 61 NIBP 123/66 NIBP BP-Mean 85 Respiration from ECG 1 SpO2 98 I&O: 06/25/19 06/26/19 06/27/19 06:59 06:59 06:59 Intake Total 1496 600 Output Total 1475 1165 Balance 21 -565 Result Diagrams: 06/27/19 04:12 06/27/19 04:12 Phys Exam - Physical Examination Constitutional: NAD HEENT: moist MMs Neck: supple Respiratory: no wheezing, clear to auscultation bilateral Cardiovascular: RRR, no significant murmur Gastrointestinal: soft, positive bowel sounds Musculoskeletal: no edema Neurological: moves all 4 limbs Psychiatric: normal affect, A&O x 3 Skin: no rash Dx/Plan - Plan Plan: Suspected adrenal insufficiency - Scheduled f/u at [facility] on to test for adrenal insuff DM II - Tolerating diet, BG stable. Restarted insulin. - Educated on monitoring BG at home Normocytic Anemia - Iron studies consistent with Anemia of Chronic disease in 2018 - s/p 1U pRBCs - Peripheral smear pending Hyponatremia, improving CKD IV and HFrEF - Cardiorenal syndrome - Previously taken off dialysis - Last EF: 20-25% - Will monitor fluid status, strict I/O - Consider nephro consult Abdominal pain, resolving - Likely 2/2 gastroenteritis Likely Gastroenteritis, resolved - Stool studies negative, positive lactoferrin Hypoglycemia, resolved - Likely 2/2 to insulin while pt NPO with n/v/d Code Status: Full DVT ppx: SCDs Addendum - Attending - Attending Attestation Date/Time: 06/27/19 [id number] I personally evaluated the patient and discussed the management with Dr. Montoya I agree with the History, Examination, Assessment and Plan documented above with any addition or exceptions noted below. Doing well. Now off glucose for over 24 hours. Tolerating PO well. Asymptomatic. Will hold steroids. Has appt scheduled for for evaluation of adrenal insufficiency. OK to d/c to home. ER precautions discussed. ABrayMD
[2019-06-27 07:02] LABS: Hemoglobin A1c 8.3 % (4.0-6.0)
[2019-06-27] MEDS ORDERED: Ferrous Gluconate 324 MG TAB PO SCH (08:00)
[2019-06-27] MEDS ORDERED: Ferric Citrate [Auryxia] 210 MG PO SCH (09:00)
[2019-06-27] MEDS ORDERED: Aspirin 81 mg Enteric Coated Tablet PO SCH (09:00)
[2019-06-27] MEDS ORDERED: HumuLIN 70/30 (300 UNITS/3 ML VIAL) SC SCH (09:00)
[2019-06-27] MEDS ORDERED: Atorvastatin Calcium 40 MG TAB PO SCH (09:00)
[2019-06-27] MEDS ORDERED: FLU VACC QS2019-20(6MOS UP)/PF 60 MCG/0.5 ML SYRINGE IM ONE (14:45)
[2019-06-27 15:09] VITALS: TEMP 98.6
[2019-06-28] MEDS ORDERED: Levothyroxine Sodium 100 MCG TAB PO SCH ×2 (06:00)
[2019-06-28] MEDS ORDERED: Levothyroxine Sodium 112 MCG TAB PO SCH (06:00)
[2019-06-28] MEDS ORDERED: Levothyroxine Sodium 25 MCG TAB PO SCH (06:00)
--- NOTE | 2019-06-29 08:45 | PQF ---
[employer]ouple Tester [employer] PATE,POLO FRIED [id number] [facility] [id number] CLINICAL DOCUMENTATION CLARIFICATION FORM: POST DISCHARGE Addendum to original discharge summary date: ____ Late entry note date: __ DATE: 06/29/2019 ATTN:POLO CASTILLO Please exercise your independent, professional judgment in responding to the clarification form. Clinical indicators are provided on the bottom of this form for your review Please check appropriate box(s): [ ] Poisoning of over use insulin [ ] Adverse effect of over use insulin [ ] Other diagnosis [ ] Unable to determine For continuity of documentation, please document condition throughout progress notes and discharge summary. Thank You. CLINICAL INDICATORS - SIGNS / SYMPTOMS / LABS -Hypoglycemia-likely 2/2 insulin treatment when NPO w/N/V/D-Family medicine H&P , report, 06/25, Matthew Rueda MD -Hypoglycemia likely from over use of insulin with decreased intake-06/26, Family medicine PN, Matthew Rueda MD -POC Glucose: 39L, Less than 35-Laboratory, 06/25 -Now off glucose for over 24 hours-Family PN, 06/26, Carmina Munoz MD RISKS: - CKD IV and HFrEF-cardiorenal syndrome-Family PN, 06/26, Carmina Munoz MD - DM insulin dependent-Family H&P, report, 06/25, Matthew Rueda MD TREATMENT: -Hold Diabetic medications-Family H&P, report, 06/25, Matthew Rueda MD -Glucagon -MAR, 06/25 (This form is maintained as a part of the permanent medical record) 2014 [employer]. All Rights Reserved Juwan Gonzalez [not provided] [not provided] MTDD
--- NOTE | 2019-06-29 10:17 | DIS ---
DATE OF ADMISSION: 06/25/2019 DATE OF DISCHARGE: 06/27/2019 RESIDENT: Stefanie Montoya MD, PGY-2. ADMITTING ATTENDING: Matthew Chiang MD DISCHARGE ATTENDING: Carmina Munoz MD CONSULTS: None. PROCEDURES PERFORMED: 1. Abdominal pelvis CT, 06/25/2019. No urolithiasis and no evidence of high- grade obstructive uropathy. Cholelithiasis. Mild ascites and mild anasarca. Left pleural effusion, diffusely mild, increased density of the liver. One possibility is hemochromatosis. Recommend clinical correlation. Atrophic were hypoplastic, right kidney. No small bowel obstruction. 2. Chest x-ray, 06/25/2019. Chest x-ray, interval increase in volume of left pleural effusion and interval worsening of left lower lobe opacification. PRIMARY DIAGNOSES: 1. Suspected adrenal insufficiency. 2. Hypoglycemia, resolved. SECONDARY DIAGNOSES: 1. Type 2 diabetes. 2. Normocytic anemia. 3. Hyponatremia, improving. 4. Chronic kidney disease, stage 4. 5. Heart failure with reduced ejection fraction. 6. Abdominal pain, resolving. 7. Likely gastroenteritis, resolved. 8. Prolonged QT. DISCHARGE MEDICATIONS: 1. Tylenol 650 mg q.6 hours p.r.n. 2. Aspirin 81 mg daily. 3. Atorvastatin 40 mg at bedtime. 4. Calcium and vitamin D one tab b.i.d. 5. Vitamin D3 of 5000 units daily. 6. Procrit 10,000 units subcu q.7 days. 7. Ferric citrate 210 mg daily. 8. Ferrous gluconate 324 mg daily. 9. Furosemide 40 mg b.i.d. 10. Gabapentin 100 mg daily. 11. Novolin 30/70 of 20 units b.i.d. 12. Levothyroxine 100mcg 0600 13. Lisinopril 10 mg daily. 14. Metolazone 2.5 mg Wednesday, Wednesday, and Wednesday. 15. Velphoro 500 mg daily. DISCONTINUED MEDICATIONS: None. HISTORY OF PRESENT ILLNESS/HOSPITAL COURSE: A 54-year-old Barbadian-speaking female who presented with hypoglycemia after episode of nausea, vomiting, diarrhea. The patient received D50 x3 en route. She was noted to also have hemoglobin of 6.9 , was given 2 units packed red blood cells. Started on an infusion of D5 half-normal saline. However, she became hyponatremic with sodium of 126, so this was switched to D5 normal saline. Due to her diarrhea, stool studies were obtained that were negative including negative for C diff. She had a positive lactoferrin. She was treated with one dose of Phenergan in the ED. However, antiemetics were not continued due to prolonged QT. The patient's blood sugar stabilized and D5 normal saline drip was discontinued. She was resumed on regular diet and subcu insulin. Her symptoms of nausea, vomiting, diarrhea resolved. Serum cortisol was checked and noted to be 1.5. She was given pulse dose of hydrocortisone. Cortisol was rechecked, 104.9. There was not enough urine to obtain urine cortisol. Therefore recommend workup for adrenal insufficiency at next clinic visit. Sodium improved from 126-132 prior to discharge. She did have a high potassium 5.2 and that decreased to 4.7 prior to discharge. She was noted to have normocytic anemia and other studies checked in 2018, that were consistent with anemia of chronic disease. Peripheral smear showed multiple etiologies including hemolytic anemia, acute blood loss and chronic disease, thrombocytopenia, and other chronic medical conditions were stable throughout the course of hospitalization. Upon clinic chart review pt does have a history of adrenal insufficiency. She had stopped taking her medications. DISPOSITION: Stable. DISCHARGE INSTRUCTIONS: 1. Location: Home. 2. Diet: Heart healthy renal. 3. Activity: No restrictions. 4. Followup: Follow up with [facility] on Wednesday at 11:00 a.m. Job ID: [id number] ROSALINDA
[2019-06-30 10:11] LABS: Norovirus GI Negative (Negative); Norovirus GII Negative (Negative)
== END 2019-06-27 15:35 | disposition home or self-care (01) | DRG 644 ==
LOC: ERS 08:01 → ERHOLD 09:56 → CCU 15:20
PROVIDERS: ADMIT Student in an Organized Health Care Education/Training Program; ATTEND Student in an Organized Health Care Education/Training Program
PROC: 30233N1 Transfusion of Nonautologous Red Blood Cells into Peripheral Vein, Percutaneous Approach (ICD-10-PCS; principal; 2019-06-25)
DX: E27.40 Unspecified adrenocortical insufficiency (principal); I13.0 Hypertensive heart and chronic kidney disease with heart failure and stage 1 through stage 4 chronic kidney disease, or unspecified chronic kidney disease; I50.22 Chronic systolic (congestive) heart failure; E87.1 Hypo-osmolality and hyponatremia; N18.4 Chronic kidney disease, stage 4 (severe); E11.649 Type 2 diabetes mellitus with hypoglycemia without coma; K52.9 Noninfective gastroenteritis and colitis, unspecified; I25.10 Atherosclerotic heart disease of native coronary artery without angina pectoris; D63.1 Anemia in chronic kidney disease; I25.5 Ischemic cardiomyopathy; E78.5 Hyperlipidemia, unspecified; E11.22 Type 2 diabetes mellitus with diabetic chronic kidney disease; E03.9 Hypothyroidism, unspecified; Z79.4 Long term (current) use of insulin; Z95.1 Presence of aortocoronary bypass graft; Z90.49 Acquired absence of other specified parts of digestive tract; E87.5 Hyperkalemia; D64.9 Anemia, unspecified
CPT/HCPCS: 36415; 36416; 36430; 71045; 74176; 80053; 81003; 81015; 82274; 82533; 82570; 82728; 83036; 83605; 83630; 83690; 83735; 83880; 84100; 84133; 84300; 84484; 85025; 85060; 86850; 86900; 86901; 87045; 87046; 87086; 87324; 87427; 87449; 87798; 90471; 90686; 93005; 94760; G0008; J0696; J1610; J1720; J1815; J1940; J2550; J3490; P9016; S0028

== ENCOUNTER 2019-07-26 09:54 | Inpatient (IN) | payer OTHER ==
[2019-07-26 10:39] LABS: #Basophils 0.1 thou/uL (0.0-0.2); #Eosinphils 0.4 thou/uL (0.0-0.7); #Lymphocytes 0.9 thou/uL (1.20-3.40); #Monocytes 0.2 thou/uL (0.11-0.59); #Neutrophils 2.3 thou/uL (1.40-6.50); %Basophils 1.6 % (0.0-1.0); %Eosinophils 9.9 % (0.0-10.0); %Lymphocytes 24.1 % (21.0-51.0); %Monocytes 4.3 % (0.0-10.0); %Neutrophils 60.2 % (42.0-75.0); Hemoglobin 9.5 g/dL (12.0-16.0); Mean Corpuscular HGB CONC 35.3 g/dL (32.0-36.0); Mean Corpuscular Hemoglobin 30.1 pg (27.0-31.0); Mean Corpuscular Volume 85.3 fL (78.0-98.0); Mean Platelet Volume 8.1 fL (7.4-10.4); Platelet Count 133 thou/uL (130-400); RBC Distribution Width 14.2 % (11.5-14.5); Red Blood Cell (RBC) Count 3.16 mill/uL (4.20-5.40); White Blood Cell (WBC) Count 3.9 thou/uL (4.8-10.8)
[2019-07-26 10:58] LABS: Anion Gap 11 mmol/L (10-20); BUN (Urea Nitrogen) 51 mg/dL (9.8-20.1); Calc. Creatinine Clearance 0 mL/min (70-130); Carbon Dioxide 19 mmol/L (22-29); Chloride 106 mmol/L (98-107); Estimated GFR-MDRD 14; Potassium 4.2 mmol/L (3.5-5.1); Sodium 132 mmol/L (136-145)
[2019-07-26 10:59] LABS: ALT (SGPT) 66 U/L (8-55); AST (SGOT) 231 U/L (5-34); Albumin 3.4 g/dL (3.5-5.0); Alkaline Phosphatase 238 U/L (40-110); Bilirubin, Total 0.3 mg/dL (0.2-1.2); Calcium 8.3 mg/dL (7.8-10.44); Globulin 3.3 g/dL (2.4-3.5); Lipase 78 U/L (8-78); Protein, Total 6.7 g/dL (6.0-8.3)
[2019-07-26 11:22] LABS: Glucose 37 mg/dL (70-105)
[2019-07-26] MEDS ORDERED: Dextrose 50% Abboject 50 ML SYRINGE ONE (11:39)
--- NOTE | 2019-07-26 11:51 | RAD ---
Exam: Chest one view HISTORY:Upper abdominal pain. Nausea. Hypoglycemia. Comparison: 06/25/2019 FINDINGS: Cardiac silhouette:Upper normal cardiac silhouette. There are sternotomy wires and vascular rings. Aorta: Unremarkable Pulmonary vessels: Normal Costophrenic angles: Opacification left hemidiaphragm and left lung base due to pleural and parenchym al changes. Right costophrenic angle is clear. LUNGS: With regard the right lung, no masses or consolidation. Persistent opacification of the left l gus base due to parenchymal changes from aspiration, pneumonia or atelectasis Pneumothorax: None Osseous abnormalities: None IMPRESSION: Opacification left lung base due to pleural and parenchymal changes
--- NOTE | 2019-07-26 15:40 | ULT ---
GALLBLADDER ULTRASOUND: 07/26/19 INDICATIONS: Right upper quadrant pain. There is dense shadowing from the gallbladder fossa. The gallbladder lumen is never clearly demonstra elliott; however, the echogenicity with dense shadowing indicates a contracted gallbladder filled with ga llstones. Common duct is upper normal caliber measured at 5 to 6 mm. The visualized liver appears unr emarkable. The pancreas is partially obscured but appears unremarkable as visualized. The right kidne y is small with evidence of cortical thinning. IMPRESSION: Echogenicity with dense shadowing from the gallbladder fossa is consistent with a contracted gallblad colby filled with gallstones. POS: TPC
[2019-07-26] MEDS ORDERED: Morphine 4 MG/ML VIAL ONE (16:24)
[2019-07-26] MEDS ORDERED: Ondansetron PF 4 MG/2 ML Vial ONE (16:25)
--- NOTE | 2019-07-26 17:57 | HP ---
HISTORY OF PRESENT ILLNESS: Raquel Osorio is a 54-year-old female, [place] Arabian-speaking only, presents to the office with acute cholecystitis and gallstones. Her bile duct is normal caliber. Her bilirubin is normal at 0.3. AST and ALT are slightly elevated. Alkaline phosphatase is 238. She has noted that she has had prior episodes of nausea. The patient is followed by Dr. Alejandro for chronic kidney disease. GFR is 11 to 14. She is on temporary dialysis after coronary artery bypass grafting, 4 vessels, 2 years ago. She has last seen Dr. Carlos a few weeks ago and noted she has a nonischemic cardiomyopathy, 20% cardiac ejection fraction, but no evidence of coronary artery disease having had bypass 2 years ago without ischemic symptoms. I have discussed with Dr. Raul Carlos, who believes it is safe to proceed with cholecystectomy and has suggested the patient she consider a defibrillator, but the patient has not kept appointment to see Dr. Salazra. Dr. Carlos thinks it is safe to proceed for outpatient laparoscopic cholecystectomy. The patient also has chronic kidney disease and is followed by Dr. Alejandro. She states that she has not been told that she would need dialysis in the future. PAST MEDICAL HISTORY: Diabetes mellitus, hypertension, chronic kidney disease, and coronary artery disease. ALLERGIES: NONE. SOCIAL HISTORY: Tobacco, none. Alcohol, none. MEDICATIONS: At home; 1. Velphoro. 2. Metolazone 2.5 mg Wednesday, Wednesday, and Wednesday. 3. Lisinopril 10 mg a day. 4. Levothyroxine 25 mcg a day. 5. Levothyroxine 112 mcg a day. 6. Insulin 20 units b.i.d. 7. Gabapentin 100 mg a day. 8. Furosemide 40 mg b.i.d. 9. Ferrous gluconate 324 q.a.m. 10. Ferric citrate 210 mg daily. 11. Procrit 10,000 units subcutaneously q.7 days. 12. Vitamin D3. 13. Atorvastatin. 14. Aspirin 81 mg a day. 15. Tylenol p.r.n. PAST SURGICAL HISTORY: Temporary right subclavian vein dialysis catheter, Dr. Jaimes; temporary right groin dialysis catheter; coronary artery bypass grafting in October 2016, Dr. Zarate, 4 vessels; and appendectomy. REVIEW OF SYSTEMS: Noncontributory. PHYSICAL EXAMINATION: VITAL SIGNS: Heart rate 74, respiratory rate 18, blood pressure 150/72. HEAD, EARS, EYES, NOSE, AND THROAT: Unremarkable. Sclerae are nonicteric. SKIN: Nonjaundiced. LUNGS: Clear to auscultation. CARDIAC: Regular rate and rhythm without murmur or gallop. ABDOMEN: Soft. Tenderness in the right upper quadrant with guarding. EXTREMITIES: Unremarkable. No ankle edema. LABORATORY DATA: Sodium 132, potassium 4.2, GFR 14. White count 3.9, hemoglobin 9.5. ASSESSMENT AND PLAN: 1. Acute cholecystitis and cholelithiasis. She has received Levaquin. We would recommend laparoscopic video cholecystectomy. She understands the risks of infection, bleeding, and visceral and biliary injury. I have used a industrial controller service to discuss with family and the patient. Questions were answered. We will proceed with cholecystectomy now. 2. Chronic kidney disease, followed by Dr. Alejandro. May need dialysis in the future. 3. Coronary artery disease, status post bypass grafting, 4 vessels, Dr. Zarate, 2 years ago, 2017, followed by Dr. Raul Carlos, last seen her in the last few weeks. Recommended that she see Dr. Salazar for consideration of defibrillator due to cardiomyopathy, cardiac ejection fraction 20%. The patient is asymptomatic from cardiac standpoint. Dr. Carlos states that because of this, she is safe to proceed with laparoscopic cholecystectomy. 4. Diabetes mellitus. 5. Hypertension. Job ID: [id number]
[2019-07-26] MEDS ORDERED: Morphine 2 MG/ML SYRINGE SLOW IVP PRN (18:18)
[2019-07-26] MEDS ORDERED: Dextrose 50% Abboject 50 ML SYRINGE SLOW IVP PRN (18:18)
[2019-07-26] MEDS ORDERED: Ondansetron PF 4 MG/2 ML Vial IVP PRN (18:18)
[2019-07-26] MEDS ORDERED: Dextrose 5% in Water 1,000 ML IV PRN (18:18)
[2019-07-26] MEDS ORDERED: Ondansetron ODT 4 MG TAB PO PRN (18:18)
[2019-07-26] MEDS ORDERED: HumaLOG 300 UNITS/3 ML VIAL SC PRN (18:18)
[2019-07-26] MEDS ORDERED: hydrALAZINE 20 MG/ML VIAL SLOW IVP PRN (18:18)
[2019-07-26] MEDS ORDERED: traMADol HCl 50 MG TAB PO PRN (18:24)
[2019-07-26] MEDS ORDERED: Acetaminophen 1,000 MG in Premix Bag 1 BAG IVPB PRN (18:24)
[2019-07-26] MEDS: Furosemide 40 MG TAB PO SCH (20:02)
[2019-07-26] MEDS: Sodium Chloride 0.9% 1,000 ML IV SCH (20:02)
[2019-07-26 20:58] VITALS: BMI 21.7
[2019-07-27] MEDS ORDERED: Dextrose 50 % In Water 50 ML SYRINGE ONE ×3 (02:40→17:54)
[2019-07-27] MEDS: Levothyroxine Sodium 25 MCG TAB PO SCH (05:34)
[2019-07-27] MEDS: Levothyroxine Sodium 112 MCG TAB PO SCH (05:34)
[2019-07-27 06:08] LABS: #Eosinphils 0.2 thou/uL (0.0-0.7); #Lymphocytes 0.8 thou/uL (1.20-3.40); #Monocytes 0.1 thou/uL (0.11-0.59); #Neutrophils 1.5 thou/uL (1.40-6.50); %Basophils 0.5 % (0.0-1.0); %Lymphocytes 30.9 % (21.0-51.0); %Monocytes 4.8 % (0.0-10.0); %Neutrophils 57.9 % (42.0-75.0); Hemoglobin 8.8 g/dL (12.0-16.0); Mean Corpuscular HGB CONC 34.7 g/dL (32.0-36.0); Mean Corpuscular Volume 86.3 fL (78.0-98.0); Mean Platelet Volume 8.5 fL (7.4-10.4); Platelet Count 99 thou/uL (130-400); RBC Distribution Width 14.5 % (11.5-14.5); Red Blood Cell (RBC) Count 2.92 mill/uL (4.20-5.40); White Blood Cell (WBC) Count 2.6 thou/uL (4.8-10.8)
[2019-07-27 06:30] LABS: ALT (SGPT) 43 U/L (8-55); AST (SGOT) 124 U/L (5-34); Albumin 2.8 g/dL (3.5-5.0); Alkaline Phosphatase 184 U/L (40-110); Anion Gap 8 mmol/L (10-20); BUN (Urea Nitrogen) 47 mg/dL (9.8-20.1); Bilirubin, Total 0.4 mg/dL (0.2-1.2); Calc. Creatinine Clearance 19 mL/min (70-130); Calcium 7.9 mg/dL (7.8-10.44); Carbon Dioxide 20 mmol/L (22-29); Chloride 106 mmol/L (98-107); Estimated GFR-MDRD 14; Globulin 3.3 g/dL (2.4-3.5); Glucose 88 mg/dL (70-105); Potassium 4.6 mmol/L (3.5-5.1); Protein, Total 6.1 g/dL (6.0-8.3); Sodium 129 mmol/L (136-145)
[2019-07-27] MEDS ORDERED: SUCROFERRIC OXYHYDROXIDE 500 MG PO SCH (08:00)
--- NOTE | 2019-07-27 08:34 | PDOC.HHP ---
Hospitalist ROS - Medication Medications: Active Medications Generic Name Dose Route Start Last Admin Trade Name Cheikhq PRN Reason Stop Dose Admin Dextrose/Water 25 gm 07/26/19 18:18 07/27/19 02:41 Dextrose 50% SLOW IVP 25 gm PRN PRN Administration Hypoglycemia Furosemide 40 mg 07/26/19 21:00 07/26/19 20:02 Lasix PO 40 mg BID MONTRELL Administration Dextrose/Water 1,000 mls @ 0 mls/hr 07/26/19 18:18 07/27/19 02:41 D5w IV 1,000 mls .Q0M PRN Administration Hypoglycemia As Directed Sodium Chloride 1,000 mls @ 80 mls/hr 07/26/19 18:30 07/26/19 20:02 Normal Saline 0.9% IV 1,000 mls .[id number] MONTRELL Administration Levothyroxine Sodium 25 mcg 07/27/19 06:00 07/27/19 05:34 Synthroid PO 25 mcg 0600 MOTNRELL Administration Levothyroxine Sodium 112 mcg 07/27/19 06:00 07/27/19 05:34 Synthroid PO 112 mcg 0600 MONTRELL Administration Hospitalist Results - Labs Result Diagrams: 07/27/19 05:35 07/27/19 05:35 Lab results: WBC 2.6 thou/uL (4.8-10.8) L 07/27/19 05:35 Hgb 8.8 g/dL (12.0-16.0) L 07/27/19 05:35 Hct 25.2 % (36.0-47.0) L 07/27/19 05:35 MCV 86.3 fL (78.0-98.0) 07/27/19 05:35 Plt Count 99 thou/uL (130-400) L 07/27/19 05:35 Neutrophils % 57.9 % (42.0-75.0) 07/27/19 05:35 Sodium 129 mmol/L (136-145) L 07/27/19 05:35 Potassium 4.6 mmol/L (3.5-5.1) 07/27/19 05:35 Chloride 106 mmol/L (98-107) 07/27/19 05:35 Carbon Dioxide 20 mmol/L (22-29) L 07/27/19 05:35 BUN 47 mg/dL (9.8-20.1) H 07/27/19 05:35 Creatinine 3.34 mg/dL (0.6-1.1) H 07/27/19 05:35 Glucose 88 mg/dL (70-105) 07/27/19 05:35 Calcium 7.9 mg/dL (7.8-10.44) 07/27/19 05:35 Total Bilirubin 0.4 mg/dL (0.2-1.2) 07/27/19 05:35 AST 124 U/L (5-34) H 07/27/19 05:35 ALT 43 U/L (8-55) 07/27/19 05:35 Alkaline Phosphatase 184 U/L (40-110) H 07/27/19 05:35 Troponin I Less than 0.010 ng/mL (< 0.028) 07/26/19 10:26 Serum Total Protein 6.1 g/dL (6.0-8.3) 07/27/19 05:35 Albumin 2.8 g/dL (3.5-5.0) L 07/27/19 05:35 Lipase 78 U/L (8-78) 07/26/19 10:26
--- NOTE | 2019-07-27 09:17 | ULT ---
BILATERAL LOWER EXTREMITY VENOUS MAPPING FOR DIALYSIS ACCESS: DATE: 07/27/19 HISTORY: End-stage renal disease. COMPARISON: None. TECHNIQUE: Long scale, color flow, Doppler imaging, and spectral waveform analysis performed in the left and right upper extremity arteriovenous system. RIGHT UPPER EXTREMITY BRACHIAL ARTERY: 4.0 mm RADIAL ARTERY: 1.7 mm ULNAR ARTERY: 1.8 mm CECPHALI VEIN Proximal Humerus: 2.4 mm Mid Humerus: 1.8 mm Distal Humerus: 1.9 mm Antecubital Fossa: 1.9 mm Proximal Forearm: 1.4 mm Mid Forearm: 1.4 mm Distal Forearm: Not seen BASILIC VEIN Proximal Humerus: 6.3 mm Mid Humerus: 5.1 mm Distal Humerus: 4.2 mm Antecubital Fossa: 2.2 mm Proximal Forearm: 1.5 mm Mid Forearm: 1.2 mm Distal Forearm: Not seen LEFT UPPER EXTREMITY BRACHIAL ARTERY: 3.1 mm RADIAL ARTERY: 1.6 mm ULNAR ARTERY: 2.0 mm CEPHALIC VEIN Proximal Humerus: 2.7 mm Mid Humerus: 2.4 mm Distal Humerus: 2.7 mm Lower Arm/Antecubital Fossa: Too small to visualize BASILIC VEIN Proximal Humerus: 4.4 mm Mid Humerus: 3.8 mm Distal Humerus: 3.0 mm Antecubital Fossa: 2.6 mm Proximal Forearm: 2.0 mm Mid Forearm: 1.8 mm Distal Forearm: Not seen IMPRESSION: Venous mapping as above. POS: OFF
[2019-07-27] MEDS ORDERED: Bupivacaine PF 0.5% 30 ML VIAL ONE (09:26)
[2019-07-27] MEDS ORDERED: Midazolam HCl 2 mg/2 ml Vial ONE (09:44)
[2019-07-27] MEDS ORDERED: Fentanyl 100 MCG/2 ML VIAL ONE (09:44)
[2019-07-27] MEDS ORDERED: Ondansetron PF 4 MG/2 ML Vial ONE (10:02)
[2019-07-27] MEDS ORDERED: Glycopyrrolate 0.2 MG/ML 5 ML SYRINGE ONE (10:02)
[2019-07-27] MEDS ORDERED: ePHEDrine/0.9% NaCl/PF SYRINGE 50 mg/10 ml ONE (10:02)
[2019-07-27] MEDS ORDERED: PROPOFOL 200 MG/20 ML VIAL ONE (10:02)
[2019-07-27] MEDS ORDERED: Rocuronium Bromide 10 MG/ML (10ML VIAL) ONE (10:02)
[2019-07-27] MEDS ORDERED: Lidocaine 1% PF 5 ML VIAL ONE (10:02)
--- NOTE | 2019-07-27 10:08 | CON ---
DATE OF CONSULTATION: 07/27/2019 HISTORY OF PRESENT ILLNESS: I am seeing Ms. Asher Osorio at our [facility] as an Electrophysiology production consultant. Her problems are; 1. Chronic systolic congestive heart failure with ischemic cardiomyopathy. a. Severely reduced LVEF 10% to 15% on echocardiogram in January 2016 and 20% to 25% in followup echo on November 16, 2018. b. Status post coronary artery bypass grafting surgery two years ago in October 19, 2016 x4 vessels. 2. Chronic kidney disease stage 3. 3. Type 2 diabetes. 4. Mixed hyperlipidemia. ALLERGIES: NONE NOTED. MEDICATIONS: At home included; 1. Levothyroxine. 2. Lisinopril. 3. Aspirin. 4. Gabapentin. 5. Furosemide. SUBJECTIVE: Ms. Sterling is here as she developed acute abdominal discomfort and she was admitted by Dr. Evans for potential need for cholecystectomy. She is actually getting wheeled off to OR right after I examined her. She seems to have developed an elevation of her AST and ALT and alkaline phosphatase. She is nauseous, acute cholecystitis was diagnosed. The patient due to follow up with Dr. Raul Carlos, and known to have ischemic cardiomyopathy. She was supposed to see me as outpatient for an ICD implant, but did not keep her appointment. I was requested to see her in the hospital. Currently, she has nausea. Does not pass out. No stroke-like symptoms. She denies chest pains. No fever, chills, cough, or chronic dyspnea is noted. NYHA class 3 functional status, but denies PND or orthopnea. Rest of 12-point review of system otherwise unremarkable. PAST MEDICAL HISTORY: As above. SOCIAL HISTORY: The patient denies smoking, EtOH, or drug abuse. She is Hungarian-speaking only. at bedside. FAMILY HISTORY: Not contributory. OBJECTIVE DATA: VITAL SIGNS: Blood pressure 109/56, heart rate 69, respirations 16, and temperature 97.5 degrees Fahrenheit. GENERAL: Alert and oriented woman, in no apparent distress. NECK: Supple. Jugular veins not distended. CHEST: Coarse without crackles. HEART: Sounds are regular to rate and rhythm. No murmur or gallop. ABDOMEN: Benign. Bowel sounds positive. EXTREMITIES: Lower extremities without edema, clubbing, or cyanosis. Pulses are adequate. NEUROLOGIC: The patient is nonfocal. MUSCULOSKELETAL: Without joint swelling or deformity. SKIN: Without rash. DATABASE: Most recent EKG reviewed on file from May 2019 revealing sinus rhythm, narrow QRS, no significant ST-T changes. LABORATORY DATA: White cell count 2.6, hemoglobin 8.8, and platelet count is 99. Sodium 129, potassium 4.6, BUN is 47, and creatinine is 3.34. Troponin level less than 0.01 on admit. ASSESSMENT AND PLAN: Ms. Sterling is a 54-year-old woman with history of likely type 2 diabetes, advanced renal disease not on dialysis, but likely needing in the near future. She is known to have a significant coronary artery disease status post 4-vessel bypass grafting in 2016, despite her most recent left ventricular ejection fraction available on file in November was reduced in the 20% range. She seems to be on heart failure regimen or not on beta blockers, which may be due to her borderline blood pressures. Indeed with her reduced left ventricular ejection fraction, she has long-term risk of ventricular arrhythmias. Consideration of a prophylactic implantable cardioverter-defibrillator implant could be made although other hand, currently with acute cholecystitis issues and reduced white cell and platelet count, pancytopenia of unclear origin, this likely should be postponed. Once recovered, she likely would benefit to a single-chamber device long-term, although with her comorbidities, she is high risk for complications and long-term infection risk. Discussed her issues with the nail kegger, she is understanding, but not preoccupied with her upcoming gallbladder surgery. We will follow up with you. Thank you again for allowing me to participate in the care of this patient. Job ID: [id number]
[2019-07-27] MEDS: Aspirin 81 mg Enteric Coated Tablet PO SCH (10:13)
[2019-07-27] MEDS: Lisinopril 10 MG TAB PO SCH (10:13)
[2019-07-27] MEDS: Furosemide 40 MG TAB PO SCH ×2 (10:13→20:56)
[2019-07-27] MEDS: Sodium Chloride 0.9% 1,000 ML IV SCH ×2 (10:13→16:31)
[2019-07-27] MEDS: Gabapentin 100 MG CAP PO SCH (10:13)
[2019-07-27] MEDS ORDERED: SUGAMMADEX SODIUM 500 MG/5 ML VIAL ONE (10:42)
[2019-07-27] MEDS ORDERED: Acetaminophen 500 MG TAB PO PRN (10:45)
--- NOTE | 2019-07-27 10:45 | PRG ---
DATE OF SERVICE: 07/27/2019 SUBJECTIVE: This is a 54-year-old female, being seen for acute kidney injury. The patient denied nausea, vomiting, or chest pain. OBJECTIVE: See above. Awake, alert, in no acute distress. VITAL SIGNS: Pulse 98, breathing 16, blood pressure 116/60. GENERAL APPEARANCE AND MENTAL STATUS: Fair. HEAD/NECK: Normocephalic. Atraumatic. EYES: EOMI. No deformity. EARS: Clear. No ulcers. NOSE: Intact. No lesions. MOUTH: Clear. No discharge. THROAT: Clear. No exudate. LUNGS: Clear. No crackles. CARDIAC: S1, S2. No rub. ABDOMEN: Benign. Bowel sounds positive. GENITALIA/RECTUM: Ruiz absent. BACK/EXTREMITIES: Edema 0+. NEUROLOGICAL: Alert and motor intact. SKIN: LYMPHATICS: LABORATORY DATA: Reviewed. ASSESSMENT AND PLAN: 1. Chronic kidney disease, stage 4, stable. 2. Hypertension, stable. 3. Anemia, stable. Medication based on GFR appropriate. We will order venous mapping for AV fistula. Job ID: [id number]
[2019-07-27] MEDS ORDERED: Ondansetron HCl/PF 4 MG/2 ML Vial IVP PRN (10:52)
[2019-07-27] MEDS ORDERED: Promethazine HCl 25 MG/ML VIAL SLOW IVP PRN (10:52)
[2019-07-27] MEDS ORDERED: Promethazine HCl 25 MG/ML VIAL IM PRN (10:52)
--- NOTE | 2019-07-27 11:04 | OP ---
DATE OF PROCEDURE: 07/27/2019 PREOPERATIVE DIAGNOSES: Chronic cholecystitis, cholelithiasis, acute cholecystitis, chronic kidney disease, cardiomyopathy, nonischemic and 20% ejection fraction. ANESTHESIA: General and local 0.5% Marcaine with epinephrine. DESCRIPTION OF PROCEDURE: The patient was taken to the operating room, where under general anesthesia, abdomen was prepared with ChloraPrep and draped in routine fashion. Local anesthetic was infiltrated in the skin and subcutaneous tissue at each port site. A vertical incision made and pneumoperitoneum to 15 mmHg obtained with a Veress needle, replaced with a 5 port and laparoscope inserted. Right subxiphoid incision was made and 11 port placed. Right subcostal incision was made, midclavicular and anterior axillary line, the 5 ports placed. The fundus of the gallbladder was grasped at the cephalad. Liver appeared to be normal and infundibulum grasped and reflected laterally. Cystic artery and duct carefully dissected free. Critical view obtained. Cystic artery and duct double clipped proximally, divided and gallbladder dissected free from liver bed obtaining good hemostasis prior to division of final peritoneal attachments. Gallbladder and stones removed and submitted to Pathology. Good hemostasis ensured with the cautery. Irrigant and pneumoperitoneum evacuated. All instruments were removed and all skin incisions were approximated with interrupted subdermal 4-0 Monocryl and [place] glue applied. Job ID: [id number]
--- NOTE | 2019-07-27 11:09 | CON ---
DATE OF CONSULTATION: 07/26/2019 REASON FOR CONSULTATION: Elevated creatinine. HISTORY OF PRESENT ILLNESS: This is a very pleasant 54-year-old female, who was admitted for cholecystectomy. The patient's baseline creatinine on admission was 3.4. Prior creatinines have ranged anywhere from 1.9 to 3.7 since 2017. She has not had normal baseline creatinine since 2013. So, she has progressive chronic kidney disease with a low EF. PAST MEDICAL HISTORY: Significant for congestive heart failure, cardiomyopathy with EF 10%, coronary artery disease and stents, diabetes mellitus, hyperlipidemia, and hypothyroidism. HOME MEDICATION: List reviewed. HOSPITAL MEDICATION: List reviewed. SOCIAL HISTORY: No alcohol or drug use. FAMILY HISTORY: Negative for ESRD. ALLERGIES: REVIEWED. PHYSICAL EXAMINATION: GENERAL: The patient was awake and alert. VITAL SIGNS: Afebrile, pulse 75, breathing 16, and blood pressure 109/65. GENERAL APPEARANCE AND MENTAL STATUS: Fair. HEAD/NECK: Normocephalic. Atraumatic. EYES: EOMI. No deformity. EARS: Clear. No ulcers. NOSE: Intact. No lesions. MOUTH: Clear. No discharge. THROAT: Clear. No exudate. LUNGS: Clear. No crackles. CARDIAC: S1, S2. No rub. ABDOMEN: Benign. Bowel sounds positive. GENITALIA/RECTUM: Ruiz absent. BACK/EXTREMITIES: Edema 0+. NEUROLOGICAL: Alert and motor intact. SKIN: LYMPHATICS: LABORATORY DATA: Reviewed. ASSESSMENT AND PLAN: 1. Chronic kidney disease, stage 4. No urgent indication for dialysis. We will follow along. We will order renal imaging. 2. Hypertension, stable. 3. Anemia, stable. 4. Medication based on GFR appropriate. Job ID: [id number]
--- NOTE | 2019-07-27 12:54 | ULT ---
Exam: Bilateral renal ultrasound HISTORY: Acute kidney insufficiency COMPARISON: 04/04/2017 FINDINGS: Right kidney: Normal cortical echotexture. No hydronephrosis. Right kidney measurements: 6.7 x 2.9 x 3.5 cm. Left kidney: Normal cortical echotexture. No hydronephrosis Left kidney measurements 5.3 x 4.9 x 9.2 cm. Urinary bladder: Normal mucosa. IMPRESSION: 1. No hydronephrosis. 2. Diminutive right kidney. Previously noted dilatation of the right renal pelvis is not appreciated on the current exam
[2019-07-27] MEDS ORDERED: traMADol HCl 50 MG TAB PO PRN (14:23)
--- NOTE | 2019-07-27 18:49 | CON ---
DATE OF CONSULTATION: HISTORY OF PRESENT ILLNESS: The patient is a 54-year-old woman with a long history of ischemic cardiomyopathy, who presented with abdominal discomfort. The patient has a long history of ischemic cardiomyopathy. She underwent coronary artery bypass surgery in October of 2016. She had a DO placed to the LAD, saphenous vein graft to diagonal, OM and RCA. The patient also has chronic renal insufficiency. She was admitted with cholecystitis. She underwent a recent echocardiogram, which revealed to have a severe decrease in left ventricular systolic function. The patient denies having any chest pain or dyspnea. PAST MEDICAL HISTORY: Significant for; 1. Ischemic cardiomyopathy. 2. Chronic renal insufficiency. 3. Hypertension. 4. Diabetes mellitus. PAST SURGICAL HISTORY: Coronary artery bypass surgery and appendectomy. SOCIAL HISTORY: Nonsmoker. MEDICATIONS: See nursing list. PHYSICAL EXAMINATION: GENERAL: Well-developed woman, in no acute distress. VITAL SIGNS: Blood pressure 126/70. NECK: No jugular venous distention. LUNGS: Clear to auscultation. HEART: Regular rate and rhythm. Normal S1 and S2 with a 1/6 systolic murmur. ABDOMEN: Distended. EXTREMITIES: Showed no edema. LABORATORY RESULTS: Her white blood cell count 2.6, hemoglobin 9.8, hematocrit 25.2, platelets are 99. Sodium is 129, potassium 4.6, chloride 106, bicarbonate 20, BUN 47, creatinine 3.3. IMPRESSION AND PLAN: 1. Status post cholecystectomy. 2. History of severe coronary artery disease. 3. History of ischemic cardiomyopathy. 4. Hypertension. 5. Chronic renal failure. 6. Diabetes mellitus. This patient presents with cholecystitis. From a cardiac standpoint, she has felt to be a prohibitive risk for placement of AICD, at this time would start her on low-dose Coreg. She has scheduled appointment for followup with me in 2 weeks. We will start low-dose Coreg. We will follow the patient as an outpatient. Job ID: [id number]
[2019-07-27] MEDS: Dextrose 5 % And 0.9 % NaCl 1,000 ML IV SCH (20:57)
[2019-07-28] MEDS: Levothyroxine Sodium 112 MCG TAB PO SCH (06:21)
[2019-07-28] MEDS: Levothyroxine Sodium 25 MCG TAB PO SCH (06:22)
[2019-07-28] MEDS ORDERED: Carvedilol 3.125 MG TAB PO SCH (08:00)
[2019-07-28] MEDS: Furosemide 40 MG TAB PO SCH (08:17)
[2019-07-28] MEDS: Lisinopril 10 MG TAB PO SCH (08:17)
[2019-07-28] MEDS: Gabapentin 100 MG CAP PO SCH (08:17)
[2019-07-28] MEDS: Aspirin 81 mg Enteric Coated Tablet PO SCH (08:17)
[2019-07-28] MEDS ORDERED: Metolazone 2.5 MG TAB PO SCH (09:00)
--- NOTE | 2019-07-28 11:44 | PRG ---
DATE OF SERVICE: 07/28/2019 SUBJECTIVE: This is a 54-year-old female, being seen for CKD, stage 4. The patient denies any nausea, vomiting, or chest pain. OBJECTIVE: GENERAL: The patient is awake and alert. VITAL SIGNS: Afebrile, pulse 75, breathing 16, blood pressure was 117/73. GENERAL APPEARANCE AND MENTAL STATUS: Fair. HEAD/NECK: Normocephalic. Atraumatic. EYES: EOMI. No deformity. EARS: Clear. No ulcers. NOSE: Intact. No lesions. MOUTH: Clear. No discharge. THROAT: Clear. No exudate. LUNGS: Clear. No crackles. CARDIAC: S1, S2. No rub. ABDOMEN: Benign. Bowel sounds positive. GENITALIA/RECTUM: Ruiz absent. BACK/EXTREMITIES: Edema 0+. NEUROLOGICAL: Alert and motor intact. SKIN: LYMPHATICS: LABORATORY DATA: Reviewed. ASSESSMENT AND PLAN: 1. Stage 5 chronic kidney disease. No urgent indication for dialysis. Recheck labs. 2. Hypertension, stable. 3. Anemia, stable. The patient should follow up to see me in 1 to 2 weeks. Job ID: [id number]
[2019-07-28 12:54] LABS: Anion Gap 6 mmol/L (10-20); BUN (Urea Nitrogen) 40 mg/dL (9.8-20.1); Calc. Creatinine Clearance 18 mL/min (70-130); Calcium 7.8 mg/dL (7.8-10.44); Carbon Dioxide 23 mmol/L (22-29); Chloride 104 mmol/L (98-107); Estimated GFR-MDRD 13; Glucose 66 mg/dL (70-105); Potassium 4.2 mmol/L (3.5-5.1); Sodium 129 mmol/L (136-145)
[2019-07-28 15:51] VITALS: BP 109/65; TEMP 98.4
[2019-07-28] MEDS: Dextrose 5 % And 0.9 % NaCl 1,000 ML IV SCH (16:28)
--- NOTE | 2019-07-28 18:15 | DIS ---
DATE OF ADMISSION: 07/26/2019 DATE OF DISCHARGE: 07/28/2019 DISCHARGE DIAGNOSES: 1. Acute cholecystitis, cholelithiasis. 2. History of cardiomyopathy, 15% to 20% ejection fraction measured 2 years ago after coronary artery bypass grafting, noncompliant followups. 3. Seen by ITZEL Ramos outpatient in the past, seen by Dr. Salazar, inpatient and felt to be too unreliable in followup to have a defibrillator. The patient has been seen by Dr. Raul Carlos and an echocardiogram obtained at the time of this dictation. Results pending. She was started on Coreg 3.125 mg b.i.d. Follow up with Dr. Carlos in 2 to 3 weeks. We will adjust the dose. PROCEDURES: 1. Laparoscopic video cholecystectomy. Note, the patient to be kept in the hospital overnight due to lack of anesthesia resources at 4 o'clock in the afternoon. On the day of presentation, she was stable for surgery, but kept overnight due to lack of OR resources. 2. Chronic kidney disease, not yet on dialysis hospitalization. FOLLOWUP: Recommend to follow up with Dr. Carlos in the next 3 to 4 weeks. Follow up with Dr. Way in 3 to 4 weeks. Outpatient right arm dialysis fistula or graft in the next few weeks. GFR 14. PROCEDURES: Laparoscopic video cholecystectomy. HISTORY: Raquel Osorio had coronary artery bypass grafting 2 years ago. She was followed by Dr. Carlos, but had been noncompliant in followup. She has seen ITZEL Ramos on one occasion, but did not keep followup appointments. She presents to the emergency room with cholecystitis, acute on chronic. She was talked to Dr. Carlos and she could go for laparoscopic cholecystectomy, but there are lack of anesthesia resources at 4 o'clock in the afternoon that she was hospitalized and kept overnight. Ultrasound vein mapping obtained in preparation for outpatient fistula placement for future dialysis access. Her veins are slightly superior on the right, but she has risk for having to have a prosthetic graft. Dr. Way will follow her up. The patient underwent laparoscopic cholecystectomy, did well postoperatively, was tolerating her diet. She has been discharged home at this time with followups as noted. Diet and activity as tolerated. Renal and diabetic diet. Resume her home medications. Tylenol [id number] for pain, Ultram if necessary. Job ID: [id number]
--- NOTE | 2019-07-29 04:40 | PQF ---
[employer] Crystal Reports Win[employer] IZA Lombardi ASAD MD [id number] [facility] B- [id number] CLINICAL DOCUMENTATION CLARIFICATION FORM: POST DISCHARGE Addendum to original discharge summary date: ____ Late entry note date: __ DATE: 07/29/2019 ATTN: LAY MOELLER MD Please exercise your independent, professional judgment in responding to the clarification form. Clinical indicators are provided on the bottom of this form for your review Please check appropriate box(s): [ x ] CKD without ARF/ADRIENNE please specify Stage of CKD 5 [ ] ESRD [ ] Other diagnosis [ ] Unable to determine In addition, please specify: Present on Admission (POA): [x ] Yes [ ] No [ ] Unable to determine National Kidney Foundation Guidelines for CKD Staging Stage I Kidney damage with normal or increased GFRGFR > 90 Stage IIKidney damage with mildly decreased GFRGFR 60-89 Stage III Kidney damage with moderately decreased GFRGFR 30-59 Stage IVKidney damage with severely decreased GFRGFR 16-29 Stage VKidney failureGFR<15 ESRDEnd Stage Renal DiseaseOn dialysis Acute Renal Failure/Acute Kidney Failure defined as: Increases in SCr by (>) 0.3 mg/dl within 48 hours OR- Increases in SCr by (>) 1.5 times baseline, known or presumed to have occurred within the prior 7 days OR- Urine volume < 0.5 ml/kg/hour for 6 hours (KDIGO supplement 2012 for RIFLE/SANG criteria) For continuity of documentation, please document condition throughout progress notes and discharge summary. Thank You. CLINICAL INDICATORS - SIGNS / SYMPTOMS / LABS GFR is 11 to 14 - Documented in H&P on 09/25 by Nathan Cardozo On temporary dialysis - Documented in H&P on 09/25 by Nathan Cardozo she states she has not been told that she would need dialysis in the future - Documented in H&P on 09/25 by Nathan Cardozo She May need dialysis in the future - Documented in H&P on 09/25 by Nathan Cardozo CKD-3 - Documented in Consult note on 07/27 by Martin Hale advanced renal disease not on dialysis,but likely needing in the near future - Documented in Consult note on 07/27 by Martin Hale CKD 4, no urgent indication for dialysis - Documented in Consult note on 07/27 by Rayna Eldridge CKD-5 no urgent indication for dialysis - Documented in PNs on 07/28 by Rayna Eldridge RISK FACTORS temporary right subclavian vein dialysis catheter - Documented in H&P on 09/25 by Nathan Cardozo temporary right groin dialysis catheter - Documented in H&P on 09/25 by Nathan Cardozo She has progressive CKD with a low EF - Documented in Consult note on 07/27 by Rayna Eldridge TREATMENTS: Medication based on GFR appropriate - Documented in Consult note on 07/27 by Rayna Eldridge US vessel mapping obtained for outpt fistula placement - Documented in DS on by Nathan Cardozo Consultation (This form is maintained as a part of the permanent medical record) 2014 [employer] All Rights Reserved [email or web address] [not provided] MTDD
== END 2019-07-28 15:45 | disposition home or self-care (01) | DRG 418 ==
LOC: ERS 09:54 → SURG B 18:47
PROVIDERS: ADMIT Specialist; ATTEND Specialist
PROC: 0FT44ZZ Resection of Gallbladder, Percutaneous Endoscopic Approach (ICD-10-PCS; principal; 2019-07-27)
DX: K80.12 Calculus of gallbladder with acute and chronic cholecystitis without obstruction (principal); I50.22 Chronic systolic (congestive) heart failure; N18.5 Chronic kidney disease, stage 5; I13.2 Hypertensive heart and chronic kidney disease with heart failure and with stage 5 chronic kidney disease, or end stage renal disease; E11.22 Type 2 diabetes mellitus with diabetic chronic kidney disease; I25.10 Atherosclerotic heart disease of native coronary artery without angina pectoris; I25.5 Ischemic cardiomyopathy; E03.9 Hypothyroidism, unspecified; D64.9 Anemia, unspecified; Z79.4 Long term (current) use of insulin; Z79.899 Other long term (current) drug therapy; Z88.8 Allergy status to other drugs, medicaments and biological substances; Z79.82 Long term (current) use of aspirin; Z95.1 Presence of aortocoronary bypass graft; Z90.49 Acquired absence of other specified parts of digestive tract
CPT/HCPCS: 36415; 36416; 71045; 76705; 76770; 80048; 80053; 83690; 84484; 85025; 88304; 93005; 93306; 93970; 96374; 96375; G0365; J0131; J1956; J2001; J2250; J2270; J2405; J2704; J3010; S0020

== ENCOUNTER 2020-03-13 13:07 | Inpatient (IN) | payer OTHER ==
[2020-03-13 15:20] LABS: #Eosinphils 0.6 thou/uL (0.0-0.7); #Lymphocytes 1.4 thou/uL (1.20-3.40); #Monocytes 0.2 thou/uL (0.11-0.59); #Neutrophils 1.5 thou/uL (1.40-6.50); %Basophils 0.9 % (0.0-1.0); %Lymphocytes 37.3 % (21.0-51.0); %Monocytes 4.5 % (0.0-10.0); %Neutrophils 40.4 % (42.0-75.0); Hemoglobin 7.4 g/dL (12.0-16.0); Mean Corpuscular HGB CONC 33.3 g/dL (32.0-36.0); Mean Corpuscular Hemoglobin 32.3 pg (27.0-31.0); Mean Corpuscular Volume 96.8 fL (78.0-98.0); Mean Platelet Volume 10.7 fL (7.4-10.4); Platelet Count 77 thou/uL (130-400); Red Blood Cell (RBC) Count 2.29 mill/uL (4.20-5.40); White Blood Cell (WBC) Count 3.7 thou/uL (4.8-10.8)
[2020-03-13 16:28] LABS: Albumin 3.2 g/dL (3.5-5.0)
[2020-03-13 16:29] LABS: Chloride 104 mmol/L (98-107); Potassium 6.4 mmol/L (3.5-5.1); Sodium 131 mmol/L (136-145)
[2020-03-13 16:30] LABS: Calcium 7.5 mg/dL (7.8-10.44); Globulin 3.4 g/dL (2.4-3.5); Glucose 310 mg/dL (70-105); Protein, Total 6.6 g/dL (6.0-8.3)
[2020-03-13 16:32] LABS: Anion Gap 16 mmol/L (10-20); Bilirubin, Total 0.5 mg/dL (0.2-1.2); Carbon Dioxide 17 mmol/L (22-29)
[2020-03-13 16:33] LABS: Alkaline Phosphatase 186 U/L (40-110)
[2020-03-13 16:34] LABS: BUN (Urea Nitrogen) 61 mg/dL (9.8-20.1); Calc. Creatinine Clearance 0 mL/min (70-130); Estimated GFR-MDRD 7
[2020-03-13 16:35] LABS: AST (SGOT) 90 U/L (5-34)
[2020-03-13 16:36] LABS: ALT (SGPT) 25 U/L (8-55)
[2020-03-13] MEDS ORDERED: Dextrose 50% Abboject 50 ML SYRINGE ONE (17:31)
[2020-03-13] MEDS ORDERED: Calcium Chloride 1 GM/10 ML Abboject SYRINGE ONE (17:31)
[2020-03-13] MEDS ORDERED: Nitroglycerin 0.4 MG TAB 1 EACH ONE (17:31)
[2020-03-13] MEDS ORDERED: Insulin Regular 300 UNITS/3 ML VIAL ONE (17:34)
--- NOTE | 2020-03-13 18:12 | PDOC.FPRHP ---
- History of Present Illness Chief Complaint: abnormal lab History of Present Illness: 54yo F with pmh of CKD4,adrenal insufficiency, and CAD s/p CABG presents after being called by pcp because of a hemoglobin below 7. Only complaint pt has is that she has been fatigued recently. She states that since July 2019 she has not taken any of her meds because they were giving her a headache. She denies any heart palpitations, no bleeding, no melena or hematochezia ED Course: was given 1L NS - Allergies/Adverse Reactions Allergies Allergy/AdvReac Type Severity Reaction Status Date / Time No Known Allergies Allergy Verified 12/21/17 22:34 - Home Medications Medication Instructions Recorded Confirmed Type Calcium Carbonate + Vit D 1 tab PO BID-WM #60 tab 12/26/17 05/10/19 Rx [Caltrate 600 + Vit D] Gabapentin [Neurontin] 100 mg PO DAILY 11/12/18 03/13/20 History Metolazone [Zaroxolyn] 2.5 mg PO MWF 11/12/18 03/13/20 History Aspirin [Aspirin EC] 81 mg PO DAILY 11/13/18 03/13/20 History Atorvastatin Calcium [Lipitor] 40 mg PO DAILY 11/13/18 03/13/20 History Ferric Citrate [Auryxia] 210 mg PO DAILY 11/13/18 03/13/20 History Insulin NPH Hum/Reg Insulin HM 20 unit SQ BID 11/13/18 05/10/19 History [Novolin 70-30 100 Unit/ml Vial] Sucroferric Oxyhydroxide [Velphoro] 500 mg PO QAM-WM 11/13/18 03/13/20 History Cholecalciferol [Vitamin D3] 5,000 units PO DAILY #14 tab 11/15/18 05/10/19 Rx Epoetin [Procrit] 10,000 units SC Q7D #0 vial 11/15/18 03/13/20 Rx Lisinopril [Zestril] 10 mg PO DAILY #30 tab 11/17/18 03/13/20 Rx Acetaminophen [Tylenol Regular 650 mg PO Q6H PRN tab 06/27/19 Rx Strength] Ferrous Gluconate [Fergon] 324 mg PO QAM-WM #30 tab 06/27/19 Rx Levothyroxine Sodium [Synthroid] 25 mcg PO 0600 tab 06/27/19 03/13/20 Rx Levothyroxine Sodium [Synthroid] 112 mcg PO 0600 tab 06/27/19 03/13/20 Rx Acetaminophen [Tylenol Extra 1,000 mg PO Q6H PRN tab 07/28/19 Rx Strength] Carvedilol [Coreg] 3.125 mg PO BID-WM #30 tab 07/28/19 03/13/20 Rx traMADol HCl [Ultram] 50 mg PO Q4H PRN #20 tab 07/28/19 Rx Furosemide 40 mg PO DAILY 03/13/20 03/13/20 History Hydrocortisone 5 mg PO BID 03/13/20 03/13/20 History Insulin NPH Hum/Reg Insulin HM 0 unit SC AC 03/13/20 History [Novolin 70/30] Sucroferric Oxyhydroxide [Velphoro] 500 mg PO QAM-WM 03/13/20 03/13/20 History - History PMHx: adrenal insufficiency, CAD, s/p X3 vessel CABG, CKD IV, HFrEF 2/2 ischemic cardiomyopathy, HLD, anemia, DM insulin dependent, hypothyroidism PSHx: 3 vessel CABG FHx: DM in several family members from [place] Social: denies cigarette, etoh, or drug abuse. - Review of Systems General: reports: fatigue. denies: fever/chills Eyes: denies: eye pain, vision changes ENT: denies: nasal congestion, rhinorrhea Respiratory: denies: cough, congestion Cardiovascular: denies: chest pain, palpitation Gastrointestinal: denies: nausea, vomiting Genitourinary: denies: incontinence, dysuria Skin: denies: rashes, lesions Musculoskeletal: denies: pain, tenderness Neurological: denies: numbness, syncope Psychological: denies: anxiety, depression - Vital signs BP: 117/65, Pulse: 70, Resp: 18, Temp: 97.7 (Oral), Pain: 0, O2 sat: 96 on ( Room Air), Time: 03/13/2020 15:30. - Physical Exam Constitutional: NAD, awake, alert and oriented HEENT: EOMI, grossly normal vision, grossly normal hearing Neck: supple, trachea midline Chest: no-tender to palpation, no lesions Heart: RRR, normal S1/S2 Lungs: no respiratory distress, other (mild inspiratory crackles in bilat lung bases) Abdomen: soft, non-tender Musculoskeletal: normal structure, normal tone Neurological: no focal deficit, normal sensation Skin: no rash/lesions, good turgor Heme/Lymphatic: no purpura, no petechia Psychiatric: normal mood and affect, good judgment and insight FMR H&P: Results - Labs Result Diagrams: 03/13/20 15:01 03/13/20 16:04 Lab results: WBC 3.7 thou/uL (4.8-10.8) L 03/13/20 15:01 Hgb 7.4 g/dL (12.0-16.0) L 03/13/20 15:01 Hct 22.1 % (36.0-47.0) L 03/13/20 15:01 MCV 96.8 fL (78.0-98.0) 03/13/20 15:01 Plt Count 77 thou/uL (130-400) L 03/13/20 15:01 Neutrophils % 40.4 % (42.0-75.0) L 03/13/20 15:01 Sodium 131 mmol/L (136-145) L 03/13/20 16:04 Potassium 6.4 mmol/L (3.5-5.1) H 03/13/20 16:04 Chloride 104 mmol/L (98-107) 03/13/20 16:04 Carbon Dioxide 17 mmol/L (22-29) L 03/13/20 16:04 BUN 61 mg/dL (9.8-20.1) H 03/13/20 16:04 Creatinine 6.53 mg/dL (0.6-1.1) H 03/13/20 16:04 Glucose 310 mg/dL (70-105) H 03/13/20 16:04 Calcium 7.5 mg/dL (7.8-10.44) L 03/13/20 16:04 Total Bilirubin 0.5 mg/dL (0.2-1.2) 03/13/20 16:04 AST 90 U/L (5-34) H 03/13/20 16:04 ALT 25 U/L (8-55) 03/13/20 16:04 Alkaline Phosphatase 186 U/L (40-110) H 03/13/20 16:04 Serum Total Protein 6.6 g/dL (6.0-8.3) 03/13/20 16:04 Albumin 3.2 g/dL (3.5-5.0) L 03/13/20 16:04 FMR H&P: A/P - Problem List (1) Adrenal insufficiency Current Visit: Yes Status: Acute Code(s): E27.40 - UNSPECIFIED ADRENOCORTICAL INSUFFICIENCY (2) Anemia Current Visit: No Status: Chronic Code(s): D64.9 - ANEMIA, UNSPECIFIED Qualifiers: Anemia type: other cause Comment: likely chronic and secondary to CKD (3) CAD (coronary artery disease), [place] coronary artery Current Visit: No Status: Chronic Code(s): I25.10 - ATHSCL HEART DISEASE OF [place] CORONARY ARTERY W/O ANG PCTRS Qualifiers: [place] vs. transplanted heart: [place] heart Associated angina: with stable angina Qualified Code(s): I25.118 - Atherosclerotic heart disease of [place] coronary artery with other forms of angina pectoris (4) Chronic congestive heart failure Current Visit: No Status: Chronic Code(s): I50.9 - HEART FAILURE, UNSPECIFIED (5) DM2 (diabetes mellitus, type 2) Current Visit: No Status: Chronic Qualifiers: Diabetes mellitus alf insulin use: with long term care pharmacist use Diabetes mellitus complication status: with kidney complications Diabetes mellitus complication detail: with chronic kidney disease Chronic kidney disease stage : stage 4 (severe) Qualified Code(s): E11.22 - Type 2 diabetes mellitus with diabetic chronic kidney disease; N18.4 - Chronic kidney disease, stage 4 (severe ); Z79.4 - long term care pharmacist (current) use of insulin (6) HLD (hyperlipidemia) Current Visit: No Status: Chronic Code(s): E78.5 - HYPERLIPIDEMIA, UNSPECIFIED Qualifiers: Hyperlipidemia type: unspecified Qualified Code(s): E78.5 - Hyperlipidemia , unspecified (7) Hypothyroid Current Visit: No Status: Chronic Code(s): E03.9 - HYPOTHYROIDISM, UNSPECIFIED Qualifiers: Hypothyroidism type: unspecified Qualified Code(s): E03.9 - Hypothyroidism , unspecified - Plan Hyperkalemia 2/2 adrenal insufficiency A- likely 2/2 non compliance. As of now he has not had any meds to adress this problem P- will get EKG stat -calcium gluconate, insulin, D50 -kayexelate and lactulose 30cc per Dr. Fernandez -Nephrology consulted (appreciate recs) -will restart hydrocortisone Anemia A- normocytic, likely 2/2 CKD4. He is getting unit of blood in ED P- recheck h/h in AM -restart home epoetin hyponatremai 2/2 adrenal insufficiency A- slight with na 130 in ED. Likely 2/2 medication non compliance P- restart home hydrocortisone and recheck in AM HFrEF A- most recent ECHO july 2019 shows ef 20-25%. She seems to be slightly overloaded with crackles in lungs and is s/p 1 L IVF in ED and 1u PRBC P- will give 40mg lasix IV now -restart home lasix -if pt still overloaded with this, will add home metolazone -restart home BB and ACEi tomorrow if BPs are wnl or hypertensive -strict i/os, daily weights, fluid restriction 1500ml CKD4 -Dr. Fernandez consulted as above DM2 -SSI, accuchecks ACHS HLD, CAD s/p CABG, hypothyroid -will restart home meds CODE: full dispo: tele, obs IVF: KVO DIET: SALLY PCP: Marva
[2020-03-13] MEDS ORDERED: HumaLOG 300 UNITS/3 ML VIAL SC PRN (20:01)
[2020-03-13] MEDS ORDERED: Acetaminophen 325 MG TAB PO PRN (20:01)
[2020-03-13] MEDS ORDERED: Dextrose 5% in Water 1,000 ML IV PRN (20:01)
[2020-03-13] MEDS ORDERED: EPOETIN ALFA-EPBX (ESRD) 10,000 UNIT/ML VIAL SC SCH (21:30)
[2020-03-13 22:22] VITALS: BMI 20.3
[2020-03-13] MEDS: Furosemide 40 MG/4 ML VIAL SLOW IVP SCH ×2 (22:29→23:51)
[2020-03-13] MEDS: Heparin 5,000 UNITS/ML VIAL SC SCH (22:29)
[2020-03-13] MEDS: Dextrose 50% Abboject 50 ML SYRINGE SLOW IVP PRN (23:11)
[2020-03-13] MEDS: Hydrocortisone 10 mg Tablet PO SCH (23:20)
[2020-03-14 00:14] LABS: Potassium 4.5 mmol/L (3.5-5.1)
[2020-03-14] MEDS: Levothyroxine Sodium 25 MCG TAB PO SCH (05:11)
[2020-03-14] MEDS: Levothyroxine Sodium 112 MCG TAB PO SCH (05:11)
--- NOTE | 2020-03-14 05:22 | PDOC.FM ---
- Subjective Subjective: Pt is welsh speaking only and an interpretor was used. Today her main complaint is that she feels very tired and weak. She states that she began feeling this way at home a few days ago and also noticed some swelling in her legs and back. She went in to the clinic and was found to have high potassium and low Hb. 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 She has regret and apologized profusely for not taking her medications. Today she was anxious and tearful when discussing her health. She denies CP, SOB, N/V, paresthesia, ARMENDARIZ, changes in vision, MSK pain, dysuria. - Objective Vital Signs & Weight: Vital Signs (12 hours) Temp Pulse Resp BP Pulse Ox 03/14/20 04:41 98.2 F 72 16 120/59 L 92 L 03/14/20 00:15 97.8 F 77 17 131/71 91 L 03/13/20 19:45 97.4 F L 85 18 144/75 H 94 L Weight Weight 52.163 kg Result Diagrams: 03/14/20 05:50 03/14/20 05:50 Phys Exam - Physical Examination Constitutional: NAD appears weak, voice was weak and speech slow HEENT: moist MMs poor dentition Neck: no JVD, supple Respiratory: no wheezing, clear to auscultation bilateral Cardiovascular: RRR, no significant murmur Gastrointestinal: soft, non-tender, positive bowel sounds Musculoskeletal: no edema, pulses present Neurological: normal sensation, moves all 4 limbs Deviation from normal: anxious and tearful Deviation from normal: had some old wounds on both knees from a fall at home Dx/Plan - Plan Plan: Hyperkalemia 2/2 adrenal insufficiency -In ED, was 6.4, was given insulin, D50, kayexalate and calcium chloride and it lowered to 4.5, today it is 5.4 -EKG showed sinus rhythm with some left axis deviation -Nephrology consulted (appreciate recs) -her home hydrocortisone was started -will recheck this afternoon ADRIENNE on CKD - Cr elevated to 6.4 -will order serum osm, urine Na and osm to evaluate further - nephro consulted Anemia -normocytic, likely 2/2 CKD4. -was given 1u pRBC in ED yesterday. Hb 7.4->8.9 -is supposed to be taking iron supplementation at home along with epoietin. Will restart today hyponatremia 2/2 adrenal insufficiency - 131->132. chart review reveals this to be a chronic problem likely 2/2 to CKD , adrenal insufficiency HFrEF - most recent ECHO july 2019 shows ef 20-25%. She seems to be slightly overloaded with crackles in lungs in ED. -was given lasix and lungs are clear, no pretibial edema -restart home lasix -will watch vitals to determine when to start home meds -strict i/os, daily weights, fluid restriction 1500ml DM2 -SSI, accuchecks ACHS -pt states that she only uses one unit of insulin at home -labile blood sugar, hypoglycemic this morning likely due to her not having eaten since being admitted HLD, CAD s/p CABG, hypothyroid -will restart home meds CODE: full IVF: KVO DIET: HH PCP: Marva Dispo: patient is stable, tele obs, nephro consulted, LOS expected <48 hours Addendum - Attending - Attending Attestation Date/Time: 03/14/20 1630 I personally evaluated the patient and discussed the management with Dr. Raman. I agree with the History, Examination, Assessment and Plan documented above with any addition or exceptions noted below. Patient with multiple previous medical problems who has been off all medications for several months now here with pancytopenia and ESRD status. Nephro on board and recommends HD initiation, but there is concern this patient is an undocumented immigrant which will pose financial challenges. She also received 1 unit PRBCS, no evidence of bleeding at this time. Electrolytes improved after restarting her chronic HC therapy for AI. Will need to figure out her immigrant status as that will affect future directions of care per Nephrology.
[2020-03-14] MEDS: Dextrose 50% Abboject 50 ML SYRINGE SLOW IVP PRN (06:37)
[2020-03-14 06:38] LABS: #Eosinphils 0.5 thou/uL (0.0-0.7); #Lymphocytes 0.7 thou/uL (1.20-3.40); #Monocytes 0.2 thou/uL (0.11-0.59); #Neutrophils 2.7 thou/uL (1.40-6.50); %Basophils 0.2 % (0.0-1.0); %Eosinophils 12.7 % (0.0-10.0); %Lymphocytes 16.4 % (21.0-51.0); %Monocytes 4.7 % (0.0-10.0); Hemoglobin 8.9 g/dL (12.0-16.0); Mean Corpuscular HGB CONC 33.9 g/dL (32.0-36.0); Mean Corpuscular Volume 94.3 fL (78.0-98.0); Platelet Count 64 thou/uL (130-400); RBC Distribution Width 13.6 % (11.5-14.5); Red Blood Cell (RBC) Count 2.78 mill/uL (4.20-5.40); White Blood Cell (WBC) Count 4.2 thou/uL (4.8-10.8)
[2020-03-14 06:51] LABS: ALT (SGPT) 24 U/L (8-55); AST (SGOT) 93 U/L (5-34); Albumin 2.9 g/dL (3.5-5.0); Alkaline Phosphatase 185 U/L (40-110); Anion Gap 13 mmol/L (10-20); BUN (Urea Nitrogen) 59 mg/dL (9.8-20.1); Bilirubin, Total 0.5 mg/dL (0.2-1.2); Calc. Creatinine Clearance 8 mL/min (70-130); Calcium 7.9 mg/dL (7.8-10.44); Carbon Dioxide 17 mmol/L (22-29); Chloride 107 mmol/L (98-107); Estimated GFR-MDRD 7; Globulin 3.3 g/dL (2.4-3.5); Potassium 5.4 mmol/L (3.5-5.1); Protein, Total 6.2 g/dL (6.0-8.3); Sodium 132 mmol/L (136-145)
[2020-03-14 06:58] LABS: Glucose 54 mg/dL (70-105)
[2020-03-14] MEDS ORDERED: Sucroferric Oxyhydroxide [Velphoro] 500 MG PO SCH (08:00)
[2020-03-14] MEDS ORDERED: Ferric Citrate [Auryxia] 210 MG PO SCH (09:00)
[2020-03-14] MEDS: Atorvastatin Calcium 40 MG TAB PO SCH (09:35)
[2020-03-14] MEDS: Heparin 5,000 UNITS/ML VIAL SC SCH ×3 (09:35→21:01)
[2020-03-14] MEDS: Furosemide 40 MG TAB PO SCH (09:35)
[2020-03-14] MEDS: Hydrocortisone 10 mg Tablet PO SCH ×2 (09:35→20:55)
--- NOTE | 2020-03-14 13:12 | CON ---
DATE OF CONSULTATION: 03/14/2020 CONSULTING PHYSICIAN: Dr. Prince. REASON FOR CONSULTATION: Acute kidney injury on chronic kidney disease. REASON FOR ADMISSION: Abnormal labs. HISTORY OF PRESENT ILLNESS: This is a 54-year-old female with history of chronic kidney disease and anemia, came to the hospital because of hemoglobin of 7. No fever or chills. No nausea or vomiting. The patient was not taking her medications lately and was seeing naturopathist. The patient reports to me that she is not documented and she cannot have dialysis. PAST MEDICAL HISTORY: Positive for adrenal insufficiency, CKD, CAD, ischemic cardiomyopathy, anemia, hypothyroidism. PAST SURGICAL HISTORY: CABG. HOME MEDICATIONS: Reviewed. ALLERGIES: NO KNOWN DRUG ALLERGIES. SOCIAL HISTORY: No smoking, alcohol, or illicit drugs. FAMILY HISTORY: No history of kidney disease. REVIEW OF SYSTEMS: The following complete review of systems was negative, unless otherwise mentioned in the HPI or below: Constitutional: Weight loss or gain, ability to conduct usual activities. Skin: Rash, itching. Eyes: Double vision, pain. ENT/Mouth: Nose bleeding, neck stiffness, pain, tenderness. Cardiovascular: Palpitations, dyspnea on exertion, orthopnea. Respiratory: Shortness of breath, wheezing, cough, hemoptysis, fever or night sweats. Gastrointestinal: Poor appetite, abdominal pain, heartburn, nausea, vomiting, constipation, or diarrhea. Genitourinary: Urgency, frequency, dysuria, nocturia. Musculoskeletal: Pain, swelling. Neurologic/Psychiatric: Anxiety, depression. Allergy/Immunologic: Skin rash, bleeding tendency. PHYSICAL EXAMINATION: GENERAL: This is a thin built female, in no apparent distress. VITAL SIGNS: Temperature , pulse 67, respiratory rate 18, blood pressure 132/65. HEENT: Atraumatic and normocephalic. Oral mucosa is moist. NECK: Supple. CV: S1 and S2. Rate and rhythm regular. RESPIRATORY: Clear. GI: Abdomen is soft. MUSCULOSKELETAL: 1+ edema. DERMATOLOGIC: No skin rash. NEUROLOGIC: Alert and awake. PSYCHIATRIC: Normal mood and affect. LABORATORY DATA: Hemoglobin 8.9. Potassium 5.4, BUN is 59, creatinine is 6.4. ASSESSMENT AND PLAN: 1. Acute kidney injury on chronic kidney disease, stage 4, with worsening labs, most likely with progression of chronic kidney disease. The patient requires dialysis, but she is not funded to have dialysis, so I have asked the nurse to involve Palliative Care and consider hospice care. Also Case Management to look into the situation to see if she could get dialysis as outpatient. 2. Anemia of chronic disease. 3. Hyperkalemia, better. 4. Hyponatremia. 5. Labile hypertension. 6. Labile diabetes. 7. Elevated liver enzymes. 8. Hypoalbuminemia, severe protein energy malnutrition. Prognosis is very poor. It seems like she may not be able to get outpatient dialysis. We will have Case Management and also Palliative Care look into the case and help this lady to fight against her chronic comorbidities. Thank you for the consult. Plan discussed with Dr. Chiang and team. We will follow. Job ID: [id number]
[2020-03-14 16:09] LABS: Potassium 5.8 mmol/L (3.5-5.1)
[2020-03-15] MEDS ORDERED: Dextrose 5% in Water 1,000 ML IV PRN (00:37)
[2020-03-15] MEDS ORDERED: Dextrose 50% Abboject 50 ML SYRINGE SLOW IVP PRN (00:37)
[2020-03-15] MEDS: HumaLOG 300 UNITS/3 ML VIAL SC PRN ×2 (00:59→03:43)
[2020-03-15 01:11] LABS: Anion Gap 17 mmol/L (10-20); BUN (Urea Nitrogen) 57 mg/dL (9.8-20.1); Calc. Creatinine Clearance 8 mL/min (70-130); Calcium 7.9 mg/dL (7.8-10.44); Carbon Dioxide 16 mmol/L (22-29); Chloride 102 mmol/L (98-107); Estimated GFR-MDRD 7; Glucose 345 mg/dL (70-105); Sodium 130 mmol/L (136-145)
[2020-03-15 04:20] LABS: #Lymphocytes 0.4 thou/uL (1.20-3.40); #Neutrophils 3.1 thou/uL (1.40-6.50); %Basophils 0.1 % (0.0-1.0); %Eosinophils 0.3 % (0.0-10.0); %Lymphocytes 10.8 % (21.0-51.0); %Monocytes 0.6 % (0.0-10.0); %Neutrophils 88.1 % (42.0-75.0); Mean Corpuscular Hemoglobin 31.3 pg (27.0-31.0); Mean Corpuscular Volume 94.7 fL (78.0-98.0); Mean Platelet Volume 10.4 fL (7.4-10.4); Platelet Count 69 thou/uL (130-400); RBC Distribution Width 13.8 % (11.5-14.5); Red Blood Cell (RBC) Count 2.88 mill/uL (4.20-5.40); White Blood Cell (WBC) Count 3.5 thou/uL (4.8-10.8)
[2020-03-15 04:59] LABS: ALT (SGPT) 21 U/L (8-55); AST (SGOT) 68 U/L (5-34); Albumin 2.6 g/dL (3.5-5.0); Alkaline Phosphatase 167 U/L (40-110); Anion Gap 17 mmol/L (10-20); BUN (Urea Nitrogen) 59 mg/dL (9.8-20.1); Bilirubin, Total 0.5 mg/dL (0.2-1.2); Calc. Creatinine Clearance 8 mL/min (70-130); Calcium 7.7 mg/dL (7.8-10.44); Carbon Dioxide 13 mmol/L (22-29); Chloride 105 mmol/L (98-107); Estimated GFR-MDRD 7; Globulin 3.4 g/dL (2.4-3.5); Glucose 291 mg/dL (70-105); Potassium 4.6 mmol/L (3.5-5.1); Sodium 130 mmol/L (136-145)
[2020-03-15] MEDS ORDERED: Insulin Regular 300 UNITS/3 ML VIAL SC PRN (05:53)
--- NOTE | 2020-03-15 05:56 | PDOC.FM ---
- Subjective Subjective: Pt is stable this morning. She says she feels better and would like to go home. She is eating well. - Objective Vital Signs & Weight: Vital Signs (12 hours) Temp Pulse Resp BP Pulse Ox 03/15/20 03:18 98.6 F 76 18 108/51 L 94 L 03/14/20 19:40 98.7 F 70 16 117/58 L 96 Weight Weight 51.982 kg Result Diagrams: 03/15/20 03:32 03/15/20 03:32 Phys Exam - Physical Examination Constitutional: NAD HEENT: moist MMs poor dentition Neck: no JVD, supple Respiratory: no wheezing, clear to auscultation bilateral Cardiovascular: RRR, no significant murmur Gastrointestinal: soft, non-tender, positive bowel sounds Musculoskeletal: no edema, pulses present Neurological: non-focal Psychiatric: normal affect Deviation from normal: healing wounds on bilat knees from fall at home Dx/Plan - Plan Plan: Hyperkalemia 2/2 adrenal insufficiency -yesterday 5.8, today 4.6 -was given kayexalate, lactulose and insulin overnight -EKG showed sinus rhythm with some left axis deviation -Nephrology consulted (appreciate recs)- recommended dialysis but pt is undocumented and will not qualify for outpatient dialysis -her home hydrocortisone was started -will continue to monitor ADRIENNE on CKD - Cr elevated to 6.4 - nephro consulted and believes this is a progression of her chronic kidney disease - needs dialysis as stated above -ordered U Osm, U Cr, U urea Anemia -normocytic, likely 2/2 CKD4. -was given 1u pRBC in ED. Hb 7.4->8.9 -on Fe supplementation and epoetin hyponatremia 2/2 adrenal insufficiency - chart review reveals this to be a chronic problem likely 2/2 to CKD, adrenal insufficiency HFrEF -most recent ECHO july 2019 shows ef 20-25%. She seems to be slightly overloaded with crackles in lungs in ED. -lungs are clear, no pretibial edema -restart home lasix -will watch vitals to determine when to start home meds -strict i/os- not documented in chart, was told she had one unmeasured void, no idea on intake DM2 -SSI, accuchecks q2h -labile blood sugar, overnight had blood sugar>300, was given several units of insulin, was down to 180 and now 84. Will monitor closely due to ESRD -lantus added as per nephro recs Transaminitis -AST 90-->68 -improving, pt denies EtOH use HLD, CAD s/p CABG, hypothyroid -will restart home meds CODE: full IVF: KVO DIET: HH PCP: Marva Dispo: patient is stable, tele obs, nephro consulted, LOS expected <48 hours Addendum - Attending - Attending Attestation Date/Time: 03/15/20 0087 I personally evaluated the patient and discussed the management with Dr. Raman. I agree with the History, Examination, Assessment and Plan documented above with any addition or exceptions noted below. Patient overall stable. Verifying her immigration status before decisions on HD can be made. Labs and blood counts overall stable. Needs escalation of insulin therapy.
[2020-03-15] MEDS: Levothyroxine Sodium 112 MCG TAB PO SCH (06:37)
[2020-03-15] MEDS: Levothyroxine Sodium 25 MCG TAB PO SCH (06:37)
[2020-03-15] MEDS: Hydrocortisone 10 mg Tablet PO SCH (08:12)
[2020-03-15] MEDS: Furosemide 40 MG TAB PO SCH (08:13)
[2020-03-15] MEDS: Atorvastatin Calcium 40 MG TAB PO SCH (08:13)
[2020-03-15] MEDS: Heparin 5,000 UNITS/ML VIAL SC SCH ×2 (08:13→15:36)
[2020-03-15] MEDS ORDERED: INSULIN GLARGINE SC SCH (09:00)
[2020-03-15] MEDS ORDERED: PRE FILLED SC SCH (09:00)
--- NOTE | 2020-03-15 10:23 | PQF ---
Q26 2018 [facility] Updated: CLINICAL DOCUMENTATION CLARIFICATION FORM: Patient Name: IZA MONTES Date of : 1965 Account: [id number] Admit Date: 03/13/2020 Facility: [facility] [place] Dear Dr. Chiang/Dr. Raman Date 03/15/20 Please exercise your independent, professional judgment in responding to the clarification form. Clinical indicators are provided on the bottom of this form for your review. Please check appropriate box(es): HEART FAILURE: A. ACUITY [ ] Acute [ ] Acute on Chronic [ x ] Chronic B. TYPE: [ ] Systolic / HFrEF [ ] Diastolic / HFpEF [ ] Combined Systolic / Diastolic [ x ] Hypertensive Heart and Kidney disease [ ] Hypertensive Heart Disease [ ] Hypertensive Kidney Disease [ ] Other diagnosis [ ] Unable to determine In addition, please specify: Present on Admission (POA): [ x] Yes [ ] No [ ] Unable to determine Physician Signature: Date/Time: For continuity of documentation, please document condition throughout progress notes and discharge summary. Thank You. To be completed by CDI/Coding staff for physician review: Present Clinical Indicators - Signs / Symptoms / Labs Results and Location in Medical Record H&P: "SHE SEEMS TO BE SLIGHTLY OVERLOADED WITH CRACKLES IN LUNGS." RISKS: H/O CONGESTIVE HEART FAILURE (H&P) MOST RECENT ECHO 20-25% (H&P) H/O CKD 4 (H&P) TREATMENT: IV LASIX STRICT I&Os (H&P) DAILY WEIGHTS (H&P) FLUID RESTRICTION (H&P) LASIX 40 MG IV (NOW DOSE- PER H&P) LASIX PO (03/14-PRESENT) CDS/Trolley Wire Installer Signature: Allegra Steeel RN Phone #: [phone] Date 03/15/20 This is a permanent part of the Medical Record [facility]
--- NOTE | 2020-03-15 11:07 | PRG ---
DATE OF SERVICE: 03/15/2020 SUBJECTIVE: Patient was seen and examined at bedside and overnight events noted. Patient denies any shortness of breath or chest pain or palpitation. No history of nausea or vomiting or diarrhea or fever or chills or cramps. OBJECTIVE: GENERAL: This is a well-built female, in no apparent distress. VITAL SIGNS: Temperature 97.7. Heart rate 72. Respiratory rate 18. Blood pressure 106/53. HEENT: Atraumatic, normocephalic. Oral mucosa is moist. NECK: Supple. CARDIOVASCULAR: S1, S2 heard. Rate and rhythm regular. RESPIRATORY: Clear to auscultation. GASTROINTESTINAL: Abdomen is soft. MUSCULOSKELETAL: No tenderness. No edema. DERMATOLOGIC: No skin rash. NEUROLOGIC: Alert and awake and oriented x3. No focal neurologic deficits. Moving all the extremities. PSYCHIATRIC: Mood and affect normal. LABORATORY DATA: Potassium 4.6, BUN is 59, and creatinine is 6.3. ASSESSMENT AND PLAN: 1. Chronic kidney disease, stage 5, stable. 2. Anemia of chronic disease. 3. Hyperkalemia. 4. Hypertension. 5. Elevated liver enzyme. Overall, labs are stable, but the patient reports that she does not have insurance to get dialysis as outpatient and Case Management is checking on the status. If no insurance or if she is not documented to get dialysis, okay to send home and follow with Dr. Way in 1 week. Consider hospice evaluation to. Job ID: [id number]
[2020-03-15 11:44] VITALS: TEMP 97.9
[2020-03-15 15:09] VITALS: BP 112/61
--- NOTE | 2020-03-15 16:10 | PDOC.PALPN ---
Palliative Progress Note - Objective Vital Signs: Vital Signs - Most Recent Temp Pulse Resp BP Pulse Ox 97.9 F 74 18 112/61 99 03/15/20 15:07 03/15/20 15:07 03/15/20 15:07 03/15/20 15:07 03/15/20 15:07 - Plan Plan: Lengthy conversation with family and patient using guard manager in relation to disease process, limited options for treatment/specifically since she is undocumented, and Goal of Care. Patient would like to follow up with Dr Way if able, to go home as soon as possible. Understanding that without documentation of being in [place] dialysis is a limited option. Discussed hospice, but does not want to pursue this. Addressed resuscitation status, desires to remain full resuscitation. Extensive teaching in relation to disease process and trajectory. Please also refer to Palliative Care RN notes in note section [40] minutes spent on this encounter with >50% of the time in counseling and coordination of care.
--- NOTE | 2020-03-15 18:58 | PDOC.FMACP ---
Advance Care Planning - Problem (1) Palliative care encounter Status: Acute Code(s): Z51.5 - ENCOUNTER FOR PALLIATIVE CARE (2) Acute renal failure Status: Acute (3) Adrenal insufficiency Status: Acute Code(s): E27.40 - UNSPECIFIED ADRENOCORTICAL INSUFFICIENCY (4) Anemia in chronic kidney disease Status: Acute Code(s): N18.9 - CHRONIC KIDNEY DISEASE, UNSPECIFIED; D63.1 - ANEMIA IN CHRONIC KIDNEY DISEASE (5) Hyperkalemia Status: Acute Code(s): E87.5 - HYPERKALEMIA (6) DM2 (diabetes mellitus, type 2) Status: Chronic Qualifiers: Diabetes mellitus intermission coordinator insulin use: with snf use Diabetes mellitus complication status: with kidney complications Diabetes mellitus complication detail: with chronic kidney disease Chronic kidney disease stage : stage 4 (severe) Qualified Code(s): E11.22 - Type 2 diabetes mellitus with diabetic chronic kidney disease; N18.4 - Chronic kidney disease, stage 4 (severe ); Z79.4 - termite inspector (current) use of insulin - Note Participants: patient, family, palliative care Summary: Introduced Advanced Care Planning, allowed opportunity to decline. The diagnosis, prognosis and goals of care were discussed. Appropriate forms and documentation to accomplish the goals of care were discussed. All questions were answered. The Palliative Care Team will be engaged to assist with completion of any outstanding forms that are needed. Patient currently desires to remain with full resuscititation measures and aggressive therapies. No completion of forms. Health Evaluator used for communication, her brother and sister- in-law are present. Time Spent (mins): 15
--- NOTE | 2020-03-16 00:30 | DIS ---
DATE OF ADMISSION: 03/13/2020 DATE OF DISCHARGE: 03/15/2020 RESIDENT: Ree Raman MD ADMITTING ATTENDING: Matthew Chiang MD DISCHARGE ATTENDING: Matthew Chiang MD CONSULTS: Nephrology. PROCEDURES: None. PRIMARY DIAGNOSIS: Hyperkalemia. SECONDARY DIAGNOSES: 1. End-stage renal disease. 2. Anemia. 3. Diabetes. 4. Heart failure. 5. Acute kidney injury on chronic kidney disease. 6. Hyperlipidemia. 7. Coronary artery disease, status post coronary artery bypass graft. 8. Hypothyroidism. DISCHARGE MEDICATIONS: 1. Atorvastatin 40 mg p.o. daily. 2. Epoetin Procrit 10,000 units subcu every 7 days. 3. Ferric citrate 210 mg p.o. daily. 4. Furosemide 40 mg p.o. daily. 5. Gabapentin 100 mg p.o. daily. 6. Hydrocortisone 5 mg p.o. b.i.d. 7. Insulin NPH one unit subcu daily. 8. Levothyroxine 112 mcg p.o. daily. 9. Levothyroxine 25 mcg p.o. daily. 10. Sodium bicarbonate 325 mg p.o. daily. 11. Velphoro 500 mg p.o. daily. Discontinued medications: None. HISTORY OF PRESENT ILLNESS: This is a 54-year-old female with past medical history chronic kidney disease, adrenal insufficiency, coronary artery disease, hypothyroidism, heart failure, and diabetes, who presents to the ED from clinic due to lab abnormality. She was seen by her PCP and was found to have elevated potassium and anemia. She had feelings of being weak, tired and having some swelling of her lower extremities. The patient had been off all her home medications since August of 2019 after she had seen a water regulator and valve repairer who suggested that she should stop taking them. She was given 1 unit of red blood cell in ED to correct her anemia. She was admitted to tele for observation. She was found to be hyperkalemia and had acute kidney injury on top of chronic kidney disease. Nephrology was consulted. It was an unfortunate social situation. She was found to need dialysis according to Nephrology, but is undocumented and not able to qualify for it outpatient. We were able to correct the potassium in the hospital and manage her blood sugars. Her home medications were restarted in the hospital except for 2 antihypertensives due to her decreased blood pressure. Case Management and Palliative Care were consulted. Palliative Care as well as myself and another resident physician consulted patient on her options. She wanted to go home. She wanted to talk with her family and she was resistant to hospice care at this time. She wants to remain full resuscitation. She is to follow up with Dr. Way as an outpatient. DISCHARGE INSTRUCTIONS: Location: Home. Diet: Diabetic. Activity: As tolerated. Followup: Follow up with Dr. Way in one week and her PCP in one week. Job ID: [id number] MTDD
[2020-03-16] MEDS ORDERED: Sodium Bicarbonate Tab 325 MG TAB PO SCH (09:00)
== END 2020-03-15 17:00 | disposition home or self-care (01) | DRG 682 ==
LOC: ERS 13:07 → 2NO 21:28 → OBSVTOIN 21:28
PROVIDERS: ADMIT Student in an Organized Health Care Education/Training Program; ATTEND Student in an Organized Health Care Education/Training Program
DX: N17.9 Acute kidney failure, unspecified (principal); E43 Unspecified severe protein-calorie malnutrition; E27.40 Unspecified adrenocortical insufficiency; I50.22 Chronic systolic (congestive) heart failure; E87.1 Hypo-osmolality and hyponatremia; I13.2 Hypertensive heart and chronic kidney disease with heart failure and with stage 5 chronic kidney disease, or end stage renal disease; E87.5 Hyperkalemia; N18.6 End stage renal disease; D63.1 Anemia in chronic kidney disease; E11.22 Type 2 diabetes mellitus with diabetic chronic kidney disease; E78.5 Hyperlipidemia, unspecified; E03.9 Hypothyroidism, unspecified; I25.5 Ischemic cardiomyopathy; F32.9 Major depressive disorder, single episode, unspecified; I25.118 Atherosclerotic heart disease of native coronary artery with other forms of angina pectoris; Z51.5 Encounter for palliative care; Z79.4 Long term (current) use of insulin; Z95.1 Presence of aortocoronary bypass graft; Z79.890 Hormone replacement therapy; Z79.899 Other long term (current) drug therapy; Z91.14 Patient's other noncompliance with medication regimen; Z90.49 Acquired absence of other specified parts of digestive tract; Z68.20 Body mass index [BMI] 20.0-20.9, adult
CPT/HCPCS: 36415; 36416; 36430; 80053; 82010; 82570; 83930; 83935; 84300; 84540; 85025; 86850; 86900; 86901; 93005; 96361; 96374; 96375; J1644; J1815; J1940; P9016; Q5105

== ENCOUNTER 2020-09-07 12:51 | Inpatient (IN) | payer OTHER ==
[2020-09-07] MEDS ORDERED: Cefepime 2 GM VIAL ONE (13:51)
[2020-09-07] MEDS ORDERED: Ondansetron PF 4 MG/2 ML Vial ONE ×2 (13:51→14:06)
[2020-09-07 14:21] LABS: ALT (SGPT) 8 U/L (8-55); AST (SGOT) 31 U/L (5-34); Albumin 2.2 g/dL (3.5-5.0); Alkaline Phosphatase 209 U/L (40-110); Anion Gap 18 mmol/L (10-20); BUN (Urea Nitrogen) 109 mg/dL (9.8-20.1); Bilirubin, Total 0.9 mg/dL (0.2-1.2); CK (CPK) 86 U/L (29-168); Calc. Creatinine Clearance 0 mL/min (70-130); Calcium 6.7 mg/dL (7.8-10.44); Carbon Dioxide 13 mmol/L (22-29); Chloride 111 mmol/L (98-107); Globulin 3.4 g/dL (2.4-3.5); Glucose 148 mg/dL (70-105); Lipase 23 U/L (8-78); Protein, Total 5.6 g/dL (6.0-8.3); Sodium 135 mmol/L (136-145)
[2020-09-07 14:22] LABS: #Eosinphils 0.2 thou/uL (0.0-0.7); #Lymphocytes 1.3 thou/uL (1.20-3.40); #Monocytes 0.3 thou/uL (0.11-0.59); #Neutrophils 5.3 thou/uL (1.40-6.50); %Basophils 0.3 % (0.0-1.0); %Eosinophils 2.3 % (0.0-10.0); %Lymphocytes 18.3 % (21.0-51.0); %Monocytes 4.3 % (0.0-10.0); %Neutrophils 74.9 % (42.0-75.0); Anisocytosis SLIGHT = 6-15 cells (100X) (0-5/hpf); Hemoglobin 5.4 g/dL (12.0-16.0); Hypochromia SLIGHT = 6-15 cells (100X) (0-5/hpf); MDiff Complete? YES; Mean Corpuscular HGB CONC 33.3 g/dL (32.0-36.0); Mean Corpuscular Hemoglobin 31.2 pg (27.0-31.0); Mean Corpuscular Volume 93.6 fL (78.0-98.0); Mean Platelet Volume 9.1 fL (7.4-10.4); Platelet Count 27 thou/uL (130-400); Platelet Morphology Comment Appears Decreased; Polychromasia SLIGHT = 2-3 cells (100X) (0-2/hpf); RBC Distribution Width 15.3 % (11.5-14.5); Red Blood Cell (RBC) Count 1.72 mill/uL (4.20-5.40); Reflex for Review?? NO; Target Cells SLIGHT = 2-5 cells (100X) (0-1/hpf); Tear Drops SLIGHT = 2-5 cells (100X) (0-1/hpf); White Blood Cell (WBC) Count 7.1 thou/uL (4.8-10.8)
--- NOTE | 2020-09-07 14:34 | RAD ---
EXAM: Chest one view: HISTORY: Weakness family as Covid positive COMPARISON: 07/26/2019 FINDINGS: Postop midline sternotomy. Heart size: Within normal limits. Lungs: Patchy parenchymal changes in the right midlung zone and left lower lung zone new from prior s tudy, certainly compatible with minimal bilateral Covid pneumonia. Stable appearing left pleural effusion/pleural thickening. IMPRESSION: Patchy parenchymal changes bilaterally evidence for minimal bilateral Covid pneumonia. Stable pleural changes in the left base. Continued short-term follow-up.
[2020-09-07 14:40] LABS: Potassium 7.2 mmol/L (3.5-5.1)
[2020-09-07] MEDS ORDERED: Dextrose 50% Abboject 50 ML SYRINGE ONE (14:46)
[2020-09-07] MEDS ORDERED: Calcium Gluc 4.6 MEQ/10 ML (100 MG/ML) ONE ×2 (14:48→15:20)
[2020-09-07] MEDS ORDERED: Insulin Regular 300 UNITS/3 ML VIAL ONE (14:49)
[2020-09-07 14:54] LABS: Bilirubin Negative (Negative); Blood, Urine 1+ (Negative); Clarity Clear (Clear); Glucose, Urine (Dipstick) 70 mg/dL (Negative); Ketone, Urine Negative (Negative); Leukocyte Negative Leu/uL (Negative); Nitrite Negative (Negative); Protein, Urine (Dipstick) 100 mg/dL (Neg-Trace); RBC/HPF 0-3 HPF (0-3); Specific Gravity, Urine 1.014 (1.002-1.036); Squamous Epithelial None Seen HPF (0-3); Urobilinogen Normal mg/dL (Less than 2); WBC/HPF 0-3 HPF (0-3); pH, Urine 5.5 (5.0-9.0)
[2020-09-07 14:56] LABS: Bacteria/HPF 1+ HPF (None Seen)
--- NOTE | 2020-09-07 15:22 | PDOC.FPRHP ---
- History of Present Illness Chief Complaint: fatigue History of Present Illness: A biology teacher was used for this encounter. Patient is a 55F that presented to the ED s/p feeling fatigued and weak for approximately the last 8 days. She also endorses diarrhea, decreased appetite, and a cough. Denies fevers and dyspnea. Has multiple family members +COVID, but states that she has not been near them. A lengthy discussion was had with the patient regarding the recommendation for dialysis. The patient states she does not want to pursue dialysis due to knowing someone that "from dialysis." Discussed that it is possible she may with a potassium as high as it is and that we strongly recommend dialysis. Patient stated understanding and continued to refuse dialysis. It was also discussed that patient would to be full code, knowing full well that she is at high risk of passing away within the next several months if she continues to refuse dialysis. Hospice was also discussed, and she stated that she would think about it but does not want to make a decision now. Patient was asked if there were any family members that she wanted me to notify, and she stated she has children but she does not want me to talk to them at this time because she does not want to worry them. ED Course: calcium gluconate, kayexylate, insulin + d50, zofran, 1L NS then 250 cc/hr, cefepime; pt refused dialysis - Allergies/Adverse Reactions Allergies Allergy/AdvReac Type Severity Reaction Status Date / Time No Known Allergies Allergy Verified 12/21/17 22:34 - Home Medications Medication Instructions Recorded Confirmed Type Aspirin [Aspirin EC] 81 mg PO DAILY 11/13/18 09/07/20 History Atorvastatin Calcium [Lipitor] 40 mg PO DAILY #30 tab 03/15/20 09/07/20 Rx Epoetin [Procrit] 10,000 units SC Q7D #4 vial 03/15/20 09/07/20 Rx Ferric Citrate [Auryxia] 210 mg PO DAILY #30 tablet 03/15/20 09/07/20 Rx Furosemide 40 mg PO DAILY #30 tablet 03/15/20 09/07/20 Rx Gabapentin [Neurontin] 100 mg PO DAILY 30 Days #30 cap 03/15/20 09/07/20 Rx Hydrocortisone 5 mg PO BID #60 tablet 03/15/20 09/07/20 Rx Insulin NPH Hum/Reg Insulin HM 1 unit SC DAILY 30 Days #1 vial 03/15/20 09/07/20 Rx [Novolin 70/30] Levothyroxine Sodium [Synthroid] 25 mcg PO 0600 #30 tab 03/15/20 09/07/20 Rx Levothyroxine Sodium [Synthroid] 112 mcg PO 0600 #30 tab 03/15/20 09/07/20 Rx Sodium Bicarbonate [Bicarbonate, 325 mg PO DAILY #30 tab 03/15/20 09/07/20 Rx Sodium] Sucroferric Oxyhydroxide [Velphoro] 500 mg PO QAM-WM #30 tab.chew 03/15/20 09/07/20 Rx - History PMHx: adrenal insufficiency, CAD, s/p X3 vessel CABG, CKD IV, HFrEF 2/2 ischemic cardiomyopathy, HLD, anemia, DM insulin dependent, hypothyroidism, ESRD not on HD PSHx: 3 vessel CABG, adan FHx: DM in several family members from [place] Social: denies cigarette, etoh, or drug abuse. - Review of Systems General: reports: weight/appetite/sleep changes. denies: fever/chills Eyes: denies: eye pain, vision changes ENT: denies: nasal congestion, rhinorrhea Respiratory: reports: cough. denies: shortness of breath Cardiovascular: denies: chest pain, edema Gastrointestinal: reports: diarrhea. denies: nausea, vomiting Genitourinary: denies: incontinence, discharge Skin: denies: rashes, lesions Musculoskeletal: denies: pain, tenderness Neurological: denies: numbness, syncope Psychological: reports: depression. denies: anxiety - Vital signs BP 117/53, Pulse: 68, Resp: 16, Temp: 97.5, O2 sat: 98 on (Room Air), Wt 44.5 kg. - Physical Exam Constitutional: NAD, awake, alert and oriented HEENT: normocephalic and atraumatic, EOMI Neck: supple, FROM Chest: no-tender to palpation Heart: RRR, normal S1/S2 Lungs: CTAB, no respiratory distress Abdomen: soft, non-tender, bowel sounds present Musculoskeletal: normal structure, ROM grossly normal Neurological: no focal deficit, normal sensation Skin: no rash/lesions, capillary refill <2 seconds Heme/Lymphatic: no unusual bruising or bleeding, no purpura Psychiatric: normal mood and affect, intact recent and remote memory, other (poor judgment and insight) FMR H&P: Results - Labs Result Diagrams: 09/08/20 02:15 09/08/20 02:15 Lab results: WBC 7.1 thou/uL (4.8-10.8) 09/07/20 13:35 Hgb 5.4 g/dL (12.0-16.0) L* 09/07/20 13:35 Hct 16.1 % (36.0-47.0) L 09/07/20 13:35 MCV 93.6 fL (78.0-98.0) 09/07/20 13:35 Plt Count 27 thou/uL (130-400) L* 09/07/20 13:35 Neutrophils % 74.9 % (42.0-75.0) 09/07/20 13:35 Sodium 135 mmol/L (136-145) L 09/07/20 13:35 Potassium 7.2 mmol/L (3.5-5.1) H* 09/07/20 13:35 Chloride 111 mmol/L (98-107) H 09/07/20 13:35 Carbon Dioxide 13 mmol/L (22-29) L 09/07/20 13:35 BUN 109 mg/dL (9.8-20.1) H 09/07/20 13:35 Creatinine 7.96 mg/dL (0.6-1.1) H 09/07/20 13:35 Glucose 148 mg/dL (70-105) H 09/07/20 13:35 Lactic Acid 1.2 mmol/L (0.5-2.2) 09/07/20 13:34 Calcium 6.7 mg/dL (7.8-10.44) L 09/07/20 13:35 Total Bilirubin 0.9 mg/dL (0.2-1.2) 09/07/20 13:35 AST 31 U/L (5-34) 09/07/20 13:35 ALT 8 U/L (8-55) 09/07/20 13:35 Alkaline Phosphatase 209 U/L (40-110) H 09/07/20 13:35 Creatine Kinase 86 U/L (29-168) 09/07/20 13:35 Serum Total Protein 5.6 g/dL (6.0-8.3) L 09/07/20 13:35 Albumin 2.2 g/dL (3.5-5.0) L 09/07/20 13:35 Lipase 23 U/L (8-78) 09/07/20 13:35 Urine Ketones Negative mg/dL (Negative) 09/07/20 14:37 Urine Blood 1+ (Negative) A 09/07/20 14:37 Urine Nitrite Negative (Negative) 09/07/20 14:37 Ur Leukocyte Esterase Negative [place]/uL (Negative) 09/07/20 14:37 Urine RBC 0-3 HPF (0-3) 09/07/20 14:37 Urine WBC 0-3 HPF (0-3) 09/07/20 14:37 Ur Squamous Epith Cells None Seen HPF (0-3) 09/07/20 14:37 Urine Bacteria 1+ HPF (None Seen) A 09/07/20 14:37 - EKG Interpretation EKG: NSR, QRS 114, QTc 470, Mildly peaked T waves I, aVL, V6 - Radiology Interpretation Chest x-ray Status: report reviewed by me (patchy parenchymal changes bilateraly consistent with COVID pna) FMR H&P: A/P - Problem List (1) ESRD (end stage renal disease) Current Visit: Yes Status: Acute Code(s): N18.6 - END STAGE RENAL DISEASE (2) Uremia Current Visit: Yes Status: Acute Code(s): N19 - UNSPECIFIED KIDNEY FAILURE (3) Hyperchloremia Current Visit: Yes Status: Acute Code(s): E87.8 - OTH DISORDERS OF ELECTROLYTE AND FLUID BALANCE, NEC (4) Thrombocytopenia Current Visit: Yes Status: Acute Code(s): D69.6 - THROMBOCYTOPENIA, UNSPECIFIED (5) Anemia in chronic kidney disease Current Visit: No Status: Acute Code(s): N18.9 - CHRONIC KIDNEY DISEASE, UNSPECIFIED; D63.1 - ANEMIA IN CHRONIC KIDNEY DISEASE (6) Hyperkalemia Current Visit: No Status: Acute Code(s): E87.5 - HYPERKALEMIA (7) Metabolic acidosis Current Visit: No Status: Acute Code(s): E87.2 - ACIDOSIS (8) Primary hypothyroidism Current Visit: No Status: Acute Code(s): E03.9 - HYPOTHYROIDISM, UNSPECIFIED (9) DM2 (diabetes mellitus, type 2) Current Visit: No Status: Chronic Qualifiers: Diabetes mellitus residential insulin use: with residential use Diabetes mellitus complication status: with kidney complications Diabetes mellitus complication detail: with chronic kidney disease Chronic kidney disease stage: stage 4 (severe) Qualified Code(s): E11.22 - Type 2 diabetes mellitus with diabetic chronic kidney disease; N18.4 - Chronic kidney disease, stage 4 (severe); Z79.4 - skilled nursing (current) use of insulin (10) HLD (hyperlipidemia) Current Visit: No Status: Chronic Code(s): E78.5 - HYPERLIPIDEMIA, UNSPECIFIED Qualifiers: Hyperlipidemia type: unspecified Qualified Code(s): E78.5 - Hyperlipidemia, unspecified (11) HTN (hypertension) Current Visit: No Status: Chronic Code(s): I10 - ESSENTIAL (PRIMARY) HYPERTENSION Qualifiers: Hypertension type: unspecified Qualified Code(s): I10 - Essential (primary) hypertension - Plan Patient is a 55F with PMHx of DM2, ESRD not on HD, HFrEF, HTN, HLD, anemia of chronic disease is admitted for: #Hyperkalemia -potassium 7.2 -s/p insulin and dextrose, albuterol, kayexalate in ED -patient denies wanting dialysis, even after discussing that without this she may pass away in the near future -mildly peaked t-waves appreciated on EKG, no major changes; calcium gluconate given in ED -D5 + 3amps bicarb @ 100ml/hr -q4hr bmp, can consider continued kayexalate -Case was discussed with nephro, Dr. Way, in the ED; denies consult unless patient desires dialysis #Metabolic Acidosis, non-anion gap -bicarb 13 -likely due to a combination of uremia, hyperchloremia, and ESRD -bicarb drip ordered #Acute on chronic anemia of chronic disease -hgb 5.4, likely due to ESRD and per clinic notes she has not been taking her epogen -2u prbc ordered in the ED, 1 transfusing -will get 4hr post CBC and consider further transfusions as necessary #ESRD not on HD -Cr and GFR close to baseline from March -patient adamant that she does not want dialysis -will continue to discuss with patient, as per prognosis is poor without it -per notes previously dialysis was recommended by nephro but patient has not followed up on this -will consult palliative care #DM2 -mild ISS, as insulin will likely be slow to metabolize due to ESRD #Thrombocytopenia -platelets 27 -possibly a complication of uremia -no active bleeding, but will hold off on anticoagulation -consider platelet transfusion if platelets <10 #Uremia -BUN 109, likely due to ESRD not on HD -likely contributing to metabolic acidosis #COVID PNA -COVID +, symptoms approx 8 days but unsure -mutliple family members positive -not currently requiring oxygen, will monitor -will hold steroids for now Chronic Issues: #HTN -BP stable, per clinic notes no longer on coreg #HLD -continue home meds #Hyperthyroidism -TSH 7.81, free T3 and T4 pending -continue home meds #Depression -continue home meds #Adrenal Insufficiency -continue home medications Diet: Renal low protein diet DVTppx: none, platelets 27 Code: FULL Dispo: Admitted to IMCU for cardiac monitoring and electrolyte monitoring with hyperkalemia PCP: Lilia Addendum - Attending - Attending Attestation Date/Time: 09/07/20 1600 I personally evaluated the patient and discussed the management with Dr. Reagan/Jass. I agree with the History, Examination, Assessment and Plan documented above with any addition or exceptions noted below. Patient here with known history of ESRD in need of HD but has refused in past given social situation and lack of funding. She presented with malaise, noted to be in worsening renal failure, hyperkalemic, metabolic acidosis, and worsening anemia of chronic disease. Measures taken in ED to prevent decompensation from hyperkalemia. Discussion with patient and she continues to refuse dialysis despite knowing the consequences, including . This is consistent with her previous admissions as well. She has been found to be COVID positive but fortunately does not have much respiratory compromise at the current time. The bulk of her presentation is likely 2/2 worsening anemia and ESRD. Patient will be transfused 2 units, started on Bicarb drip for acid base status improvement, and will medically treat her hyperkalemia. No major EKG changes currently but does need cardiac monitoring. COVID precautions. She is also thrombocytopenic but currently no active bleeding so will monitor and xfuse platelets as needed. Nephro consulted by ED but refused consult unless patient desired HD. We will medically manage her ESRD and hyperkalemia with continued discussions about the need for hemodialysis to prevent a very poor prognosis in the near-term.
[2020-09-07 16:32] LABS: SARS-CoV-2 NAA Rapid Test DETECTED (NotDetected)
[2020-09-07] MEDS ORDERED: Dextrose 5% in Water 1,000 ML IV PRN (16:50)
[2020-09-07] MEDS ORDERED: HumaLOG 300 UNITS/3 ML VIAL SC PRN (16:50)
[2020-09-07] MEDS ORDERED: Dextrose 50% Abboject 50 ML SYRINGE SLOW IVP PRN (16:50)
[2020-09-07] MEDS ORDERED: Sodium Bicarb 50 MEQ/50 ML VIAL ONE (17:20)
[2020-09-07 17:21] LABS: Anion Gap 15 mmol/L (10-20); BUN (Urea Nitrogen) 113 mg/dL (9.8-20.1); Calc. Creatinine Clearance 0 mL/min (70-130); Carbon Dioxide 13 mmol/L (22-29); Chloride 111 mmol/L (98-107); Glucose 212 mg/dL (70-105); Potassium 6.2 mmol/L (3.5-5.1); Sodium 133 mmol/L (136-145)
[2020-09-07] MEDS: Sodium Bicarbonate 150 MEQ in Dextrose 5% in Water 1,000 ML IV SCH (20:37)
[2020-09-07 20:57] LABS: Anion Gap 17 mmol/L (10-20); BUN (Urea Nitrogen) 102 mg/dL (9.8-20.1); Calc. Creatinine Clearance 0 mL/min (70-130); Calcium 7.3 mg/dL (7.8-10.44); Carbon Dioxide 13 mmol/L (22-29); Chloride 113 mmol/L (98-107); Glucose 134 mg/dL (70-105); Potassium 6.5 mmol/L (3.5-5.1)
[2020-09-07 21:18] LABS: Sodium 136 mmol/L (136-145)
[2020-09-07] MEDS: Hydrocortisone 10 mg Tablet PO SCH (21:34)
[2020-09-07 22:05] LABS: Hemoglobin 9.4 g/dL (12.0-16.0); Mean Corpuscular HGB CONC 32.7 g/dL (32.0-36.0); Mean Corpuscular Hemoglobin 30.4 pg (27.0-31.0); Mean Corpuscular Volume 92.9 fL (78.0-98.0); Mean Platelet Volume 11.9 fL (7.4-10.4); Platelet Count 27 thou/uL (130-400); RBC Distribution Width 15.7 % (11.5-14.5); Red Blood Cell (RBC) Count 3.09 mill/uL (4.20-5.40); White Blood Cell (WBC) Count 6.8 thou/uL (4.8-10.8)
[2020-09-07 22:08] LABS: Band 6 % (5-11); Eosinophils 2 % (0-10); Lymphocytes 12 % (21-51); MDiff Complete? YES; Monocytes 3 % (0-10); Neutrophil 77 % (42-75); Platelet Morphology Comment Appears Decreased; Target Cells SLIGHT = 2-5 cells (100X) (0-1/hpf)
[2020-09-07 23:37] LABS: Anion Gap 18 mmol/L (10-20); BUN (Urea Nitrogen) 103 mg/dL (9.8-20.1); Calc. Creatinine Clearance 5 mL/min (70-130); Calcium 7.1 mg/dL (7.8-10.44); Carbon Dioxide 14 mmol/L (22-29); Chloride 112 mmol/L (98-107); Glucose 121 mg/dL (70-105); Potassium 5.6 mmol/L (3.5-5.1); Sodium 138 mmol/L (136-145)
[2020-09-08 02:36] LABS: #Eosinphils 0.1 thou/uL (0.0-0.7); #Lymphocytes 0.6 thou/uL (1.20-3.40); #Monocytes 0.2 thou/uL (0.11-0.59); #Neutrophils 4.1 thou/uL (1.40-6.50); %Eosinophils 1.6 % (0.0-10.0); %Lymphocytes 11.6 % (21.0-51.0); %Monocytes 4.2 % (0.0-10.0); %Neutrophils 82.7 % (42.0-75.0); Hemoglobin 9.5 g/dL (12.0-16.0); Mean Corpuscular HGB CONC 32.7 g/dL (32.0-36.0); Mean Corpuscular Hemoglobin 30.3 pg (27.0-31.0); Mean Corpuscular Volume 92.7 fL (78.0-98.0); Mean Platelet Volume 11.9 fL (7.4-10.4); Platelet Count 22 thou/uL (130-400); RBC Distribution Width 15.8 % (11.5-14.5); Red Blood Cell (RBC) Count 3.12 mill/uL (4.20-5.40); White Blood Cell (WBC) Count 4.9 thou/uL (4.8-10.8)
[2020-09-08 02:44] LABS: Anion Gap 18 mmol/L (10-20); BUN (Urea Nitrogen) 101 mg/dL (9.8-20.1); Calc. Creatinine Clearance 5 mL/min (70-130); Carbon Dioxide 14 mmol/L (22-29); Chloride 112 mmol/L (98-107); Glucose 135 mg/dL (70-105); Potassium 5.7 mmol/L (3.5-5.1); Sodium 138 mmol/L (136-145)
[2020-09-08] MEDS: Sodium Bicarbonate 150 MEQ in Dextrose 5% in Water 1,000 ML IV SCH ×2 (04:30→16:49)
--- NOTE | 2020-09-08 05:20 | PDOC.FM ---
- Subjective Subjective: Embroidery Finisher used during the encounter. Patient reports her symptoms have improved this morning. Discussed again about discussing her prognosis with her children, she asked me not to bother them. Discussed dialysis again this morning, she again stated she does not desire this. Discussed hospice, she asked me to stop asking her so many questions. - Objective Vital Signs & Weight: Vital Signs (12 hours) Temp Resp Pulse Ox 09/08/20 04:00 97.0 F L 12 09/08/20 00:11 97.4 F L 09/07/20 20:00 99 09/07/20 19:47 98.0 F Weight Weight 40.143 kg Most Recent Monitor Data Heart Rate from ECG 71 NIBP 92/48 NIBP BP-Mean 62 Respiration from ECG 10 SpO2 99 Result Diagrams: 09/08/20 02:15 09/08/20 02:15 Phys Exam - Physical Examination Constitutional: NAD HEENT: sclera anicteric poor dentition Neck: supple, full ROM Respiratory: no wheezing, clear to auscultation bilateral Cardiovascular: RRR, no significant murmur Gastrointestinal: soft, non-tender Musculoskeletal: no edema, pulses present Neurological: normal sensation, moves all 4 limbs Psychiatric: normal affect Skin: no rash Dx/Plan (1) ESRD (end stage renal disease) Code(s): N18.6 - END STAGE RENAL DISEASE Status: Acute (2) Uremia Code(s): N19 - UNSPECIFIED KIDNEY FAILURE Status: Acute (3) Hyperchloremia Code(s): E87.8 - OTH DISORDERS OF ELECTROLYTE AND FLUID BALANCE, NEC Status: Acute (4) Thrombocytopenia Code(s): D69.6 - THROMBOCYTOPENIA, UNSPECIFIED Status: Acute (5) Anemia in chronic kidney disease Code(s): N18.9 - CHRONIC KIDNEY DISEASE, UNSPECIFIED; D63.1 - ANEMIA IN CHRONIC KIDNEY DISEASE Status: Acute (6) Hyperkalemia Code(s): E87.5 - HYPERKALEMIA Status: Acute (7) Metabolic acidosis Code(s): E87.2 - ACIDOSIS Status: Acute (8) Primary hypothyroidism Code(s): E03.9 - HYPOTHYROIDISM, UNSPECIFIED Status: Acute (9) DM2 (diabetes mellitus, type 2) Status: Chronic Qualifiers: Diabetes mellitus terminal block assembler insulin use: with intermediate use Diabetes mellitus complication status: with kidney complications Diabetes mellitus complication detail: with chronic kidney disease Chronic kidney disease stage: stage 4 (severe) Qualified Code(s): E11.22 - Type 2 diabetes mellitus with diabetic chronic kidney disease; N18.4 - Chronic kidney disease, stage 4 (severe); Z79.4 - roasterman (current) use of insulin (10) HLD (hyperlipidemia) Code(s): E78.5 - HYPERLIPIDEMIA, UNSPECIFIED Status: Chronic Qualifiers: Hyperlipidemia type: unspecified Qualified Code(s): E78.5 - Hyperlipidemia, unspecified (11) HTN (hypertension) Code(s): I10 - ESSENTIAL (PRIMARY) HYPERTENSION Status: Chronic Qualifiers: Hypertension type: unspecified Qualified Code(s): I10 - Essential (primary) hypertension - Plan Plan: Patient is a 55F with PMHx of DM2, ESRD not on HD, HFrEF, HTN, HLD, anemia of c hronic disease is admitted for: #Hyperkalemia, improved -potassium 7.2>5.7 -s/p insulin and dextrose, albuterol, kayexalate in ED -patient denies wanting dialysis, even after discussing that without this she may pass away in the near future -mildly peaked t-waves appreciated on EKG, no major changes; calcium gluconate given in ED -D5 + 3amps bicarb @ 100ml/hr, will continue due to bicarb still being only 14 -potassium improved, will give another dose of kayexalate -Case was discussed with nephro, Dr. Way, in the ED; denies consult unless patient desires dialysis #Metabolic Acidosis, non-anion gap -bicarb 13>14 -likely due to a combination of uremia, hyperchloremia, and ESRD -bicarb drip, will continue #Acute on chronic anemia of chronic disease -hgb 5.4>9.5 s/p 1 u pRBC -will continue to monitor #ESRD not on HD -Cr and GFR close to baseline from March, improved from admission -patient adamant that she does not want dialysis -will continue to discuss with patient, as per prognosis is poor without it -per notes previously dialysis was recommended by nephro but patient has not followed up on this due to cost and limited resources -will consult palliative care #DM2 -mild ISS, as insulin will likely be slow to metabolize due to ESRD #Thrombocytopenia -platelets 27>22 -possibly a complication of uremia vs chronic disease -no active bleeding, but will hold off on anticoagulation -consider platelet transfusion if platelets <10 or patient bleeding #Uremia, improved -BUN 109>101, likely due to ESRD not on HD -likely contributing to metabolic acidosis #COVID PNA -COVID + 1/2, symptoms approx 9 days ago but unsure -multiple family members positive -not currently requiring oxygen, will monitor -will hold steroids for now Chronic Issues: #HTN -BP stable, per clinic notes no longer on coreg #HLD -continue home meds #Hypothyroidism -TSH 7.81, free T3 and T4 pending -continue home meds #Depression -continue home meds #Adrenal Insufficiency -continue home medications Diet: Renal low protein diet DVTppx: none, platelets 27 Code: FULL Dispo: Admitted to [facility] for cardiac monitoring and electrolyte monitoring with hyperkalemia PCP: Lilia Addendum - Attending - Attending Attestation Date/Time: 09/08/20 2489 I personally evaluated the patient and discussed the management with Dr. Regan. I agree with the History, Examination, Assessment and Plan documented above with any addition or exceptions noted below. Patient here with worsening ESRD on HD, hyperkalemia, and symptomatic anemia. SHe has been transfused and now HDS. Her potassiuim is improved, as is Creatinine mildly. She is feeling better. She also has COVID but overall not symptomatic at this time. Continue to monitor respiratory status. Continue bicarb drip and trend of K and Cr. Nephro not involved at this time as the patient refuses dialysis even after being explained this condition will ultimately prove fatal without dialysis.
[2020-09-08] MEDS: Levothyroxine Sodium 112 MCG TAB PO SCH (05:57)
[2020-09-08] MEDS: Levothyroxine Sodium 25 MCG TAB PO SCH (05:58)
[2020-09-08] MEDS: HumaLOG 300 UNITS/3 ML VIAL SC PRN (07:01)
[2020-09-08 08:13] LABS: Hemoglobin A1c 6.1 % (4.0-6.0)
[2020-09-08 08:24] LABS: Anion Gap 15 mmol/L (10-20); BUN (Urea Nitrogen) 99 mg/dL (9.8-20.1); Calc. Creatinine Clearance 5 mL/min (70-130); Calcium 6.9 mg/dL (7.8-10.44); Carbon Dioxide 20 mmol/L (22-29); Chloride 108 mmol/L (98-107); Glucose 212 mg/dL (70-105); Potassium 5.4 mmol/L (3.5-5.1); Sodium 138 mmol/L (136-145)
[2020-09-08 08:28] LABS: Anion Gap 16 mmol/L (10-20); BUN (Urea Nitrogen) 103 mg/dL (9.8-20.1); Calc. Creatinine Clearance 5 mL/min (70-130); Carbon Dioxide 19 mmol/L (22-29); Chloride 109 mmol/L (98-107); Glucose 212 mg/dL (70-105); Potassium 5.4 mmol/L (3.5-5.1); Sodium 139 mmol/L (136-145)
[2020-09-08] MEDS ORDERED: FLU VACC QS2020-21(6MOS UP)/PF 60 MCG/0.5 ML SYRINGE IM ONE (09:00)
[2020-09-08] MEDS ORDERED: Prevnar 13-Val Conj/PF 0.5 ML SYRINGE IM ONE (09:00)
[2020-09-08 10:20] LABS: Free T4 (Free Thyroxine) Less than 0.40 ng/dL (0.70-1.48)
[2020-09-08] MEDS: Atorvastatin Calcium 40 MG TAB PO SCH (10:26)
[2020-09-08] MEDS: Hydrocortisone 10 mg Tablet PO SCH ×2 (10:26→20:14)
[2020-09-08 19:33] LABS: Anion Gap 17 mmol/L (10-20); BUN (Urea Nitrogen) 97 mg/dL (9.8-20.1); Calc. Creatinine Clearance 5 mL/min (70-130); Calcium 6.7 mg/dL (7.8-10.44); Carbon Dioxide 21 mmol/L (22-29); Chloride 104 mmol/L (98-107); Glucose 214 mg/dL (70-105); Potassium 4.7 mmol/L (3.5-5.1); Sodium 137 mmol/L (136-145)
[2020-09-09] MEDS: Sodium Bicarbonate 150 MEQ in Dextrose 5% in Water 1,000 ML IV SCH (02:34)
[2020-09-09 04:04] LABS: Anion Gap 16 mmol/L (10-20); BUN (Urea Nitrogen) 92 mg/dL (9.8-20.1); Calc. Creatinine Clearance 6 mL/min (70-130); Calcium 6.4 mg/dL (7.8-10.44); Carbon Dioxide 24 mmol/L (22-29); Chloride 100 mmol/L (98-107); Glucose 309 mg/dL (70-105); Potassium 4.6 mmol/L (3.5-5.1); Sodium 135 mmol/L (136-145)
[2020-09-09 04:18] LABS: Platelet Count 23 thou/uL (130-400)
[2020-09-09 04:37] LABS: #Basophils 0.1 thou/uL (0.0-0.2); #Lymphocytes 0.3 thou/uL (1.20-3.40); #Monocytes 0.1 thou/uL (0.11-0.59); #Neutrophils 2.8 thou/uL (1.40-6.50); %Basophils 1.5 % (0.0-1.0); %Eosinophils 0.2 % (0.0-10.0); %Lymphocytes 10.2 % (21.0-51.0); Anisocytosis SLIGHT = 6-15 cells (100X) (0-5/hpf); MDiff Complete? YES; Mean Corpuscular HGB CONC 30.9 g/dL (32.0-36.0); Mean Corpuscular Hemoglobin 28.5 pg (27.0-31.0); Mean Corpuscular Volume 92.3 fL (78.0-98.0); Mean Platelet Volume 12.9 fL (7.4-10.4); Platelet Morphology Comment Appears Decreased; RBC Distribution Width 15.8 % (11.5-14.5); White Blood Cell (WBC) Count 3.2 thou/uL (4.8-10.8)
[2020-09-09] MEDS ORDERED: Ondansetron ODT 4 MG TAB PO PRN (05:37)
--- NOTE | 2020-09-09 05:38 | PDOC.FM ---
- Subjective Subjective: Patient reports of being dizzy and having a headache this morning. Discussed with patient's PCP and she often complains of these symptoms while in clinic. Patient states she has been thinking about dialysis and is "almost convinced." - Objective Vital Signs & Weight: Vital Signs (12 hours) Temp 09/09/20 03:39 98.7 F 09/09/20 00:28 97.1 F L 09/08/20 19:37 98.1 F Weight Weight 40.143 kg Most Recent Monitor Data Heart Rate from ECG 69 NIBP 103/56 NIBP BP-Mean 71 Respiration from ECG 12 SpO2 95 I&O: 09/07/20 09/08/20 09/09/20 06:59 06:59 06:59 Intake Total 1968 Balance 1968 Result Diagrams: 09/09/20 03:21 09/09/20 03:21 Phys Exam - Physical Examination Constitutional: NAD HEENT: moist MMs, sclera anicteric Neck: supple, full ROM Respiratory: no wheezing, clear to auscultation bilateral Cardiovascular: RRR, no significant murmur Gastrointestinal: soft, no distention Musculoskeletal: no edema Neurological: non-focal, moves all 4 limbs Psychiatric: normal affect Skin: no rash Dx/Plan (1) ESRD (end stage renal disease) Code(s): N18.6 - END STAGE RENAL DISEASE Status: Acute (2) Uremia Code(s): N19 - UNSPECIFIED KIDNEY FAILURE Status: Acute (3) Hyperchloremia Code(s): E87.8 - OTH DISORDERS OF ELECTROLYTE AND FLUID BALANCE, NEC Status: Acute (4) Thrombocytopenia Code(s): D69.6 - THROMBOCYTOPENIA, UNSPECIFIED Status: Acute (5) Anemia in chronic kidney disease Code(s): N18.9 - CHRONIC KIDNEY DISEASE, UNSPECIFIED; D63.1 - ANEMIA IN CHRONIC KIDNEY DISEASE Status: Acute (6) Hyperkalemia Code(s): E87.5 - HYPERKALEMIA Status: Acute (7) Metabolic acidosis Code(s): E87.2 - ACIDOSIS Status: Acute (8) Primary hypothyroidism Code(s): E03.9 - HYPOTHYROIDISM, UNSPECIFIED Status: Acute (9) DM2 (diabetes mellitus, type 2) Status: Chronic Qualifiers: Diabetes mellitus half-way insulin use: with half-way use Diabetes mellitus complication status: with kidney complications Diabetes mellitus complication detail: with chronic kidney disease Chronic kidney disease stage: stage 4 (severe) Qualified Code(s): E11.22 - Type 2 diabetes mellitus with diabetic chronic kidney disease; N18.4 - Chronic kidney disease, stage 4 (severe); Z79.4 - snf (current) use of insulin (10) HLD (hyperlipidemia) Code(s): E78.5 - HYPERLIPIDEMIA, UNSPECIFIED Status: Chronic Qualifiers: Hyperlipidemia type: unspecified Qualified Code(s): E78.5 - Hyperlipidemia, unspecified (11) HTN (hypertension) Code(s): I10 - ESSENTIAL (PRIMARY) HYPERTENSION Status: Chronic Qualifiers: Hypertension type: unspecified Qualified Code(s): I10 - Essential (primary) hypertension - Plan Plan: Patient is a 55F with PMHx of DM2, ESRD not on HD, HFrEF, HTN, HLD, anemia of chronic disease is admitted for: #Hyperkalemia, resolved -potassium 7.2>5.7>4.6 -s/p insulin and dextrose, albuterol, kayexalate in ED -patient denies wanting dialysis, even after discussing that without this she may pass away in the near future -upon further discussion she states she is thinking about dialysis -mildly peaked t-waves appreciated on EKG on admission, no major changes; calcium gluconate given in ED -As bicarb and potassium have improved, will d/c D5 + 3amps bicarb @ 100ml/hr -Case was discussed with nephro, Dr. Way, in the ED; denies consult unless patient desires dialysis #Metabolic Acidosis, non-anion gap, resolved -bicarb 13>14>24 -likely due to a combination of uremia, hyperchloremia, and ESRD -bicarb drip, will continue #Acute on chronic anemia of chronic disease?, resolved -hgb 5.4>9.5 s/p 1 u pRBC, original hgb likely a lab error -will continue to monitor #ESRD not on HD -Cr and GFR close to baseline from March, improved from admission -patient adamant that she does not want dialysis on admission, but will continue further discussions -will continue to discuss with patient, as per prognosis is poor without it -per notes previously dialysis was recommended by nephro but patient has not followed up on this due to cost and limited resources -will consult palliative care #DM2 -mild ISS, as insulin will likely be slow to metabolize due to ESRD #Thrombocytopenia, stable -platelets 27>22>23 -possibly a complication of uremia vs chronic disease -no active bleeding, but will hold off on anticoagulation -consider platelet transfusion if platelets <10 or patient bleeding #Uremia, improved -BUN 109>101>92, likely due to ESRD not on HD -likely contributing to metabolic acidosis #COVID PNA -COVID + 1/2, symptoms approx 10 days ago but unsure -multiple family members positive -not currently requiring oxygen, will monitor -will hold steroids for now Chronic Issues: #HTN -BP stable, per clinic notes no longer on coreg #HLD -continue home meds #Hypothyroidism -TSH 7.81, free T3 and T4 both low -continue home meds and titrate in clinic #Depression -continue home meds #Adrenal Insufficiency -continue home medications Diet: Renal low protein diet DVTppx: none, platelets 23 Code: FULL Dispo: Admitted to IMCU for cardiac monitoring, transfer to tele today for continued BP monitoring PCP: Lilia Addendum - Attending - Attending Attestation Date/Time: 09/09/20 9434 I personally evaluated the patient and discussed the management with Dr. Regan I agree with the History, Examination, Assessment and Plan documented above with any addition or exceptions noted below. 55 yo female admitted for COVID19 and adrenal crisis as well as complications of ESRD. Patient still refusing HD. Requesting to talk to palliative care today. Consulted. Patient will not improve without HD. Grime prognosis. Adrenal crisis. BP still poor and hypotensive. Start stress dosing of steroids. Monitor electrolytes. Continue bicarb until patient decides pathway of treatment. TSH elevated and unsure if related to difficulty with medication compliance of worsening. Will continue home dose for now. Not significant enough range to be harmful to care at this time. Follow up closely to coordinate care plan. Very grime prognosis if patient c ontinues to refuse care. Maryjane
[2020-09-09] MEDS ORDERED: hydrOXYzine 25 MG TAB PO SCH (05:45)
[2020-09-09] MEDS: Levothyroxine Sodium 25 MCG TAB PO SCH (06:19)
[2020-09-09] MEDS: Levothyroxine Sodium 112 MCG TAB PO SCH (06:19)
[2020-09-09] MEDS: HumaLOG 300 UNITS/3 ML VIAL SC PRN ×2 (06:43→11:40)
[2020-09-09] MEDS: Atorvastatin Calcium 40 MG TAB PO SCH (08:06)
[2020-09-09] MEDS ORDERED: Acetaminophen 500 MG TAB PO SCH ×2 (09:15→15:00)
[2020-09-09] MEDS: Hydrocortisone 10 mg Tablet PO SCH (09:49)
[2020-09-09] MEDS ORDERED: Fludrocortisone Acetate 0.1 MG TAB PO SCH (10:20)
[2020-09-09] MEDS ORDERED: Hydrocortisone Sod Succ/PF 250 mg/2 ml Vial SLOW IVP SCH (10:30)
[2020-09-09] MEDS ORDERED: Metoclopramide HCl 10 MG TAB PO SCH (11:30)
[2020-09-09] MEDS: Hydrocortisone Sod Succ/PF 100 mg/2 ml Vial IVP SCH ×3 (11:33→23:58)
--- NOTE | 2020-09-09 15:54 | PDOC.BPN ---
- Brief Progress Note Had a lengthy discussion with both patient and daughter this afternoon. Discussed goals of care and patient's desire of treatment for CKD5. They have had many discussions about this over the past months as a family. It is very clear that she does not desire resuscitation. This was fully explained and both patient and daughter affirmed this. Verbal consent obtained due to COVID status. In regards to dialysis decision, this has been discussed at length in the clinic setting with me as well as Dr. Figueredo. Nori dialysis options have been given to patient. Daughter affirms that including when patient is feeling well, despite having the option of nori dialysis, she has said she does not desire to pursue this. She has seen multiple family members and friends go through the dialysis process. She does not desire any procedures. She does not like coming to the hospital, having blood draws. Patient says that she has "had enough". Her goal is to be with family and she feels she has already suffered enough. Daughter says patient has made comments about being ready to go and that she has completed what she needed to accomplish in life. They are interested in transition to home hospice. Palliative care to assist in this. [facility] hospice will likely be the only option considering funding status.
--- NOTE | 2020-09-09 16:53 | PDOC.FMACP ---
Advance Care Planning - Problem (1) ESRD (end stage renal disease) Status: Acute Code(s): N18.6 - END STAGE RENAL DISEASE (2) Acute renal failure Status: Acute (3) Addisons disease Status: Acute Code(s): E27.1 - PRIMARY ADRENOCORTICAL INSUFFICIENCY (4) Anemia in chronic kidney disease Status: Acute Code(s): N18.9 - CHRONIC KIDNEY DISEASE, UNSPECIFIED; D63.1 - ANEMIA IN CHRONIC KIDNEY DISEASE (5) HFrEF (heart failure with reduced ejection fraction) Status: Acute Code(s): I50.20 - UNSPECIFIED SYSTOLIC (CONGESTIVE) HEART FAILURE Qualifiers: Heart failure chronicity: chronic Qualified Code(s): I50.22 - Chronic systolic (congestive) heart failure (6) Palliative care encounter Status: Acute Code(s): Z51.5 - ENCOUNTER FOR PALLIATIVE CARE - Note Participants: patient, family, palliative care, other Summary: Palliative Care has addressed Advanced Care Planning. The diagnosis, prognosis and goals of care were discussed. Appropriate forms and documentation to accomplish the goals of care were discussed. All questions were answered. Dr Durham also spoke with family at patient request. Patient is refusing dialysis, desires to seek comfort measures through hospice. Transitioned to [facility], choice letter completed for [facility] at patient request. Emotional support and Therapeutic listening. Will have PC registrar follow up 09/10/2020 to assist in completion of [facility]. Time Spent (mins): 20
[2020-09-09] MEDS ORDERED: Lactated Ringer's 500 ML IV SCH (17:00)
[2020-09-09] MEDS: Meclizine HCl 25 MG TAB PO PRN (17:08)
[2020-09-09] MEDS ORDERED: hydrOXYzine 10 MG TAB PO PRN (18:03)
--- NOTE | 2020-09-09 19:34 | CON ---
DATE OF CONSULTATION: REQUESTING PHYSICIAN: Dr. Maria. REASON FOR CONSULTATION: Advanced renal failure. IMPRESSION: 1. Advanced renal failure; chronic kidney disease, stage 5/end-stage renal disease. 2. Hypocalcemia. 3. Anemia of chronic kidney disease. 4. Coronavirus disease pneumonitis. PLAN: 1. Extensive discussion was held with the patient and the family, which made it very clear that the patient does not want to undergo dialysis. Patient clearly at the point that she is going to need renal replacement therapy, but does not want to consider this modality of treatment. Therefore, we will continue with the only medical management of this patient's advanced renal failure. 2. I do agree with continue erythropoiesis-stimulating agent for this patient, but we will study the iron to make sure this patient does not have significant iron deficiency. 3. Evaluate the patient's bone mineral profile and treat accordingly by checking the renal function panel and the parathyroid hormone. 4. Further management to be dependent on the clinical course. Please renally dose all medications, but very low GFR below 10. HISTORY OF PRESENT ILLNESS: History is that of 55-year-old female patient with advanced renal failure who has been to my office on multiple occasions with revolving around discussion for renal replacement therapy and medical management. The patient has expressed on several occasion the lack of desire for hemodialysis. I was consulted evaluate and discuss this with the management of this case, but as documented above, patient is still hesitant and not considering this modality of treatment. PAST MEDICAL HISTORY: Significant for advanced chronic kidney disease, stage 5; anemia; diabetes mellitus; coronary artery disease; renal insufficiency; ischemic cardiomyopathy. FAMILY HISTORY: Several members with diabetes. SOCIAL HISTORY: No alcohol, no tobacco, no illicit drug. REVIEW OF SYSTEMS: As documented in the body of the history. All the other systems were reviewed and were found not to be significantly related to present illness. PHYSICAL EXAMINATION: GENERAL: The patient is found to be ill-looking. VITAL SIGNS: Afebrile, blood pressure 103/64, heart rate of 73, respiratory rate of 13, O2 saturation of . HEENT: Unremarkable. CARDIOVASCULAR SYSTEM: First and second heart sounds were heard. RESPIRATORY SYSTEM: Clear to auscultation. DIGESTIVE SYSTEM: Revealed a benign abdomen. Positive bowel sounds. EXTREMITIES: No peripheral edema. SKIN: No new gross rash. LYMPHATICS: No peripheral lymphadenopathy. SUMMARY: A 55-year-old female patient with advanced renal failure. Thank you for this consultation. We will follow with you. Job ID: [id number]
[2020-09-10] MEDS: Meclizine HCl 25 MG TAB PO PRN (01:02)
[2020-09-10 04:13] LABS: Platelet Count 29 thou/uL (130-400)
[2020-09-10 04:14] LABS: #Lymphocytes 0.5 thou/uL (1.20-3.40); #Neutrophils 2.9 thou/uL (1.40-6.50); %Eosinophils 0.2 % (0.0-10.0); %Lymphocytes 13.3 % (21.0-51.0); %Monocytes 1.2 % (0.0-10.0); %Neutrophils 85.4 % (42.0-75.0); Hemoglobin 8.5 g/dL (12.0-16.0); Mean Corpuscular HGB CONC 32.3 g/dL (32.0-36.0); Mean Corpuscular Hemoglobin 29.6 pg (27.0-31.0); Mean Corpuscular Volume 91.6 fL (78.0-98.0); Mean Platelet Volume 11.9 fL (7.4-10.4); RBC Distribution Width 15.3 % (11.5-14.5); Red Blood Cell (RBC) Count 2.86 mill/uL (4.20-5.40); White Blood Cell (WBC) Count 3.4 thou/uL (4.8-10.8)
[2020-09-10 04:24] LABS: Anion Gap 14 mmol/L (10-20); BUN (Urea Nitrogen) 102 mg/dL (9.8-20.1); BUN/Creatinine Ratio 14.09; Calc. Creatinine Clearance 6 mL/min (70-130); Calcium 6.2 mg/dL (7.8-10.44); Carbon Dioxide 27 mmol/L (22-29); Chloride 97 mmol/L (98-107); Glucose 103 mg/dL (70-105); Phosphorus 4.6 mg/dL (2.3-4.7); Potassium 4.1 mmol/L (3.5-5.1); Sodium 134 mmol/L (136-145)
[2020-09-10] MEDS: Hydrocortisone Sod Succ/PF 100 mg/2 ml Vial IVP SCH ×3 (06:27→18:37)
--- NOTE | 2020-09-10 06:27 | PDOC.FM ---
- Subjective Subjective: Patient continues to complain of dizziness and nausea - Objective Vital Signs & Weight: Vital Signs (12 hours) Temp Pulse Ox 09/10/20 04:00 97.6 F 09/10/20 01:00 96.0 F L 09/09/20 23:25 98.2 F 09/09/20 21:00 97.7 F 09/09/20 20:00 98.3 F 09/09/20 19:41 96 Weight Admit Weight 38.737 kg Weight 41.504 kg Most Recent Monitor Data Heart Rate from ECG 73 NIBP 120/54 NIBP BP-Mean 76 Respiration from ECG 14 SpO2 95 I&O: 09/08/20 09/09/20 09/10/20 06:59 06:59 06:59 Intake Total 1967 1400 642 Output Total 100 50 Balance 1967 1300 592 Result Diagrams: 09/10/20 03:23 09/10/20 03:23 Phys Exam - Physical Examination appears nauseous and dizzy HEENT: moist MMs, sclera anicteric Neck: supple, full ROM Respiratory: no wheezing, clear to auscultation bilateral Cardiovascular: RRR, no significant murmur Gastrointestinal: soft, non-tender Musculoskeletal: no edema Neurological: non-focal, moves all 4 limbs Psychiatric: normal affect Skin: no rash Dx/Plan (1) ESRD (end stage renal disease) Code(s): N18.6 - END STAGE RENAL DISEASE Status: Acute (2) Uremia Code(s): N19 - UNSPECIFIED KIDNEY FAILURE Status: Acute (3) Hyperchloremia Code(s): E87.8 - OTH DISORDERS OF ELECTROLYTE AND FLUID BALANCE, NEC Status: Acute (4) Thrombocytopenia Code(s): D69.6 - THROMBOCYTOPENIA, UNSPECIFIED Status: Acute (5) Anemia in chronic kidney disease Code(s): N18.9 - CHRONIC KIDNEY DISEASE, UNSPECIFIED; D63.1 - ANEMIA IN CHRONIC KIDNEY DISEASE Status: Acute (6) Hyperkalemia Code(s): E87.5 - HYPERKALEMIA Status: Acute (7) Metabolic acidosis Code(s): E87.2 - ACIDOSIS Status: Acute (8) Primary hypothyroidism Code(s): E03.9 - HYPOTHYROIDISM, UNSPECIFIED Status: Acute (9) DM2 (diabetes mellitus, type 2) Status: Chronic Qualifiers: Diabetes mellitus skilled nursing insulin use: with manager intermediate use Diabetes mellitus complication status: with kidney complications Diabetes mellitus complication detail: with chronic kidney disease Chronic kidney disease stage: stage 4 (severe) Qualified Code(s): E11.22 - Type 2 diabetes mellitus with diabetic chronic kidney disease; N18.4 - Chronic kidney disease, stage 4 (severe); Z79.4 - USP (current) use of insulin (10) HLD (hyperlipidemia) Code(s): E78.5 - HYPERLIPIDEMIA, UNSPECIFIED Status: Chronic Qualifiers: Hyperlipidemia type: unspecified Qualified Code(s): E78.5 - Hyperlipidemia, unspecified (11) HTN (hypertension) Code(s): I10 - ESSENTIAL (PRIMARY) HYPERTENSION Status: Chronic Qualifiers: Hypertension type: unspecified Qualified Code(s): I10 - Essential (primary) hypertension - Plan Plan: Patient is a 55F with PMHx of DM2, ESRD not on HD, HFrEF, HTN, HLD, anemia of chronic disease is admitted for: #Hyperkalemia, resolved -potassium 7.2>5.7>4.6>4.1 -s/p insulin and dextrose, albuterol, kayexalate in ED -patient denies wanting dialysis, even after discussing that without this she may pass away in the near future -mildly peaked t-waves appreciated on EKG on admission, no major changes; calcium gluconate given in ED -As bicarb and potassium have improved, d/c'd fluids -Case was discussed with nephro, Dr. Way, in the ED; denies consult unless patient desires dialysis #Metabolic Acidosis, non-anion gap, resolved -bicarb 13>14>24>27 -likely due to a combination of uremia, hyperchloremia, and ESRD -bicarb drip, will continue #Acute on chronic anemia of chronic disease?, resolved -hgb 5.4>8.5 s/p 1 u pRBC, original hgb likely a lab error -will continue to monitor #ESRD not on HD -Cr and GFR close to baseline from March, improved from admission -patient adamant that she does not want dialysis -upon extensive discussion 09/09, patient transitioned herself to [facility] and would like to pursue hospice -palliative to continue discussions and assist with paperwork today #DM2 -mild ISS, as insulin will likely be slow to metabolize due to ESRD -lantus 4u started this am #Thrombocytopenia, stable -platelets 27>22>23>29 -possibly a complication of uremia vs chronic disease -no active bleeding, but will hold off on anticoagulation -consider platelet transfusion if platelets <10 or patient bleeding #Uremia, improved -BUN 109>102, likely due to ESRD not on HD -likely contributing to metabolic acidosis #COVID PNA -COVID + 1/2, symptoms approx 11 days ago but unsure -multiple family members positive -not currently requiring oxygen, will monitor -will hold steroids for now Chronic Issues: #HTN -BP stable, per clinic notes no longer on coreg #HLD -continue home meds #Hypothyroidism -TSH 7.81, free T3 and T4 both low -continue home meds and titrate in clinic #Depression -continue home meds #Adrenal Insufficiency -stress dose steroids started 09/09 -continue home medications Diet: Renal low protein diet DVTppx: none, platelets 23 Code: FULL Dispo: Admitted to IM for cardiac monitoring, paperwork to be sent to [facility] PCP: Lilia Addendum - Attending - Attending Attestation Date/Time: 09/10/20 5651 I personally evaluated the patient and discussed the management with Dr. Regan. I agree with the History, Examination, Assessment and Plan documented above with any addition or exceptions noted below. Patient stable. She continues to refuse HD and we are working to transition to hospice services.
[2020-09-10] MEDS: Levothyroxine Sodium 25 MCG TAB PO SCH (06:28)
[2020-09-10] MEDS: Levothyroxine Sodium 112 MCG TAB PO SCH (06:28)
[2020-09-10] MEDS: Atorvastatin Calcium 40 MG TAB PO SCH (08:03)
[2020-09-10] MEDS ORDERED: Insulin Glargine 5 UNITS in Pre-Filled Syringe 1 EACH SC SCH (09:00)
[2020-09-10] MEDS: Insulin Glargine 4 UNITS in Pre-Filled Syringe 1 EACH SC SCH (10:15)
--- NOTE | 2020-09-10 19:52 | PRG ---
DATE OF SERVICE: 09/10/2020 OBJECTIVE: VITAL SIGNS: Patient is noted with the following vital signs; afebrile, temperature 98.3, pulse 74, respiratory rate of 14, O2 saturations are 94%, blood pressure 96/59. HEENT: Unremarkable. CARDIOVASCULAR: First and second heart sounds were heard. RESPIRATORY SYSTEM: Clear to auscultation. DIGESTIVE SYSTEM: Revealed a benign abdomen. Positive bowel sounds. EXTREMITIES: No peripheral edema. SKIN: No new gross rash. LYMPHATICS: No peripheral lymphadenopathy. LABORATORY INVESTIGATION: Showed a PTH of 599.3, phosphorus of 4.6, creatinine 7.24. IMPRESSION: 1. End-stage renal disease. Patient not amenable to hemodialysis. 2. Secondary hyperparathyroidism in the context of advanced renal failure. 3. Coronavirus disease pneumonitis. 4. Anemia of chronic kidney disease. PLAN: 1. We will start this patient on calcitriol. 2. Continue conservative measures. Please decrease the frequency of lab draws to avoid compounding the anemia in this patient with iatrogenic component of anemia. 3. Further management to be dependent on the clinical course. We will initiate this patient on erythropoiesis stimulating agent. Job ID: [id number]
[2020-09-10] MEDS ORDERED: EPOETIN ALFA-EPBX (ESRD) 10,000 UNIT/ML VIAL SC SCH (21:00)
[2020-09-10] MEDS: Promethazine HCl 12.5 MG in Sodium Chloride 0.9% 50 ML IVPB PRN (22:04)
[2020-09-11] MEDS: Hydrocortisone Sod Succ/PF 100 mg/2 ml Vial IVP SCH ×4 (00:32→18:01)
[2020-09-11] MEDS: Levothyroxine Sodium 25 MCG TAB PO SCH (05:22)
[2020-09-11] MEDS: Levothyroxine Sodium 112 MCG TAB PO SCH (05:22)
[2020-09-11 05:48] LABS: Anion Gap 15 mmol/L (10-20); BUN (Urea Nitrogen) 105 mg/dL (9.8-20.1); BUN/Creatinine Ratio 14.42; Calc. Creatinine Clearance 6 mL/min (70-130); Calcium 6.2 mg/dL (7.8-10.44); Carbon Dioxide 26 mmol/L (22-29); Chloride 96 mmol/L (98-107); Glucose 73 mg/dL (70-105); Phosphorus 5.4 mg/dL (2.3-4.7); Potassium 4.2 mmol/L (3.5-5.1); Sodium 133 mmol/L (136-145)
--- NOTE | 2020-09-11 05:51 | PDOC.FM ---
- Objective Vital Signs & Weight: Vital Signs (12 hours) Temp Pulse Resp BP Pulse Ox 09/11/20 04:25 97.4 F L 73 17 120/76 96 09/11/20 00:32 97.8 F 80 14 113/58 L 96 09/10/20 20:30 97.6 F 75 12 128/60 96 Weight Admit Weight 38.737 kg Weight 42.728 kg Most Recent Monitor Data Heart Rate from ECG 77 NIBP 102/59 NIBP BP-Mean 73 Respiration from ECG 15 SpO2 95 I&O: 09/09/20 09/10/20 09/11/20 06:59 06:59 06:59 Intake Total 1400 822 290 Output Total 100 75 25 Balance 1300 747 265 Result Diagrams: 09/10/20 03:23 09/10/20 03:23 Dx/Plan (1) ESRD (end stage renal disease) Code(s): N18.6 - END STAGE RENAL DISEASE Status: Acute (2) Uremia Code(s): N19 - UNSPECIFIED KIDNEY FAILURE Status: Acute (3) Hyperchloremia Code(s): E87.8 - OTH DISORDERS OF ELECTROLYTE AND FLUID BALANCE, NEC Status: Acute (4) Thrombocytopenia Code(s): D69.6 - THROMBOCYTOPENIA, UNSPECIFIED Status: Acute (5) Anemia in chronic kidney disease Code(s): N18.9 - CHRONIC KIDNEY DISEASE, UNSPECIFIED; D63.1 - ANEMIA IN CHRONIC KIDNEY DISEASE Status: Acute (6) Hyperkalemia Code(s): E87.5 - HYPERKALEMIA Status: Acute (7) Metabolic acidosis Code(s): E87.2 - ACIDOSIS Status: Acute (8) Primary hypothyroidism Code(s): E03.9 - HYPOTHYROIDISM, UNSPECIFIED Status: Acute (9) DM2 (diabetes mellitus, type 2) Status: Chronic Qualifiers: Diabetes mellitus local [employer] insulin 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 Diabetes mellitus complication status: with kidney complications Diabetes mellitus complication detail: with chronic kidney disease Chronic kidney disease stage: stage 4 (severe) Qualified Code(s): E11.22 - Type 2 diabetes mellitus with diabetic chronic kidney disease; N18.4 - Chronic kidney disease, stage 4 (severe); Z79.4 - custodial (current) use of insulin (10) HLD (hyperlipidemia) Code(s): E78.5 - HYPERLIPIDEMIA, UNSPECIFIED Status: Chronic Qualifiers: Hyperlipidemia type: unspecified Qualified Code(s): E78.5 - Hyperlipidemia, unspecified (11) HTN (hypertension) Code(s): I10 - ESSENTIAL (PRIMARY) HYPERTENSION Status: Chronic Qualifiers: Hypertension type: unspecified Qualified Code(s): I10 - Essential (primary) hypertension - Plan Plan: Patient is a 55F with PMHx of DM2, ESRD not on HD, HFrEF, HTN, HLD, anemia of chronic disease is admitted for: #ESRD not on HD -Cr and GFR close to baseline from March, improved from admission -patient adamant that she does not want dialysis -upon extensive discussion 09/09, patient transitioned herself to [facility] and would like to pursue hospice -Hospice paperwork received by [facility], and they refused due to having too many COVID patients; awaiting answer from family as they discuss other hospice agencies -palliative to continue discussions and assist with paperwork today #DM2 -mild ISS, as insulin will likely be slow to metabolize due to ESRD -lantus 4u started 09/10 with good glucose control, continue #Thrombocytopenia, stable -platelets 27>22>23>29 -possibly a complication of uremia vs chronic disease -no active bleeding, but will hold off on anticoagulation -consider platelet transfusion if platelets <10 or patient bleeding #Uremia, improved -BUN 109>102, likely due to ESRD not on HD -likely contributing to metabolic acidosis #COVID PNA -COVID + 1/2, symptoms approx 12 days ago but unsure -multiple family members positive -not currently requiring oxygen, will monitor -will hold steroids for now #Hyperkalemia, resolved -potassium 7.2>5.7>4.6>4.1 -s/p insulin and dextrose, albuterol, kayexalate in ED -patient denies wanting dialysis, even after discussing that without this she may pass away in the near future -mildly peaked t-waves appreciated on EKG on admission, no major changes; calcium gluconate given in ED -As bicarb and potassium have improved, d/c'd fluids -Case was discussed with nephro, Dr. Way, in the ED; denies consult unless patient desires dialysis #Metabolic Acidosis, non-anion gap, resolved -bicarb 13>14>24>27 -likely due to a combination of uremia, hyperchloremia, and ESRD -bicarb drip, will continue #Acute on chronic anemia of chronic disease?, resolved -hgb 5.4>8.5 s/p 1 u pRBC, original hgb likely a lab error -will continue to monitor Chronic Issues: #HTN -BP stable, per clinic notes no longer on coreg #HLD -continue home meds #Hypothyroidism -TSH 7.81, free T3 and T4 both low -continue home meds and titrate in clinic #Depression -continue home meds #Adrenal Insufficiency -stress dose steroids started 1/ -continue home medications Diet: Renal low protein diet DVTppx: none, platelets 23 Code: FULL Dispo: Admitted to IM for cardiac monitoring, paperwork to be sent to [facility] PCP: Lilia
--- NOTE | 2020-09-11 10:04 | PDOC.FM ---
- Subjective Subjective: Patient reports feeling much better today. She requests to take a bath, walk around the room today, brush her hair. Denies nausea, dizziness, headache, difficulty breathing, chest pain. Working on hospice services today. - Objective Vital Signs & Weight: Vital Signs (12 hours) Temp Pulse Resp BP Pulse Ox 09/11/20 04:25 97.4 F L 73 17 120/76 96 09/11/20 00:32 97.8 F 80 14 113/58 L 96 Weight Admit Weight 38.737 kg Weight 43.5 kg Most Recent Monitor Data Heart Rate from ECG 77 NIBP 102/59 NIBP BP-Mean 73 Respiration from ECG 15 SpO2 95 I&O: 09/10/20 09/11/20 09/12/20 06:59 06:59 06:59 Intake Total 822 650 Output Total 75 25 Balance 747 625 Result Diagrams: 09/10/20 03:23 09/11/20 05:02 Phys Exam - Physical Examination Constitutional: NAD Respiratory: no wheezing, no rales, no rhonchi Cardiovascular: RRR, no significant murmur Gastrointestinal: soft, non-tender Musculoskeletal: no edema Neurological: non-focal Psychiatric: normal affect Skin: normal turgor Dx/Plan - Plan Plan: Patient is a 55F with PMHx of DM2, ESRD not on HD, HFrEF, HTN, HLD, anemia of chronic disease is admitted for: #Hyperkalemia, resolved -potassium 7.2>5.7>4.6>4.1 -s/p insulin and dextrose, albuterol, kayexalate in ED -patient denies wanting dialysis, even after discussing that without this she may pass away in the near future -Staff Command And Control Officer, Dr. Figueredo was consulted #Metabolic Acidosis, non-anion gap, resolved -bicarb 13>14>24>27 -likely due to a combination of uremia, hyperchloremia, and ESRD -bicarb drip, will continue #Acute on chronic anemia of chronic disease?, resolved -hgb 5.4>8.5 s/p 1 u pRBC, original hgb likely a lab error -will continue to monitor #CKD5 -Cr and GFR close to baseline from March, improved from admission -patient adamant that she does not want dialysis -upon extensive discussion 09/09, patient transitioned herself to [facility] and would like to pursue hospice -palliative to continue discussions and assist with paperwork today #DM2 -mild SSI, as insulin will likely be slow to metabolize due to ESRD -lantus 4u qam #Thrombocytopenia, stable -platelets 27>22>23>29 -possibly a complication of uremia vs chronic disease -no active bleeding, but will hold off on anticoagulation -consider platelet transfusion if platelets <10 or patient bleeding #Uremia, improved -BUN 109>102, likely due to ESRD not on HD -likely contributing to metabolic acidosis #COVID PNA -COVID + 1/2, symptoms approx 11 days ago but unsure -multiple family members positive -not currently requiring oxygen, will monitor -will hold steroids for now Chronic Issues: #HTN -BP stable, per clinic notes no longer on coreg #HLD -continue home meds #Hypothyroidism -TSH 7.81, free T3 and T4 both low -continue home meds and titrate in clinic #Depression -continue home meds #Adrenal Insufficiency -stress dose steroids started 09/09 -continue home medications Diet: Renal low protein diet DVTppx: none, platelets 20s Code: FULL Dispo: Would be appropriate for discharge home on hospice anytime, working on this today. Difficult considering patient's funding status. PCP: Lilia Addendum - Attending - Attending Attestation Date/Time: 09/11/20 1006 I personally evaluated the patient and discussed the management with Dr. Durham. I agree with the History, Examination, Assessment and Plan documented above with any addition or exceptions noted below. Patient overall feeling improved. She continues to decline HD, and we are working to move her towards comfort care and hospice if she is a candidate given her lack of funding.
[2020-09-11] MEDS: Atorvastatin Calcium 40 MG TAB PO SCH (10:34)
[2020-09-11] MEDS: Calcitriol 0.25 MCG CAP PO SCH (10:34)
[2020-09-11] MEDS: Insulin Glargine 4 UNITS in Pre-Filled Syringe 1 EACH SC SCH (11:17)
[2020-09-11 13:53] VITALS: BMI 18.7
--- NOTE | 2020-09-11 17:50 | PRG ---
DATE OF SERVICE: 09/11/2020 OBJECTIVE: VITAL SIGNS: Noted with the following vital signs; afebrile, temperature 98, pulse 75, respiratory rate of 14, O2 saturation 97%, and blood pressure 123/63. HEENT: Unremarkable. CARDIOVASCULAR: First and second heart sounds were heard. RESPIRATORY SYSTEM: Clear to auscultation. DIGESTIVE SYSTEM: Revealed a benign abdomen. EXTREMITIES: No peripheral edema. SKIN: No new gross rash. LYMPHATICS: No peripheral lymphadenopathy. LABORATORY INVESTIGATION: Showed a creatinine of 7.28 with BUN of 105, phosphorus of 5.4 with a calcium of 6.2. IMPRESSION: 1. End-stage renal disease, not on dialysis. 2. Anemia of chronic kidney disease. 3. COVID pneumonitis. 4. Thrombocytopenia. PLAN: 1. We will continue with conservative renal supportive management. The patient started on active vitamin D yesterday given this significant secondary hyperparathyroidism and hypocalcemia. 2. Erythropoiesis stimulating agent to address the anemia of chronic kidney disease. 3. Further management to be dependent on the clinical course. Job ID: [id number]
[2020-09-11] MEDS ORDERED: Acetaminophen 500 MG TAB PO PRN (23:35)
[2020-09-12] MEDS: Hydrocortisone Sod Succ/PF 100 mg/2 ml Vial IVP SCH ×3 (00:15→12:10)
[2020-09-12] MEDS: Promethazine HCl 12.5 MG in Sodium Chloride 0.9% 50 ML IVPB PRN (02:52)
[2020-09-12 04:21] VITALS: TEMP 97.7
[2020-09-12 05:37] LABS: Anion Gap 18 mmol/L (10-20); BUN (Urea Nitrogen) 96 mg/dL (9.8-20.1); BUN/Creatinine Ratio 13.68; Calc. Creatinine Clearance 6 mL/min (70-130); Calcium 6.2 mg/dL (7.8-10.44); Carbon Dioxide 21 mmol/L (22-29); Chloride 95 mmol/L (98-107); Glucose 117 mg/dL (70-105); Phosphorus 5.5 mg/dL (2.3-4.7); Potassium 4.1 mmol/L (3.5-5.1); Sodium 130 mmol/L (136-145)
--- NOTE | 2020-09-12 05:46 | PDOC.FM ---
- Subjective Subjective: Patient was sleeping peacefully but was easily arousable at the time of evaluation. Patient denied any complaints or worries, and was eager to go home. No acute overnight events were reported by the Resident Night Team or Nursing Staff. - Objective Vital Signs & Weight: Vital Signs (12 hours) Temp Pulse Resp BP Pulse Ox 09/12/20 03:00 97.7 F 73 14 116/63 97 09/11/20 21:00 97.9 F 78 10 L 121/71 95 09/11/20 17:55 98.6 F 74 14 114/66 95 Weight Admit Weight 38.737 kg Weight 41.3 kg Most Recent Monitor Data Heart Rate from ECG 77 NIBP 102/59 NIBP BP-Mean 73 Respiration from ECG 15 SpO2 95 I&O: 09/10/20 09/11/20 09/12/20 06:59 06:59 06:59 Intake Total 021 628 2614 Output Total 75 25 100 Balance 171 674 7388 Result Diagrams: 09/10/20 03:23 09/12/20 04:39 Phys Exam - Physical Examination Constitutional: NAD Frail HEENT: moist MMs Neck: supple, full ROM Respiratory: no wheezing, no rales, no rhonchi, clear to auscultation bilateral Cardiovascular: RRR, no significant murmur, no rub Gastrointestinal: soft, non-tender, no distention, positive bowel sounds Musculoskeletal: no edema, pulses present Neurological: non-focal, moves all 4 limbs Dx/Plan (1) ESRD (end stage renal disease) Code(s): N18.6 - END STAGE RENAL DISEASE Status: Acute (2) Thrombocytopenia Code(s): D69.6 - THROMBOCYTOPENIA, UNSPECIFIED Status: Acute (3) Acute renal failure Status: Acute (4) Adrenal insufficiency Code(s): E27.40 - UNSPECIFIED ADRENOCORTICAL INSUFFICIENCY Status: Acute (5) Anemia in chronic kidney disease Code(s): N18.9 - CHRONIC KIDNEY DISEASE, UNSPECIFIED; D63.1 - ANEMIA IN CHRONIC KIDNEY DISEASE Status: Acute (6) HFrEF (heart failure with reduced ejection fraction) Code(s): I50.20 - UNSPECIFIED SYSTOLIC (CONGESTIVE) HEART FAILURE Status: Acute Qualifiers: Heart failure chronicity: chronic Qualified Code(s): I50.22 - Chronic systolic (congestive) heart failure (7) Hyperkalemia Code(s): E87.5 - HYPERKALEMIA Status: Acute (8) Palliative care encounter Code(s): Z51.5 - ENCOUNTER FOR PALLIATIVE CARE Status: Acute - Plan Plan: Patient is a 55 y/o female with PMHx of DM2, ESRD not on HD, HFrEF, HTN, HLD and Anemia of Chronic Disease who presented to the ER for evaluation of fatigue. #Hyperkalemia, resolved -K: 7.2 >4.1 -s/p Insulin, Dextrose, Albuterol, Kayexalate in ED -Patient consistently denies wanting dialysis, despite multiple discussions about the imminent risk of -Dr. Figueredo (Nephrology): Consulted, recs appreciate #Metabolic Acidosis, non-anion gap, resolved -Bicarb: 13 > 21 -Likely due to a combination of Uremia, Hyperchloremia, and ESRD -Will continue to monitor #Acute on Chronic Anemia of Chronic Disease, resolved -Hgb: 5.4 > 8.5 s/p 1 u pRBC - original HgB likely lab error -Will continue to monitor with AM Labs #CKD5 -Cr and GFR close to baseline from March, improved from admission -Patient adamant that she does not want dialysis -Following extensive discussion on 09/09, patient transitioned herself to [facility] and elected to pursue Hospice -Will re-engage with patient's family and CM in order to facilitate DC with Hospice #DM2 -Mild SSI -Lantus 4u SC QAM -Will DC ACHS Accuchecks for patient comfort -Hypoglycemia Protocol #Thrombocytopenia, stable -Plt Cnt: 27 > 29 -Possibly a complication of Uremia vs Anemia of Chronic Disease -No active bleeding - will hold anticoagulation -Will consider Plt Transfusion if Plt Cnt < 10 or active bleeding occurs #Uremia, improved -BUN: 109 > 96, likely due to ESRD not on HD -Likely contributing factor to Metabolic Acidosis #COVID PNA -Patient was incidentally found to be COVID(+) on 09/07, with mild symptoms reportedly beginning 11D prior although patient is unsure -Not currently requiring supplemental O2 -Will hold steroids for now Chronic Issues: #HTN -BP stable, per clinic notes no longer on Carvedilol #HLD -Will continue home medication regimen #Hypothyroidism -TSH: 7.81, with low Free T3/T4 -Will continue home medication regimen and continue to titrate in clinic if desired #Depression -Will continue home medication regimen #Adrenal Insufficiency -Stress dose of steroids started on 09/09 -Will continue home medication regimen PCP: CHANTEL Durham Code: TORIE Diet: Renal (Low Protein) Activity: Ambulate w/ Assist VTE PPx: None Dispo: Patient is currently stable and admitted to the Telemetry Floor, although long-term prognosis is admittedly poor. Will continue to manage medical needs as per above and coordinate with Hospice as required. Expected LOS < 24H Addendum - Attending - Attending Attestation Date/Time: 09/12/20 4110 I personally evaluated the patient and discussed the management with Dr. Lyly mendoza. I agree with the History, Examination, Assessment and Plan documented above with any addition or exceptions noted below. Patient stable. She is working to transition home with hospice services. Working with CM to get this set up prior to dc.
[2020-09-12] MEDS: Levothyroxine Sodium 112 MCG TAB PO SCH (06:11)
[2020-09-12] MEDS: Levothyroxine Sodium 25 MCG TAB PO SCH (06:12)
[2020-09-12 11:27] VITALS: BP 120/68
[2020-09-12] MEDS: Calcitriol 0.25 MCG CAP PO SCH (12:06)
[2020-09-12] MEDS: Insulin Glargine 4 UNITS in Pre-Filled Syringe 1 EACH SC SCH (12:06)
[2020-09-12] MEDS: Atorvastatin Calcium 40 MG TAB PO SCH (12:06)
--- NOTE | 2020-09-12 16:19 | PDOC.PALFU ---
Palliative Care Follow-up Note Palliative care will sign off as Goal of care addressed as well as directives. Please refer to Palliative care notes in note section. Thank you for this very appropriate consult.
--- NOTE | 2020-09-12 17:35 | PRG ---
DATE OF SERVICE: 09/12/2020 SUBJECTIVE: The patient noted with the following vital signs. OBJECTIVE: VITAL SIGNS: Afebrile, temperature 97.7, pulse 69, respiratory rate of 16, O2 saturations of 97%, blood pressure 120/68. HEENT: Unremarkable. CARDIOVASCULAR SYSTEM: First and second heart sounds were heard. RESPIRATORY SYSTEM: Clear to auscultation. DIGESTIVE SYSTEMS: Benign abdomen. Positive bowel sounds. EXTREMITIES: No peripheral edema. SKIN: No new gross rash. LYMPHATICS: No peripheral lymphadenopathy. LABORATORY INVESTIGATION: Hemoglobin 8.5, platelet 29,000. Chemistry showed creatinine of 7.02 and BUN of 96. IMPRESSION: 1. End-stage renal disease, not open to hemodialysis. 2. Anemia of chronic kidney disease. PLAN: 1. Deescalate blood draws to avoid iatrogenic anemia on top of anemia of chronic kidney disease. 2. Further management to be dependent on the clinical course. 3. Renally dose all medications. Job ID: [id number]
--- NOTE | 2020-09-13 08:43 | DIS ---
DATE OF ADMISSION: 09/07/2020 DATE OF DISCHARGE: 09/12/2020 RESIDENT: Jerrod Erazo MD ADMITTING ATTENDING: Matthew Chiang MD. DISCHARGE ATTENDING: Matthew Chiang MD. CONSULTS: Dr. Terell Poon, Nephrology. PROCEDURES: Chest x-ray performed on a 09/07/2020, which demonstrated patchy parenchymal changes bilaterally with evidence for minimal bilateral COVID pneumonia. Stable pleural changes in left base. Recommend short-term followup. PRIMARY DIAGNOSIS: End-stage renal disease. SECONDARY DIAGNOSIS: 1. Metabolic acidosis, non-anion gap. 2. Acute on chronic anemia of chronic disease. 3. Type 2 diabetes. 4. Hyperkalemia. 5. Thrombocytopenia. 6. Uremia. 7. COVID-19 pneumonia. 8. Hypertension. 9. Hyperlipidemia. 10. Hypothyroidism. 11. Depression. 12. Adrenal insufficiency. DISCHARGE MEDICATIONS: 1. Ferric citrate 210 mg p.o. daily. 2. Sodium bicarbonate 325 mg p.o. daily. 3. Furosemide 40 mg p.o. daily. 4. Hydrocortisone 5 mg p.o. b.i.d. daily. 5. Insulin-glargine 4 units subcu q.a.m. 6. Gabapentin 100 mg p.o. daily. 7. Procrit 10,000 units subcutaneous q.7 days. 8. Calcitriol 0.25 mcg p.o. daily. 9. Levothyroxine 112 mcg p.o. daily. 10. Levothyroxine 25 mcg p.o. daily. 11. Acetaminophen 1000 mg p.o. q.8 hours p.r.n. 12. Velphoro 500 mg p.o. q.a.m. DISCONTINUED MEDICATIONS: 1. 70/30 insulin 1 unit subcutaneous q.a.m. 2. Atorvastatin 40 mg p.o. daily. HISTORY OF PRESENT ILLNESS/HOSPITAL COURSE: The patient is a 55-year-old female, who presented to the emergency department for feeling fatigued and weak for approximately 1 week. The patient endorses additional symptoms of diarrhea, decreased appetite, and cough. However, she denies fevers and shortness of breath. She has multiple family members, who had tested positive COVID-19. She states she has not been near any of them. Lengthy discussion was had with the patient regarding recommendation for dialysis as had been done on previous hospital admission and in clinic. The patient states she does not want to pursue dialysis due to knowing someone who from dialysis. Discussed it is possible that she may with elevated potassium that she had on admission and it was discussed that she should strongly consider dialysis. The patient stated understanding and she continued to refuse dialysis. It was also discussed that the patient would like to be full code rather than DNR, knowing fully well that she had a high risk of mortality associated with surviving a code event, particularly if she continued to refuse dialysis. Hospice care was also discussed. The patient stated that she wanted to think about it and did not want to make a decision at that time. The patient has a complex past medical history notable for many multiple chronic medical conditions that are not treated, that she has refused medication in the past and just wanted to pursue only holistic medication. In the emergency department, the patient was administered calcium gluconate, Kayexalate, insulin with D50, Zofran, 1 L normal saline, followed by fluid resuscitation to 250 mL/h and cefepime. Additional recommendations for dialysis were made. However, the patient continued to refuse dialysis. The patient was subsequently transferred to the telemetry floor for ongoing observation as she was found to be hyperkalemic on presentation. The patient's home medication regimens were restarted and she began to appear at her baseline. However, throughout the patient's hospitalization, it was decided that the patient did not want to pursue being full code anymore and wanted to be DNR, however, she continued to refuse dialysis and as such elected to transition to hospice care. As such, Case Management was consulted and the patient was subsequently discharged to [facility]. Prior to discharge, patient's vital signs were recorded as temperature 97.7, heart rate 69 beats per minute, blood pressure 120/68, respirations 16 per minute, and oxygen saturation 97% on room air. Laboratory analysis revealed white blood cell count of 3.4, hemoglobin of 8.5, hematocrit 26.2, and platelet count 29. Sodium of 130; potassium 4.1, down from a peak of 7.2; chloride 95; carbon dioxide 21; BUN 96; creatinine 7.02, down from a peak of 8.03; glucose 117. Hemoglobin A1c 6.1. Lactic acid 1.2. Calcium 6.2, phosphorus 5.5. AST 31, ALT 8, alkaline phosphatase 209. Creatine kinase 86. Troponin level 0.025. Lipase 23. TSH 7.8, free of T3 of 1.05, free T4 of less than 0.4. PTH 599. Urinalysis was positive for the amorphous crystals and urine bacteria and urine blood. The patient was negative for influenza A and B, but was positive for SARS-CoV-2 via PCR. Urine cultures have revealed no growth at 48 hours. Blood cultures were positive. One of two samples were coag-negative staph, assumed to be contaminant. DISPOSITION: Stable with an overall poor prognosis. DISCHARGE INSTRUCTIONS: 1. Location: Home hospice with [facility]. 2. Diet: Renal diet. 3. Activity: No restrictions. 4. Followup: The patient will be managed by [facility]. However, she was encouraged to follow up with her primary care provider in approximately 1 week if desired in order to discuss her most recent hospitalization and subsequent transition to hospice care. Job ID: [id number]
== END 2020-09-12 16:15 | disposition hospice, home (50) | DRG 640 ==
LOC: ERS 12:51 → IMCU/EMU 14:59 → 2SW 09-10 14:24
PROVIDERS: ADMIT Student in an Organized Health Care Education/Training Program; ATTEND Student in an Organized Health Care Education/Training Program
PROC: 30233N1 Transfusion of Nonautologous Red Blood Cells into Peripheral Vein, Percutaneous Approach (ICD-10-PCS; principal; 2020-09-07)
DX: E87.5 Hyperkalemia (principal); N18.6 End stage renal disease; U07.1 COVID-19; J12.82 Pneumonia due to coronavirus disease 2019; I50.22 Chronic systolic (congestive) heart failure; E27.40 Unspecified adrenocortical insufficiency; N25.81 Secondary hyperparathyroidism of renal origin; E11.22 Type 2 diabetes mellitus with diabetic chronic kidney disease; I25.10 Atherosclerotic heart disease of native coronary artery without angina pectoris; E03.9 Hypothyroidism, unspecified; F32.9 Major depressive disorder, single episode, unspecified; I25.5 Ischemic cardiomyopathy; Z90.49 Acquired absence of other specified parts of digestive tract; Z95.1 Presence of aortocoronary bypass graft; Z79.82 Long term (current) use of aspirin; Z79.899 Other long term (current) drug therapy; Z79.890 Hormone replacement therapy; Z79.4 Long term (current) use of insulin; D63.1 Anemia in chronic kidney disease; E87.2 Acidosis; D69.6 Thrombocytopenia, unspecified; E87.8 Other disorders of electrolyte and fluid balance, not elsewhere classified; Z51.5 Encounter for palliative care; Z66 Do not resuscitate; E83.51 Hypocalcemia
CPT/HCPCS: 0240U; 36415; 36416; 36430; 51701; 71045; 80048; 80053; 80069; 81003; 81015; 82306; 82550; 83036; 83605; 83690; 83970; 84439; 84443; 84481; 84484; 85025; 86850; 86900; 86901; 87040; 87086; 87149; 93005; 93010; 96365; 96367; 96375; 96376; J0692; J1720; J1815; J2001; J2405; J2550; J7070; P9016; Q0162; Q5105